=== PATIENT | female | born 1955 | race African-American/Black ===

== ENCOUNTER 2016-10-19 09:13 | Inpatient (IN) | payer MEDICARE, OTHER ==
[~2016-10-19] VITALS: Ht 165.1 cm; Wt 93.0 kg
[2016-10-19] VITALS (11 sets, daily range): BP systolic 109–168; BP diastolic 60–98
[~2016-10-19 09:13] MED LIST: ACET325T21 PO; ARIP30TA PO; BENZ2AMP4 PO; CALC-98 PO; CEPH-264 PO; CHLO25TA4 PO; CLON0.5T PO; CLOP75TA27 PO; DIVA500T2 PO; GABA400C PO; HYDR-971 PO; HYPR15DR9 EACHEYE; INSU100V13 SQ; INSU100V31 SUBCUT; IPRA3AMP23 INH; LORA0.5T96 PO; LOSA1TAB2 PO; MAGN400O4 PO; MAGN400T3 PO; METO25TA4 PO; MULT1CAP15 PO; NITR1PAT11; ONDA4TAB12 PO; PANT40TA3 PO; PHEN100C PO; WARF4TAB7 PO
[2016-10-19 10:13] LABS: BASO # 0.1 x10^3/uL (0.0-0.2); BASO % 1 % (0-3); EOS % 0 % (0-3); HEMATOCRIT 34.8 % (36.0-47.0); HEMOGLOBIN 11.5 g/dL (12.0-15.5); LYMPH # 2.3 x10^3/uL (1.0-4.8); LYMPH % 8 % (24-48); MEAN CORPUSCULAR HEMOGLOBIN 27 pg (25-35); MEAN CORPUSCULAR HGB CONC 33 g/dL (31-37); MEAN CORPUSCULAR VOLUME 83 fL (79-100); MONO % 14 % (0-9); NEUT % 78 % (31-73); PLATELET COUNT 234 x10^3/uL (140-400); RED CELL DISTRIBUTION WIDTH 16.3 % (11.5-14.5); WHITE BLOOD COUNT 29.8 x10^3/uL (4.0-11.0)
--- NOTE | 2016-10-19 10:19 | PHYS DOC ---
Past Medical History Past Medical History: CVA, Dementia, Depression, Diabetes-Type II, GERD, High Cholesterol, Hypertension, Schizophrenia, Other Additional Past Medical Histor: Osteoporosis/Dysphagia/Legal Blindness/Chron antiplatelet/Hemiplegia (L); Past Surgical History: Other Alcohol Use: None Drug Use: None Adult General Chief Complaint Chief Complaint: ALTERED MENTAL STATUS HPI HPI Patient is a 61 year old female who presents with altered mental status. Patient was brought to the emergency department for medical [place] [facility]. Patient was reported by staff to have decreased mental status. Patient at baseline has a GCS of 14 per the staff. Currently the patient is very lethargic and does not provide any history on my exam. The patient did wake up for nursing staff during triage and told them her name and birthdate but no other information. There is reported suspicion the patient may have urinary tract infection. The patient did have an elevated temperature at triage. Patient also found to have a blood sugar by staff at intermediate at 325. Patient was not given insulin today. Review of Systems Review of Systems Unable to obtain from patient due to obtunded state Current Medications Current Medications Current Medications Medications (Trade) Dose Ordered Sig/Gal Start Time Stop Time Status Last Admin Dose Admin Naloxone HCl (Narcan) 0.4 mg 1X ONCE 10/19/16 11:15 10/19/16 11:16 DC 10/19/16 11:20 0.4 MG Sodium Chloride (Iv Sodium Chloride 0.9% 1000ml Bag) 1,000 ml @ 622.5 mls/ hr Q1H37M 10/19/16 09:59 10/19/16 13:59 DC 10/19/16 11:35 622.5 MLS/HR Allergies Allergies Allergies Coded Allergies Type Severity Reaction Last Updated Verified No Known Drug Allergies 01/13/16 No Physical Exam Physical Exam Constitutional: Lethargic, responds to deep painful stimulus, febrile. [] HENT: Normocephalic, atraumatic, bilateral external ears normal, oropharynx dry , no oral exudates, nose normal. [] Eyes: Constricted pupils, normal conjunctiva, no discharge. [] Neck: Normal range of motion, no tenderness, supple, no stridor. [] Cardiovascular: Tachycardia, regular rhythm, no murmur [] Lungs & Thorax: Mildly restricted air movement bilaterally, no wheezes or rales [] Abdomen: Bowel sounds normal, soft, no tenderness, no masses, no pulsatile masses. [] Skin: Warm, dry, no erythema, no rash. [] Back: No tenderness, no CVA tenderness. [] Extremities: No tenderness, no cyanosis, no clubbing, ROM intact, trace pedal edema. [] Neurologic: Lethargic, localizes pain, does not follow commands. [] Current Patient Data Vital Signs Vital Signs Date Time Temp Pulse Resp B/P Pulse Ox O2 Delivery O2 Flow Rate FiO2 10/19/16 11:20 120 20 156/66 98 10/19/16 11:08 Nasal Cannula 2 10/19/16 09:28 100 100.0 Lab Values Laboratory Tests Test 10/19/16 09:32 10/19/16 10:00 10/19/16 10:10 10/19/16 10:15 Glucose (Fingerstick) 278mg/dL (70-99) H White Blood Count 29.8x10^3/uL (4.0-11.0) #H Red Blood Count 4.20x10^6/uL (3.50-5.40) Hemoglobin 11.5g/dL (12.0-15.5) L Hematocrit 34.8% (36.0-47.0) L Mean Corpuscular Volume 83fL (79-100) Mean Corpuscular Hemoglobin 27pg (25-35) Mean Corpuscular Hemoglobin Concent 33g/dL (31-37) Red Cell Distribution Width 16.3% (11.5-14.5) H Platelet Count 234x10^3/uL (140-400) Neutrophils (%) (Auto) 78% (31-73) H Lymphocytes (%) (Auto) 8% (24-48) L Monocytes (%) (Auto) 14% (0-9) H Eosinophils (%) (Auto) 0% (0-3) Basophils (%) (Auto) 1% (0-3) Neutrophils # (Auto) 23.2x10^3uL (1.8-7.7) H Lymphocytes # (Auto) 2.3x10^3/uL (1.0-4.8) Monocytes # (Auto) 4.1x10^3/uL (0.0-1.1) H Eosinophils # (Auto) 0.0x10^3/uL (0.0-0.7) Basophils # (Auto) 0.1x10^3/uL (0.0-0.2) Segmented Neutrophils % 56% (35-66) Band Neutrophils % 22% (0-9) H Lymphocytes % 11% (24-48) L Monocytes % 11% (0-10) H Platelet Estimate Adequate (ADEQUATE) Prothrombin Time 32.2SEC (11.7-14.0) H Prothrombin Time INR 3.4 (0.8-1.1) H PTT 64SEC (24-38) H Sodium Level 137mmol/L (136-145) Potassium Level 3.8mmol/L (3.5-5.1) Chloride Level 100mmol/L (98-107) Carbon Dioxide Level 27mmol/L (21-32) Anion Gap 10 (6-14) Blood Urea Nitrogen 34mg/dL (7-20) H Creatinine 2.4mg/dL (0.6-1.0) H Estimated GFR (Cockcroft-Gault) 25.0 BUN/Creatinine Ratio 14 (6-20) Glucose Level 319mg/dL (70-99) H Lactic Acid Level 1.7mmol/L (0.4-2.0) Calcium Level 9.2mg/dL (8.5-10.1) Total Bilirubin 0.5mg/dL (0.2-1.0) Aspartate Amino Transferase (AST) 11U/L (15-37) L Alanine Aminotransferase (ALT) 14U/L (14-59) Alkaline Phosphatase 77U/L (46-116) Creatine Kinase 66U/L (26-192) Creatine Kinase MB (Mass) 0.8ng/mL (0.0-3.6) Creatine Kinase MB Relative Index % (0-4) Total Protein 8.1g/dL (6.4-8.2) Albumin 2.5g/dL (3.4-5.0) L Albumin/Globulin Ratio 0.4 (1.0-1.7) L Lipase 49U/L (73-393) L Procalcitonin 4.30ng/mL (0.00-0.10) H Urine Collection Type U cath Urine Color [place] Urine Clarity Cloudy Urine pH 5.5 Urine Specific [place] >=1.030 Urine Protein Negativemg/dL (NEG-TRACE) Urine Glucose (UA) 500mg/dL (NEG) Urine Ketones (Stick) Tracemg/dL (NEG) Urine Blood Negative (NEG) Urine Nitrite Positive (NEG) Urine Bilirubin Small (NEG) Urine Urobilinogen Dipstick 1.0mg/dL (0.2 mg/dL) Urine Leukocyte Esterase Small (NEG) Urine RBC Occ/HPF (0-2) Urine WBC 5-10/HPF (0-4) Urine Squamous Epithelial Cells Mod/LPF Urine Bacteria 0/HPF (0-FEW) Urine Hyaline Casts Moderate/HPF Urine Mucus Mod/LPF Influenza Type A Antigen Negative (NEGATIVE) Influenza Type B Antigen Negative (NEGATIVE) Laboratory Tests 10/19/16 10:00 Laboratory Tests 10/19/16 10:00 EKG EKG Interpreted by me: Heart rate 126, sinus tachycardia, leftward axis, no acute ST /T-wave abnormalities present [] Radiology/Procedures Radiology/Procedures [place] [phone] IMAGING REPORT Signed PATIENT: ELIANA LIRA ACCOUNT: [id number] : 1955 LOCATION: ER AGE: 61 SEX: F EXAM STATUS: REG ER ORD. PHYSICIAN: IRIS MÉNDEZ MD REASON: fever, altered mental status PROCEDURE: PORTABLE CHEST 1V Exam: AP portable chest. History: Fever, altered mental status. Comparison: 01/14/2016. Findings: The heart and mediastinal structures are within normal limits for size. Lungs are without infiltrate. No pneumothorax or pleural effusion is appreciated. Aortic atherosclerosis is seen. There is elevation of the right hemidiaphragm. Impression: 1. No acute cardiopulmonary process. DICTATED and SIGNED BY: BERNICE ALDANA MD DATE: 10/19/16 1039 CC: IRIS MÉNDEZ MD; JENISE RAYMUNDO MD ~ [address] [id number] IMAGING REPORT Signed PATIENT: ELIANA LIRA ACCOUNT: [id number] : 1955 LOCATION: ER AGE: 61 SEX: F EXAM STATUS: REG ER ORD. PHYSICIAN: IRIS MÉNDEZ MD REASON: altered mental status PROCEDURE: HEAD WO CONTRAST EXAM: Head CT without contrast. HISTORY: Altered mental status. TECHNIQUE: Computed tomographic images of the head were obtained without contrast. COMPARISON: 01/14/2016. FINDINGS: There is no acute hemorrhage. There is encephalomalacia throughout the right cerebral hemisphere likely due to the sequela of chronic infarction. There is associated ex vacuo dilatation of the right lateral ventricle. There is also encephalomalacia within the left parietal and occipital lobes likely due to chronic infarction. There are scattered areas of hypodensity throughout the cerebral white matter likely due to chronic small vessel disease. There are suspected chronic lacunar infarcts within the left basal ganglia and bilateral thalami. There are foci of encephalomalacia within the cerebellar hemispheres likely due to chronic infarction. There is ossification along the falx and there are calcifications within the right cerebral parenchyma, stable in appearance. The orbits, paranasal sinuses and mastoid air cells are unremarkable. No calvarial lesion is seen. IMPRESSION: 1. Stable encephalomalacia within the right cerebral hemisphere likely due to chronic infarction. 2. Stable chronic infarcts within the left parietal and occipital lobes, cerebellar hemispheres, basal ganglia and thalami. 3. Scattered areas of hypodensity throughout the cerebral white matter, likely due to chronic small vessel disease. 4. Cerebral atrophy. 5. Note is made that MRI is more sensitive for acute infarction. PQRS Compliance Statement: One or more of the following individualized dose reduction techniques were utilized for this examination: 1. Automated exposure control 2. Adjustment of the mA and/or kV according to patient size 3. Use of iterative reconstruction technique DICTATED and SIGNED BY: SHARON ARGUELLES MD DATE: 10/19/16 1119 CC: IRIS MÉNDEZ MD; JENISE RAYMUNDO MD ~ [] Course & Med Decision Making Course & Med Decision Making Pertinent Labs and Imaging studies reviewed. (See chart for details) The patient was started on IV fluids while in the emergency department. The patient's found have signs of urinary tract infection. Patient has tachycardia and significant leukocytosis meeting criteria for sepsis. The patient was started on IV Rocephin for treatment. I spoke with Dr. Raymundo who accepted care patient in hospital for further treatment. Dragon Disclaimer Dragon Disclaimer This electronic medical record was generated, in whole or in part, using a voice recognition dictation system. Departure Departure Impression: Primary Impression: Sepsis Additional Impressions: Urinary tract infection Uncontrolled diabetes mellitus Severe protein-calorie malnutrition Disposition: ADMITTED INPATIENT Admitting Physician: Jenise Raymundo Condition: GUARDED Referrals: JENISE RAYMUNDO MD (PCP) Problem Qualifiers Primary Impression: Sepsis Sepsis type: sepsis due to unspecified organism Qualified Code: A41.9 - Sepsis, unspecified organism Additional Impressions: Urinary tract infection Urinary tract infection type: site unspecified Hematuria presence: without hematuria Qualified Code: N39.0 - Urinary tract infection, site not specified Uncontrolled diabetes mellitus Diabetes mellitus type: type 2 Diabetes mellitus complication status: with hyperglycemia 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
[2016-10-19] MEDS: IV NORMAL SALINE 1000ML BAG 1,000 ML IV SCH ×4 (10:20→13:13)
[2016-10-19 10:29] LABS: CALCIUM 9.2 mg/dL (8.5-10.1); CREATININE 2.4 mg/dL (0.6-1.0); POTASSIUM 3.8 mmol/L (3.5-5.1)
[2016-10-19 10:34] LABS: ALBUMIN 2.5 g/dL (3.4-5.0); ALBUMIN/GLOBULIN RATIO 0.4 (1.0-1.7); TOTAL BILIRUBIN 0.5 mg/dL (0.2-1.0); TOTAL PROTEIN 8.1 g/dL (6.4-8.2)
[2016-10-19 10:36] LABS: BILIRUBIN,URINE SMALL (NEG); GLUCOSE,URINE 500 mg/dL (NEG); NITRITE,URINE POSITIVE (NEG); PH,URINE 5.5
[2016-10-19 10:40] LABS: INR 3.4 (0.8-1.1); PROTHROMBIN TIME PATIENT 32.2 SEC (11.7-14.0)
--- NOTE | 2016-10-19 10:42 | RAD ---
Exam: AP portable chest. History: Fever, altered mental status. Comparison: 01/14/2016. Findings: The heart and mediastinal structures are within normal limits for size. Lungs are without infiltrate. No pneumothorax or pleural effusion is appreciated. Aortic atherosclerosis is seen. There is elevation of the right hemidiaphragm. Impression: 1. No acute cardiopulmonary process.
[2016-10-19 10:51] LABS: CKMB MASS 0.8 ng/mL (0.0-3.6); CREATINE KINASE 66 U/L (26-192)
[2016-10-19 10:53] LABS: OBC FLU VALID
[2016-10-19 10:54] LABS: PROTEIN,URINE NEGATIVE (NEG-TRACE); RBC,URINE OCC /HPF (0-2)
[2016-10-19 10:55] LABS: BACTERIA,URINE 0 /HPF (0-FEW); SQUAMOUS EPITHELIAL CELL,UR MOD /LPF
[2016-10-19] MEDS ORDERED: NALOXONE 0.4 MG/ML VIAL. ONE (11:04)
[2016-10-19 11:12] LABS: PROCALCITONIN 4.3 ng/mL (0.00-0.10)
--- NOTE | 2016-10-19 11:13 | EKG ---
[facility] [address] [place] [address] Test Date: 2016-10-19 Test Time: 09:34:30 Pat Name: ELIANA LIRA Department: Room: Gender: F Scale Expert: HSERRY : 1955 Requested By: IRIS MÉNDEZ Order Number: [id number] Reading MD: Vasyl Rios Measurements Intervals [place] Rate: 126 P: -84 MT: 98 QRS: -26 QRSD: 82 T: 62 QT: 350 QTc: 515 Interpretive Statements SINUS TACHYCARDIA NON-SPECIFIC ST/T CHANGES Electronically Signed On 10-25-2016 11:25:57 PARTS FINISHER by Vasyl Rios
[2016-10-19] MEDS ORDERED: NALOXONE 0.4 MG/ML VIAL. IV ONE (11:15)
--- NOTE | 2016-10-19 11:25 | RAD ---
EXAM: Head CT without contrast. HISTORY: Altered mental status. TECHNIQUE: Computed tomographic images of the head were obtained without contrast. COMPARISON: 01/14/2016. FINDINGS: There is no acute hemorrhage. There is encephalomalacia throughout the right cerebral hemisphere likely due to the sequela of chronic infarction. There is associated ex vacuo dilatation of the right lateral ventricle. There is also encephalomalacia within the left parietal and occipital lobes likely due to chronic infarction. There are scattered areas of hypodensity throughout the cerebral white matter likely due to chronic small vessel disease. There are suspected chronic lacunar infarcts within the left basal ganglia and bilateral thalami. There are foci of encephalomalacia within the cerebellar hemispheres likely due to chronic infarction. There is ossification along the falx and there are calcifications within the right cerebral parenchyma, stable in appearance. The orbits, paranasal sinuses and mastoid air cells are unremarkable. No calvarial lesion is seen. IMPRESSION: 1. Stable encephalomalacia within the right cerebral hemisphere likely due to chronic infarction. 2. Stable chronic infarcts within the left parietal and occipital lobes, cerebellar hemispheres, basal ganglia and thalami. 3. Scattered areas of hypodensity throughout the cerebral white matter, likely due to chronic small vessel disease. 4. Cerebral atrophy. 5. Note is made that MRI is more sensitive for acute infarction. PQRS Compliance Statement: One or more of the following individualized dose reduction techniques were utilized for this examination: 1. Automated exposure control 2. Adjustment of the mA and/or kV according to patient size 3. Use of iterative reconstruction technique
[2016-10-19] MEDS ORDERED: BUSP10TA PO (11:42)
[2016-10-19] MEDS ORDERED: WARF6TAB PO (11:43)
[2016-10-19] MEDS ORDERED: VALP250C PO (11:44)
[2016-10-19] MEDS ORDERED: LISI-338 PO (11:46)
[2016-10-19] MEDS ORDERED: GABA400C PO (11:51)
[2016-10-19] MEDS ORDERED: MIRT15TA PO (11:59)
[2016-10-19] MEDS ORDERED: OLAN5TAB3 PO (11:59)
[2016-10-19] MEDS ORDERED: SIMV10TA3 PO (11:59)
[2016-10-19] MEDS ORDERED: ACETAMINOPHEN 325 MG TABLET. PO PRN ×2 (12:00→17:15)
[2016-10-19] MEDS ORDERED: ONDANSETRON PF 4 MG/2 ML VIAL. IV PRN (12:00)
[2016-10-19] MEDS ORDERED: CEFTRIAXONE 1GM IVPB FOR OMNI 50 ML IV ONE (12:00)
--- NOTE | 2016-10-19 12:39 | ACF ---
Admission Forms Criteria SEPSIS and OTHER FEBRILE ILLNESS, W/O FOCAL INFECTION Clinical Indications for Admission to Inpatient Care ( Place 'X' for any and all applicable criteria): Admission is indicated for ANY ONE of the following (1)(2)(3)(4): [ ] I. Bacteremia [ ]II. Suspected or identified specific infection requiring hospitalization (eg, meningitis, endocarditis) [ ]III. Hemodynamic instability [X]IV. Altered mental status [ ]V. Failure or unavailability of outpatient antimicrobial treatment [ ]. Hypoxemia [ ]VII. Seizures [ ]VIII. High-risk febrile neutropenia [ ]IX. Need for parenteral antibiotic in patient who is likely to abuse vascular access device (eg, injection drug user) [A](7) [ ]X. Temperature greater than 104.9 degrees F (40.5 degrees C) (oral) [ ]XI. Inpatient admission required rather than observation care because of ANY ONE of the following: [ ]1) Specific infection identified that is too severe for outpatient treatment or observation care trial [ ]2) Metabolic disorder (eg, hypoglycemia, hyperglycemia, metabolic acidosis) that is severe or persistent [ ]3) Temperature greater than 103.1 degrees F (39.5 degrees C) ( oral) that is not responsive to observation care treatment [ ]4) IV fluid to replace significant ongoing (eg, for over 24 hours) losses (> 3 L/m2 per day) [ ]5) Supplemental oxygen or respiratory treatments for over 24 hours that is performable only in acute inpatient setting [ ]6) Parenteral nutrition regimen need that must be implemented on inpatient basis [ ]7) Strict or protective (eg, laminar flow) isolation [ ]8) Other condition, treatment or monitoring requiring inpatient admission Extended stay beyond goal length of stay may be needed for(1)(3) [ ]a) Sepsis or septic shock(22) [ ]b) Positive blood cultures [ ]c) Insufficient oral intake [ ]d) High-risk febrile neutropenia(29)(30) [ ]e) Continued fever and clinical instability [ ]f) Clinically active comorbid illness (e.g,heart failure, renal failure , diabetes) The original [employer] content created by [employer] has been revised. The portions of the content which have been revised are identified through the use of italic text or in bold, and [employer] has neither reviewed nor approved the modified material. All other unmodified content is copyright [facility]. Please see references footnoted in the original [facility] edition 2016 Admission Criteria Met?: Yes EFRAIN BEEBE Oct 19, 2016 12:39
[2016-10-19 14:13] LABS: PLT ESTIMATE ADEQUATE (ADEQUATE)
[2016-10-19] MEDS ORDERED: CHOL100013 PO (15:45)
[2016-10-19] MEDS ORDERED: POLY17PO5 PO (15:45)
[2016-10-19] MEDS ORDERED: SENN1TAB7 PO (15:45)
[2016-10-19] MEDS ORDERED: PHEN100C4 PO (15:45)
[2016-10-19] MEDS ORDERED: CHLO100T6 PO (15:45)
[2016-10-19] MEDS ORDERED: DIVA500T4 PO (15:45)
[2016-10-19] MEDS ORDERED: WARF1TAB7 PO (15:45)
[2016-10-19] MEDS ORDERED: ACET325T21 PO (15:45)
[2016-10-19] MEDS ORDERED: BENZ2TAB5 PO (15:45)
[2016-10-19] MEDS ORDERED: LORAZEPAM 0.5 MG TABLET. PO PRN (17:15)
[2016-10-19] MEDS ORDERED: HYDROCODONE/APAP 5/325MG TABLET. PO PRN (17:15)
[2016-10-19] MEDS: PIPERACILLIN/TAZOBACTAM 3.375 GM in IV NORMAL SALINE 50ML 50 ML IV SCH (17:56)
[2016-10-19] MEDS: INSULIN ASPART 300 UNITS/3 ML INSULN.PEN SQ SCH (17:59)
[2016-10-19] MEDS: PHENYTOIN SODIUM EXTENDED 100 MG CAPSULE PO SCH (21:00)
[2016-10-19] MEDS: VALPROIC ACID 250 MG CAPSULE. PO SCH (21:00)
[2016-10-19] MEDS: DIVALPROEX EXTENDED RELEASE 500 MG TAB.ER.24H. PO SCH (21:00)
[2016-10-19] MEDS: CLONAZEPAM 0.5 MG TABLET PO SCH (21:19)
[2016-10-19] MEDS: SIMVASTATIN 10 MG TABLET PO SCH (21:19)
[2016-10-19] MEDS: OLANZAPINE 2.5 MG TABLET PO SCH (21:19)
[2016-10-19] MEDS: POLYVINYL ALCOHOL 1.4% OPHTH SOLUTION 15ML BOTTLE. OU SCH (21:20)
[2016-10-19] MEDS: busPIRone 5 MG TABLET. PO SCH (21:20)
[2016-10-19] MEDS: GABAPENTIN 400 MG CAPSULE. PO SCH (21:20)
[2016-10-19] MEDS: CHLORPROMAZINE 25 MG PO SCH ×2 (21:20)
[2016-10-19] MEDS: MIRTAZAPINE 15 MG TABLET PO SCH (21:20)
[2016-10-19] MEDS: INSULIN DETEMIR 300 UNITS/3 ML INSULN.PEN. SQ SCH (21:21)
[2016-10-20] VITALS (24 sets, daily range): BP systolic 77–183; BP diastolic 45–91
[2016-10-20] MEDS: IV NORMAL SALINE 1000ML BAG 1,000 ML IV SCH ×2 (00:30→08:36)
[2016-10-20] MEDS: PIPERACILLIN/TAZOBACTAM 3.375 GM in IV NORMAL SALINE 50ML 50 ML IV SCH ×3 (05:29→22:04)
[2016-10-20 07:08] LABS: BASO # 0.1 x10^3/uL (0.0-0.2); BASO % 1 % (0-3); EOS % 0 % (0-3); HEMATOCRIT 35.1 % (36.0-47.0); LYMPH # 1.5 x10^3/uL (1.0-4.8); LYMPH % 6 % (24-48); MEAN CORPUSCULAR HEMOGLOBIN 27 pg (25-35); MEAN CORPUSCULAR HGB CONC 32 g/dL (31-37); MEAN CORPUSCULAR VOLUME 85 fL (79-100); MONO % 12 % (0-9); NEUT % 82 % (31-73); PLATELET COUNT 183 x10^3/uL (140-400); RED BLOOD COUNT 4.12 x10^6/uL (3.50-5.40); RED CELL DISTRIBUTION WIDTH 15.7 % (11.5-14.5); WHITE BLOOD COUNT 25.5 x10^3/uL (4.0-11.0)
[2016-10-20 07:16] LABS: ALBUMIN 2.1 g/dL (3.4-5.0); ALBUMIN/GLOBULIN RATIO 0.4 (1.0-1.7); ALK PHOS 85 U/L (46-116); ALT (SGPT) 13 U/L (14-59); ANION GAP 14 (6-14); AST (SGOT) 14 U/L (15-37); BLOOD UREA NITROGEN 19 mg/dL (7-20); BUN/CREATININE RATIO 21 (6-20); CALCIUM 8.6 mg/dL (8.5-10.1); CARBON DIOXIDE 23 mmol/L (21-32); CHLORIDE 106 mmol/L (98-107); CREATININE 0.9 mg/dL (0.6-1.0); GFR 77.5; GLUCOSE 304 mg/dL (70-99); POTASSIUM 3.8 mmol/L (3.5-5.1); SODIUM 143 mmol/L (136-145); TOTAL PROTEIN 7.4 g/dL (6.4-8.2)
[2016-10-20 07:27] LABS: PROTHROMBIN TIME PATIENT 29.3 SEC (11.7-14.0)
--- NOTE | 2016-10-20 07:33 | PDOC ---
Infectious Disease Note Vital Sign Vital Signs Vital Signs Date Time Temp Pulse Resp B/P Pulse Ox O2 Delivery O2 Flow Rate FiO2 10/20/16 06:00 125 20 136/74 96 Nasal Cannula 2.0 10/20/16 04:00 101.2 101.2 Labs Lab Laboratory Tests Test 10/19/16 09:32 10/19/16 10:00 10/19/16 10:10 10/19/16 10:15 Glucose (Fingerstick) 278mg/dL (70-99) White Blood Count 29.8x10^3/uL (4.0-11.0) Red Blood Count 4.20x10^6/uL (3.50-5.40) Hemoglobin 11.5g/dL (12.0-15.5) Hematocrit 34.8% (36.0-47.0) Mean Corpuscular Volume 83fL (79-100) Mean Corpuscular Hemoglobin 27pg (25-35) Mean Corpuscular Hemoglobin Concent 33g/dL (31-37) Red Cell Distribution Width 16.3% (11.5-14.5) Platelet Count 234x10^3/uL (140-400) Neutrophils (%) (Auto) 78% (31-73) Lymphocytes (%) (Auto) 8% (24-48) Monocytes (%) (Auto) 14% (0-9) Eosinophils (%) (Auto) 0% (0-3) Basophils (%) (Auto) 1% (0-3) Neutrophils # (Auto) 23.2x10^3uL (1.8-7.7) Lymphocytes # (Auto) 2.3x10^3/uL (1.0-4.8) Monocytes # (Auto) 4.1x10^3/uL (0.0-1.1) Eosinophils # (Auto) 0.0x10^3/uL (0.0-0.7) Basophils # (Auto) 0.1x10^3/uL (0.0-0.2) Segmented Neutrophils % 56% (35-66) Band Neutrophils % 22% (0-9) Lymphocytes % 11% (24-48) Monocytes % 11% (0-10) Platelet Estimate Adequate (ADEQUATE) Prothrombin Time 32.2SEC (11.7-14.0) Prothromb Time International Ratio 3.4 (0.8-1.1) Activated Partial Thromboplast Time 64SEC (24-38) Sodium Level 137mmol/L (136-145) Potassium Level 3.8mmol/L (3.5-5.1) Chloride Level 100mmol/L (98-107) Carbon Dioxide Level 27mmol/L (21-32) Anion Gap 10 (6-14) Blood Urea Nitrogen 34mg/dL (7-20) Creatinine 2.4mg/dL (0.6-1.0) Estimated GFR (Cockcroft-Gault) 25.0 BUN/Creatinine Ratio 14 (6-20) Glucose Level 319mg/dL (70-99) Lactic Acid Level 1.7mmol/L (0.4-2.0) Calcium Level 9.2mg/dL (8.5-10.1) Total Bilirubin 0.5mg/dL (0.2-1.0) Aspartate Amino Transf (AST/SGOT) 11U/L (15-37) Alanine Aminotransferase (ALT/SGPT) 14U/L (14-59) Alkaline Phosphatase 77U/L (46-116) Creatine Kinase 66U/L (26-192) Creatine Kinase MB (Mass) 0.8ng/mL (0.0-3.6) Creatine Kinase MB Relative Index % (0-4) Total Protein 8.1g/dL (6.4-8.2) Albumin 2.5g/dL (3.4-5.0) Albumin/Globulin Ratio 0.4 (1.0-1.7) Lipase 49U/L (73-393) Procalcitonin 4.30ng/mL (0.00-0.10) Urine Collection Type U cath Urine Color [place] Urine Clarity Cloudy Urine pH 5.5 Urine Specific [place] >=1.030 Urine Protein Negativemg/dL (NEG-TRACE) Urine Glucose (UA) 500mg/dL (NEG) Urine Ketones (Stick) Tracemg/dL (NEG) Urine Blood Negative (NEG) Urine Nitrite Positive (NEG) Urine Bilirubin Small (NEG) Urine Urobilinogen Dipstick 1.0mg/dL (0.2 mg/dL) Urine Leukocyte Esterase Small (NEG) Urine RBC Occ/HPF (0-2) Urine WBC 5-10/HPF (0-4) Urine Squamous Epithelial Cells Mod/LPF Urine Bacteria 0/HPF (0-FEW) Urine Hyaline Casts Moderate/HPF Urine Mucus Mod/LPF Influenza Type A Antigen Negative (NEGATIVE) Influenza Type B Antigen Negative (NEGATIVE) Test 10/19/16 12:30 10/19/16 13:00 10/19/16 16:30 10/19/16 17:48 Lactic Acid Level 2.9mmol/L (0.4-2.0) 2.8mmol/L (0.4-2.0) Nasal Screen MRSA (PCR) Positive (Negative) Glucose (Fingerstick) 261mg/dL (70-99) Test 10/19/16 21:08 10/19/16 21:20 10/20/16 06:45 Glucose (Fingerstick) 225mg/dL (70-99) Lactic Acid Level 2.0mmol/L (0.4-2.0) White Blood Count 25.5x10^3/uL (4.0-11.0) Red Blood Count 4.12x10^6/uL (3.50-5.40) Hemoglobin 11.0g/dL (12.0-15.5) Hematocrit 35.1% (36.0-47.0) Mean Corpuscular Volume 85fL (79-100) Mean Corpuscular Hemoglobin 27pg (25-35) Mean Corpuscular Hemoglobin Concent 32g/dL (31-37) Red Cell Distribution Width 15.7% (11.5-14.5) Platelet Count 183x10^3/uL (140-400) Neutrophils (%) (Auto) 82% (31-73) Lymphocytes (%) (Auto) 6% (24-48) Monocytes (%) (Auto) 12% (0-9) Eosinophils (%) (Auto) 0% (0-3) Basophils (%) (Auto) 1% (0-3) Neutrophils # (Auto) 20.9x10^3uL (1.8-7.7) Lymphocytes # (Auto) 1.5x10^3/uL (1.0-4.8) Monocytes # (Auto) 3.0x10^3/uL (0.0-1.1) Eosinophils # (Auto) 0.0x10^3/uL (0.0-0.7) Basophils # (Auto) 0.1x10^3/uL (0.0-0.2) Prothrombin Time 29.3SEC (11.7-14.0) Prothromb Time International Ratio 3.0 (0.8-1.1) Sodium Level 143mmol/L (136-145) Potassium Level 3.8mmol/L (3.5-5.1) Chloride Level 106mmol/L (98-107) Carbon Dioxide Level 23mmol/L (21-32) Anion Gap 14 (6-14) Blood Urea Nitrogen 19mg/dL (7-20) Creatinine 0.9mg/dL (0.6-1.0) Estimated GFR (Cockcroft-Gault) 77.5 BUN/Creatinine Ratio 21 (6-20) Glucose Level 304mg/dL (70-99) Calcium Level 8.6mg/dL (8.5-10.1) Total Bilirubin 1.0mg/dL (0.2-1.0) Aspartate Amino Transf (AST/SGOT) 14U/L (15-37) Alanine Aminotransferase (ALT/SGPT) 13U/L (14-59) Alkaline Phosphatase 85U/L (46-116) Total Protein 7.4g/dL (6.4-8.2) Albumin 2.1g/dL (3.4-5.0) Albumin/Globulin Ratio 0.4 (1.0-1.7) Phenytoin (Dilantin) Level 3.1mcg/mL (10.0-20.0) Phenytoin Last Dose Date 10/18/16 Phenytoin Last Dose Time 0800 Objective Assessment Fever Leukocytosis Lactic acidosis Encephalopathy CVA UTI Plan Plan of Care vanc and zosyn check cultures ? baseline mental status ? hospice RAGHU YOU MD Oct 20, 2016 07:33
[2016-10-20] MEDS ORDERED: VANCOMYCIN 2 GM in IV NORMAL SALINE 500ML BAG 500 ML IV ONE (08:00)
[2016-10-20] MEDS: PANTOPRAZOLE 40 MG TABLET. PO SCH (08:33)
[2016-10-20] MEDS: POLYVINYL ALCOHOL 1.4% OPHTH SOLUTION 15ML BOTTLE. OU SCH ×4 (08:33→20:01)
[2016-10-20] MEDS: PHENYTOIN SODIUM EXTENDED 100 MG CAPSULE PO SCH ×2 (08:34→20:11)
[2016-10-20] MEDS: DIVALPROEX EXTENDED RELEASE 500 MG TAB.ER.24H. PO SCH ×2 (08:34→20:10)
[2016-10-20] MEDS: LISINOPRIL 5 MG TABLET. PO SCH (08:35)
[2016-10-20] MEDS: busPIRone 5 MG TABLET. PO SCH ×3 (08:35→20:00)
[2016-10-20] MEDS: MULTIVITAMIN with MINERAL TABLET. PO SCH (08:35)
[2016-10-20] MEDS: BENZTROPINE MESYLATE 1 MG TABLET PO SCH (08:36)
[2016-10-20] MEDS: INSULIN ASPART 300 UNITS/3 ML INSULN.PEN SQ SCH ×3 (08:40→16:14)
[2016-10-20] MEDS ORDERED: PHENYTOIN SODIUM EXTENDED 100 MG CAPSULE PO ONE (09:00)
[2016-10-20] MEDS: INSULIN DETEMIR 300 UNITS/3 ML INSULN.PEN. SQ SCH ×2 (09:23→20:04)
[2016-10-20] MEDS: VANCOMYCIN PER PHARMACY MC PRN (09:39)
[2016-10-20] MEDS ORDERED: CEFTRIAXONE SODIUM 1 GM in IV NORMAL SALINE 50ML 50 ML IV SCH (12:00)
--- NOTE | 2016-10-20 12:16 | HP ---
ADMIT DATE: 10/19/2016 ADMITTING PHYSICIAN: Dr. Pablo Rojas. REASON FOR ADMISSION: Change in mental status. HISTORY OF PRESENT ILLNESS: This 61 years old female who is a resident of [facility] was noted to be much less responsive and lethargic. She also was noted to have fever in the Emergency Room. Because of the change in mental status, the patient was sent to the Emergency Room. In the Emergency Room, the patient was noted to have sepsis and UTI with elevated lactic acid levels and abnormal urine and very high WBC count, more than 25,000. Because of the change in mental status, sepsis, lethargy and urinary tract infection, the patient was admitted to Intensive Care Unit. SYSTEMS REVIEW: The patient is lethargic. She opens her eyes, but falls asleep very quickly. She says one or two words, unable to get full systems reviewed. Other systems reviewed and are negative. PAST MEDICAL HISTORY: The patient was last admitted here in June 2014. She has a history of right lower lobe pneumonia, acute hypoxic respiratory failure, hypertension, hyperlipidemia, cerebrovascular accident with seizure disorder, schizophrenia, diabetes mellitus type 2, dementia, gastroesophageal reflux disease, and blindness. PAST SURGICAL HISTORY: The patient had nontraumatic fracture, vitamin D deficiency, osteoporosis, tibiofibular fracture, diabetic neuropathy and she also has peripheral vascular disease. SOCIAL HISTORY: The patient is a resident of [facility]. No history of alcoholism, drug abuse or smoking. FAMILY HISTORY: Reviewed and noncontributory. OBJECTIVE: VITAL SIGNS: Pulse 120 per minute, temperature earlier was 101.4 degrees Fahrenheit, blood pressure 157/78 mmHg, respirations 18 per minute. GENERAL: The patient is very lethargic, barely opens her eyes and falls asleep. She says one or two words. SKIN: Warm and dry. Skin turgor decreased. EYES: The patient has legal blindness, unable to examine properly. THROAT: Mild congestion. Tongue and mucosa are dry. SKIN: Warm and dry. There is no cyanosis. NECK: JVP normal. No thyromegaly. Trachea midline. LUNGS: Decreased breath sounds at bases. CARDIOVASCULAR: S1 and S2 regular. ABDOMEN: Soft, obese, nontender, no guarding, no rigidity. Bowel sounds present. EXTREMITIES: No edema. CENTRAL NERVOUS SYSTEM: Unable to do full exam as patient is unable to cooperate. She is extremely lethargic and unable to follow any commands. LABORATORY FINDINGS: WBC count was 29.8 yesterday and 25.5 today, hemoglobin 11.5 yesterday and 11 today. Sodium 143, potassium 3.8, BUN 19, creatinine 0.9, glucose 261, 225, 304, 262. Sodium yesterday was 137, potassium was 3.8, BUN 34 and creatinine 2.4. Procalcitonin was 4.3. Lactic acid level went up to 2.9, today it is 2. Urinalysis is positive for nitrite, 5-10 wbc's, 0 bacteria. WBC count was 29.8 yesterday and 25.5 today. INR is 3. CT scan of head did not show any acute changes. Chest x-ray did not show any infiltrates. IMPRESSION: 1. Sepsis. 2. Acute metabolic encephalopathy. 3. Urinary tract infection. 4. Acute renal failure. 5. Seizure disorder with low Dilantin level of 3. 6. Diabetes mellitus type 2. 7. Dementia. 8. Paranoid schizophrenia. 9. Physical deconditioning. 10. Moderate malnutrition with albumin of 2.5. 11. Peripheral vascular disease. 12. Hyperlipidemia. 13. History of hypertension. 14. Gastroesophageal reflux disease. 15. Osteoporosis. 16. Vitamin D deficiency. 17. Legal blindness. PLAN: The patient has been admitted to ICU. The patient was given IV fluid bolus this morning because of the low blood pressure. We will continue IV fluids that have been increased. Monitor her for fluid overload. The patient has been given one dose of IV vancomycin. She has received Rocephin also. Obtain cultures. Consultation has been obtained with Dr. Amrik Steve. Monitor for seizure disorder, Dilantin level is low at 3, so I will give her extra dose of Dilantin. For details, please refer to the orders. PABLO ROJAS MD DR: JAME/david JOB#: [id number] / [id number]
[2016-10-20] MEDS ORDERED: IV NORMAL SALINE 1000ML BAG 1,000 ML IV ONE (15:30)
[2016-10-20] MEDS ORDERED: WARFARIN 3 MG TABLET. PO ONE (16:00)
[2016-10-20] MEDS ORDERED: WARFARIN 6 MG TABLET. PO SCH (16:00)
[2016-10-20] MEDS ORDERED: WARFARIN 1 MG TABLET. PO SCH (16:00)
[2016-10-20] MEDS: ACETAMINOPHEN 325 MG TABLET. PO PRN (17:21)
[2016-10-20] MEDS: MIRTAZAPINE 15 MG TABLET PO SCH (20:01)
[2016-10-20] MEDS: OLANZAPINE 2.5 MG TABLET PO SCH (20:01)
[2016-10-20] MEDS: CLONAZEPAM 0.5 MG TABLET PO SCH (20:01)
[2016-10-20] MEDS: GABAPENTIN 400 MG CAPSULE. PO SCH (20:01)
[2016-10-20] MEDS: SIMVASTATIN 10 MG TABLET PO SCH (20:01)
[2016-10-20] MEDS: CHLORPROMAZINE 25 MG PO SCH ×2 (20:01→20:14)
[2016-10-20] MEDS: VALPROIC ACID 250 MG CAPSULE. PO SCH (20:10)
[2016-10-20] MEDS: VANCOMYCIN 1.25 GM in IV NORMAL SALINE 250ML 250 ML IV SCH (21:00)
--- NOTE | 2016-10-20 22:03 | CONS ---
DATE OF CONSULTATION: 10/20/2016 REQUESTING PHYSICIAN: Dr. Raymundo. REASON FOR CONSULTATION: Sepsis. HISTORY OF PRESENT ILLNESS: This is a 61-year-old female who is a skilled nursing resident with history of CVA and dementia, apparently who we do not know what her baseline mental status and activity status is, was brought in because of the altered mental status. The patient just mumbles few words and other than that, no other communication is possible. The patient was found to have fever, leukocytosis, abnormal urinalysis, lactic acidosis. The patient was given fluids, started initially on Rocephin. I changed to Zosyn. The patient does not have any skin breakdown. The patient does not have any problem with the blood pressure. Lactic acid improved. The patient is still currently opens eyes and mumbles, could not known communication is possible. No nausea, vomiting, diarrhea noted. PAST MEDICAL HISTORY: Positive for CVA, dementia, diabetes, gastroesophageal reflux disease, hyperlipidemia, hypertension, schizophrenia. SOCIAL HISTORY: Unable to obtain, the patient is a skilled nursing resident. ALLERGIES: No known drug allergies. CURRENT MEDICATIONS: The patient is on Zosyn. REVIEW OF SYSTEMS: As per HPI, all other systems reviewed are negative through the nurses, but nothing much can be done through the patient. PHYSICAL EXAMINATION: GENERAL: The patient opens eyes and mumbles few words, not in any distress. VITAL SIGNS: Temperature 100.2 with T-max 101.2. Pulse 125, respirations 20, blood pressure 136/74. HEENT: NAD. NECK: Stiff, unclear whether related to her baseline status or new. No lymphadenopathy. LUNGS: Clear. HEART: S1, S2 regular. ABDOMEN: Benign. EXTREMITIES: No edema, cyanosis. SKIN: Unremarkable. NEUROLOGIC: The patient is unresponsive and mumbles few words here and there, that is not understandable. LABORATORY DATA: White count is 25,000, hemoglobin 11.0, platelets are 183,000. BUN 34 and 2.4, which has now improved to 19 and 0.9. The lactic acid was up to 2.9. Phenytoin level is 3.1. Urinalysis showed 5-10 wbc. MRSA screen positive. Influenza screen negative. IMAGING STUDIES: Chest x-ray is unremarkable for any acute process. CT of the head was unremarkable for any new changes. Does have encephalomalacia from chronic infarct. IMPRESSION: 1. Fever, leukocytosis and lactic acidosis, points towards sepsis. 2. Urinary tract infection with sepsis. 3. Encephalopathy, question how much is new, how much is old. 4. Multiple cerebrovascular accident in the past. 5. Dementia. 6. Acute renal failure, which has improved because of the dehydration. RECOMMENDATIONS: I would continue Zosyn as I had started, add vancomycin. Supportive care. More information from the skilled nursing or from Dr. Raymundo, depending upon that, that we may decide to do lumbar puncture or not. Thank you very much, Dr. Raymundo, for giving me the opportunity to participate in this patient's care. Overall, prognosis is poor. RAGHU YOU MD DR: BOB/nts JOB#: [id number] / [id number]
[2016-10-21] VITALS (16 sets, daily range): BP systolic 91–156; BP diastolic 48–84
[2016-10-21 06:13] LABS: INR 2.7 (0.8-1.1); PROTHROMBIN TIME PATIENT 27.4 SEC (11.7-14.0)
[2016-10-21] MEDS: PIPERACILLIN/TAZOBACTAM 3.375 GM in IV NORMAL SALINE 50ML 50 ML IV SCH ×3 (06:16→17:50)
[2016-10-21 06:18] LABS: ALBUMIN 1.7 g/dL (3.4-5.0); ALBUMIN/GLOBULIN RATIO 0.3 (1.0-1.7); CREATININE 1.8 mg/dL (0.6-1.0); GFR 34.8; MAGNESIUM 1.6 mg/dL (1.8-2.4); POTASSIUM 3.4 mmol/L (3.5-5.1); TOTAL BILIRUBIN 1.1 mg/dL (0.2-1.0)
[2016-10-21] MEDS: INSULIN ASPART 300 UNITS/3 ML INSULN.PEN SQ SCH ×3 (07:30→18:03)
[2016-10-21 07:47] LABS: BASO # 0.1 x10^3/uL (0.0-0.2); BASO % 0 % (0-3); EOS % 0 % (0-3); HEMATOCRIT 31.8 % (36.0-47.0); HEMOGLOBIN 9.9 g/dL (12.0-15.5); LYMPH # 1.5 x10^3/uL (1.0-4.8); LYMPH % 6 % (24-48); MEAN CORPUSCULAR HEMOGLOBIN 27 pg (25-35); MEAN CORPUSCULAR HGB CONC 31 g/dL (31-37); MEAN CORPUSCULAR VOLUME 87 fL (79-100); MONO % 15 % (0-9); NEUT % 78 % (31-73); PLATELET COUNT 204 x10^3/uL (140-400); RED BLOOD COUNT 3.66 x10^6/uL (3.50-5.40); RED CELL DISTRIBUTION WIDTH 16.1 % (11.5-14.5); WHITE BLOOD COUNT 24.9 x10^3/uL (4.0-11.0)
--- NOTE | 2016-10-21 08:09 | PDOC ---
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 SKIN: No rash IV: ok Labs Lab Laboratory Tests Test 10/20/16 08:31 10/20/16 12:32 10/20/16 16:11 10/20/16 20:03 Glucose (Fingerstick) 262mg/dL (70-99) 201mg/dL (70-99) 201mg/dL (70-99) 135mg/dL (70-99) Test 10/21/16 05:20 White Blood Count 24.9x10^3/uL (4.0-11.0) Red Blood Count 3.66x10^6/uL (3.50-5.40) Hemoglobin 9.9g/dL (12.0-15.5) Hematocrit 31.8% (36.0-47.0) Mean Corpuscular Volume 87fL (79-100) Mean Corpuscular Hemoglobin 27pg (25-35) Mean Corpuscular Hemoglobin Concent 31g/dL (31-37) Red Cell Distribution Width 16.1% (11.5-14.5) Platelet Count 204x10^3/uL (140-400) Neutrophils (%) (Auto) 78% (31-73) Lymphocytes (%) (Auto) 6% (24-48) Monocytes (%) (Auto) 15% (0-9) Eosinophils (%) (Auto) 0% (0-3) Basophils (%) (Auto) 0% (0-3) Neutrophils # (Auto) 19.5x10^3uL (1.8-7.7) Lymphocytes # (Auto) 1.5x10^3/uL (1.0-4.8) Monocytes # (Auto) 3.8x10^3/uL (0.0-1.1) Eosinophils # (Auto) 0.0x10^3/uL (0.0-0.7) Basophils # (Auto) 0.1x10^3/uL (0.0-0.2) Prothrombin Time 27.4SEC (11.7-14.0) Prothromb Time International Ratio 2.7 (0.8-1.1) Sodium Level 150mmol/L (136-145) Potassium Level 3.4mmol/L (3.5-5.1) Chloride Level 116mmol/L (98-107) Carbon Dioxide Level 26mmol/L (21-32) Anion Gap 8 (6-14) Blood Urea Nitrogen 17mg/dL (7-20) Creatinine 1.8mg/dL (0.6-1.0) Estimated GFR (Cockcroft-Gault) 34.8 BUN/Creatinine Ratio 9 (6-20) Glucose Level 121mg/dL (70-99) Calcium Level 8.0mg/dL (8.5-10.1) Magnesium Level 1.6mg/dL (1.8-2.4) Total Bilirubin 1.1mg/dL (0.2-1.0) Aspartate Amino Transf (AST/SGOT) 24U/L (15-37) Alanine Aminotransferase (ALT/SGPT) 13U/L (14-59) Alkaline Phosphatase 96U/L (46-116) Total Protein 7.0g/dL (6.4-8.2) Albumin 1.7g/dL (3.4-5.0) Albumin/Globulin Ratio 0.3 (1.0-1.7) Objective Assessment Fever Leukocytosis Lactic acidosis Encephalopathy CVA UTI Plan Plan of Care vanc and zosyn check cultures ? baseline mental status DNR RAGHU YOU MD Oct 21, 2016 08:09
[2016-10-21] MEDS: PHENYTOIN SODIUM EXTENDED 100 MG CAPSULE PO SCH ×2 (08:49→21:25)
[2016-10-21] MEDS: INSULIN DETEMIR 300 UNITS/3 ML INSULN.PEN. SQ SCH ×2 (08:49→21:33)
[2016-10-21] MEDS: LISINOPRIL 5 MG TABLET. PO SCH (08:50)
[2016-10-21] MEDS: MULTIVITAMIN with MINERAL TABLET. PO SCH (08:50)
[2016-10-21] MEDS: BENZTROPINE MESYLATE 1 MG TABLET PO SCH (08:50)
[2016-10-21] MEDS: PANTOPRAZOLE 40 MG TABLET. PO SCH (08:50)
[2016-10-21] MEDS: POLYVINYL ALCOHOL 1.4% OPHTH SOLUTION 15ML BOTTLE. OU SCH ×4 (08:50→21:28)
[2016-10-21] MEDS ORDERED: MAGNESIUM SULFATE 2GM 50 ML IV ONE (09:00)
[2016-10-21] MEDS: VANCOMYCIN 1.25 GM in IV NORMAL SALINE 250ML 250 ML IV SCH (09:11)
[2016-10-21] MEDS: VANCOMYCIN PER PHARMACY MC PRN (09:33)
[2016-10-21] MEDS: DIVALPROEX EXTENDED RELEASE 500 MG TAB.ER.24H. PO SCH (09:59)
[2016-10-21] MEDS: busPIRone 5 MG TABLET. PO SCH ×3 (10:00→21:25)
--- NOTE | 2016-10-21 10:19 | PDOC ---
IM PROGRESS NOTES- Subjective Subjective sleeping.Unable to do systems review. Objective Vitals Vital Signs Date Time Temp Pulse Resp B/P Pulse Ox O2 Delivery O2 Flow Rate FiO2 10/21/16 10:01 114 16 134/72 98 Nasal Cannula 2.0 10/21/16 07:00 99.6 99.6 Input & Output Intake and Output 10/21/16 07:00 Intake Total 6410 ml Output Total 2100 ml Balance 4310 ml Intake Oral 0 ml IV Total 2439 ml Other 3971 ml Output Urine Total 2100 ml Physical Exam Physical Exam GENERAL: The patient is sleeping SKIN: Warm and dry. Skin turgor decreased. EYES: The patient has legal blindness, unable to examine properly. THROAT: unable to check SKIN: Warm and dry. There is no cyanosis. NECK: JVP normal. No thyromegaly. Trachea midline. LUNGS: Decreased breath sounds at bases. CARDIOVASCULAR: S1 and S2 regular. ABDOMEN: Soft, obese, nontender, no guarding, no rigidity. Bowel sounds present. EXTREMITIES: + edema. CENTRAL NERVOUS SYSTEM: Unable to do full exam as patient is unable to cooperate. sleeping Labs Laboratory Tests Test 10/19/16 12:30 10/19/16 13:00 10/19/16 16:30 10/19/16 17:48 Lactic Acid Level 2.9mmol/L (0.4-2.0) 2.8mmol/L (0.4-2.0) Nasal Screen MRSA (PCR) Positive (Negative) Glucose (Fingerstick) 261mg/dL (70-99) Test 10/19/16 21:08 10/19/16 21:20 10/20/16 06:45 10/20/16 08:31 Glucose (Fingerstick) 225mg/dL (70-99) 262mg/dL (70-99) Lactic Acid Level 2.0mmol/L (0.4-2.0) White Blood Count 25.5x10^3/uL (4.0-11.0) Red Blood Count 4.12x10^6/uL (3.50-5.40) Hemoglobin 11.0g/dL (12.0-15.5) Hematocrit 35.1% (36.0-47.0) Mean Corpuscular Volume 85fL (79-100) Mean Corpuscular Hemoglobin 27pg (25-35) Mean Corpuscular Hemoglobin Concent 32g/dL (31-37) Red Cell Distribution Width 15.7% (11.5-14.5) Platelet Count 183x10^3/uL (140-400) Neutrophils (%) (Auto) 82% (31-73) Lymphocytes (%) (Auto) 6% (24-48) Monocytes (%) (Auto) 12% (0-9) Eosinophils (%) (Auto) 0% (0-3) Basophils (%) (Auto) 1% (0-3) Neutrophils # (Auto) 20.9x10^3uL (1.8-7.7) Lymphocytes # (Auto) 1.5x10^3/uL (1.0-4.8) Monocytes # (Auto) 3.0x10^3/uL (0.0-1.1) Eosinophils # (Auto) 0.0x10^3/uL (0.0-0.7) Basophils # (Auto) 0.1x10^3/uL (0.0-0.2) Prothrombin Time 29.3SEC (11.7-14.0) Prothromb Time International Ratio 3.0 (0.8-1.1) Sodium Level 143mmol/L (136-145) Potassium Level 3.8mmol/L (3.5-5.1) Chloride Level 106mmol/L (98-107) Carbon Dioxide Level 23mmol/L (21-32) Anion Gap 14 (6-14) Blood Urea Nitrogen 19mg/dL (7-20) Creatinine 0.9mg/dL (0.6-1.0) Estimated GFR (Cockcroft-Gault) 77.5 BUN/Creatinine Ratio 21 (6-20) Glucose Level 304mg/dL (70-99) Calcium Level 8.6mg/dL (8.5-10.1) Total Bilirubin 1.0mg/dL (0.2-1.0) Aspartate Amino Transf (AST/SGOT) 14U/L (15-37) Alanine Aminotransferase (ALT/SGPT) 13U/L (14-59) Alkaline Phosphatase 85U/L (46-116) Total Protein 7.4g/dL (6.4-8.2) Albumin 2.1g/dL (3.4-5.0) Albumin/Globulin Ratio 0.4 (1.0-1.7) Phenytoin (Dilantin) Level 3.1mcg/mL (10.0-20.0) Phenytoin Last Dose Date 10/18/16 Phenytoin Last Dose Time 0800 Test 10/20/16 12:32 10/20/16 16:11 10/20/16 20:03 10/21/16 05:20 Glucose (Fingerstick) 201mg/dL (70-99) 201mg/dL (70-99) 135mg/dL (70-99) White Blood Count 24.9x10^3/uL (4.0-11.0) Red Blood Count 3.66x10^6/uL (3.50-5.40) Hemoglobin 9.9g/dL (12.0-15.5) Hematocrit 31.8% (36.0-47.0) Mean Corpuscular Volume 87fL (79-100) Mean Corpuscular Hemoglobin 27pg (25-35) Mean Corpuscular Hemoglobin Concent 31g/dL (31-37) Red Cell Distribution Width 16.1% (11.5-14.5) Platelet Count 204x10^3/uL (140-400) Neutrophils (%) (Auto) 78% (31-73) Lymphocytes (%) (Auto) 6% (24-48) Monocytes (%) (Auto) 15% (0-9) Eosinophils (%) (Auto) 0% (0-3) Basophils (%) (Auto) 0% (0-3) Neutrophils # (Auto) 19.5x10^3uL (1.8-7.7) Lymphocytes # (Auto) 1.5x10^3/uL (1.0-4.8) Monocytes # (Auto) 3.8x10^3/uL (0.0-1.1) Eosinophils # (Auto) 0.0x10^3/uL (0.0-0.7) Basophils # (Auto) 0.1x10^3/uL (0.0-0.2) Prothrombin Time 27.4SEC (11.7-14.0) Prothromb Time International Ratio 2.7 (0.8-1.1) Sodium Level 150mmol/L (136-145) Potassium Level 3.4mmol/L (3.5-5.1) Chloride Level 116mmol/L (98-107) Carbon Dioxide Level 26mmol/L (21-32) Anion Gap 8 (6-14) Blood Urea Nitrogen 17mg/dL (7-20) Creatinine 1.8mg/dL (0.6-1.0) Estimated GFR (Cockcroft-Gault) 34.8 BUN/Creatinine Ratio 9 (6-20) Glucose Level 121mg/dL (70-99) Calcium Level 8.0mg/dL (8.5-10.1) Magnesium Level 1.6mg/dL (1.8-2.4) Total Bilirubin 1.1mg/dL (0.2-1.0) Aspartate Amino Transf (AST/SGOT) 24U/L (15-37) Alanine Aminotransferase (ALT/SGPT) 13U/L (14-59) Alkaline Phosphatase 96U/L (46-116) Total Protein 7.0g/dL (6.4-8.2) Albumin 1.7g/dL (3.4-5.0) Albumin/Globulin Ratio 0.3 (1.0-1.7) Test 10/21/16 08:48 Glucose (Fingerstick) 83mg/dL (70-99) Laboratory Tests Test 10/20/16 12:32 10/20/16 16:11 10/20/16 20:03 10/21/16 05:20 Glucose (Fingerstick) 201mg/dL (70-99) 201mg/dL (70-99) 135mg/dL (70-99) White Blood Count 24.9x10^3/uL (4.0-11.0) Red Blood Count 3.66x10^6/uL (3.50-5.40) Hemoglobin 9.9g/dL (12.0-15.5) Hematocrit 31.8% (36.0-47.0) Mean Corpuscular Volume 87fL (79-100) Mean Corpuscular Hemoglobin 27pg (25-35) Mean Corpuscular Hemoglobin Concent 31g/dL (31-37) Red Cell Distribution Width 16.1% (11.5-14.5) Platelet Count 204x10^3/uL (140-400) Neutrophils (%) (Auto) 78% (31-73) Lymphocytes (%) (Auto) 6% (24-48) Monocytes (%) (Auto) 15% (0-9) Eosinophils (%) (Auto) 0% (0-3) Basophils (%) (Auto) 0% (0-3) Neutrophils # (Auto) 19.5x10^3uL (1.8-7.7) Lymphocytes # (Auto) 1.5x10^3/uL (1.0-4.8) Monocytes # (Auto) 3.8x10^3/uL (0.0-1.1) Eosinophils # (Auto) 0.0x10^3/uL (0.0-0.7) Basophils # (Auto) 0.1x10^3/uL (0.0-0.2) Prothrombin Time 27.4SEC (11.7-14.0) Prothromb Time International Ratio 2.7 (0.8-1.1) Sodium Level 150mmol/L (136-145) Potassium Level 3.4mmol/L (3.5-5.1) Chloride Level 116mmol/L (98-107) Carbon Dioxide Level 26mmol/L (21-32) Anion Gap 8 (6-14) Blood Urea Nitrogen 17mg/dL (7-20) Creatinine 1.8mg/dL (0.6-1.0) Estimated GFR (Cockcroft-Gault) 34.8 BUN/Creatinine Ratio 9 (6-20) Glucose Level 121mg/dL (70-99) Calcium Level 8.0mg/dL (8.5-10.1) Magnesium Level 1.6mg/dL (1.8-2.4) Total Bilirubin 1.1mg/dL (0.2-1.0) Aspartate Amino Transf (AST/SGOT) 24U/L (15-37) Alanine Aminotransferase (ALT/SGPT) 13U/L (14-59) Alkaline Phosphatase 96U/L (46-116) Total Protein 7.0g/dL (6.4-8.2) Albumin 1.7g/dL (3.4-5.0) Albumin/Globulin Ratio 0.3 (1.0-1.7) Test 10/21/16 08:48 Glucose (Fingerstick) 83mg/dL (70-99) Meds Current Medications Ceftriaxone Sodium/Sodium Chloride (Rocephin/Iv Sodium Chloride 0.9% 50ml) 50 ml @ 100 mls/hr Q24H IV ; Start 10/20/16 at 12:00; Stop 10/20/16 at 12:00; Status DC Magnesium Sulfate/ Dextrose 50 ml @ 25 mls/hr 1X ONCE IV Last administered on 10/21/16 09:59; Start 10/21/16 at 09:00; Stop 10/21/16 at 10:59 Potassium Chloride/Dextrose/ Sod Cl (KCl 20 Meq In D5W-1/2 NS) 1,000 ml @ 100 mls/hr Q10H IV ; Start 10/21/16 at 10:15 Sodium Chloride 1,000 ml @ 1,000 mls/hr 1X ONCE IV Last administered on 16:13; Start 10/20/16 at 15:30; Stop 10/20/16 at 16:29; Status DC Vancomycin HCl 1 each 1X ONCE MC ; Start 10/22/16 at 08:30; Stop 10/22/16 at 08 :31 Vancomycin HCl/ Sodium Chloride (Iv Sodium Chloride 0.9% 250ml) 250 ml @ 167 mls/hr Q12H IV Last administered on 10/21/16 09:11; Start 10/20/16 at 21:00; Stop 10/21/16 at 12:00 Vancomycin HCl/ Sodium Chloride (Iv Sodium Chloride 0.9% 250ml) 250 ml @ 167 mls/hr Q24H IV ; Start 10/22/16 at 09:00 Warfarin Sodium (Coumadin) 1 mg DAILY16 PO ; Start 10/20/16 at 16:00; Stop 10/20 at 16:00; Status DC Warfarin Sodium 3 mg 3 mg 1X WARF ONCE PO Last administered on 10/20/16 16:12 ; Start 10/20/16 at 16:00; Stop 10/20/16 at 16:01; Status DC Warfarin Sodium 6 mg 6 mg 1X WARF ONCE PO ; Start 10/21/16 at 16:00; Stop 10/21 at 16:01 Warfarin Sodium 6 mg 6 mg DAILY16 PO ; Start 10/20/16 at 16:00; Stop 10/20/16 at 16:00; Status DC Assessment Assessment 1. Sepsis. 2. Acute metabolic encephalopathy. 3. Urinary tract infection. 4. Acute renal failure. 5. Seizure disorder with low Dilantin level of 3. 6. Diabetes mellitus type 2. 7. Dementia. 8. Paranoid schizophrenia. 9. Physical deconditioning. 10. Moderate malnutrition with albumin of 2.5. 11. Peripheral vascular disease. 12. Hyperlipidemia. 13. History of hypertension. 14. Gastroesophageal reflux disease. 15. Osteoporosis. 16. Vitamin D deficiency. 17. Legal blindness. PLAN: The patient has been admitted to ICU. The patient was given IV fluid bolus this morning because of the low blood pressure. We will continue IV fluids that have been increased. Monitor her for fluid overload. The patient has been given one dose of IV vancomycin. She has received Rocephin also. Obtain cultures. Consultation has been obtained with Dr. Amrik Steve. Monitor for seizure disorder, Dilantin level is low at 3, so I will give her extra dose of Dilantin. Hypotension,mental status,fever and tachycardia are improving.Decrease IV fluids and change. Hypokalemia- 3.4 replace. Hypernatremia-Change IV fluids to D51/2 NS with 20 meq KCL Hypomagnesemia- 1.6 replace. Plan Plan For more details regarding further plans, please refer to the orders. PABLO ROJAS MD Oct 21, 2016 10:19
[2016-10-21] MEDS: POTASSIUM CL 20MEQ D5-0.45NACL 1,000 ML IV SCH ×2 (10:36→20:15)
--- NOTE | 2016-10-21 13:30 | PDOC2 ---
PALLIATIVE CARE Palliative Care Note Palliative Care Consult requested by Dr. Raymundo and at the request of Emerald/KARON. Diagnosis: Sepsis; acute metabolic encephalopathy, UTI, Acute Renal Failure; seizure disorder; dementia, paranoid schizophrenia, deconditioning, PVD, GI reflux, osteoporosis; Vit D deficiency, legally blind; hyperlipidemia Patient awakens to verbal stimuli. Attempts to answer questions Emerald called. Message given to family to return call to arrange meeting with family. Code Status; DNR/DNI. Emerald returned call. Unable to have meeting today Plan; 1300 Monday. GERMAN DAVILA Oct 21, 2016 13:30
[2016-10-21] MEDS ORDERED: DIVALPROEX SPRINKLES 125 MG CAPSULE. PO SCH (14:30)
[2016-10-21] MEDS: DIVALPROEX SPRINKLES 125 MG CAPSULE. PO SCH ×3 (14:31→23:47)
[2016-10-21] MEDS ORDERED: WARFARIN 6 MG TABLET. PO ONE (16:00)
[2016-10-21] MEDS: ACETAMINOPHEN 325 MG TABLET. PO PRN (17:50)
[2016-10-21] MEDS: OLANZAPINE 2.5 MG TABLET PO SCH (21:00)
[2016-10-21] MEDS ORDERED: OLANZAPINE 5 MG TABLET. PO SCH (21:07)
[2016-10-21] MEDS: VALPROIC ACID 250 MG CAPSULE. PO SCH (21:24)
[2016-10-21] MEDS: CLONAZEPAM 0.5 MG TABLET PO SCH (21:25)
[2016-10-21] MEDS: SIMVASTATIN 10 MG TABLET PO SCH (21:25)
[2016-10-21] MEDS: GABAPENTIN 400 MG CAPSULE. PO SCH (21:25)
[2016-10-21] MEDS: MIRTAZAPINE 15 MG TABLET PO SCH (21:25)
[2016-10-21] MEDS: CHLORPROMAZINE 25 MG PO SCH ×2 (21:31)
[2016-10-21] MEDS: OLANZAPINE 5 MG TABLET. PO SCH (21:34)
[2016-10-22 03:00] VITALS: BP 88/48
[2016-10-22] MEDS: PIPERACILLIN/TAZOBACTAM 3.375 GM in IV NORMAL SALINE 50ML 50 ML IV SCH ×3 (05:58→22:00)
[2016-10-22] MEDS: POTASSIUM CL 20MEQ D5-0.45NACL 1,000 ML IV SCH (05:59)
[2016-10-22] MEDS: DIVALPROEX SPRINKLES 125 MG CAPSULE. PO SCH ×2 (06:04→12:00)
[2016-10-22 07:00] VITALS: BP 112/49
[2016-10-22] MEDS: INSULIN ASPART 300 UNITS/3 ML INSULN.PEN SQ SCH ×3 (07:30→16:34)
[2016-10-22] MEDS: busPIRone 5 MG TABLET. PO SCH ×3 (09:00→22:03)
[2016-10-22] MEDS: POLYVINYL ALCOHOL 1.4% OPHTH SOLUTION 15ML BOTTLE. OU SCH ×4 (09:00→22:00)
[2016-10-22] MEDS: MULTIVITAMIN with MINERAL TABLET. PO SCH (09:00)
[2016-10-22] MEDS ORDERED: VANCOMYCIN 1.25 GM in IV NORMAL SALINE 250ML 250 ML IV SCH (09:00)
[2016-10-22] MEDS: INSULIN DETEMIR 300 UNITS/3 ML INSULN.PEN. SQ SCH ×2 (09:00→21:00)
[2016-10-22] MEDS: PHENYTOIN SODIUM EXTENDED 100 MG CAPSULE PO SCH (09:00)
[2016-10-22] MEDS: BENZTROPINE MESYLATE 1 MG TABLET PO SCH (09:00)
[2016-10-22] MEDS: LISINOPRIL 5 MG TABLET. PO SCH (09:00)
[2016-10-22 09:11] LABS: INR 4.2 (0.8-1.1); PROTHROMBIN TIME PATIENT 38.6 SEC (11.7-14.0)
[2016-10-22 09:14] LABS: ALBUMIN 1.5 g/dL (3.4-5.0); ALBUMIN/GLOBULIN RATIO 0.3 (1.0-1.7); CALCIUM 8.2 mg/dL (8.5-10.1); CREATININE 2.4 mg/dL (0.6-1.0); MAGNESIUM 2.1 mg/dL (1.8-2.4); POTASSIUM 3.7 mmol/L (3.5-5.1); TOTAL BILIRUBIN 0.5 mg/dL (0.2-1.0); TOTAL PROTEIN 6.6 g/dL (6.4-8.2)
[2016-10-22] MEDS: VANCOMYCIN PER PHARMACY MC PRN (09:59)
[2016-10-22 11:00] VITALS: BP 127/74
--- NOTE | 2016-10-22 11:40 | PDOC ---
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 No follow commands SKIN: No rash IV: ok Labs Lab Laboratory Tests Test 10/21/16 12:15 10/21/16 17:05 10/21/16 21:06 10/22/16 08:43 Glucose (Fingerstick) 109mg/dL (70-99) 150mg/dL (70-99) 130mg/dL (70-99) Prothrombin Time 38.6SEC (11.7-14.0) Prothromb Time International Ratio 4.2 (0.8-1.1) Sodium Level 152mmol/L (136-145) Potassium Level 3.7mmol/L (3.5-5.1) Chloride Level 117mmol/L (98-107) Carbon Dioxide Level 24mmol/L (21-32) Anion Gap 11 (6-14) Blood Urea Nitrogen 20mg/dL (7-20) Creatinine 2.4mg/dL (0.6-1.0) Estimated GFR (Cockcroft-Gault) 25.0 BUN/Creatinine Ratio 8 (6-20) Glucose Level 153mg/dL (70-99) Calcium Level 8.2mg/dL (8.5-10.1) Magnesium Level 2.1mg/dL (1.8-2.4) Total Bilirubin 0.5mg/dL (0.2-1.0) Aspartate Amino Transf (AST/SGOT) 18U/L (15-37) Alanine Aminotransferase (ALT/SGPT) 18U/L (14-59) Alkaline Phosphatase 89U/L (46-116) Total Protein 6.6g/dL (6.4-8.2) Albumin 1.5g/dL (3.4-5.0) Albumin/Globulin Ratio 0.3 (1.0-1.7) Vancomycin Level Trough 25.2mcg/mL (10.0-20.0) Vancomycin Last Dose Date 10/21/16 Vancomycin Last Dose Time 0911 Micro BLOOD CULTURE Preliminary NO GROWTH AFTER 3 DAYS URINE CULTURE Final No growth Objective Assessment Sepsis with lactic acidosis. POA improved Fever Leukocytosis, slowly trending down [place] UTI. POA. UC neg Encephalopathy - awakens but mumble CVA MRSA positive Seizure disorder Diabetes Plan Plan of Care D/c vanc Vanc trough 25.2 Continue Zosyn at q 8 currently Monitor labs/cultures ? baseline mental status DNR Attending Co-Sign Attending Co-Sign The patient was seen and interviewed as well as examined at the bedside. The chart was reviewed. The case was discussed. Agree with the plan of care. TIMUR CASTRO APRN Oct 22, 2016 11:40 KATIE NIÑO MD Oct 22, 2016 14:49
--- NOTE | 2016-10-22 12:38 | PDOC ---
PROGRESS NOTES Subjective Subjective lethargic ,hard to arouse Objective Objective Vital Signs Date Time Temp Pulse Resp B/P Pulse Ox O2 Delivery O2 Flow Rate FiO2 10/22/16 11:00 97.5 104 20 127/74 97 Nasal Cannula 2.0 97.5 Intake and Output 10/22/16 07:00 Intake Total 1760 ml Output Total 1640 ml Balance 120 ml Intake Oral 360 ml IV Total 300 ml Other 1100 ml Output Urine Total 1640 ml Physical Exam Abdomen: Soft Heart: Regular rate, Normal S1, Normal S2 Extremities: Other (edema thighs) General: Other (lethargic) Lungs: Clear to auscultation Diagnosis Problem List Problems Medical Problems: (1) Sepsis Status: Acute (2) Severe protein-calorie malnutrition Status: Acute (3) Uncontrolled diabetes mellitus Status: Acute (4) Urinary tract infection Status: Acute Assessment Assessment Hypernatremia NA 151 and kidney failure cr 2.5 1. Sepsis acute with elevated wbc. 2. Acute metabolic encephalopathy. 3. Urinary tract infection. 4. Acute renal failure. 5. Seizure disorder with low Dilantin level of 3. 6. Diabetes mellitus type 2. 7. Dementia. 8. Paranoid schizophrenia. 9. Physical deconditioning. 10. Moderate malnutrition with albumin of 2.5. 11. Peripheral vascular disease. 12. Hyperlipidemia. 13. History of hypertension. 14. Gastroesophageal reflux disease. 15. Osteoporosis. 16. Vitamin D deficiency. 17. Legal blindness. PLAN: change iv fluids rto d5 / ns renal consult vanco+zosyn DNR poor prognosis. family meeting monday. The patient has been transferred out of ICU. Problems: Plan Plan of Care Problems Medical Problems: (1) Sepsis Status: Acute (2) Severe protein-calorie malnutrition Status: Acute (3) Uncontrolled diabetes mellitus Status: Acute (4) Urinary tract infection Status: Acute Comment Review of Relevant I have reviewed the following items latha (where applicable) has been applied. Labs Laboratory Tests Test 10/21/16 17:05 10/21/16 21:06 10/22/16 08:43 10/22/16 11:36 Glucose (Fingerstick) 150mg/dL (70-99) 130mg/dL (70-99) 135mg/dL (70-99) Prothrombin Time 38.6SEC (11.7-14.0) Prothromb Time International Ratio 4.2 (0.8-1.1) Sodium Level 152mmol/L (136-145) Potassium Level 3.7mmol/L (3.5-5.1) Chloride Level 117mmol/L (98-107) Carbon Dioxide Level 24mmol/L (21-32) Anion Gap 11 (6-14) Blood Urea Nitrogen 20mg/dL (7-20) Creatinine 2.4mg/dL (0.6-1.0) Estimated GFR (Cockcroft-Gault) 25.0 BUN/Creatinine Ratio 8 (6-20) Glucose Level 153mg/dL (70-99) Calcium Level 8.2mg/dL (8.5-10.1) Magnesium Level 2.1mg/dL (1.8-2.4) Total Bilirubin 0.5mg/dL (0.2-1.0) Aspartate Amino Transf (AST/SGOT) 18U/L (15-37) Alanine Aminotransferase (ALT/SGPT) 18U/L (14-59) Alkaline Phosphatase 89U/L (46-116) Total Protein 6.6g/dL (6.4-8.2) Albumin 1.5g/dL (3.4-5.0) Albumin/Globulin Ratio 0.3 (1.0-1.7) Vancomycin Level Trough 25.2mcg/mL (10.0-20.0) Vancomycin Last Dose Date 10/21/16 Vancomycin Last Dose Time 0911 Microbiology 10/19/16 Blood Culture - Preliminary, Resulted NO GROWTH AFTER 3 DAYS 10/19/16 Urine Culture - Final, Complete 10/19/16 Urine Culture Result 1 (ELIZABETH) - Final, Complete Medications Current Medications Divalproex Sodium (Depakote Sprinkles) 625 mg Q6HRS PO Last administered on 06:04; Start 10/21/16 at 14:30 Divalproex Sodium (Depakote Sprinkles) 1,500 mg [id number] PO ; Start 10/21/16 at 14:30; Status UNV Olanzapine (Zyprexa) 5 mg HS PO Last administered on 10/21/16t 21:34; Start at 21:30 Olanzapine (Zyprexa) 5 mg QHS PO ; Start 10/21/16 at 21:07; Stop 10/21/16 at 21: 31; Status DC Vancomycin HCl 1 each 1X ONCE MC ; Start 10/23/16 at 08:30; Stop 10/23/16 at 08 :31; Status Cancel Vancomycin HCl 1 each 1 each 1X ONCE MC Last administered on 10/22/16t 08:30; Start 10/22/16 at 08:30; Stop 10/22/16 at 08:31; Status DC Vancomycin HCl/ Sodium Chloride (Iv Sodium Chloride 0.9% 250ml) 250 ml @ 167 mls/hr Q24H IV ; Start 10/22/16 at 09:00; Stop 10/22/16 at 09:51; Status DC Warfarin Sodium (Coumadin - No Dose Today) 1 each 1X WARF ONCE MC ; Start 10/22 at 16:00; Stop 10/22/16 at 16:01 Warfarin Sodium (Coumadin) 6 mg 1X WARF ONCE PO Last administered on t 17:50; Start 10/21/16 at 16:00; Stop 10/21/16 at 16:01; Status DC Vitals/I & O Vital Sign - Last 24 Hours 10/21/16 10/21/16 10/21/16 10/21/16 13:01 14:34 17:32 19:00 Temp 100.8 100.8 99.5 100.8 100.8 99.5 Pulse 115 118 114 113 Resp 15 15 18 24 B/P 147/56 133/56 133/72 100/48 Pulse Ox 97 97 96 99 O2 Delivery Nasal Cannula Nasal Cannula Nasal Cannula O2 Flow Rate 2.0 2.0 2.0 10/21/16 10/21/16 10/21/16 10/21/16 20:22 21:00 21:24 22:26 Resp 18 18 Pulse Ox 99 99 O2 Delivery Nasal Cannula Nasal Cannula Nasal Cannula Nasal Cannula O2 Flow Rate 2.0 2.0 2.0 10/21/16 10/22/16 10/22/16 10/22/16 23:00 03:00 07:00 07:45 Temp 98.9 99.8 97.5 98.9 99.8 97.5 Pulse 99 105 100 Resp 24 18 B/P 99/57 88/48 112/49 Pulse Ox 97 97 96 O2 Delivery Room Air Room Air Nasal Cannula Nasal Cannula O2 Flow Rate 2.0 2.0 10/22/16 11:00 Temp 97.5 97.5 Pulse 104 Resp 20 B/P 127/74 Pulse Ox 97 O2 Delivery Nasal Cannula O2 Flow Rate 2.0 Intake and Output 10/21/16 10/21/16 10/22/16 15:00 23:00 07:00 Intake Total 300 ml 1460 ml Output Total 440 ml 950 ml 250 ml Balance -140 ml 510 ml -250 ml RADHA WHITAKER MD Oct 22, 2016 12:38
[2016-10-22] MEDS: PANTOPRAZOLE 40 MG TABLET. PO SCH (13:14)
[2016-10-22] MEDS: VALPROIC ACID IV SCH ×3 (13:38→23:41)
[2016-10-22] MEDS: NORMAL SALINE IV SCH ×3 (13:38→23:41)
[2016-10-22 13:40] LABS: BASO # 0.1 x10^3/uL (0.0-0.2); BASO % 1 % (0-3); EOS % 0 % (0-3); HEMATOCRIT 27.2 % (36.0-47.0); HEMOGLOBIN 8.6 g/dL (12.0-15.5); LYMPH # 2.3 x10^3/uL (1.0-4.8); LYMPH % 12 % (24-48); MEAN CORPUSCULAR HEMOGLOBIN 27 pg (25-35); MEAN CORPUSCULAR HGB CONC 31 g/dL (31-37); MEAN CORPUSCULAR VOLUME 86 fL (79-100); MONO % 11 % (0-9); NEUT % 77 % (31-73); PLATELET COUNT 199 x10^3/uL (140-400); RED BLOOD COUNT 3.16 x10^6/uL (3.50-5.40); RED CELL DISTRIBUTION WIDTH 16.5 % (11.5-14.5); WHITE BLOOD COUNT 19.6 x10^3/uL (4.0-11.0)
[2016-10-22] MEDS: IV DEXTROSE 5 %-0.2 % NACL 1,000 ML IV SCH (14:42)
[2016-10-22] MEDS: FOSPHENYTOIN 100 MG/2 ML VIAL IV SCH ×2 (14:44→21:57)
[2016-10-22 15:00] VITALS: BP 117/70
[2016-10-22 20:00] VITALS: BP 136/70
[2016-10-22] MEDS: SIMVASTATIN 10 MG TABLET PO SCH (21:00)
[2016-10-22] MEDS: CHLORPROMAZINE 25 MG PO SCH ×2 (21:00→22:02)
[2016-10-22] MEDS: GABAPENTIN 400 MG CAPSULE. PO SCH (22:02)
[2016-10-22] MEDS: MIRTAZAPINE 15 MG TABLET PO SCH (22:02)
[2016-10-22] MEDS: OLANZAPINE 5 MG TABLET. PO SCH (22:03)
[2016-10-22] MEDS: CLONAZEPAM 0.5 MG TABLET PO SCH (22:03)
[2016-10-22 23:20] VITALS: BP 125/83
[2016-10-23] MEDS: IV DEXTROSE 5 %-0.2 % NACL 1,000 ML IV SCH ×4 (02:59→22:05)
[2016-10-23 03:27] VITALS: BP 150/66
[2016-10-23 05:12] LABS: BASO % 0 % (0-3); EOS % 0 % (0-3); HEMATOCRIT 26.7 % (36.0-47.0); HEMOGLOBIN 8.8 g/dL (12.0-15.5); LYMPH % 12 % (24-48); MEAN CORPUSCULAR HEMOGLOBIN 27 pg (25-35); MEAN CORPUSCULAR HGB CONC 33 g/dL (31-37); MEAN CORPUSCULAR VOLUME 83 fL (79-100); MONO % 13 % (0-9); NEUT % 75 % (31-73); PLATELET COUNT 220 x10^3/uL (140-400); RED BLOOD COUNT 3.21 x10^6/uL (3.50-5.40); RED CELL DISTRIBUTION WIDTH 16.6 % (11.5-14.5)
[2016-10-23 05:32] LABS: CREATININE 2.3 mg/dL (0.6-1.0); GFR 26.3; POTASSIUM 3.8 mmol/L (3.5-5.1)
[2016-10-23 05:37] LABS: PROTHROMBIN TIME PATIENT 60.4 SEC (11.7-14.0)
[2016-10-23] MEDS: PIPERACILLIN/TAZOBACTAM 3.375 GM in IV NORMAL SALINE 50ML 50 ML IV SCH ×3 (05:39→22:04)
[2016-10-23 05:56] LABS: INR 7.6 (0.8-1.1)
[2016-10-23] MEDS ORDERED: PHYTONADIONE 10 MG/ML AMPUL. SQ ONE (06:30)
[2016-10-23] MEDS: VALPROIC ACID IV SCH ×3 (06:35→17:47)
[2016-10-23] MEDS: NORMAL SALINE IV SCH ×3 (06:35→17:47)
[2016-10-23] MEDS: FOSPHENYTOIN 100 MG/2 ML VIAL IV SCH ×3 (06:35→22:03)
[2016-10-23 07:00] VITALS: BP 144/64
[2016-10-23] MEDS: INSULIN ASPART 300 UNITS/3 ML INSULN.PEN SQ SCH ×3 (07:30→17:05)
[2016-10-23] MEDS: PANTOPRAZOLE 40 MG TABLET. PO SCH (07:30)
[2016-10-23] MEDS ORDERED: VANCOMYCIN RANDOM LEVEL. MC ONE (08:30)
[2016-10-23] MEDS: MULTIVITAMIN with MINERAL TABLET. PO SCH (08:36)
[2016-10-23] MEDS: LISINOPRIL 5 MG TABLET. PO SCH (08:36)
[2016-10-23] MEDS: INSULIN DETEMIR 300 UNITS/3 ML INSULN.PEN. SQ SCH ×2 (08:36→22:12)
[2016-10-23] MEDS: busPIRone 5 MG TABLET. PO SCH ×3 (08:36→20:44)
[2016-10-23] MEDS: BENZTROPINE MESYLATE 1 MG TABLET PO SCH (08:36)
[2016-10-23] MEDS: POLYVINYL ALCOHOL 1.4% OPHTH SOLUTION 15ML BOTTLE. OU SCH ×4 (08:56→22:03)
--- NOTE | 2016-10-23 10:47 | PDOC ---
Infectious Disease Note Subjective Subjective Mumbling No fever last 24 hours ROS ROS GEN: Denies fevers, chills, sweats HEENT: Denies blurred vision, sore throat CV: Denies chest pain RESP: Denies shortness of air, cough GI: Denies n/v/d NEURO: Denies confusion, dizziness MSK: Denies weakness, joint pain/swelling Vital Sign Vital Signs Vital Signs Date Time Temp Pulse Resp B/P Pulse Ox O2 Delivery O2 Flow Rate FiO2 10/23/16 07:40 Nasal Cannula 2.0 10/23/16 07:00 98.8 103 20 144/64 97 98.8 Physical Exam PHYSICAL EXAM GENERAL: Sleeping HENT: OC pink LUNGS: Clear HEART: S1S2, no gallop, no murmur ABD: Soft, NT, BS present, : [place] EXT: Generalized swelling 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 Follows few simple commands SKIN: No rash IV: ok Labs Lab Laboratory Tests Test 10/22/16 11:36 10/22/16 16:30 10/22/16 20:50 10/23/16 04:30 Glucose (Fingerstick) 135mg/dL (70-99) 126mg/dL (70-99) 130mg/dL (70-99) White Blood Count 17.0x10^3/uL (4.0-11.0) Red Blood Count 3.21x10^6/uL (3.50-5.40) Hemoglobin 8.8g/dL (12.0-15.5) Hematocrit 26.7% (36.0-47.0) Mean Corpuscular Volume 83fL (79-100) Mean Corpuscular Hemoglobin 27pg (25-35) Mean Corpuscular Hemoglobin Concent 33g/dL (31-37) Red Cell Distribution Width 16.6% (11.5-14.5) Platelet Count 220x10^3/uL (140-400) Neutrophils (%) (Auto) 75% (31-73) Lymphocytes (%) (Auto) 12% (24-48) Monocytes (%) (Auto) 13% (0-9) Eosinophils (%) (Auto) 0% (0-3) Basophils (%) (Auto) 0% (0-3) Neutrophils # (Auto) 12.7x10^3uL (1.8-7.7) Lymphocytes # (Auto) 2.0x10^3/uL (1.0-4.8) Monocytes # (Auto) 2.1x10^3/uL (0.0-1.1) Eosinophils # (Auto) 0.0x10^3/uL (0.0-0.7) Basophils # (Auto) 0.0x10^3/uL (0.0-0.2) Prothrombin Time 60.4SEC (11.7-14.0) Prothromb Time International Ratio 7.6 (0.8-1.1) Sodium Level 151mmol/L (136-145) Potassium Level 3.8mmol/L (3.5-5.1) Chloride Level 115mmol/L (98-107) Carbon Dioxide Level 23mmol/L (21-32) Anion Gap 13 (6-14) Blood Urea Nitrogen 21mg/dL (7-20) Creatinine 2.3mg/dL (0.6-1.0) Estimated GFR (Cockcroft-Gault) 26.3 Glucose Level 183mg/dL (70-99) Calcium Level 8.0mg/dL (8.5-10.1) Test 10/23/16 07:42 Glucose (Fingerstick) 164mg/dL (70-99) Micro BLOOD CULTURE Preliminary NO GROWTH AFTER 4 DAYS URINE CULTURE Final No growth Objective Assessment Sepsis with lactic acidosis. POA improved Fever. better Leukocytosis, slowly trending down [place] UTI. POA. UC neg Encephalopathy - arousable only CVA MRSA positive Seizure disorder Diabetes Plan Plan of Care Continue Zosyn at q 8 currently Monitor labs Await renal eval and palliative care meeting regarding goals of care ? baseline mental status DNR Attending Co-Sign Attending Co-Sign The patient was seen and interviewed as well as examined at the bedside. The chart was reviewed. The case was discussed. Agree with the plan of care. TIMUR CASTRO APRN Oct 23, 2016 10:47 KATIE NIÑO MD Oct 23, 2016 14:28
[2016-10-23 11:00] VITALS: BP 125/71
--- NOTE | 2016-10-23 11:36 | PDOC ---
PROGRESS NOTES Subjective Subjective Unable to see pt due to weather condition. Will eval in am. Reviewed echart. Agree with hypotonic IVF as ordered for now. Pall Care input pending Objective Objective Vital Signs Date Time Temp Pulse Resp B/P Pulse Ox O2 Delivery O2 Flow Rate FiO2 10/23/16 07:40 Nasal Cannula 2.0 10/23/16 07:00 98.8 103 20 144/64 97 98.8 Intake and Output 10/23/16 07:00 Intake Total 1300 ml Output Total 1275 ml Balance 25 ml Intake Oral 0 ml IV Total 1300 ml Output Urine Total 1275 ml Assessment Assessment Problems Medical Problems: (1) Sepsis Status: Acute (2) Severe protein-calorie malnutrition Status: Acute (3) Uncontrolled diabetes mellitus Status: Acute (4) Urinary tract infection Status: Acute Comment Review of Relevant I have reviewed the following items latha (where applicable) has been applied. Labs Laboratory Tests Test 10/21/16 12:15 10/21/16 17:05 10/21/16 21:06 10/22/16 07:45 Glucose (Fingerstick) 109mg/dL (70-99) 150mg/dL (70-99) 130mg/dL (70-99) 139mg/dL (70-99) Test 10/22/16 08:43 10/22/16 11:36 10/22/16 16:30 10/22/16 20:50 White Blood Count 19.6x10^3/uL (4.0-11.0) Red Blood Count 3.16x10^6/uL (3.50-5.40) Hemoglobin 8.6g/dL (12.0-15.5) Hematocrit 27.2% (36.0-47.0) Mean Corpuscular Volume 86fL (79-100) Mean Corpuscular Hemoglobin 27pg (25-35) Mean Corpuscular Hemoglobin Concent 31g/dL (31-37) Red Cell Distribution Width 16.5% (11.5-14.5) Platelet Count 199x10^3/uL (140-400) Neutrophils (%) (Auto) 77% (31-73) Lymphocytes (%) (Auto) 12% (24-48) Monocytes (%) (Auto) 11% (0-9) Eosinophils (%) (Auto) 0% (0-3) Basophils (%) (Auto) 1% (0-3) Neutrophils # (Auto) 15.1x10^3uL (1.8-7.7) Lymphocytes # (Auto) 2.3x10^3/uL (1.0-4.8) Monocytes # (Auto) 2.1x10^3/uL (0.0-1.1) Eosinophils # (Auto) 0.0x10^3/uL (0.0-0.7) Basophils # (Auto) 0.1x10^3/uL (0.0-0.2) Prothrombin Time 38.6SEC (11.7-14.0) Prothromb Time International Ratio 4.2 (0.8-1.1) Sodium Level 152mmol/L (136-145) Potassium Level 3.7mmol/L (3.5-5.1) Chloride Level 117mmol/L (98-107) Carbon Dioxide Level 24mmol/L (21-32) Anion Gap 11 (6-14) Blood Urea Nitrogen 20mg/dL (7-20) Creatinine 2.4mg/dL (0.6-1.0) Estimated GFR (Cockcroft-Gault) 25.0 BUN/Creatinine Ratio 8 (6-20) Glucose Level 153mg/dL (70-99) Calcium Level 8.2mg/dL (8.5-10.1) Magnesium Level 2.1mg/dL (1.8-2.4) Total Bilirubin 0.5mg/dL (0.2-1.0) Aspartate Amino Transf (AST/SGOT) 18U/L (15-37) Alanine Aminotransferase (ALT/SGPT) 18U/L (14-59) Alkaline Phosphatase 89U/L (46-116) Total Protein 6.6g/dL (6.4-8.2) Albumin 1.5g/dL (3.4-5.0) Albumin/Globulin Ratio 0.3 (1.0-1.7) Vancomycin Level Trough 25.2mcg/mL (10.0-20.0) Vancomycin Last Dose Date 10/21/16 Vancomycin Last Dose Time 0911 Glucose (Fingerstick) 135mg/dL (70-99) 126mg/dL (70-99) 130mg/dL (70-99) Test 10/23/16 04:30 10/23/16 07:42 White Blood Count 17.0x10^3/uL (4.0-11.0) Red Blood Count 3.21x10^6/uL (3.50-5.40) Hemoglobin 8.8g/dL (12.0-15.5) Hematocrit 26.7% (36.0-47.0) Mean Corpuscular Volume 83fL (79-100) Mean Corpuscular Hemoglobin 27pg (25-35) Mean Corpuscular Hemoglobin Concent 33g/dL (31-37) Red Cell Distribution Width 16.6% (11.5-14.5) Platelet Count 220x10^3/uL (140-400) Neutrophils (%) (Auto) 75% (31-73) Lymphocytes (%) (Auto) 12% (24-48) Monocytes (%) (Auto) 13% (0-9) Eosinophils (%) (Auto) 0% (0-3) Basophils (%) (Auto) 0% (0-3) Neutrophils # (Auto) 12.7x10^3uL (1.8-7.7) Lymphocytes # (Auto) 2.0x10^3/uL (1.0-4.8) Monocytes # (Auto) 2.1x10^3/uL (0.0-1.1) Eosinophils # (Auto) 0.0x10^3/uL (0.0-0.7) Basophils # (Auto) 0.0x10^3/uL (0.0-0.2) Prothrombin Time 60.4SEC (11.7-14.0) Prothromb Time International Ratio 7.6 (0.8-1.1) Sodium Level 151mmol/L (136-145) Potassium Level 3.8mmol/L (3.5-5.1) Chloride Level 115mmol/L (98-107) Carbon Dioxide Level 23mmol/L (21-32) Anion Gap 13 (6-14) Blood Urea Nitrogen 21mg/dL (7-20) Creatinine 2.3mg/dL (0.6-1.0) Estimated GFR (Cockcroft-Gault) 26.3 Glucose Level 183mg/dL (70-99) Calcium Level 8.0mg/dL (8.5-10.1) Glucose (Fingerstick) 164mg/dL (70-99) Laboratory Tests Test 10/22/16 11:36 10/22/16 16:30 10/22/16 20:50 10/23/16 04:30 Glucose (Fingerstick) 135mg/dL (70-99) 126mg/dL (70-99) 130mg/dL (70-99) White Blood Count 17.0x10^3/uL (4.0-11.0) Red Blood Count 3.21x10^6/uL (3.50-5.40) Hemoglobin 8.8g/dL (12.0-15.5) Hematocrit 26.7% (36.0-47.0) Mean Corpuscular Volume 83fL (79-100) Mean Corpuscular Hemoglobin 27pg (25-35) Mean Corpuscular Hemoglobin Concent 33g/dL (31-37) Red Cell Distribution Width 16.6% (11.5-14.5) Platelet Count 220x10^3/uL (140-400) Neutrophils (%) (Auto) 75% (31-73) Lymphocytes (%) (Auto) 12% (24-48) Monocytes (%) (Auto) 13% (0-9) Eosinophils (%) (Auto) 0% (0-3) Basophils (%) (Auto) 0% (0-3) Neutrophils # (Auto) 12.7x10^3uL (1.8-7.7) Lymphocytes # (Auto) 2.0x10^3/uL (1.0-4.8) Monocytes # (Auto) 2.1x10^3/uL (0.0-1.1) Eosinophils # (Auto) 0.0x10^3/uL (0.0-0.7) Basophils # (Auto) 0.0x10^3/uL (0.0-0.2) Prothrombin Time 60.4SEC (11.7-14.0) Prothromb Time International Ratio 7.6 (0.8-1.1) Sodium Level 151mmol/L (136-145) Potassium Level 3.8mmol/L (3.5-5.1) Chloride Level 115mmol/L (98-107) Carbon Dioxide Level 23mmol/L (21-32) Anion Gap 13 (6-14) Blood Urea Nitrogen 21mg/dL (7-20) Creatinine 2.3mg/dL (0.6-1.0) Estimated GFR (Cockcroft-Gault) 26.3 Glucose Level 183mg/dL (70-99) Calcium Level 8.0mg/dL (8.5-10.1) Test 10/23/16 07:42 Glucose (Fingerstick) 164mg/dL (70-99) Microbiology 10/19/16 Blood Culture - Preliminary, Resulted NO GROWTH AFTER 4 DAYS 10/19/16 Urine Culture - Final, Complete 10/19/16 Urine Culture Result 1 (ELIZABETH) - Final, Complete Medications Current Medications Sodium Chloride (Iv Sodium Chloride 0.9% 1000ml Bag) 1,000 ml @ 622.5 mls/ hr Q1H37M IV Last administered on 10/19/16 13:13; Start 10/19/16 at 09:59; Stop 10/19/16 at 13:59; Status DC Naloxone HCl (Narcan) 0.4 mg STK-MED ONCE .ROUTE ; Start 10/19/16 at 11:04; Stop 10/19/16 at 11:05; Status DC Naloxone HCl 0.4 mg 0.4 mg 1X ONCE IV Last administered on 10/19/16 11:20; Start 10/19/16 at 11:15; Stop 10/19/16 at 11:16; Status DC Ceftriaxone Sodium (Rocephin 1gm Ivpb For Omni) 50 ml @ 100 mls/hr 1X ONCE IV Last administered on 10/19/16 12:23; Start 10/19/16 at 12:00; Stop 10/19/16 at 12:29; Status DC Ondansetron HCl 4 mg 4 mg PRN Q8HRS PRN IV NAUSEA/VOMITING; Start 10/19/16 at 12:00; Stop 10/20/16 at 11:59; Status DC Sodium Chloride (Iv Sodium Chloride 0.9% 1000ml Bag) 1,000 ml @ 100 mls/hr Q10H IV Last administered on 10/20/16 08:36; Start 10/19/16 at 11:54; Stop 09/24 at 11:53; Status DC Acetaminophen 650 mg 650 mg PRN Q4HRS PRN PO FEVER Last administered on 21:19; Start 10/19/16 at 12:00; Stop 10/20/16 at 08:53; Status DC Ceftriaxone Sodium/Sodium Chloride (Rocephin/Iv Sodium Chloride 0.9% 50ml) 50 ml @ 100 mls/hr Q24H IV ; Start 10/20/16 at 12:00; Stop 10/20/16 at 12:00; Status DC Acetaminophen (Tylenol) 650 mg PRN Q6HRS PRN PO PAIN; Start 10/19/16 at 17:15; Status Cancel Buspirone HCl (Buspar) 10 mg TID PO Last administered on 10/22/16 22:03; Start 10/19/16 at 21:00 Chlorpromazine HCl (Thorazine) 25 mg HS PO Last administered on 10/21/16 21:31 ; Start 10/19/16 at 21:00 Clonazepam (Klonopin) 0.5 mg HS PO Last administered on 10/22/16 22:03; Start 10/19/16 at 21:00 Divalproex Sodium (Depakote Er) 1,500 mg DAILY PO Last administered on 09:59; Start 10/20/16 at 09:00; Stop 10/21/16 at 14:11; Status DC Divalproex Sodium (Depakote Er) 1,000 mg QHS PO ; Start 10/19/16 at 21:00; Stop 10/21/16 at 14:11; Status DC Gabapentin (Neurontin) 400 mg HS PO Last administered on 10/22/16 22:02; Start 10/19/16 at 21:00 Acetaminophen/ Hydrocodone Bitart (Lortab 5/325) 2 tab PRN Q4HRS PRN PO PAIN Last administered on 10/21/16 21:24; Start 10/19/16 at 17:15 Insulin Aspart (Novolog) 10 units TIDAC SQ Last administered on 10/21/16 18:03 ; Start 10/19/16 at 18:00 Lisinopril (Prinivil) 5 mg DAILY PO Last administered on 10/21/16 08:50; Start 10/20/16 at 09:00 Lorazepam (Ativan) 0.5 mg PRN Q8HRS PRN PO ANXIETY / AGITATION Last administered on 10/19/16 21:20; Start 10/19/16 at 17:15 Mirtazapine (Remeron) 15 mg QHS PO Last administered on 10/22/16 22:02; Start 10/19/16 at 21:00 Olanzapine (Zyprexa) 5 mg QHS PO Last administered on 10/20/16 20:01; Start at 21:00; Stop 10/21/16 at 21:07; Status DC Pantoprazole Sodium (Protonix) 40 mg DAILYAC PO Last administered on 10/21/16 08:50; Start 10/20/16 at 07:30 Phenytoin Sodium (Dilantin) 100 mg DAILY PO Last administered on 10/21/16 08: 49; Start 10/20/16 at 09:00; Stop 10/22/16 at 12:33; Status DC Phenytoin Sodium (Dilantin) 200 mg QHS PO Last administered on 10/21/16 21:25 ; Start 10/19/16 at 21:00; Stop 10/22/16 at 12:34; Status DC Simvastatin (Zocor) 10 mg QHS PO Last administered on 10/21/16 21:25; Start at 21:00 Valproic Acid (Depakene) 250 mg HS PO Last administered on 10/21/16 21:24; Start 10/19/16 at 21:00; Stop 10/22/16 at 12:41; Status DC Warfarin Sodium (Coumadin) 1 mg DAILY16 PO ; Start 10/20/16 at 16:00; Stop 10/20 at 16:00; Status DC Warfarin Sodium (Coumadin) 6 mg DAILY16 PO ; Start 10/20/16 at 16:00; Stop 10/20 at 16:00; Status DC Benztropine Mesylate (Cogentin) 2 mg DAILY PO Last administered on 10/21/16 08 :50; Start 10/20/16 at 09:00 Chlorpromazine HCl (Thorazine) 100 mg QHS PO Last administered on 10/22/16 22: 02; Start 10/19/16 at 21:00 Artificial Tears (Artificial Tears) 1 drop QID OU Last administered on 08:56; Start 10/19/16 at 21:00 Insulin Detemir (Levemir) 22 units BID SQ Last administered on 10/21/16 21:33 ; Start 10/19/16 at 21:00 Multivitamins/ Calcium 1 tab 1 tab DAILY PO Last administered on 10/21/16 08: 50; Start 10/20/16 at 09:00 Piperacillin Sod/ Tazobactam Sod/ Sodium Chloride (Zosyn/Iv Sodium Chloride 0.9 % 50ml) 50 ml @ 100 mls/hr Q8HRS IV Last administered on 10/23/16 05:39; Start 10/19/16 at 18:00 Warfarin Sodium (Coumadin Per Physician) 1 each PRN DAILY PRN MC SEE COMMENTS; Start 10/19/16 at 17:30; Stop 10/20/16 at 09:17; Status DC Vancomycin HCl 1 each 1 each PRN DAILY PRN MC SEE COMMENTS Last administered on 10/22/16 09:59; Start 10/20/16 at 07:45; Stop 10/22/16 at 11:37; Status DC Vancomycin HCl/ Sodium Chloride (Iv Sodium Chloride 0.9% 500ml Bag) 500 ml @ 250 mls/hr 1X ONCE IV Last administered on 10/20/16 09:22; Start 10/20/16 at 08:00; Stop 10/20/16 at 09:59; Status DC Acetaminophen (Tylenol) 650 mg PRN Q6HRS PRN PO MILD PAIN / TEMP Last administered on 10/21/16 17:50; Start 10/20/16 at 09:00 Phenytoin Sodium (Dilantin) 300 mg 1X ONCE PO ; Start 10/20/16 at 09:00; Stop 10/20/16 at 09:01; Status DC Warfarin Sodium 1 each 1 each PRN DAILY PRN MC SEE COMMENTS Last administered on 10/23/16 11:28; Start 10/20/16 at 09:15 Vancomycin HCl/ Sodium Chloride (Iv Sodium Chloride 0.9% 250ml) 250 ml @ 167 mls/hr Q12H IV Last administered on 10/21/16 09:11; Start 10/20/16 at 21:00; Stop 10/21/16 at 12:00; Status DC Vancomycin HCl 1 each 1X ONCE MC Last administered on 10/22/16 08:30; Start 10/22/16 at 08:30; Stop 10/22/16 at 08:31; Status DC Warfarin Sodium 3 mg 3 mg 1X WARF ONCE PO Last administered on 10/20/16 16:12 ; Start 10/20/16 at 16:00; Stop 10/20/16 at 16:01; Status DC Sodium Chloride 1,000 ml @ 1,000 mls/hr 1X ONCE IV Last administered on 16:13; Start 10/20/16 at 15:30; Stop 10/20/16 at 16:29; Status DC Magnesium Sulfate/ Dextrose 50 ml @ 25 mls/hr 1X ONCE IV Last administered on 10/21/16 09:59; Start 10/21/16 at 09:00; Stop 10/21/16 at 10:59; Status DC Vancomycin HCl/ Sodium Chloride (Iv Sodium Chloride 0.9% 250ml) 250 ml @ 167 mls/hr Q24H IV ; Start 10/22/16 at 09:00; Stop 10/22/16 at 09:51; Status DC Warfarin Sodium 6 mg 6 mg 1X WARF ONCE PO Last administered on 10/21/16 17:50 ; Start 10/21/16 at 16:00; Stop 10/21/16 at 16:01; Status DC Potassium Chloride/Dextrose/ Sod Cl (KCl 20 Meq In D5W-1/2 NS) 1,000 ml @ 100 mls/hr Q10H IV Last administered on 10/22/16 05:59; Start 10/21/16 at 10:15; Stop 10/22/16 at 12:40; Status DC Divalproex Sodium (Depakote Sprinkles) 1,500 mg [id number] PO ; Start 10/21/16 at 14:30; Status UNV Divalproex Sodium (Depakote Sprinkles) 625 mg Q6HRS PO Last administered on 06:04; Start 10/21/16 at 14:30; Stop 10/22/16 at 12:40; Status DC Olanzapine (Zyprexa) 5 mg QHS PO ; Start 10/21/16 at 21:07; Stop 10/21/16 at 21: 31; Status DC Olanzapine (Zyprexa) 5 mg HS PO Last administered on 10/22/16 22:03; Start at 21:30 Vancomycin HCl 1 each 1X ONCE MC ; Start 10/23/16 at 08:30; Stop 10/23/16 at 08 :31; Status Cancel Warfarin Sodium (Coumadin - No Dose Today) 1 each 1X WARF ONCE MC Last administered on 10/22/16 16:00; Start 10/22/16 at 16:00; Stop 10/22/16 at 16:01 ; Status DC Fosphenytoin Sodium 100 mg 100 mg Q8HRS IV Last administered on 10/23/16 06:35 ; Start 10/22/16 at 14:00 Valproic Acid 690 mg/Sodium Chloride 56.9 ml @ 56.9 mls/hr Q6HRS IV Last administered on 10/23/16 11:31; Start 10/22/16 at 13:00 Dextrose/Sodium Chloride (Iv D5% - 1/4 NS) 1,000 ml @ 125 mls/hr Q8H IV Last administered on 10/23/16 02:59; Start 10/22/16 at 13:00 Phytonadione (Vitamin K) 10 mg 1X ONCE SQ Last administered on 10/23/16 06:36 ; Start 10/23/16 at 06:30; Stop 10/23/16 at 06:31; Status DC Warfarin Sodium (Coumadin - No Dose Today) 1 each 1X WARF ONCE MC ; Start 10/23 at 16:00; Stop 10/23/16 at 16:01 Active Scripts Active Protonix (Pantoprazole Sodium) 40 Mg Tablet 40 Mg PO DAILYAC Reported Vitamin D (Cholecalciferol (Vitamin D3)) 1,000 Unit Capsule 1,000 Unit PO DAILY Acetaminophen 325 Mg Tablet 650 Mg PO PRN Q6HRS PRN Senna-Docusate Sodium Tablet (Sennosides/Docusate Sodium) 1 Each Tablet 1 Each PO BID Miralax (Polyethylene Glycol 3350) 17 Gm Powd.pack 1 Pkt PO DAILY Phenytoin Sodium Extended 100 Mg Capsule 100 Mg PO DAILY Depakote Er (Divalproex Sodium) 500 Mg Tab.er.24h 1,500 Mg PO DAILY Warfarin Sodium 1 Mg Tablet 1 Mg PO DAILY Chlorpromazine Hcl 100 Mg Tablet 100 Mg PO QHS Benztropine Mesylate 2 Mg Tablet 2 Mg PO DAILY Zyprexa (Olanzapine) 5 Mg Tablet 1 Tab PO QHS Simvastatin 10 Mg Tablet 10 Mg PO QHS Remeron (Mirtazapine) 15 Mg Tablet 15 Mg PO QHS Lisinopril 5 Mg Tablet 1 Tab PO DAILY Depakene (Valproic Acid) 250 Mg Capsule 250 Mg PO HS Coumadin (Warfarin Sodium) 6 Mg Tablet 6 Mg PO DAILY Buspirone Hcl 10 Mg Tablet 10 Mg PO TID Neurontin (Gabapentin) 400 Mg Capsule 1 Tab PO HS Multivitamins (Multivitamin) 1 Each Capsule 1 Tab PO DAILY Milk Of Magnesia (Magnesium Hydroxide) 400 Mg/5 Ml Oral.susp 30 Ml PO PRN DAILY PRN Dilantin (Phenytoin Sodium Extended) 100 Mg Capsule 200 Mg PO QHS Depakote (Divalproex Sodium) 500 Mg Tablet.dr 1,000 Mg PO HS Chlorpromazine Hcl 25 Mg Tablet 25 Mg PO HS Artificial Tears (Hypromellose) 15 Ml Drops 2 Drop EACHEYE QID Novolog (Insulin Aspart) 100 Unit/1 Ml Vial 10 Units SUBCUT TIDAC [place] 5-325 Tablet (Acetaminophen/Hydrocodone Bitart) 1 Each Tablet 2 Tab PO Q4H PRN Levemir (Insulin Detemir) 100 Unit/1 Ml Vial 22 Unit SQ BID Klonopin (Clonazepam) 0.5 Mg Tablet 0.5 Mg PO HS Duoneb 0.5 Mg-3 Mg/3 Ml Soln (Ipratropium/Albuterol Sulfate) 3 Ml Ampul.neb 3 Ml INH Q6H Ativan (Lorazepam) 0.5 Mg Tablet 1 Tab PO Q8H PRN Vitals/I & O Vital Sign - Last 24 Hours 10/22/16 10/22/16 10/22/16 10/22/16 15:00 20:00 20:05 23:20 Temp 97.9 98.8 99.0 97.9 98.8 99.0 Pulse 108 125 119 Resp 20 20 20 B/P 117/70 136/70 125/83 Pulse Ox 95 95 93 O2 Delivery Nasal Cannula Nasal Cannula Nasal Cannula Nasal Cannula O2 Flow Rate 2.0 2.0 2.0 2.0 10/23/16 10/23/16 10/23/16 03:27 07:00 07:40 Temp 99.7 98.8 99.7 98.8 Pulse 114 103 Resp 20 20 B/P 150/66 144/64 Pulse Ox 96 97 O2 Delivery Nasal Cannula Nasal Cannula Nasal Cannula O2 Flow Rate 2.0 2.0 2.0 Intake and Output 10/22/16 10/22/16 10/23/16 15:00 23:00 07:00 Intake Total 1250 ml 50 ml Output Total 225 ml 350 ml 700 ml Balance 1025 ml -300 ml -700 ml STEVE YOU MD Oct 23, 2016 11:36
--- NOTE | 2016-10-23 11:37 | PDOC ---
PROGRESS NOTES Subjective Subjective no complaints, Objective Objective Vital Signs Date Time Temp Pulse Resp B/P Pulse Ox O2 Delivery O2 Flow Rate FiO2 10/23/16 07:40 Nasal Cannula 2.0 10/23/16 07:00 98.8 103 20 144/64 97 98.8 Intake and Output 10/23/16 07:00 Intake Total 1300 ml Output Total 1275 ml Balance 25 ml Intake Oral 0 ml IV Total 1300 ml Output Urine Total 1275 ml Physical Exam Abdomen: Soft Heart: Regular rate, Normal S1, Normal S2 Extremities: Other (edema thighs) General: Other (lethargic) Lungs: Clear to auscultation Diagnosis Problem List Problems Medical Problems: (1) Sepsis Status: Acute (2) Severe protein-calorie malnutrition Status: Acute (3) Uncontrolled diabetes mellitus Status: Acute (4) Urinary tract infection Status: Acute Assessment Assessment Hypernatremia NA 151 and kidney failure cr 2.5 1. Sepsis acute with elevated wbc. 2. Acute metabolic encephalopathy. 3. Urinary tract infection. 4. Acute renal failure. 5. Seizure disorder with low Dilantin level of 3. 6. Diabetes mellitus type 2. 7. Dementia. 8. Paranoid schizophrenia. 9. Physical deconditioning. 10. Moderate malnutrition with albumin of 2.5. 11. Peripheral vascular disease. 12. Hyperlipidemia. 13. History of hypertension. 14. Gastroesophageal reflux disease. 15. Osteoporosis. 16. Vitamin D deficiency. 17. Legal blindness. PLAN: wbc down to 17 with iv antibiotics. Cr 2.3 slightly down with fluids change iv fluids rto d5 10/12 ns renal consult appreciated vanco+zosyn DNR poor prognosis. family meeting monday. The patient has been transferred out of ICU. Problems: Plan Plan of Care Problems Medical Problems: (1) Sepsis Status: Acute (2) Severe protein-calorie malnutrition Status: Acute (3) Uncontrolled diabetes mellitus Status: Acute (4) Urinary tract infection Status: Acute Comment Review of Relevant I have reviewed the following items latha (where applicable) has been applied. Labs Laboratory Tests Test 10/22/16 16:30 10/22/16 20:50 10/23/16 04:30 10/23/16 07:42 Glucose (Fingerstick) 126mg/dL (70-99) 130mg/dL (70-99) 164mg/dL (70-99) White Blood Count 17.0x10^3/uL (4.0-11.0) Red Blood Count 3.21x10^6/uL (3.50-5.40) Hemoglobin 8.8g/dL (12.0-15.5) Hematocrit 26.7% (36.0-47.0) Mean Corpuscular Volume 83fL (79-100) Mean Corpuscular Hemoglobin 27pg (25-35) Mean Corpuscular Hemoglobin Concent 33g/dL (31-37) Red Cell Distribution Width 16.6% (11.5-14.5) Platelet Count 220x10^3/uL (140-400) Neutrophils (%) (Auto) 75% (31-73) Lymphocytes (%) (Auto) 12% (24-48) Monocytes (%) (Auto) 13% (0-9) Eosinophils (%) (Auto) 0% (0-3) Basophils (%) (Auto) 0% (0-3) Neutrophils # (Auto) 12.7x10^3uL (1.8-7.7) Lymphocytes # (Auto) 2.0x10^3/uL (1.0-4.8) Monocytes # (Auto) 2.1x10^3/uL (0.0-1.1) Eosinophils # (Auto) 0.0x10^3/uL (0.0-0.7) Basophils # (Auto) 0.0x10^3/uL (0.0-0.2) Prothrombin Time 60.4SEC (11.7-14.0) Prothromb Time International Ratio 7.6 (0.8-1.1) Sodium Level 151mmol/L (136-145) Potassium Level 3.8mmol/L (3.5-5.1) Chloride Level 115mmol/L (98-107) Carbon Dioxide Level 23mmol/L (21-32) Anion Gap 13 (6-14) Blood Urea Nitrogen 21mg/dL (7-20) Creatinine 2.3mg/dL (0.6-1.0) Estimated GFR (Cockcroft-Gault) 26.3 Glucose Level 183mg/dL (70-99) Calcium Level 8.0mg/dL (8.5-10.1) Microbiology 10/19/16 Blood Culture - Preliminary, Resulted NO GROWTH AFTER 4 DAYS 10/19/16 Urine Culture - Final, Complete 10/19/16 Urine Culture Result 1 (ELIZABETH) - Final, Complete Medications Current Medications Dextrose/Sodium Chloride (Iv D5% - 10/12 NS) 1,000 ml @ 125 mls/hr Q8H IV Last administered on 10/23/16 02:59; Start 10/22/16 at 13:00 Fosphenytoin Sodium 100 mg 100 mg Q8HRS IV Last administered on 10/23/16 06:35 ; Start 10/22/16 at 14:00 Phytonadione (Vitamin K) 10 mg 1X ONCE SQ Last administered on 10/23/16 06:36 ; Start 10/23/16 at 06:30; Stop 10/23/16 at 06:31; Status DC Valproic Acid 690 mg/Sodium Chloride 56.9 ml @ 56.9 mls/hr Q6HRS IV Last administered on 10/23/16 11:31; Start 10/22/16 at 13:00 Vancomycin HCl 1 each 1X ONCE MC ; Start 10/23/16 at 08:30; Stop 10/23/16 at 08 :31; Status Cancel Warfarin Sodium (Coumadin - No Dose Today) 1 each 1X WARF ONCE MC Last administered on 10/22/16 16:00; Start 10/22/16 at 16:00; Stop 10/22/16 at 16:01 ; Status DC Warfarin Sodium (Coumadin - No Dose Today) 1 each 1X WARF ONCE MC ; Start 10/23 at 16:00; Stop 10/23/16 at 16:01 Vitals/I & O Vital Sign - Last 24 Hours 10/22/16 10/22/16 10/22/16 10/22/16 15:00 20:00 20:05 23:20 Temp 97.9 98.8 99.0 97.9 98.8 99.0 Pulse 108 125 119 Resp 20 20 20 B/P 117/70 136/70 125/83 Pulse Ox 95 95 93 O2 Delivery Nasal Cannula Nasal Cannula Nasal Cannula Nasal Cannula O2 Flow Rate 2.0 2.0 2.0 2.0 10/23/16 10/23/16 10/23/16 03:27 07:00 07:40 Temp 99.7 98.8 99.7 98.8 Pulse 114 103 Resp 20 20 B/P 150/66 144/64 Pulse Ox 96 97 O2 Delivery Nasal Cannula Nasal Cannula Nasal Cannula O2 Flow Rate 2.0 2.0 2.0 Intake and Output 10/22/16 10/22/16 10/23/16 15:00 23:00 07:00 Intake Total 1250 ml 50 ml Output Total 225 ml 350 ml 700 ml Balance 1025 ml -300 ml -700 ml RADHA WHITAKER MD Oct 23, 2016 11:37
[2016-10-23 15:00] VITALS: BP 138/69
[2016-10-23 19:00] VITALS: BP 152/77
[2016-10-23] MEDS: CLONAZEPAM 0.5 MG TABLET PO SCH (20:44)
[2016-10-23] MEDS: MIRTAZAPINE 15 MG TABLET PO SCH (20:45)
[2016-10-23] MEDS: CHLORPROMAZINE 25 MG PO SCH ×2 (20:45)
[2016-10-23] MEDS: GABAPENTIN 400 MG CAPSULE. PO SCH (20:45)
[2016-10-23] MEDS: OLANZAPINE 5 MG TABLET. PO SCH (20:46)
[2016-10-23] MEDS: SIMVASTATIN 10 MG TABLET PO SCH (20:46)
[2016-10-23 23:00] VITALS: BP 178/99
[2016-10-24] MEDS: ACETAMINOPHEN 650 MG SUPP.RECT. PR PRN (00:04)
[2016-10-24] MEDS: VALPROIC ACID IV SCH ×5 (00:05→23:03)
[2016-10-24] MEDS: NORMAL SALINE IV SCH ×5 (00:05→23:03)
[2016-10-24 03:00] VITALS: BP 159/75
[2016-10-24 05:23] LABS: INR 2.5 (0.8-1.1); PROTHROMBIN TIME PATIENT 25.2 SEC (11.7-14.0)
[2016-10-24] MEDS: IV DEXTROSE 5 %-0.2 % NACL 1,000 ML IV SCH (05:23)
[2016-10-24] MEDS: PIPERACILLIN/TAZOBACTAM 3.375 GM in IV NORMAL SALINE 50ML 50 ML IV SCH ×3 (05:23→21:35)
[2016-10-24] MEDS: FOSPHENYTOIN 100 MG/2 ML VIAL IV SCH ×3 (05:28→23:02)
[2016-10-24 07:22] VITALS: BP 187/82
[2016-10-24] MEDS: busPIRone 5 MG TABLET. PO SCH ×3 (08:20→21:33)
[2016-10-24] MEDS: PANTOPRAZOLE 40 MG TABLET. PO SCH (08:20)
[2016-10-24] MEDS: POLYVINYL ALCOHOL 1.4% OPHTH SOLUTION 15ML BOTTLE. OU SCH ×4 (08:20→21:35)
[2016-10-24] MEDS: BENZTROPINE MESYLATE 1 MG TABLET PO SCH (08:20)
[2016-10-24] MEDS: LISINOPRIL 5 MG TABLET. PO SCH (08:20)
[2016-10-24] MEDS: MULTIVITAMIN with MINERAL TABLET. PO SCH (08:20)
[2016-10-24] MEDS: INSULIN DETEMIR 300 UNITS/3 ML INSULN.PEN. SQ SCH ×2 (08:30→21:00)
[2016-10-24] MEDS: INSULIN ASPART 300 UNITS/3 ML INSULN.PEN SQ SCH ×3 (08:30→18:14)
--- NOTE | 2016-10-24 09:05 | PDOC ---
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 verbal responses not spoken clearly but understandable, pain in lower back Objective Objective alert, no distress Vitals Vital Signs Date Time Temp Pulse Resp B/P Pulse Ox O2 Delivery O2 Flow Rate FiO2 10/24/16 08:20 101 187/82 10/24/16 07:22 98.4 20 98 Room Air 98.4 10/23/16 19:59 2.0 Input & Output Intake and Output 10/24/16 07:00 Intake Total 1663.8 ml Output Total 2000 ml Balance -336.2 ml Intake Oral 0 ml IV Total 1663.8 ml Output Urine Total 2000 ml Physical Exam Physical Exam GENERAL: awake, oriented to name, no distress. HEAD: normocephalic LUNGS: Decreased breath sounds at bases. CARDIOVASCULAR: S1 and S2 regular. ABDOMEN: Soft, obese, nontender, firm with mild distention. Bowel sounds hypoactive EXTREMITIES: + edema. CENTRAL NERVOUS SYSTEM: awake, following simple commands, verbally interactive SKIN: Warm and dry. Skin turgor decreased. Labs Laboratory Tests Test 10/22/16 08:43 10/22/16 11:36 10/22/16 16:30 10/22/16 20:50 White Blood Count 19.6x10^3/uL (4.0-11.0) Red Blood Count 3.16x10^6/uL (3.50-5.40) Hemoglobin 8.6g/dL (12.0-15.5) Hematocrit 27.2% (36.0-47.0) Mean Corpuscular Volume 86fL (79-100) Mean Corpuscular Hemoglobin 27pg (25-35) Mean Corpuscular Hemoglobin Concent 31g/dL (31-37) Red Cell Distribution Width 16.5% (11.5-14.5) Platelet Count 199x10^3/uL (140-400) Neutrophils (%) (Auto) 77% (31-73) Lymphocytes (%) (Auto) 12% (24-48) Monocytes (%) (Auto) 11% (0-9) Eosinophils (%) (Auto) 0% (0-3) Basophils (%) (Auto) 1% (0-3) Neutrophils # (Auto) 15.1x10^3uL (1.8-7.7) Lymphocytes # (Auto) 2.3x10^3/uL (1.0-4.8) Monocytes # (Auto) 2.1x10^3/uL (0.0-1.1) Eosinophils # (Auto) 0.0x10^3/uL (0.0-0.7) Basophils # (Auto) 0.1x10^3/uL (0.0-0.2) Prothrombin Time 38.6SEC (11.7-14.0) Prothromb Time International Ratio 4.2 (0.8-1.1) Sodium Level 152mmol/L (136-145) Potassium Level 3.7mmol/L (3.5-5.1) Chloride Level 117mmol/L (98-107) Carbon Dioxide Level 24mmol/L (21-32) Anion Gap 11 (6-14) Blood Urea Nitrogen 20mg/dL (7-20) Creatinine 2.4mg/dL (0.6-1.0) Estimated GFR (Cockcroft-Gault) 25.0 BUN/Creatinine Ratio 8 (6-20) Glucose Level 153mg/dL (70-99) Calcium Level 8.2mg/dL (8.5-10.1) Magnesium Level 2.1mg/dL (1.8-2.4) Total Bilirubin 0.5mg/dL (0.2-1.0) Aspartate Amino Transf (AST/SGOT) 18U/L (15-37) Alanine Aminotransferase (ALT/SGPT) 18U/L (14-59) Alkaline Phosphatase 89U/L (46-116) Total Protein 6.6g/dL (6.4-8.2) Albumin 1.5g/dL (3.4-5.0) Albumin/Globulin Ratio 0.3 (1.0-1.7) Vancomycin Level Trough 25.2mcg/mL (10.0-20.0) Vancomycin Last Dose Date 10/21/16 Vancomycin Last Dose Time 0911 Glucose (Fingerstick) 135mg/dL (70-99) 126mg/dL (70-99) 130mg/dL (70-99) Test 10/23/16 04:30 10/23/16 07:42 10/23/16 11:32 10/23/16 16:46 White Blood Count 17.0x10^3/uL (4.0-11.0) Red Blood Count 3.21x10^6/uL (3.50-5.40) Hemoglobin 8.8g/dL (12.0-15.5) Hematocrit 26.7% (36.0-47.0) Mean Corpuscular Volume 83fL (79-100) Mean Corpuscular Hemoglobin 27pg (25-35) Mean Corpuscular Hemoglobin Concent 33g/dL (31-37) Red Cell Distribution Width 16.6% (11.5-14.5) Platelet Count 220x10^3/uL (140-400) Neutrophils (%) (Auto) 75% (31-73) Lymphocytes (%) (Auto) 12% (24-48) Monocytes (%) (Auto) 13% (0-9) Eosinophils (%) (Auto) 0% (0-3) Basophils (%) (Auto) 0% (0-3) Neutrophils # (Auto) 12.7x10^3uL (1.8-7.7) Lymphocytes # (Auto) 2.0x10^3/uL (1.0-4.8) Monocytes # (Auto) 2.1x10^3/uL (0.0-1.1) Eosinophils # (Auto) 0.0x10^3/uL (0.0-0.7) Basophils # (Auto) 0.0x10^3/uL (0.0-0.2) Prothrombin Time 60.4SEC (11.7-14.0) Prothromb Time International Ratio 7.6 (0.8-1.1) Sodium Level 151mmol/L (136-145) Potassium Level 3.8mmol/L (3.5-5.1) Chloride Level 115mmol/L (98-107) Carbon Dioxide Level 23mmol/L (21-32) Anion Gap 13 (6-14) Blood Urea Nitrogen 21mg/dL (7-20) Creatinine 2.3mg/dL (0.6-1.0) Estimated GFR (Cockcroft-Gault) 26.3 Glucose Level 183mg/dL (70-99) Calcium Level 8.0mg/dL (8.5-10.1) Glucose (Fingerstick) 164mg/dL (70-99) 233mg/dL (70-99) 228mg/dL (70-99) Test 10/23/16 21:08 10/24/16 04:40 10/24/16 07:24 Glucose (Fingerstick) 210mg/dL (70-99) 184mg/dL (70-99) Prothrombin Time 25.2SEC (11.7-14.0) Prothromb Time International Ratio 2.5 (0.8-1.1) Laboratory Tests Test 10/23/16 11:32 10/23/16 16:46 10/23/16 21:08 10/24/16 04:40 Glucose (Fingerstick) 233mg/dL (70-99) 228mg/dL (70-99) 210mg/dL (70-99) Prothrombin Time 25.2SEC (11.7-14.0) Prothromb Time International Ratio 2.5 (0.8-1.1) Test 10/24/16 07:24 Glucose (Fingerstick) 184mg/dL (70-99) Meds Current Medications Acetaminophen (Tylenol) 650 mg PRN Q6HRS PRN [place] MILD PAIN / TEMP Last administered on 10/24/16 00:04; Start 10/23/16 at 23:30 Warfarin Sodium (Coumadin - No Dose Today) 1 each 1X WARF ONCE MC Last administered on 10/23/16 16:00; Start 10/23/16 at 16:00; Stop 10/23/16 at 16:01 ; Status DC Assessment Assessment IMPRESSION: 1. Sepsis with lactic acidosis 2. Acute metabolic encephalopathy. ARF underlying dementia 3. Urinary tract infection. negative per culture 4. Acute renal failure. with baseline CKD 5. Seizure disorder with low Dilantin level of 3. 6. Diabetes mellitus type 2. 7. Dementia. 8. Paranoid schizophrenia. 9. Physical deconditioning. 10. Moderate malnutrition with albumin of 2.5. 11. Peripheral vascular disease. 12. Hyperlipidemia. 13. History of hypertension. 14. Gastroesophageal reflux disease. 15. Osteoporosis. 16. Vitamin D deficiency. 17. Legal blindness. 18. Hypernatremia NA 151 POA PLAN: sepsis with lactic acidosis ID consulted Zosyn IV Admit WBC 29.8 10/24 17.0 BC and urine CS negative Tm 10/23 100.6F ARF with CKD, hypernatremia Admit BUN 34 10/23 21 Cr 2.4 2.4 Na 137 151 K 3.8 3.8 IV D51/4NS 125cc/hr renal consulted lab 10/24 pending DM II FSBS Novolog 10u tid ac Levemir 22u bid BS 126-183 seizure disorder [id number] IV q8hr Depakote continue seizure precautions HTN continue NH meds anticoagulation Admit INR 3.0 10/24 1.6 pharmacy managing INR 10/23 7.6 abd mild distention no BM since prior to admit Dulcolax supp 10/24 severe with underlying chronic PCL malnutrition continue diet DVT/GI prophylaxis warfarin PPI For further plan of care, please refer to the orders. Admit to 10/24: PLAN: wbc down to 17 with iv antibiotics. Cr 2.3 slightly down with fluids change iv fluids rto d5 1/4 ns renal consult appreciated vanco+zosyn DNR poor prognosis. family meeting monday. The patient has been transferred out of ICU. Plan Plan For more details regarding further plans, please refer to the orders. PABLO ROJAS MD 10/24/16 0927: IM PROGRESS NOTES- Assessment Assessment creatinine is worse. Clinically retaining fluid. Change IV fluids to PPN. Hold Lasix for now. KUB,also order CXR. The patient was seen and examined by me. Chart reviewed and plan of care formulated. Discussed with, reviewed and agree with STEEL WELDER's notes, plan of care and orders with modifications as necessary. For more details regarding further plans, please refer to the orders. MILLIE HEAD APRN Oct 24, 2016 09:05 PABLO ROJAS MD Oct 24, 2016 09:27
--- NOTE | 2016-10-24 09:10 | PDOC ---
Infectious Disease Note Subjective Subjective Mumbling No fever last 24 hours KATY BURNS Unable to obtain Vital Sign Vital Signs Vital Signs Date Time Temp Pulse Resp B/P Pulse Ox O2 Delivery O2 Flow Rate FiO2 10/24/16 08:20 101 187/82 10/24/16 07:22 98.4 20 98 Room Air 98.4 10/23/16 19:59 2.0 Physical Exam PHYSICAL EXAM GENERAL: NAD, Alert. taking thickened liquids HEENT: PERRL NECK: Supple, no JVD, no LN LUNGS: Clear HEART: S1S2, no gallop, no murmur ABD: Soft, NT, no organomegaly, no rebound, obese EXT: Gen edema, no cyanosis [employer] AIDE: Alert, but not aware SKIN: No rash IV: ok Labs Lab Laboratory Tests Test 10/23/16 11:32 10/23/16 16:46 10/23/16 21:08 10/24/16 04:40 Glucose (Fingerstick) 233mg/dL (70-99) 228mg/dL (70-99) 210mg/dL (70-99) Prothrombin Time 25.2SEC (11.7-14.0) Prothromb Time International Ratio 2.5 (0.8-1.1) Test 10/24/16 07:24 Glucose (Fingerstick) 184mg/dL (70-99) Objective Assessment Sepsis with lactic acidosis. POA improved Fever. - up today Leukocytosis, slowly trending down [place] UTI. POA. UC neg Encephalopathy - arousable only CVA MRSA positive Seizure disorder Diabetes Plan Plan of Care Repeat CXR Dose Vanc times one Continue Zosyn at q 8 currently F/u labs Await renal eval and palliative care meeting regarding goals of care ? baseline mental status DNR KATIE NIÑO MD Oct 24, 2016 09:09
[2016-10-24] MEDS ORDERED: BISACODYL 10 MG SUPP.RECT PR ONE (09:15)
[2016-10-24] MEDS ORDERED: BISACODYL 10 MG SUPP.RECT PR PRN (09:15)
[2016-10-24] MEDS ORDERED: FUROSEMIDE 20 MG/2 ML VIAL IVP ONE ×2 (09:15→10:15)
[2016-10-24] MEDS ORDERED: MAGNESIUM HYDROXIDE 2,400 MG/30 ML ORAL.SUSP. PO PRN (09:15)
[2016-10-24 09:29] LABS: BASO # 0.1 x10^3/uL (0.0-0.2); BASO % 1 % (0-3); EOS % 0 % (0-3); HEMATOCRIT 26.6 % (36.0-47.0); HEMOGLOBIN 8.6 g/dL (12.0-15.5); LYMPH # 2.3 x10^3/uL (1.0-4.8); LYMPH % 16 % (24-48); MEAN CORPUSCULAR HEMOGLOBIN 27 pg (25-35); MEAN CORPUSCULAR HGB CONC 33 g/dL (31-37); MEAN CORPUSCULAR VOLUME 83 fL (79-100); MONO % 18 % (0-9); NEUT % 66 % (31-73); PLATELET COUNT 250 x10^3/uL (140-400); RED CELL DISTRIBUTION WIDTH 16.3 % (11.5-14.5); WHITE BLOOD COUNT 14.2 x10^3/uL (4.0-11.0)
[2016-10-24 09:32] LABS: CALCIUM 8.4 mg/dL (8.5-10.1); CREATININE 2.3 mg/dL (0.6-1.0); GFR 26.3; POTASSIUM 3.5 mmol/L (3.5-5.1)
[2016-10-24] MEDS ORDERED: VANCOMYCIN 1.25 GM in IV NORMAL SALINE 250ML 250 ML IV ONE (10:00)
--- NOTE | 2016-10-24 10:10 | RAD ---
Indication abdominal distention. Patient nonverbal. The abdominal gas pattern is within normal limits. Postoperative changes are noted associated with the left hip. Degenerative changes about the right hip are noted. There are linear lucencies, perhaps representing air in the pelvis. Clinical correlation advised. If additional imaging of the abdomen or pelvis is warranted CT examination could be performed.
[2016-10-24] MEDS: AA 3%/ELECTROLYTE-TPN SOLN/GLY 1,000 ML IV SCH (10:15)
[2016-10-24 10:58] VITALS: BP 198/90
--- NOTE | 2016-10-24 11:21 | RAD ---
Indication fever. Aspiration. A single view of the chest was obtained and is compared to a study 5 days earlier. There is now, in contrast to the previous exam, volume loss in the right lower lobe suggesting pleural fluid and atelectasis or pneumonia. (If pneumonia, aspiration pneumonia not excluded). Heart and pulmonary vessels are similar. Left lung is clear. There is no pneumothorax. IMPRESSION: New volume loss in the right lower lobe compatible with pleural fluid and atelectasis or pneumonia.
--- NOTE | 2016-10-24 12:48 | PDOC2 ---
CONSULT Date of Consult Date of Consult DATE: 10/24/16 TIME: 12:40 Reason for Consult Reason for Consult: KALPANA Referring Physician Referring Physician: Dr Raymundo/ Dr Haas Identification/Chief Complaint Chief Complaint AMS, fever Problems: Source Source: Chart review, Patient History of Present Illness Reason for Visit: as dictated Past Medical History Cardiovascular: HTN, Hyperlipidemia, Other CENTRAL NERVOUS SYSTEM: CVA, Seizure GI: Constipation, GERD, Other Psych: Anxiety, Other Musculoskeletal: Other Rheumatologic: Other Endocrine: Diabetes Past Surgical History Past Surgical History: Pacemaker Family History Family History: Other (-ve as best ascertainable) Social History Lives: Skilled Nursing Current Problem List Problem List Problems Medical Problems: (1) Sepsis Status: Acute (2) Severe protein-calorie malnutrition Status: Acute (3) Uncontrolled diabetes mellitus Status: Acute (4) Urinary tract infection Status: Acute Current Medications Current Medications Current Medications Sodium Chloride (Iv Sodium Chloride 0.9% 1000ml Bag) 1,000 ml @ 622.5 mls/ hr Q1H37M IV Last administered on 10/19/16 13:13; Start 10/19/16 at 09:59; Stop 10/19/16 at 13:59; Status DC Naloxone HCl (Narcan) 0.4 mg STK-MED ONCE .ROUTE ; Start 10/19/16 at 11:04; Stop 10/19/16 at 11:05; Status DC Naloxone HCl 0.4 mg 0.4 mg 1X ONCE IV Last administered on 10/19/16 11:20; Start 10/19/16 at 11:15; Stop 10/19/16 at 11:16; Status DC Ceftriaxone Sodium (Rocephin 1gm Ivpb For Omni) 50 ml @ 100 mls/hr 1X ONCE IV Last administered on 10/19/16 12:23; Start 10/19/16 at 12:00; Stop 10/19/16 at 12:29; Status DC Ondansetron HCl 4 mg 4 mg PRN Q8HRS PRN IV NAUSEA/VOMITING; Start 10/19/16 at 12:00; Stop 10/20/16 at 11:59; Status DC Sodium Chloride (Iv Sodium Chloride 0.9% 1000ml Bag) 1,000 ml @ 100 mls/hr Q10H IV Last administered on 10/20/16 08:36; Start 10/19/16 at 11:54; Stop 09/24 at 11:53; Status DC Acetaminophen 650 mg 650 mg PRN Q4HRS PRN PO FEVER Last administered on 21:19; Start 10/19/16 at 12:00; Stop 10/20/16 at 08:53; Status DC Ceftriaxone Sodium/Sodium Chloride (Rocephin/Iv Sodium Chloride 0.9% 50ml) 50 ml @ 100 mls/hr Q24H IV ; Start 10/20/16 at 12:00; Stop 10/20/16 at 12:00; Status DC Acetaminophen (Tylenol) 650 mg PRN Q6HRS PRN PO PAIN; Start 10/19/16 at 17:15; Status Cancel Buspirone HCl (Buspar) 10 mg TID PO Last administered on 10/24/16 08:20; Start 10/19/16 at 21:00 Chlorpromazine HCl (Thorazine) 25 mg HS PO Last administered on 10/21/16 21:31 ; Start 10/19/16 at 21:00 Clonazepam (Klonopin) 0.5 mg HS PO Last administered on 10/22/16 22:03; Start 10/19/16 at 21:00 Divalproex Sodium (Depakote Er) 1,500 mg DAILY PO Last administered on 09:59; Start 10/20/16 at 09:00; Stop 10/21/16 at 14:11; Status DC Divalproex Sodium (Depakote Er) 1,000 mg QHS PO ; Start 10/19/16 at 21:00; Stop 10/21/16 at 14:11; Status DC Gabapentin (Neurontin) 400 mg HS PO Last administered on 10/22/16 22:02; Start 10/19/16 at 21:00 Acetaminophen/ Hydrocodone Bitart (Lortab 5/325) 2 tab PRN Q4HRS PRN PO PAIN Last administered on 10/21/16 21:24; Start 10/19/16 at 17:15 Insulin Aspart (Novolog) 10 units TIDAC SQ Last administered on 10/24/16 12:23 ; Start 10/19/16 at 18:00 Lisinopril (Prinivil) 5 mg DAILY PO Last administered on 10/24/16 08:20; Start 10/20/16 at 09:00; Stop 10/24/16 at 09:41; Status DC Lorazepam (Ativan) 0.5 mg PRN Q8HRS PRN PO ANXIETY / AGITATION Last administered on 10/19/16 21:20; Start 10/19/16 at 17:15 Mirtazapine (Remeron) 15 mg QHS PO Last administered on 10/22/16 22:02; Start 10/19/16 at 21:00 Olanzapine (Zyprexa) 5 mg QHS PO Last administered on 10/20/16 20:01; Start at 21:00; Stop 10/21/16 at 21:07; Status DC Pantoprazole Sodium (Protonix) 40 mg DAILYAC PO Last administered on 10/24/16 08:20; Start 10/20/16 at 07:30 Phenytoin Sodium (Dilantin) 100 mg DAILY PO Last administered on 10/21/16 08: 49; Start 10/20/16 at 09:00; Stop 10/22/16 at 12:33; Status DC Phenytoin Sodium (Dilantin) 200 mg QHS PO Last administered on 10/21/16 21:25 ; Start 10/19/16 at 21:00; Stop 10/22/16 at 12:34; Status DC Simvastatin (Zocor) 10 mg QHS PO Last administered on 10/21/16 21:25; Start at 21:00 Valproic Acid (Depakene) 250 mg HS PO Last administered on 10/21/16 21:24; Start 10/19/16 at 21:00; Stop 10/22/16 at 12:41; Status DC Warfarin Sodium (Coumadin) 1 mg DAILY16 PO ; Start 10/20/16 at 16:00; Stop 10/20 at 16:00; Status DC Warfarin Sodium (Coumadin) 6 mg DAILY16 PO ; Start 10/20/16 at 16:00; Stop 10/20 at 16:00; Status DC Benztropine Mesylate (Cogentin) 2 mg DAILY PO Last administered on 10/24/16 08 :20; Start 10/20/16 at 09:00 Chlorpromazine HCl (Thorazine) 100 mg QHS PO Last administered on 10/22/16 22: 02; Start 10/19/16 at 21:00 Artificial Tears (Artificial Tears) 1 drop QID OU Last administered on 08:20; Start 10/19/16 at 21:00 Insulin Detemir (Levemir) 22 units BID SQ Last administered on 10/24/16 08:30 ; Start 10/19/16 at 21:00 Multivitamins/ Calcium 1 tab 1 tab DAILY PO Last administered on 10/24/16 08: 20; Start 10/20/16 at 09:00 Piperacillin Sod/ Tazobactam Sod/ Sodium Chloride (Zosyn/Iv Sodium Chloride 0.9 % 50ml) 50 ml @ 100 mls/hr Q8HRS IV Last administered on 10/24/16 05:23; Start 10/19/16 at 18:00 Warfarin Sodium (Coumadin Per Physician) 1 each PRN DAILY PRN MC SEE COMMENTS; Start 10/19/16 at 17:30; Stop 10/20/16 at 09:17; Status DC Vancomycin HCl 1 each 1 each PRN DAILY PRN MC SEE COMMENTS Last administered on 10/22/16 09:59; Start 10/20/16 at 07:45; Stop 10/22/16 at 11:37; Status DC Vancomycin HCl/ Sodium Chloride (Iv Sodium Chloride 0.9% 500ml Bag) 500 ml @ 250 mls/hr 1X ONCE IV Last administered on 10/20/16 09:22; Start 10/20/16 at 08:00; Stop 10/20/16 at 09:59; Status DC Acetaminophen (Tylenol) 650 mg PRN Q6HRS PRN PO MILD PAIN / TEMP Last administered on 10/21/16 17:50; Start 10/20/16 at 09:00 Phenytoin Sodium (Dilantin) 300 mg 1X ONCE PO ; Start 10/20/16 at 09:00; Stop 10/20/16 at 09:01; Status DC Warfarin Sodium 1 each 1 each PRN DAILY PRN MC SEE COMMENTS Last administered on 10/23/16 11:28; Start 10/20/16 at 09:15 Vancomycin HCl/ Sodium Chloride (Iv Sodium Chloride 0.9% 250ml) 250 ml @ 167 mls/hr Q12H IV Last administered on 10/21/16 09:11; Start 10/20/16 at 21:00; Stop 10/21/16 at 12:00; Status DC Vancomycin HCl 1 each 1X ONCE MC Last administered on 10/22/16 08:30; Start 10/22/16 at 08:30; Stop 10/22/16 at 08:31; Status DC Warfarin Sodium 3 mg 3 mg 1X WARF ONCE PO Last administered on 10/20/16 16:12 ; Start 10/20/16 at 16:00; Stop 10/20/16 at 16:01; Status DC Sodium Chloride 1,000 ml @ 1,000 mls/hr 1X ONCE IV Last administered on 16:13; Start 10/20/16 at 15:30; Stop 10/20/16 at 16:29; Status DC Magnesium Sulfate/ Dextrose 50 ml @ 25 mls/hr 1X ONCE IV Last administered on 10/21/16 09:59; Start 10/21/16 at 09:00; Stop 10/21/16 at 10:59; Status DC Vancomycin HCl/ Sodium Chloride (Iv Sodium Chloride 0.9% 250ml) 250 ml @ 167 mls/hr Q24H IV ; Start 10/22/16 at 09:00; Stop 10/22/16 at 09:51; Status DC Warfarin Sodium 6 mg 6 mg 1X WARF ONCE PO Last administered on 10/21/16 17:50 ; Start 10/21/16 at 16:00; Stop 10/21/16 at 16:01; Status DC Potassium Chloride/Dextrose/ Sod Cl (KCl 20 Meq In D5W-1/2 NS) 1,000 ml @ 100 mls/hr Q10H IV Last administered on 10/22/16 05:59; Start 10/21/16 at 10:15; Stop 10/22/16 at 12:40; Status DC Divalproex Sodium (Depakote Sprinkles) 1,500 mg [id number] PO ; Start 10/21/16 at 14:30; Status UNV Divalproex Sodium (Depakote Sprinkles) 625 mg Q6HRS PO Last administered on 06:04; Start 10/21/16 at 14:30; Stop 10/22/16 at 12:40; Status DC Olanzapine (Zyprexa) 5 mg QHS PO ; Start 10/21/16 at 21:07; Stop 10/21/16 at 21: 31; Status DC Olanzapine (Zyprexa) 5 mg HS PO Last administered on 10/22/16 22:03; Start at 21:30 Vancomycin HCl 1 each 1X ONCE MC ; Start 10/23/16 at 08:30; Stop 10/23/16 at 08 :31; Status Cancel Warfarin Sodium (Coumadin - No Dose Today) 1 each 1X WARF ONCE MC Last administered on 10/22/16 16:00; Start 10/22/16 at 16:00; Stop 10/22/16 at 16:01 ; Status DC Fosphenytoin Sodium 100 mg 100 mg Q8HRS IV Last administered on 10/24/16 05:28 ; Start 10/22/16 at 14:00 Valproic Acid 690 mg/Sodium Chloride 56.9 ml @ 56.9 mls/hr Q6HRS IV Last administered on 10/24/16 12:18; Start 10/22/16 at 13:00 Dextrose/Sodium Chloride (Iv D5% - 1/4 NS) 1,000 ml @ 125 mls/hr Q8H IV Last administered on 10/24/16 05:23; Start 10/22/16 at 13:00; Stop 10/24/16 at 09:12 ; Status DC Phytonadione (Vitamin K) 10 mg 1X ONCE SQ Last administered on 10/23/16 06:36 ; Start 10/23/16 at 06:30; Stop 10/23/16 at 06:31; Status DC Warfarin Sodium (Coumadin - No Dose Today) 1 each 1X WARF ONCE MC Last administered on 10/23/16 16:00; Start 10/23/16 at 16:00; Stop 10/23/16 at 16:01 ; Status DC Acetaminophen 650 mg 650 mg PRN Q6HRS PRN [place] MILD PAIN / TEMP Last administered on 10/24/16 00:04; Start 10/23/16 at 23:30 Vancomycin HCl 1.25 gm/Sodium Chloride 250 ml @ 166.667 mls/hr 1X ONCE IV Last administered on 10/24/16 10:15; Start 10/24/16 at 10:00; Stop 10/24/16 at 11:29; Status DC Amino Acids/ Glycerin/ Electrolytes (Procalamine) 1,000 ml @ 80 mls/hr [id number] IV Last administered on 10/24/16 10:15; Start 10/24/16 at 09:15 Furosemide (Lasix) 20 mg 1X ONCE IVP ; Start 10/24/16 at 09:15; Stop 10/24/16 at 09:16; Status Cancel Bisacodyl (Dulcolax Supp) 10 mg 1X ONCE WA Last administered on 10/24/16 10: 15; Start 10/24/16 at 09:15; Stop 10/24/16 at 09:19; Status DC Magnesium Hydroxide (Milk Of Magnesia) 2,400 mg PRN DAILY PRN PO CONSTIPATION; Start 10/24/16 at 09:15 Bisacodyl (Dulcolax Supp) 10 mg PRN DAILY PRN [place] CONSTIPATION; Start 10/24/16 at 09:15 Furosemide (Lasix) 20 mg 1X ONCE IVP Last administered on 10/24/16 10:15; Start 10/24/16 at 10:15; Stop 10/24/16 at 10:16; Status DC Active Scripts Active Protonix (Pantoprazole Sodium) 40 Mg Tablet 40 Mg PO DAILYAC Reported Vitamin D (Cholecalciferol (Vitamin D3)) 1,000 Unit Capsule 1,000 Unit PO DAILY Acetaminophen 325 Mg Tablet 650 Mg PO PRN Q6HRS PRN Senna-Docusate Sodium Tablet (Sennosides/Docusate Sodium) 1 Each Tablet 1 Each PO BID Miralax (Polyethylene Glycol 3350) 17 Gm Powd.pack 1 Pkt PO DAILY Phenytoin Sodium Extended 100 Mg Capsule 100 Mg PO DAILY Depakote Er (Divalproex Sodium) 500 Mg Tab.er.24h 1,500 Mg PO DAILY Warfarin Sodium 1 Mg Tablet 1 Mg PO DAILY Chlorpromazine Hcl 100 Mg Tablet 100 Mg PO QHS Benztropine Mesylate 2 Mg Tablet 2 Mg PO DAILY Zyprexa (Olanzapine) 5 Mg Tablet 1 Tab PO QHS Simvastatin 10 Mg Tablet 10 Mg PO QHS Remeron (Mirtazapine) 15 Mg Tablet 15 Mg PO QHS Lisinopril 5 Mg Tablet 1 Tab PO DAILY Depakene (Valproic Acid) 250 Mg Capsule 250 Mg PO HS Coumadin (Warfarin Sodium) 6 Mg Tablet 6 Mg PO DAILY Buspirone Hcl 10 Mg Tablet 10 Mg PO TID Neurontin (Gabapentin) 400 Mg Capsule 1 Tab PO HS Multivitamins (Multivitamin) 1 Each Capsule 1 Tab PO DAILY Milk Of Magnesia (Magnesium Hydroxide) 400 Mg/5 Ml Oral.susp 30 Ml PO PRN DAILY PRN Dilantin (Phenytoin Sodium Extended) 100 Mg Capsule 200 Mg PO QHS Depakote (Divalproex Sodium) 500 Mg Tablet.dr 1,000 Mg PO HS Chlorpromazine Hcl 25 Mg Tablet 25 Mg PO HS Artificial Tears (Hypromellose) 15 Ml Drops 2 Drop EACHEYE QID Novolog (Insulin Aspart) 100 Unit/1 Ml Vial 10 Units SUBCUT TIDAC [place] 5-325 Tablet (Acetaminophen/Hydrocodone Bitart) 1 Each Tablet 2 Tab PO Q4H PRN Levemir (Insulin Detemir) 100 Unit/1 Ml Vial 22 Unit SQ BID Klonopin (Clonazepam) 0.5 Mg Tablet 0.5 Mg PO HS Duoneb 0.5 Mg-3 Mg/3 Ml Soln (Ipratropium/Albuterol Sulfate) 3 Ml Ampul.neb 3 Ml INH Q6H Ativan (Lorazepam) 0.5 Mg Tablet 1 Tab PO Q8H PRN Allergies Allergies: Coded Allergies: I S O L A T I O N *CONTACT* (Verified Allergy, Unknown, 10/20/16) mrsa No Known Medication Allergies (Verified Allergy, Unknown, 10/20/16) ROS Review of System unable to obtain Physical Exam Physical Exam GEN: Awake, Oriented x 0, In no distress EYES: Vision Unchanged, Conjunctiva Normal EN: No EN Drainage, Mucous Membranes moist NECK: no JVD, no JVP, Supple, no Thyromegaly CVS: S1S2, no Murmur, No Gallop, No Rub,+ Edema RESP: no Rales, no Rhonchi,no Acc. Muscle Use GI: BS + ve, NO Bruit, Non Tender, Non Distended : no CVA tenderness, no Suprapubic Tenderness does not follow commands, Vital Signs Vital Signs Date Time Temp Pulse Resp B/P Pulse Ox O2 Delivery O2 Flow Rate FiO2 10/24/16 10:58 97.5 103 20 198/90 98 Nasal Cannula 2.0 97.5 Assessment & Plan KALPANA - ATN - suspect due to AIN asso with UTI. ? Hypotension OA/ sepsis may have contributed too. Current FLuid and E-lyte status does not necessitate emergent need for Dialysis. Poor candidate for [employer] if need arises ^Na - PPN for now Await Pall care mt outcome Labs Labs Laboratory Tests Test 10/22/16 16:30 10/22/16 20:50 10/23/16 04:30 10/23/16 07:42 Glucose (Fingerstick) 126mg/dL (70-99) 130mg/dL (70-99) 164mg/dL (70-99) White Blood Count 17.0x10^3/uL (4.0-11.0) Red Blood Count 3.21x10^6/uL (3.50-5.40) Hemoglobin 8.8g/dL (12.0-15.5) Hematocrit 26.7% (36.0-47.0) Mean Corpuscular Volume 83fL (79-100) Mean Corpuscular Hemoglobin 27pg (25-35) Mean Corpuscular Hemoglobin Concent 33g/dL (31-37) Red Cell Distribution Width 16.6% (11.5-14.5) Platelet Count 220x10^3/uL (140-400) Neutrophils (%) (Auto) 75% (31-73) Lymphocytes (%) (Auto) 12% (24-48) Monocytes (%) (Auto) 13% (0-9) Eosinophils (%) (Auto) 0% (0-3) Basophils (%) (Auto) 0% (0-3) Neutrophils # (Auto) 12.7x10^3uL (1.8-7.7) Lymphocytes # (Auto) 2.0x10^3/uL (1.0-4.8) Monocytes # (Auto) 2.1x10^3/uL (0.0-1.1) Eosinophils # (Auto) 0.0x10^3/uL (0.0-0.7) Basophils # (Auto) 0.0x10^3/uL (0.0-0.2) Prothrombin Time 60.4SEC (11.7-14.0) Prothromb Time International Ratio 7.6 (0.8-1.1) Sodium Level 151mmol/L (136-145) Potassium Level 3.8mmol/L (3.5-5.1) Chloride Level 115mmol/L (98-107) Carbon Dioxide Level 23mmol/L (21-32) Anion Gap 13 (6-14) Blood Urea Nitrogen 21mg/dL (7-20) Creatinine 2.3mg/dL (0.6-1.0) Estimated GFR (Cockcroft-Gault) 26.3 Glucose Level 183mg/dL (70-99) Calcium Level 8.0mg/dL (8.5-10.1) Test 10/23/16 11:32 10/23/16 16:46 10/23/16 21:08 10/24/16 04:40 Glucose (Fingerstick) 233mg/dL (70-99) 228mg/dL (70-99) 210mg/dL (70-99) White Blood Count 14.2x10^3/uL (4.0-11.0) Red Blood Count 3.20x10^6/uL (3.50-5.40) Hemoglobin 8.6g/dL (12.0-15.5) Hematocrit 26.6% (36.0-47.0) Mean Corpuscular Volume 83fL (79-100) Mean Corpuscular Hemoglobin 27pg (25-35) Mean Corpuscular Hemoglobin Concent 33g/dL (31-37) Red Cell Distribution Width 16.3% (11.5-14.5) Platelet Count 250x10^3/uL (140-400) Neutrophils (%) (Auto) 66% (31-73) Lymphocytes (%) (Auto) 16% (24-48) Monocytes (%) (Auto) 18% (0-9) Eosinophils (%) (Auto) 0% (0-3) Basophils (%) (Auto) 1% (0-3) Neutrophils # (Auto) 9.3x10^3uL (1.8-7.7) Lymphocytes # (Auto) 2.3x10^3/uL (1.0-4.8) Monocytes # (Auto) 2.5x10^3/uL (0.0-1.1) Eosinophils # (Auto) 0.0x10^3/uL (0.0-0.7) Basophils # (Auto) 0.1x10^3/uL (0.0-0.2) Prothrombin Time 25.2SEC (11.7-14.0) Prothromb Time International Ratio 2.5 (0.8-1.1) Sodium Level 148mmol/L (136-145) Potassium Level 3.5mmol/L (3.5-5.1) Chloride Level 113mmol/L (98-107) Carbon Dioxide Level 24mmol/L (21-32) Anion Gap 11 (6-14) Blood Urea Nitrogen 20mg/dL (7-20) Creatinine 2.3mg/dL (0.6-1.0) Estimated GFR (Cockcroft-Gault) 26.3 Glucose Level 240mg/dL (70-99) Calcium Level 8.4mg/dL (8.5-10.1) Test 10/24/16 07:24 10/24/16 11:26 Glucose (Fingerstick) 184mg/dL (70-99) 208mg/dL (70-99) Laboratory Tests Test 10/23/16 16:46 10/23/16 21:08 10/24/16 04:40 10/24/16 07:24 Glucose (Fingerstick) 228mg/dL (70-99) 210mg/dL (70-99) 184mg/dL (70-99) White Blood Count 14.2x10^3/uL (4.0-11.0) Red Blood Count 3.20x10^6/uL (3.50-5.40) Hemoglobin 8.6g/dL (12.0-15.5) Hematocrit 26.6% (36.0-47.0) Mean Corpuscular Volume 83fL (79-100) Mean Corpuscular Hemoglobin 27pg (25-35) Mean Corpuscular Hemoglobin Concent 33g/dL (31-37) Red Cell Distribution Width 16.3% (11.5-14.5) Platelet Count 250x10^3/uL (140-400) Neutrophils (%) (Auto) 66% (31-73) Lymphocytes (%) (Auto) 16% (24-48) Monocytes (%) (Auto) 18% (0-9) Eosinophils (%) (Auto) 0% (0-3) Basophils (%) (Auto) 1% (0-3) Neutrophils # (Auto) 9.3x10^3uL (1.8-7.7) Lymphocytes # (Auto) 2.3x10^3/uL (1.0-4.8) Monocytes # (Auto) 2.5x10^3/uL (0.0-1.1) Eosinophils # (Auto) 0.0x10^3/uL (0.0-0.7) Basophils # (Auto) 0.1x10^3/uL (0.0-0.2) Prothrombin Time 25.2SEC (11.7-14.0) Prothromb Time International Ratio 2.5 (0.8-1.1) Sodium Level 148mmol/L (136-145) Potassium Level 3.5mmol/L (3.5-5.1) Chloride Level 113mmol/L (98-107) Carbon Dioxide Level 24mmol/L (21-32) Anion Gap 11 (6-14) Blood Urea Nitrogen 20mg/dL (7-20) Creatinine 2.3mg/dL (0.6-1.0) Estimated GFR (Cockcroft-Gault) 26.3 Glucose Level 240mg/dL (70-99) Calcium Level 8.4mg/dL (8.5-10.1) Test 10/24/16 11:26 Glucose (Fingerstick) 208mg/dL (70-99) STEVE YOU MD Oct 24, 2016 12:48
--- NOTE | 2016-10-24 14:02 | PDOC2 ---
PALLIATIVE CARE Palliative Care Note Palliative Care Patient open acknowledges verbal stimuli. Does not verbalize. Met with daughter Emerald and her daughter Lois. Reviewed medical condition; UTI; Sepsis, DM; renal failure, deconditioning, Paranoid schizophrenia, GERD, Vit D deficiency, legally blind Patient is resident [facility] [place]. Usually more verbal per family. Discussed options for care; continue current aggressive care; comfort care vs limits on aggressive care Emerald requests no dialysis, no PEG tube feedings. Would like to speak with [facility] when patient returns to shelter. Patient taking thickened liquids. Code Status: DNR/DNI Outside the Hospital DNR/DNI form signed by Emerald. Plan: No dialysis; No PEG tube; DNR/DNI Family requests Hospice visit when discharged back to shelter. GERMAN DAVILA Oct 24, 2016 14:02
[2016-10-24 15:27] VITALS: BP 116/73
[2016-10-24 15:32] LABS: BILIRUBIN,URINE NEGATIVE (NEG); GLUCOSE,URINE NEGATIVE (NEG); NITRITE,URINE NEGATIVE (NEG); PH,URINE 5.5; PROTEIN,URINE NEGATIVE (NEG-TRACE); UROBILINOGEN,URINE 0.2 mg/dL (0.2 mg/dL)
[2016-10-24 15:48] LABS: BACTERIA,URINE 0 /HPF (0-FEW); SQUAMOUS EPITHELIAL CELL,UR FEW /LPF
--- NOTE | 2016-10-24 15:50 | RAD ---
Indication acute renal insufficiency. Grayscale imaging targeted to the kidneys was performed. No similar imaging is available. The right kidney measures 13.5 x 4.5 x 5.2 cm and appears unremarkable. No hydronephrosis or mass is seen. The left kidney measures 12.4 x 4.4 x 5.8 cm and appears unremarkable. No hydronephrosis or mass is seen. The patient has a Mclaughlin catheter. The urinary bladder, as a result, was collapsed and poorly evaluated with ultrasound. Incidental note was made during the examination of cholelithiasis. Multiple gallstones are identified. IMPRESSION: Normal morphologic appearance of the kidneys
[2016-10-24] MEDS ORDERED: WARFARIN 3 MG TABLET. PO ONE (16:00)
[2016-10-24 19:00] VITALS: BP 155/80
[2016-10-24] MEDS: CHLORPROMAZINE 25 MG PO SCH ×2 (21:00→21:33)
[2016-10-24] MEDS: GABAPENTIN 400 MG CAPSULE. PO SCH (21:33)
[2016-10-24] MEDS: ACETAMINOPHEN 325 MG TABLET. PO PRN (21:33)
[2016-10-24] MEDS: CLONAZEPAM 0.5 MG TABLET PO SCH (21:34)
[2016-10-24] MEDS: OLANZAPINE 5 MG TABLET. PO SCH (21:34)
[2016-10-24] MEDS: MIRTAZAPINE 15 MG TABLET PO SCH (21:34)
[2016-10-24] MEDS: SIMVASTATIN 10 MG TABLET PO SCH (21:34)
[2016-10-24 23:00] VITALS: BP 123/74
--- NOTE | 2016-10-25 00:28 | CONS ---
DATE OF CONSULTATION: PRIMARY PHYSICIAN: Dr. Jenise Raymundo. REASON FOR CONSULTATION: Acute renal failure. HISTORY OF PRESENT ILLNESS: The patient is a 61-year-old -[place] female who is a shelter resident of [facility]. She was noted to have altered mental status and was sent to the ER. In the ER, she was noted to be febrile and was noted to have a UTI. Urine cultures are negative so far. She was initially in the ICU, but has now moved to the floor. She is known to have underlying schizophrenia, CVA, seizure disorder and is minimally verbal at this time. No history is available from the patient. Most of it has been obtained from review of her charts. She was noted to have a normal creatinine at 0.9. She was noted to be marginally hypotensive and hyperglycemic. No reported seizures per se. Albumin is only ____. Sodium levels were elevated and now down to 148 after initiation of PPN. In this setting, we were asked to see her for further evaluation of her renal dysfunction. Urine output has been adequate at this time. She did receive one dose of Lasix due to edema today. Renal sonogram was ordered and is pending at this time. For rest of details, see electronic records. STEVE YOU MD DR: [email or web address]/david JOB#: [id number] / [id number]
[2016-10-25] MEDS: ACETAMINOPHEN 650 MG SUPP.RECT. PR PRN (01:13)
[2016-10-25 03:00] VITALS: BP 148/85
[2016-10-25] MEDS: AA 3%/ELECTROLYTE-TPN SOLN/GLY 1,000 ML IV SCH ×3 (03:52→23:15)
[2016-10-25] MEDS: NORMAL SALINE IV SCH ×4 (05:39→23:48)
[2016-10-25] MEDS: VALPROIC ACID IV SCH ×4 (05:39→23:48)
[2016-10-25] MEDS: FOSPHENYTOIN 100 MG/2 ML VIAL IV SCH ×3 (05:39→23:28)
[2016-10-25] MEDS: PIPERACILLIN/TAZOBACTAM 3.375 GM in IV NORMAL SALINE 50ML 50 ML IV SCH ×3 (07:04→23:03)
[2016-10-25 07:24] VITALS: BP 185/85
[2016-10-25] MEDS: ACETAMINOPHEN 325 MG TABLET. PO PRN (08:25)
[2016-10-25] MEDS: MULTIVITAMIN with MINERAL TABLET. PO SCH (08:25)
[2016-10-25] MEDS: busPIRone 5 MG TABLET. PO SCH ×3 (08:25→23:05)
[2016-10-25] MEDS: BENZTROPINE MESYLATE 1 MG TABLET PO SCH (08:25)
[2016-10-25] MEDS: PANTOPRAZOLE 40 MG TABLET. PO SCH (08:25)
[2016-10-25] MEDS: POLYVINYL ALCOHOL 1.4% OPHTH SOLUTION 15ML BOTTLE. OU SCH ×4 (08:30→23:48)
[2016-10-25] MEDS: INSULIN DETEMIR 300 UNITS/3 ML INSULN.PEN. SQ SCH ×2 (08:42→23:50)
--- NOTE | 2016-10-25 08:42 | PDOC ---
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 HEAD: normocephalic LUNGS: Decreased breath sounds at bases. CARDIOVASCULAR: S1 and S2 regular. ABDOMEN: Soft, obese, nontender, firm with + distention. Bowel sounds hypoactive EXTREMITIES: + edema. CENTRAL NERVOUS SYSTEM: sleepy SKIN: Warm and dry. Skin turgor decreased. Labs Laboratory Tests Test 10/23/16 11:32 10/23/16 16:46 10/23/16 21:08 10/24/16 04:40 Glucose (Fingerstick) 233mg/dL (70-99) 228mg/dL (70-99) 210mg/dL (70-99) White Blood Count 14.2x10^3/uL (4.0-11.0) Red Blood Count 3.20x10^6/uL (3.50-5.40) Hemoglobin 8.6g/dL (12.0-15.5) Hematocrit 26.6% (36.0-47.0) Mean Corpuscular Volume 83fL (79-100) Mean Corpuscular Hemoglobin 27pg (25-35) Mean Corpuscular Hemoglobin Concent 33g/dL (31-37) Red Cell Distribution Width 16.3% (11.5-14.5) Platelet Count 250x10^3/uL (140-400) Neutrophils (%) (Auto) 66% (31-73) Lymphocytes (%) (Auto) 16% (24-48) Monocytes (%) (Auto) 18% (0-9) Eosinophils (%) (Auto) 0% (0-3) Basophils (%) (Auto) 1% (0-3) Neutrophils # (Auto) 9.3x10^3uL (1.8-7.7) Lymphocytes # (Auto) 2.3x10^3/uL (1.0-4.8) Monocytes # (Auto) 2.5x10^3/uL (0.0-1.1) Eosinophils # (Auto) 0.0x10^3/uL (0.0-0.7) Basophils # (Auto) 0.1x10^3/uL (0.0-0.2) Prothrombin Time 25.2SEC (11.7-14.0) Prothromb Time International Ratio 2.5 (0.8-1.1) Sodium Level 148mmol/L (136-145) Potassium Level 3.5mmol/L (3.5-5.1) Chloride Level 113mmol/L (98-107) Carbon Dioxide Level 24mmol/L (21-32) Anion Gap 11 (6-14) Blood Urea Nitrogen 20mg/dL (7-20) Creatinine 2.3mg/dL (0.6-1.0) Estimated GFR (Cockcroft-Gault) 26.3 Glucose Level 240mg/dL (70-99) Calcium Level 8.4mg/dL (8.5-10.1) Creatine Kinase 66U/L (26-192) Test 10/24/16 07:24 10/24/16 11:26 10/24/16 14:55 10/24/16 16:42 Glucose (Fingerstick) 184mg/dL (70-99) 208mg/dL (70-99) 207mg/dL (70-99) Urine Collection Type Unknown Urine Color Yellow Urine Clarity Clear Urine pH 5.5 Urine Specific [place] 1.015 Urine Protein Negativemg/dL (NEG-TRACE) Urine Glucose (UA) Negativemg/dL (NEG) Urine Ketones (Stick) Negativemg/dL (NEG) Urine Blood Moderate (NEG) Urine Nitrite Negative (NEG) Urine Bilirubin Negative (NEG) Urine Urobilinogen Dipstick 0.2mg/dL (0.2 mg/dL) Urine Leukocyte Esterase Trace (NEG) Urine RBC 11-20/HPF (0-2) Urine WBC 1-4/HPF (0-4) Urine Squamous Epithelial Cells Few/LPF Urine Bacteria 0/HPF (0-FEW) Urine Mucus Mod/LPF Test 10/24/16 22:04 10/25/16 07:21 Glucose (Fingerstick) 146mg/dL (70-99) 133mg/dL (70-99) Laboratory Tests Test 10/24/16 11:26 10/24/16 14:55 10/24/16 16:42 10/24/16 22:04 Glucose (Fingerstick) 208mg/dL (70-99) 207mg/dL (70-99) 146mg/dL (70-99) Urine Collection Type Unknown Urine Color Yellow Urine Clarity Clear Urine pH 5.5 Urine Specific [place] 1.015 Urine Protein Negativemg/dL (NEG-TRACE) Urine Glucose (UA) Negativemg/dL (NEG) Urine Ketones (Stick) Negativemg/dL (NEG) Urine Blood Moderate (NEG) Urine Nitrite Negative (NEG) Urine Bilirubin Negative (NEG) Urine Urobilinogen Dipstick 0.2mg/dL (0.2 mg/dL) Urine Leukocyte Esterase Trace (NEG) Urine RBC 11-20/HPF (0-2) Urine WBC 1-4/HPF (0-4) Urine Squamous Epithelial Cells Few/LPF Urine Bacteria 0/HPF (0-FEW) Urine Mucus Mod/LPF Test 10/25/16 07:21 Glucose (Fingerstick) 133mg/dL (70-99) Meds Current Medications Amino Acids/ Glycerin/ Electrolytes (Procalamine) 1,000 ml @ 80 mls/hr [id number] IV Last administered on 10/25/16 03:52; Start 10/24/16 at 09:15 Bisacodyl (Dulcolax Supp) 10 mg 1X ONCE SC Last administered on 10/24/16 10: 15; Start 10/24/16 at 09:15; Stop 10/24/16 at 09:19; Status DC Bisacodyl (Dulcolax Supp) 10 mg PRN DAILY PRN SC CONSTIPATION; Start 10/24/16 at 09:15 Furosemide (Lasix) 20 mg 1X ONCE IVP ; Start 10/24/16 at 09:15; Stop 10/24/16 at 09:16; Status Cancel Furosemide (Lasix) 20 mg 1X ONCE IVP Last administered on 10/24/16 10:15; Start 10/24/16 at 10:15; Stop 10/24/16 at 10:16; Status DC Magnesium Hydroxide (Milk Of Magnesia) 2,400 mg PRN DAILY PRN PO CONSTIPATION; Start 10/24/16 at 09:15 Vancomycin HCl 1.25 gm/Sodium Chloride 250 ml @ 166.667 mls/hr 1X ONCE IV Last administered on 10/24/16t 10:15; Start 10/24/16 at 10:00; Stop 10/24/16 at 11:29; Status DC Warfarin Sodium (Coumadin) 3 mg 1X WARF ONCE PO Last administered on 18:06; Start 10/24/16 at 16:00; Stop 10/24/16 at 16:01; Status DC Assessment Assessment IMPRESSION: 1. Sepsis with lactic acidosis 2. Acute metabolic encephalopathy. ARF underlying dementia 3. Urinary tract infection. negative per culture 4. Acute renal failure KAL[place]NA ATN with CKD II 5. Seizure disorder with low Dilantin level of 3. 6. Diabetes mellitus type 2. 7. Dementia. 8. Paranoid schizophrenia. 9. Physical deconditioning. 10. Moderate malnutrition with albumin of 2.5. 11. Peripheral vascular disease. 12. Hyperlipidemia. 13. History of hypertension. 14. Gastroesophageal reflux disease. 15. Osteoporosis. 16. Vitamin D deficiency. 17. Legal blindness. 18. Hypernatremia NA 151 POA PLAN: sepsis with lactic acidosis ID consulted Zosyn IV Admit WBC 29.8 10/25 14.2 BC and urine CS negative Tm 100.2 previous 24 hour repeat UA neg nitrite, + blood, WBC 1-4 improved CXR RLL atelectasis vs [id number] nebulizer ARF KALPANA ATN with CKD, hypernatremia Admit BUN 34 10/24 20 Cr 2.4 2.3 Na 137 148 K 3.8 3.5 IV D51/4NS 125cc/hr-DC 10/24 renal consulted no Lasix 10/24 DM II FSBS Novolog 10u tid ac Levemir 22u bid BS 133-208 seizure disorder [id number] IV q8hr Depakote continue seizure precautions HTN continue NH meds anticoagulation Admit INR 3.0 10/24 2.5 pharmacy managing INR 10/23 7.6 abd mild distention no BM since prior to admit Dulcolax supp 10/24--small hard stool mod amount 10/25 Distention worse, abdomen firmer, BS hypoactive +GS per CXR-check amylase Repeat Dulcolax supp. and add miralax severe with underlying chronic PCL malnutrition continue diet PPN added 10/24 DVT/GI prophylaxis warfarin PPI Family meeting with palliative care: when transfer to [place] consult Hospice. For more details regarding further plans, please refer to the orders. Plan Plan For more details regarding further plans, please refer to the orders. PABLO ROJAS MD 10/25/16 0917: IM PROGRESS NOTES- Assessment Assessment The patient was seen and examined by me. Chart reviewed and plan of care formulated. Discussed with, reviewed and agree with PIT LABORER's notes, plan of care and orders with modifications as necessary. For more details regarding further plans, please refer to the orders. MILLIE HEAD APRN Oct 25, 2016 08:41 PABLO ROJAS MD Oct 25, 2016 09:17
[2016-10-25] MEDS: INSULIN ASPART 300 UNITS/3 ML INSULN.PEN SQ SCH ×3 (08:43→16:30)
[2016-10-25 08:46] LABS: BASO % 0 % (0-3); EOS % 0 % (0-3); HEMATOCRIT 28.2 % (36.0-47.0); LYMPH # 1.9 x10^3/uL (1.0-4.8); LYMPH % 13 % (24-48); MEAN CORPUSCULAR HEMOGLOBIN 27 pg (25-35); MEAN CORPUSCULAR HGB CONC 32 g/dL (31-37); MEAN CORPUSCULAR VOLUME 84 fL (79-100); MONO % 18 % (0-9); NEUT % 69 % (31-73); PLATELET COUNT 287 x10^3/uL (140-400); RED BLOOD COUNT 3.36 x10^6/uL (3.50-5.40); WHITE BLOOD COUNT 14.9 x10^3/uL (4.0-11.0)
[2016-10-25 08:53] LABS: CALCIUM 8.8 mg/dL (8.5-10.1); GFR 30.9; POTASSIUM 3.2 mmol/L (3.5-5.1)
[2016-10-25] MEDS ORDERED: BISACODYL 10 MG SUPP.RECT PR ONE (09:00)
[2016-10-25 09:06] LABS: INR 1.4 (0.8-1.1); PROTHROMBIN TIME PATIENT 16.4 SEC (11.7-14.0)
--- NOTE | 2016-10-25 09:43 | PDOC ---
Provider Note Provider Note DICTATED DANY BALDERRAMA MD Oct 25, 2016 09:43
[2016-10-25] MEDS ORDERED: MAGNESIUM SULFATE 2GM 50 ML IV PRN (10:00)
[2016-10-25] MEDS ORDERED: POTASSIUM CHLORIDE 20MEQ 50 ML IV PRN ×2 (10:00)
--- NOTE | 2016-10-25 10:00 | PDOC ---
SUBJECTIVE ROS F/up KALPANA min Verbal OBJECTIVE Vital Signs Vital Signs Date Time Temp Pulse Resp B/P Pulse Ox O2 Delivery O2 Flow Rate FiO2 10/25/16 07:45 Nasal Cannula 2.0 10/25/16 07:24 99.7 92 20 185/85 99 99.7 I & 0 Intake and Output 10/25/16 07:00 Intake Total 960 ml Output Total 2700 ml Balance -1740 ml Intake Oral 960 ml Output Urine Total 2700 ml PHYSICAL EXAM Physical Exam GEN: Asleep, Oriented x 0 when awake too, In no distress EYES: Vision Unchanged, Conjunctiva Normal EN: No EN Drainage, Mucous Membranes moist NECK: no JVD, no JVP, Supple, no Thyromegaly CVS: S1S2, no Murmur, No Gallop, No Rub,+ ankle Edema RESP: no Rales, no Rhonchi,no Acc. Muscle Use GI: BS + ve, NO Bruit, Non Tender, Non Distended : no CVA tenderness, no Suprapubic Tenderness DIAGNOSIS/ASSESSMENT Assessment & Plan KALPANA/ ? ATN - appeared to be pre-renal with Hyaline casts, now with min Blood and RBCs. Current fluid and E-lyte status does not necessitate emergent need for dialysis. NO HD per Pall care note/ family wishes ^Na - replete free water Low K - replace as ordered. HTN: Current BP meds as reviewed. See orders for changes. Per Pall Care note: Plan: No dialysis; No PEG tube; DNR/DNI Family requests [facility] visit when discharged back to [facility]. Problems: COMMENT/RELEVANT DATA Meds Current Medications Medications (Trade) Dose Ordered Sig/Gal Start Time Stop Time Status Last Admin Dose Admin Acetaminophen (Tylenol) 650 mg PRN Q6HRS PRN 10/20/16 09:00 10/25/16 08:25 650 MG Acetaminophen 650 mg 650 mg PRN Q6HRS PRN 10/23/16 23:30 10/25/16 01:13 650 MG Acetaminophen/ Hydrocodone Bitart (Lortab 5/325) 2 tab PRN Q4HRS PRN 10/19/16 17:15 10/21/16 21:24 2 TAB Amino Acids/ Glycerin/ Electrolytes (Procalamine) 1,000 ml @ 80 mls/hr [id number] 10/24/16 09:15 10/25/16 03:52 80 MLS/HR Artificial Tears (Artificial Tears) 1 drop QID 10/19/16 21:00 10/25/16 08:30 1 DROP Benztropine Mesylate (Cogentin) 2 mg DAILY 10/20/16 09:00 10/25/16 08:25 2 MG Bisacodyl (Dulcolax Supp) 10 mg 1X ONCE 10/25/16 09:00 10/25/16 09:01 DC Buspirone HCl (Buspar) 10 mg TID 10/19/16 21:00 10/25/16 08:25 10 MG Ceftriaxone Sodium/Sodium Chloride (Rocephin/Iv Sodium Chloride 0.9% 50ml) 50 ml @ 100 mls/hr Q24H 10/20/16 12:00 10/20/16 12:00 DC Ceftriaxone Sodium (Rocephin 1gm Ivpb For Omni) 50 ml @ 100 mls/hr 1X ONCE 10/19/16 12:00 10/19/16 12:29 DC 10/19/16 12:23 100 MLS/HR Chlorpromazine HCl (Thorazine) 100 mg QHS 10/19/16 21:00 10/24/16 21:33 100 MG Clonazepam (Klonopin) 0.5 mg HS 10/19/16 21:00 10/24/16 21:34 0.5 MG Dextrose/Sodium Chloride (Iv D5% - 1/4 NS) 1,000 ml @ 125 mls/hr Q8H 10/22/16 13:00 10/24/16 09:12 DC 10/24/16 05:23 125 MLS/HR Divalproex Sodium (Depakote Sprinkles) 625 mg Q6HRS 10/21/16 14:30 10/22/16 12:40 DC 10/22/16 06:04 625 MG Divalproex Sodium (Depakote Er) 1,000 mg QHS 10/19/16 21:00 10/21/16 14:11 DC Fosphenytoin Sodium 100 mg 100 mg Q8HRS 10/22/16 14:00 10/25/16 05:39 100 MG Furosemide (Lasix) 20 mg 1X ONCE 10/24/16 10:15 10/24/16 10:16 DC 10/24/16 10:15 20 MG Gabapentin (Neurontin) 400 mg HS 10/19/16 21:00 10/24/16 21:33 400 MG Insulin Aspart (Novolog) 10 units TIDAC 10/19/16 18:00 10/25/16 08:43 10 UNITS Insulin Detemir (Levemir) 22 units BID 10/19/16 21:00 10/25/16 08:42 22 UNITS Lisinopril (Prinivil) 5 mg DAILY 10/20/16 09:00 10/24/16 09:41 DC 10/24/16 08:20 5 MG Lorazepam (Ativan) 0.5 mg PRN Q8HRS PRN 10/19/16 17:15 10/19/16 21:20 0.5 MG Magnesium Hydroxide (Milk Of Magnesia) 2,400 mg PRN DAILY PRN 10/24/16 09:15 Magnesium Sulfate/ Dextrose 50 ml @ 25 mls/hr 1X ONCE 10/21/16 09:00 10/21/16 10:59 DC 10/21/16 09:59 25 MLS/HR Mirtazapine (Remeron) 15 mg QHS 10/19/16 21:00 10/24/16 21:34 15 MG Multivitamins/ Calcium 1 tab 1 tab DAILY 10/20/16 09:00 10/25/16 08:25 1 TAB Naloxone HCl (Narcan) 0.4 mg STK-MED ONCE 10/19/16 11:04 10/19/16 11:05 DC Naloxone HCl 0.4 mg 0.4 mg 1X ONCE 10/19/16 11:15 10/19/16 11:16 DC 10/19/16 11:20 0.4 MG Olanzapine (Zyprexa) 5 mg HS 10/21/16 21:30 10/24/16 21:34 5 MG Ondansetron HCl 4 mg 4 mg PRN Q8HRS PRN 10/19/16 12:00 10/20/16 11:59 DC Pantoprazole Sodium (Protonix) 40 mg DAILYAC 10/20/16 07:30 10/25/16 08:25 40 MG Phenytoin Sodium (Dilantin) 300 mg 1X ONCE 10/20/16 09:00 10/20/16 09:01 DC Phytonadione (Vitamin K) 10 mg 1X ONCE 10/23/16 06:30 10/23/16 06:31 DC 10/23/16 06:36 10 MG Piperacillin Sod/ Tazobactam Sod/ Sodium Chloride (Zosyn/Iv Sodium Chloride 0.9% 50ml) 50 ml @ 100 mls/hr Q8HRS 10/19/16 18:00 10/25/16 07:04 100 MLS/HR Polyethylene Glycol (miraLAX PACKET) 17 gm DAILY 10/25/16 09:00 Potassium Chloride/Dextrose/ Sod Cl (KCl 20 Meq In D5W-1/2 NS) 1,000 ml @ 100 mls/hr Q10H 10/21/16 10:15 10/22/16 12:40 DC 10/22/16 05:59 100 MLS/HR Simvastatin (Zocor) 10 mg QHS 10/19/16 21:00 10/24/16 21:34 10 MG Sodium Chloride 1,000 ml @ 1,000 mls/hr 1X ONCE 10/20/16 15:30 10/20/16 16:29 DC 10/20/16 16:13 1,000 MLS/HR Sodium Chloride (Iv Sodium Chloride 0.9% 1000ml Bag) 1,000 ml @ 622.5 mls/ hr Q1H37M 10/19/16 09:59 10/19/16 13:59 DC 10/19/16 13:13 622.5 MLS/HR Valproic Acid (Depakene) 250 mg HS 10/19/16 21:00 10/22/16 12:41 DC 10/21/16 21:24 250 MG Valproic Acid 690 mg/Sodium Chloride 56.9 ml @ 56.9 mls/hr Q6HRS 10/22/16 13:00 10/25/16 05:39 56.9 MLS/HR Vancomycin HCl 1.25 gm/Sodium Chloride 250 ml @ 166.667 mls/hr 1X ONCE 10/24/16 10:00 10/24/16 11:29 DC 10/24/16 10:15 166.667 MLS/HR Vancomycin HCl 1 each 1 each PRN DAILY PRN 10/20/16 07:45 10/22/16 11:37 DC 10/22/16 09:59 1 EACH Vancomycin HCl/ Sodium Chloride (Iv Sodium Chloride 0.9% 250ml) 250 ml @ 167 mls/hr Q24H 10/22/16 09:00 10/22/16 09:51 DC Vancomycin HCl/ Sodium Chloride (Iv Sodium Chloride 0.9% 500ml Bag) 500 ml @ 250 mls/hr 1X ONCE 10/20/16 08:00 10/20/16 09:59 DC 10/20/16 09:22 250 MLS/HR Warfarin Sodium (Coumadin - No Dose Today) 1 each 1X WARF ONCE 10/23/16 16:00 10/23/16 16:01 DC 10/23/16 16:00 1 EACH Warfarin Sodium (Coumadin Per Pharmacy) 1 each PRN DAILY PRN 10/20/16 09:15 10/24/16 12:57 1 EACH Warfarin Sodium (Coumadin Per Physician) 1 each PRN DAILY PRN 10/19/16 17:30 10/20/16 09:17 DC Warfarin Sodium (Coumadin) 3 mg 1X WARF ONCE 10/24/16 16:00 10/24/16 16:01 DC 10/24/16 18:06 3 MG Warfarin Sodium 3 mg 3 mg 1X WARF ONCE 10/20/16 16:00 10/20/16 16:01 DC 10/20/16 16:12 3 MG Warfarin Sodium 6 mg 6 mg 1X WARF ONCE 10/21/16 16:00 10/21/16 16:01 DC 10/21/16 17:50 6 MG Lab Laboratory Tests Test 10/24/16 11:26 10/24/16 14:55 10/24/16 16:42 10/24/16 22:04 Glucose (Fingerstick) 208mg/dL (70-99) 207mg/dL (70-99) 146mg/dL (70-99) Urine Collection Type Unknown Urine Color Yellow Urine Clarity Clear Urine pH 5.5 Urine Specific [place] 1.015 Urine Protein Negativemg/dL (NEG-TRACE) Urine Glucose (UA) Negativemg/dL (NEG) Urine Ketones (Stick) Negativemg/dL (NEG) Urine Blood Moderate (NEG) Urine Nitrite Negative (NEG) Urine Bilirubin Negative (NEG) Urine Urobilinogen Dipstick 0.2mg/dL (0.2 mg/dL) Urine Leukocyte Esterase Trace (NEG) Urine RBC 11-20/HPF (0-2) Urine WBC 1-4/HPF (0-4) Urine Squamous Epithelial Cells Few/LPF Urine Bacteria 0/HPF (0-FEW) Urine Mucus Mod/LPF Test 10/25/16 07:21 10/25/16 08:00 Glucose (Fingerstick) 133mg/dL (70-99) White Blood Count 14.9x10^3/uL (4.0-11.0) Red Blood Count 3.36x10^6/uL (3.50-5.40) Hemoglobin 9.0g/dL (12.0-15.5) Hematocrit 28.2% (36.0-47.0) Mean Corpuscular Volume 84fL (79-100) Mean Corpuscular Hemoglobin 27pg (25-35) Mean Corpuscular Hemoglobin Concent 32g/dL (31-37) Red Cell Distribution Width 16.0% (11.5-14.5) Platelet Count 287x10^3/uL (140-400) Neutrophils (%) (Auto) 69% (31-73) Lymphocytes (%) (Auto) 13% (24-48) Monocytes (%) (Auto) 18% (0-9) Eosinophils (%) (Auto) 0% (0-3) Basophils (%) (Auto) 0% (0-3) Neutrophils # (Auto) 10.3x10^3uL (1.8-7.7) Lymphocytes # (Auto) 1.9x10^3/uL (1.0-4.8) Monocytes # (Auto) 2.7x10^3/uL (0.0-1.1) Eosinophils # (Auto) 0.0x10^3/uL (0.0-0.7) Basophils # (Auto) 0.0x10^3/uL (0.0-0.2) Sodium Level 151mmol/L (136-145) Potassium Level 3.2mmol/L (3.5-5.1) Chloride Level 113mmol/L (98-107) Carbon Dioxide Level 28mmol/L (21-32) Anion Gap 10 (6-14) Blood Urea Nitrogen 20mg/dL (7-20) Creatinine 2.0mg/dL (0.6-1.0) Estimated GFR (Cockcroft-Gault) 30.9 Glucose Level 154mg/dL (70-99) Calcium Level 8.8mg/dL (8.5-10.1) Amylase Level 14U/L (25-115) Phenytoin (Dilantin) Level 4.4mcg/mL (10.0-20.0) Phenytoin Last Dose Date 10/24/16 Phenytoin Last Dose Time 0939 STEVE YOU MD Oct 25, 2016 10:00
--- NOTE | 2016-10-25 11:07 | RAD ---
Indication suspect effusion. Axial noncontrast images through the chest were obtained. No prior CT imaging of the chest is available. The study is limited secondary to patient motion. Imaging through the upper abdomen demonstrates a distended gallbladder. There is, additionally, gallbladder wall thickening. Cholecystitis is not excluded. Clinical correlation as to this possibility advised. If additional imaging evaluation of the gallbladder is warranted ultrasound could be performed. No additional finding in the upper abdomen is seen. There is moderately extensive coronary artery calcification. Significant hilar or mediastinal adenopathy is not seen. There is a small right pleural effusion. Some volume loss is seen in the right lower lobe which may were reflects passive atelectasis associated with the pleural fluid or pneumonia. There is some minimal volume loss at the left lung base likely reflecting atelectasis and there is a trace amount of left pleural fluid IMPRESSION: Distended gallbladder with associated gallbladder wall thickening. Cholecystitis not excluded. Clinical correlation as to this possibility advised. Small right pleural effusion and trace left. Volume loss at the right lung base may reflect atelectasis or pneumonia. Minimal volume loss at the left lung base likely atelectasis PQRS Compliance Statement: One or more of the following individualized dose reduction techniques were utilized for this examination: 1. Automated exposure control 2. Adjustment of the mA and/or kV according to patient size 3. Use of iterative reconstruction technique
[2016-10-25 11:16] VITALS: BP 139/67
--- NOTE | 2016-10-25 11:30 | PDOC ---
Infectious Disease Note Subjective Subjective Mumbling ROS ROS GEN: Denies fevers, chills, sweats HEENT: Denies blurred vision, sore throat CV: Denies chest pain RESP: Denies shortness of air, cough GI: Denies n/v/d NEURO: Denies confusion, dizziness MSK: Denies weakness, joint pain/swelling Vital Sign Vital Signs Vital Signs Date Time Temp Pulse Resp B/P Pulse Ox O2 Delivery O2 Flow Rate FiO2 10/25/16 11:16 98.1 87 17 139/67 100 Room Air 98.1 10/25/16 07:45 2.0 Physical Exam PHYSICAL EXAM GENERAL: NAD, Less responsive HEENT: PERRL NECK: Supple, no JVD, no LN LUNGS: Clear HEART: S1S2, no gallop, no murmur ABD: Soft, NT, no organomegaly, no rebound, obese EXT: Gen edema, no cyanosis LINE LEADER: Alert, but not aware SKIN: No rash IV: ok Labs Lab Laboratory Tests Test 10/24/16 14:55 10/24/16 16:42 10/24/16 22:04 10/25/16 07:21 Urine Collection Type Unknown Urine Color Yellow Urine Clarity Clear Urine pH 5.5 Urine Specific [place] 1.015 Urine Protein Negativemg/dL (NEG-TRACE) Urine Glucose (UA) Negativemg/dL (NEG) Urine Ketones (Stick) Negativemg/dL (NEG) Urine Blood Moderate (NEG) Urine Nitrite Negative (NEG) Urine Bilirubin Negative (NEG) Urine Urobilinogen Dipstick 0.2mg/dL (0.2 mg/dL) Urine Leukocyte Esterase Trace (NEG) Urine RBC 11-20/HPF (0-2) Urine WBC 1-4/HPF (0-4) Urine Squamous Epithelial Cells Few/LPF Urine Bacteria 0/HPF (0-FEW) Urine Mucus Mod/LPF Glucose (Fingerstick) 207mg/dL (70-99) 146mg/dL (70-99) 133mg/dL (70-99) Test 10/25/16 08:00 White Blood Count 14.9x10^3/uL (4.0-11.0) Red Blood Count 3.36x10^6/uL (3.50-5.40) Hemoglobin 9.0g/dL (12.0-15.5) Hematocrit 28.2% (36.0-47.0) Mean Corpuscular Volume 84fL (79-100) Mean Corpuscular Hemoglobin 27pg (25-35) Mean Corpuscular Hemoglobin Concent 32g/dL (31-37) Red Cell Distribution Width 16.0% (11.5-14.5) Platelet Count 287x10^3/uL (140-400) Neutrophils (%) (Auto) 69% (31-73) Lymphocytes (%) (Auto) 13% (24-48) Monocytes (%) (Auto) 18% (0-9) Eosinophils (%) (Auto) 0% (0-3) Basophils (%) (Auto) 0% (0-3) Neutrophils # (Auto) 10.3x10^3uL (1.8-7.7) Lymphocytes # (Auto) 1.9x10^3/uL (1.0-4.8) Monocytes # (Auto) 2.7x10^3/uL (0.0-1.1) Eosinophils # (Auto) 0.0x10^3/uL (0.0-0.7) Basophils # (Auto) 0.0x10^3/uL (0.0-0.2) Prothrombin Time 16.4SEC (11.7-14.0) Prothromb Time International Ratio 1.4 (0.8-1.1) Sodium Level 151mmol/L (136-145) Potassium Level 3.2mmol/L (3.5-5.1) Chloride Level 113mmol/L (98-107) Carbon Dioxide Level 28mmol/L (21-32) Anion Gap 10 (6-14) Blood Urea Nitrogen 20mg/dL (7-20) Creatinine 2.0mg/dL (0.6-1.0) Estimated GFR (Cockcroft-Gault) 30.9 Glucose Level 154mg/dL (70-99) Calcium Level 8.8mg/dL (8.5-10.1) Amylase Level 14U/L (25-115) Phenytoin (Dilantin) Level 4.4mcg/mL (10.0-20.0) Phenytoin Last Dose Date 10/24/16 Phenytoin Last Dose Time 0939 Objective Assessment Sepsis with lactic acidosis. POA improved Fever. - up today Leukocytosis, slowly trending down KALPANA UTI. POA. UC neg Encephalopathy - arousable only CVA MRSA positive Seizure disorder Diabetes Plan Plan of Care Continue Zosyn at q 8 currently Vanc times one F/u labs F/u CT palliative care meeting regarding goals of care ? hospice ? baseline mental status DNR KATIE NIÑO MD Oct 25, 2016 11:30
[2016-10-25] MEDS: POLYETHYLENE GLYCOL 3350 17 GM PACKET. PO SCH (12:26)
[2016-10-25 14:40] VITALS: BP 127/70
[2016-10-25] MEDS ORDERED: WARFARIN 3 MG TABLET. PO ONE (16:00)
[2016-10-25 19:00] VITALS: BP 148/76
[2016-10-25] MEDS: CHLORPROMAZINE 25 MG PO SCH ×2 (23:04)
[2016-10-25] MEDS: OLANZAPINE 5 MG TABLET. PO SCH (23:04)
[2016-10-25] MEDS: MIRTAZAPINE 15 MG TABLET PO SCH (23:04)
[2016-10-25] MEDS: GABAPENTIN 400 MG CAPSULE. PO SCH (23:05)
[2016-10-25] MEDS: CLONAZEPAM 0.5 MG TABLET PO SCH (23:05)
[2016-10-25] MEDS: SIMVASTATIN 10 MG TABLET PO SCH (23:05)
--- NOTE | 2016-10-26 01:34 | CONS ---
DATE OF CONSULTATION: ATTENDING PHYSICIAN: Dr. Jenise Raymundo REASON FOR CONSULTATION: Abnormal chest x-ray. HISTORY OF PRESENT ILLNESS: Ms. Dias is a 61-year-old -[place] female who has history of schizophrenia, history of seizure disorder, and history of CVA with encephalopathy. She was brought in from intermediate as she was noted to be less responsive than her baseline. She was noted to have symptoms suggestive of sepsis due to urinary tract infection. Lactic acid levels were high and her white cell count was 25,000. Infectious Disease has been following the patient and she has been on broad spectrum antibiotics. She still has fever of 100.2. Her urine culture so far has not shown any growth and blood cultures are negative as well. I have been asked to see her for abnormal chest x-ray. I have reviewed the patient's chest x-ray, there is moderate volume loss in the right lower lobe which is a new finding compared to her chest x-ray from 10/19/2016. I am unable to obtain much history from the patient. I have reviewed the patient's chart, labs, and physicians' notes. PAST MEDICAL HISTORY: Significant for history of schizophrenia, history of seizure disorder, history of CVA, history of encephalopathy, history of right lower lobe pneumonia, history of reflux and blindness. PAST SURGICAL HISTORY: History of tibia fibular fracture repair. SOCIAL HISTORY: Resident of [facility]. FAMILY HISTORY: Unable to obtain from the patient. REVIEW OF SYSTEMS: Unable to obtain from the patient. ALLERGIES: None. CURRENT MEDICATIONS: Reviewed as listed in the MRAD including antibiotic Zosyn. PHYSICAL EXAMINATION: GENERAL: She is in no obvious respiratory distress. VITAL SIGNS: T-max of 100.2, blood pressure 185/85, pulse ox 99% on 2 liters. HEENT: Sclerae nonicteric. NECK: Supple. LUNGS: Diminished breath sounds bilaterally. CARDIOVASCULAR: Regular rate. ABDOMEN: Obese. EXTREMITIES: With trace pitting edema. LABORATORY DATA: Reviewed. Sodium 151, potassium 3.2, BUN 20, and creatinine 2.0. Amylase 14. MRSA screen is positive. Influenza negative. White cell count 14.9. IMPRESSION: 1. Abnormal chest x-ray with moderate volume loss in the right lower lobe dated 10/24/2016, this is new compared to October 19 chest x-ray and I suspect that we may be dealing with combination of pleural effusion and atelectasis versus pneumonia. We will need a CT chest for further evaluation. 2. Recent sepsis due to suspected urinary tract infection. Cultures to date are negative so far. 3. Encephalopathy secondary to sepsis. 4. History of seizure disorder. 5. History of CVA. 6. History of schizophrenia. RECOMMENDATIONS: 1. Continue broad spectrum antibiotics per Infectious Disease. 2. Continue oxygen at 2 liters. 3. Follow for any new cultures. 4. Noncontrast CT chest to further evaluate abnormal chest x-ray. Discussed with RN. DANY BALDERRAMA MD DR: CHLOE/david JOB#: [id number] / [id number] RANDY
[2016-10-26 03:00] VITALS: BP_SYST 150; BP_SYST 158; BP_DIAS 68; BP_DIAS 70
[2016-10-26] MEDS: FOSPHENYTOIN 100 MG/2 ML VIAL IV SCH ×3 (05:33→22:42)
[2016-10-26] MEDS: NORMAL SALINE IV SCH ×4 (05:38→23:53)
[2016-10-26] MEDS: VALPROIC ACID IV SCH ×4 (05:38→23:53)
[2016-10-26] MEDS: PIPERACILLIN/TAZOBACTAM 3.375 GM in IV NORMAL SALINE 50ML 50 ML IV SCH ×3 (06:51→22:15)
[2016-10-26 06:57] LABS: BASO # 0.1 x10^3/uL (0.0-0.2); BASO % 1 % (0-3); EOS % 0 % (0-3); HEMATOCRIT 27.4 % (36.0-47.0); HEMOGLOBIN 8.9 g/dL (12.0-15.5); LYMPH # 2.4 x10^3/uL (1.0-4.8); LYMPH % 16 % (24-48); MEAN CORPUSCULAR HEMOGLOBIN 27 pg (25-35); MEAN CORPUSCULAR HGB CONC 32 g/dL (31-37); MEAN CORPUSCULAR VOLUME 83 fL (79-100); MONO % 16 % (0-9); NEUT % 68 % (31-73); PLATELET COUNT 346 x10^3/uL (140-400); RED CELL DISTRIBUTION WIDTH 16.1 % (11.5-14.5); WHITE BLOOD COUNT 14.4 x10^3/uL (4.0-11.0)
[2016-10-26 07:00] VITALS: BP 175/79
[2016-10-26 07:10] LABS: CALCIUM 8.9 mg/dL (8.5-10.1); CREATININE 1.8 mg/dL (0.6-1.0); GFR 34.8; POTASSIUM 3.5 mmol/L (3.5-5.1)
[2016-10-26 07:21] LABS: INR 1.3 (0.8-1.1); PROTHROMBIN TIME PATIENT 15.3 SEC (11.7-14.0)
[2016-10-26] MEDS: PANTOPRAZOLE 40 MG TABLET. PO SCH (07:30)
[2016-10-26] MEDS: INSULIN ASPART 300 UNITS/3 ML INSULN.PEN SQ SCH ×3 (07:30→17:39)
--- NOTE | 2016-10-26 07:39 | PDOC ---
LINDACadenMILLIE DE PAZ [employer] MACHINE [employer]ER 10/26/16 0738: IM PROGRESS NOTES- Subjective Subjective awake, minimal interactive, Objective Objective wwake no distress Vitals Vital Signs Date Time Temp Pulse Resp B/P Pulse Ox O2 Delivery O2 Flow Rate FiO2 10/26/16 03:00 95.7 88 20 158/70 99 Nasal Cannula 2.0 95.7 Input & Output Intake and Output 10/26/16 07:00 Intake Total 270 ml Output Total 1000 ml Balance -730 ml Intake Oral 270 ml Output Urine Total 1000 ml Physical Exam Physical Exam GENERAL: awake, minimally interactive, responds with eyes to name, no distress. HEAD: normocephalic LUNGS: Decreased breath sounds at bases. CARDIOVASCULAR: S1 and S2 regular. ABDOMEN: Soft, obese, nontender,BS increased slightly, less distention/firmness , EXTREMITIES: + edema. CENTRAL NERVOUS SYSTEM: awake, no change in baseline neurocognitive disorder SKIN: Warm and dry. Skin turgor decreased. Labs Laboratory Tests Test 10/24/16 11:26 10/24/16 14:55 10/24/16 16:42 10/24/16 22:04 Glucose (Fingerstick) 208mg/dL (70-99) 207mg/dL (70-99) 146mg/dL (70-99) Urine Collection Type Unknown Urine Color Yellow Urine Clarity Clear Urine pH 5.5 Urine Specific [place] 1.015 Urine Protein Negativemg/dL (NEG-TRACE) Urine Glucose (UA) Negativemg/dL (NEG) Urine Ketones (Stick) Negativemg/dL (NEG) Urine Blood Moderate (NEG) Urine Nitrite Negative (NEG) Urine Bilirubin Negative (NEG) Urine Urobilinogen Dipstick 0.2mg/dL (0.2 mg/dL) Urine Leukocyte Esterase Trace (NEG) Urine RBC 11-20/HPF (0-2) Urine WBC 1-4/HPF (0-4) Urine Squamous Epithelial Cells Few/LPF Urine Bacteria 0/HPF (0-FEW) Urine Mucus Mod/LPF Test 10/25/16 07:21 10/25/16 08:00 10/25/16 11:27 10/25/16 11:50 Glucose (Fingerstick) 133mg/dL (70-99) 106mg/dL (70-99) White Blood Count 14.9x10^3/uL (4.0-11.0) Red Blood Count 3.36x10^6/uL (3.50-5.40) Hemoglobin 9.0g/dL (12.0-15.5) Hematocrit 28.2% (36.0-47.0) Mean Corpuscular Volume 84fL (79-100) Mean Corpuscular Hemoglobin 27pg (25-35) Mean Corpuscular Hemoglobin Concent 32g/dL (31-37) Red Cell Distribution Width 16.0% (11.5-14.5) Platelet Count 287x10^3/uL (140-400) Neutrophils (%) (Auto) 69% (31-73) Lymphocytes (%) (Auto) 13% (24-48) Monocytes (%) (Auto) 18% (0-9) Eosinophils (%) (Auto) 0% (0-3) Basophils (%) (Auto) 0% (0-3) Neutrophils # (Auto) 10.3x10^3uL (1.8-7.7) Lymphocytes # (Auto) 1.9x10^3/uL (1.0-4.8) Monocytes # (Auto) 2.7x10^3/uL (0.0-1.1) Eosinophils # (Auto) 0.0x10^3/uL (0.0-0.7) Basophils # (Auto) 0.0x10^3/uL (0.0-0.2) Prothrombin Time 16.4SEC (11.7-14.0) Prothromb Time International Ratio 1.4 (0.8-1.1) Sodium Level 151mmol/L (136-145) Potassium Level 3.2mmol/L (3.5-5.1) 3.2mmol/L (3.5-5.1) Chloride Level 113mmol/L (98-107) Carbon Dioxide Level 28mmol/L (21-32) Anion Gap 10 (6-14) Blood Urea Nitrogen 20mg/dL (7-20) Creatinine 2.0mg/dL (0.6-1.0) Estimated GFR (Cockcroft-Gault) 30.9 Glucose Level 154mg/dL (70-99) Calcium Level 8.8mg/dL (8.5-10.1) Amylase Level 14U/L (25-115) Phenytoin (Dilantin) Level 4.4mcg/mL (10.0-20.0) Phenytoin Last Dose Date 10/24/16 Phenytoin Last Dose Time 09 Test 10/25/16 16:33 10/25/16 18:35 10/25/16 22:50 10/26/16 06:33 Glucose (Fingerstick) 103mg/dL (70-99) 116mg/dL (70-99) Potassium Level 3.4mmol/L (3.5-5.1) 3.5mmol/L (3.5-5.1) White Blood Count 14.4x10^3/uL (4.0-11.0) Red Blood Count 3.30x10^6/uL (3.50-5.40) Hemoglobin 8.9g/dL (12.0-15.5) Hematocrit 27.4% (36.0-47.0) Mean Corpuscular Volume 83fL (79-100) Mean Corpuscular Hemoglobin 27pg (25-35) Mean Corpuscular Hemoglobin Concent 32g/dL (31-37) Red Cell Distribution Width 16.1% (11.5-14.5) Platelet Count 346x10^3/uL (140-400) Neutrophils (%) (Auto) 68% (31-73) Lymphocytes (%) (Auto) 16% (24-48) Monocytes (%) (Auto) 16% (0-9) Eosinophils (%) (Auto) 0% (0-3) Basophils (%) (Auto) 1% (0-3) Neutrophils # (Auto) 9.7x10^3uL (1.8-7.7) Lymphocytes # (Auto) 2.4x10^3/uL (1.0-4.8) Monocytes # (Auto) 2.2x10^3/uL (0.0-1.1) Eosinophils # (Auto) 0.0x10^3/uL (0.0-0.7) Basophils # (Auto) 0.1x10^3/uL (0.0-0.2) Sodium Level 148mmol/L (136-145) Chloride Level 110mmol/L (98-107) Carbon Dioxide Level 28mmol/L (21-32) Anion Gap 10 (6-14) Blood Urea Nitrogen 26mg/dL (7-20) Creatinine 1.8mg/dL (0.6-1.0) Estimated GFR (Cockcroft-Gault) 34.8 Glucose Level 150mg/dL (70-99) Calcium Level 8.9mg/dL (8.5-10.1) Magnesium Level 1.9mg/dL (1.8-2.4) Laboratory Tests Test 10/25/16 08:00 10/25/16 11:27 10/25/16 11:50 10/25/16 16:33 White Blood Count 14.9x10^3/uL (4.0-11.0) Red Blood Count 3.36x10^6/uL (3.50-5.40) Hemoglobin 9.0g/dL (12.0-15.5) Hematocrit 28.2% (36.0-47.0) Mean Corpuscular Volume 84fL (79-100) Mean Corpuscular Hemoglobin 27pg (25-35) Mean Corpuscular Hemoglobin Concent 32g/dL (31-37) Red Cell Distribution Width 16.0% (11.5-14.5) Platelet Count 287x10^3/uL (140-400) Neutrophils (%) (Auto) 69% (31-73) Lymphocytes (%) (Auto) 13% (24-48) Monocytes (%) (Auto) 18% (0-9) Eosinophils (%) (Auto) 0% (0-3) Basophils (%) (Auto) 0% (0-3) Neutrophils # (Auto) 10.3x10^3uL (1.8-7.7) Lymphocytes # (Auto) 1.9x10^3/uL (1.0-4.8) Monocytes # (Auto) 2.7x10^3/uL (0.0-1.1) Eosinophils # (Auto) 0.0x10^3/uL (0.0-0.7) Basophils # (Auto) 0.0x10^3/uL (0.0-0.2) Prothrombin Time 16.4SEC (11.7-14.0) Prothromb Time International Ratio 1.4 (0.8-1.1) Sodium Level 151mmol/L (136-145) Potassium Level 3.2mmol/L (3.5-5.1) 3.2mmol/L (3.5-5.1) Chloride Level 113mmol/L (98-107) Carbon Dioxide Level 28mmol/L (21-32) Anion Gap 10 (6-14) Blood Urea Nitrogen 20mg/dL (7-20) Creatinine 2.0mg/dL (0.6-1.0) Estimated GFR (Cockcroft-Gault) 30.9 Glucose Level 154mg/dL (70-99) Calcium Level 8.8mg/dL (8.5-10.1) Amylase Level 14U/L (25-115) Phenytoin (Dilantin) Level 4.4mcg/mL (10.0-20.0) Phenytoin Last Dose Date 10/24/16 Phenytoin Last Dose Time 0939 Glucose (Fingerstick) 106mg/dL (70-99) 103mg/dL (70-99) Test 10/25/16 18:35 10/25/16 22:50 10/26/16 06:33 Potassium Level 3.4mmol/L (3.5-5.1) 3.5mmol/L (3.5-5.1) Glucose (Fingerstick) 116mg/dL (70-99) White Blood Count 14.4x10^3/uL (4.0-11.0) Red Blood Count 3.30x10^6/uL (3.50-5.40) Hemoglobin 8.9g/dL (12.0-15.5) Hematocrit 27.4% (36.0-47.0) Mean Corpuscular Volume 83fL (79-100) Mean Corpuscular Hemoglobin 27pg (25-35) Mean Corpuscular Hemoglobin Concent 32g/dL (31-37) Red Cell Distribution Width 16.1% (11.5-14.5) Platelet Count 346x10^3/uL (140-400) Neutrophils (%) (Auto) 68% (31-73) Lymphocytes (%) (Auto) 16% (24-48) Monocytes (%) (Auto) 16% (0-9) Eosinophils (%) (Auto) 0% (0-3) Basophils (%) (Auto) 1% (0-3) Neutrophils # (Auto) 9.7x10^3uL (1.8-7.7) Lymphocytes # (Auto) 2.4x10^3/uL (1.0-4.8) Monocytes # (Auto) 2.2x10^3/uL (0.0-1.1) Eosinophils # (Auto) 0.0x10^3/uL (0.0-0.7) Basophils # (Auto) 0.1x10^3/uL (0.0-0.2) Sodium Level 148mmol/L (136-145) Chloride Level 110mmol/L (98-107) Carbon Dioxide Level 28mmol/L (21-32) Anion Gap 10 (6-14) Blood Urea Nitrogen 26mg/dL (7-20) Creatinine 1.8mg/dL (0.6-1.0) Estimated GFR (Cockcroft-Gault) 34.8 Glucose Level 150mg/dL (70-99) Calcium Level 8.9mg/dL (8.5-10.1) Magnesium Level 1.9mg/dL (1.8-2.4) Meds Current Medications Bisacodyl (Dulcolax Supp) 10 mg 1X ONCE RI Last administered on 10/25/16 12: 27; Start 10/25/16 at 09:00; Stop 10/25/16 at 09:01; Status DC Magnesium Sulfate/ Dextrose 50 ml @ 25 mls/hr PRN DAILY PRN IV for Mag < 1.7 on am labs; Start 10/25/16 at 10:00 Polyethylene Glycol 17 gm 17 gm DAILY PO Last administered on 10/25/16 12:26; Start 10/25/16 at 09:00 Potassium Chloride 50 ml @ 50 mls/hr PRN Q6HRS PRN IV For K < 3.7; Start at 10:00 Potassium Chloride (KCl Premix 20meq) 50 ml @ 50 mls/hr PRN Q2HR PRN IV total of 40mEq for K < 3.5; Start 10/25/16 at 10:00 Warfarin Sodium (Coumadin) 3 mg 1X WARF ONCE PO Last administered on 17:30; Start 10/25/16 at 16:00; Stop 10/25/16 at 16:01; Status DC Assessment Assessment IMPRESSION: 1. Sepsis with lactic acidosis/UTI POA 2. Acute metabolic encephalopathy. ARF underlying dementia 3. Urinary tract infection POA 4. Acute renal failure KALPANA ATN with CKD II 5. Seizure disorder with low Dilantin level of 3. 6. Diabetes mellitus type 2. 7. Dementia. 8. Paranoid schizophrenia. 9. Physical deconditioning. 10. Moderate malnutrition with albumin of 2.5. 11. Peripheral vascular disease. 12. Hyperlipidemia. 13. History of hypertension. 14. Gastroesophageal reflux disease. 15. Osteoporosis. 16. Vitamin D deficiency. 17. Legal blindness. 18. Hypernatremia NA 151 POA PLAN: sepsis with lactic acidosis UTI POA ID consulted Zosyn IV Admit WBC 29.8 10/25 14.2 BC and urine CS negative Tm 100.2 previous 24 hour repeat UA neg nitrite, + blood, WBC 1-4 improved Abnormal CXR CXR RLL atelectasis vs [id number] nebulizer pulmonary consult CT chest w/o: Small right pleural effusion and trace left. Volume loss at the right lung base may reflect atelectasis or pneumonia. Minimal volume loss at the left lung base likely atelectasis ARF KALPANA ATN with CKD, hypernatremia Admit BUN 34 10/26 26 Cr 2.4 1.8 Na 137 148 K 3.8 3.5 IV D51/4NS 125cc/hr-DC 10/24 renal consulted no Lasix 10/24 hypokalemia- K ordered q6h, range 3.2-3.5. Per nephrology DM II FSBS Novolog 10u tid ac Levemir 22u bid BS 103-150 seizure disorder [id number] IV q8hr Depakote continue seizure precautions HTN continue NH meds anticoagulation Admit INR 3.0 10/26 1.4 pharmacy managing INR 10/23 7.6 abd mild distention no BM since prior to admit Dulcolax supp 10/24--small hard stool mod amount 10/25 Distention worse, abdomen firmer, BS hypoactive +GS per CXR-check amylase Repeat Dulcolax supp. and add miralax CT chest w/o contrast GB thickening with distention-will obtain GB US amylase 14 BM + 10/25 after Dulcolax severe with underlying chronic PCL malnutrition continue diet PPN added 10/24 DVT/GI prophylaxis warfarin PPI Family meeting with palliative care: when transfer to [place] consult [facility]. For more details regarding further plans, please refer to the orders. Plan Plan For more details regarding further plans, please refer to the orders. PABLO ROJAS MD 10/26/16 1012: IM PROGRESS NOTES- Assessment Assessment still non verbal,lethargic.Prognosis is poor. D/w daughter Emerald on phone-condition,Rx,options. Renal sono shows cholelithiasis.Has cholecystitis. Daughter agreeable with current plans and surgical consult. The patient was seen and examined by me. Chart reviewed and plan of care formulated. Discussed with, reviewed and agree with [facility]'s notes, plan of care and orders with modifications as necessary. For more details regarding further plans, please refer to the orders. she is ok with surgical consult for cholecystits. MILLIE HEAD APRN Oct 26, 2016 07:38 PABLO ROJAS MD Oct 26, 2016 10:12
[2016-10-26] MEDS: POLYVINYL ALCOHOL 1.4% OPHTH SOLUTION 15ML BOTTLE. OU SCH ×4 (08:15→22:14)
--- NOTE | 2016-10-26 08:27 | PDOC ---
Infectious Disease Note Subjective Subjective Awakens ROS ROS GEN: Denies fevers, chills, sweats HEENT: Denies blurred vision, sore throat CV: Denies chest pain RESP: Denies shortness of air, cough GI: Denies n/v/d NEURO: Denies confusion, dizziness MSK: Denies weakness, joint pain/swelling Vital Sign Vital Signs Vital Signs Date Time Temp Pulse Resp B/P Pulse Ox O2 Delivery O2 Flow Rate FiO2 10/26/16 03:00 95.7 88 20 158/70 99 Nasal Cannula 2.0 95.7 Physical Exam PHYSICAL EXAM GENERAL: NAD, Alert and appears comfortable HEENT: PERRL NECK: Supple, no JVD, no LN LUNGS: Clear HEART: S1S2, no gallop, no murmur ABD: Soft, NT, no organomegaly, no rebound, obese EXT: Gen edema -better, no cyanosis FOUR H AGENT: Alert, but not aware SKIN: No rash IV: ok Labs Lab Laboratory Tests Test 10/25/16 11:27 10/25/16 11:50 10/25/16 16:33 10/25/16 18:35 Glucose (Fingerstick) 106mg/dL (70-99) 103mg/dL (70-99) Potassium Level 3.2mmol/L (3.5-5.1) 3.4mmol/L (3.5-5.1) Test 10/25/16 22:50 10/26/16 06:33 10/26/16 07:59 Glucose (Fingerstick) 116mg/dL (70-99) 144mg/dL (70-99) White Blood Count 14.4x10^3/uL (4.0-11.0) Red Blood Count 3.30x10^6/uL (3.50-5.40) Hemoglobin 8.9g/dL (12.0-15.5) Hematocrit 27.4% (36.0-47.0) Mean Corpuscular Volume 83fL (79-100) Mean Corpuscular Hemoglobin 27pg (25-35) Mean Corpuscular Hemoglobin Concent 32g/dL (31-37) Red Cell Distribution Width 16.1% (11.5-14.5) Platelet Count 346x10^3/uL (140-400) Neutrophils (%) (Auto) 68% (31-73) Lymphocytes (%) (Auto) 16% (24-48) Monocytes (%) (Auto) 16% (0-9) Eosinophils (%) (Auto) 0% (0-3) Basophils (%) (Auto) 1% (0-3) Neutrophils # (Auto) 9.7x10^3uL (1.8-7.7) Lymphocytes # (Auto) 2.4x10^3/uL (1.0-4.8) Monocytes # (Auto) 2.2x10^3/uL (0.0-1.1) Eosinophils # (Auto) 0.0x10^3/uL (0.0-0.7) Basophils # (Auto) 0.1x10^3/uL (0.0-0.2) Prothrombin Time 15.3SEC (11.7-14.0) Prothromb Time International Ratio 1.3 (0.8-1.1) Sodium Level 148mmol/L (136-145) Potassium Level 3.5mmol/L (3.5-5.1) Chloride Level 110mmol/L (98-107) Carbon Dioxide Level 28mmol/L (21-32) Anion Gap 10 (6-14) Blood Urea Nitrogen 26mg/dL (7-20) Creatinine 1.8mg/dL (0.6-1.0) Estimated GFR (Cockcroft-Gault) 34.8 Glucose Level 150mg/dL (70-99) Calcium Level 8.9mg/dL (8.5-10.1) Magnesium Level 1.9mg/dL (1.8-2.4) Objective Assessment Sepsis with lactic acidosis. POA improved Fever. - up today Leukocytosis stable KALPANA - better UTI. POA. UC neg Encephalopathy - arousable only CVA MRSA positive Seizure disorder Diabetes Plan Plan of Care Continue Zosyn at q 8 currently Vanc times one F/u labs F/u U/S palliative care meeting regarding goals of care ? hospice at discharge ? baseline mental status DNR KATIE NIÑO MD Oct 26, 2016 08:27
[2016-10-26] MEDS: POLYETHYLENE GLYCOL 3350 17 GM PACKET. PO SCH (09:00)
[2016-10-26] MEDS: BENZTROPINE MESYLATE 1 MG TABLET PO SCH (09:00)
[2016-10-26] MEDS: MULTIVITAMIN with MINERAL TABLET. PO SCH (09:00)
[2016-10-26] MEDS: busPIRone 5 MG TABLET. PO SCH ×3 (09:00→23:12)
[2016-10-26] MEDS: INSULIN DETEMIR 300 UNITS/3 ML INSULN.PEN. SQ SCH ×2 (09:44→23:09)
--- NOTE | 2016-10-26 10:44 | PDOC ---
PULMONARY PROGRESS NOTES Subjective opens eyes Vitals Vital Signs Date Time Temp Pulse Resp B/P Pulse Ox O2 Delivery O2 Flow Rate FiO2 10/26/16 08:15 Nasal Cannula 2.0 10/26/16 07:00 99.0 92 20 175/79 99 99.0 General: No acute distress Lungs: Other (decrease bs ) Cardiovascular: S1, S2 Abdomen: Soft, Non-tender Extremities: No Edema Skin: Warm Labs Laboratory Tests Test 10/24/16 11:26 10/24/16 14:55 10/24/16 16:42 10/24/16 22:04 Glucose (Fingerstick) 208mg/dL (70-99) 207mg/dL (70-99) 146mg/dL (70-99) Urine Collection Type Unknown Urine Color Yellow Urine Clarity Clear Urine pH 5.5 Urine Specific [place] 1.015 Urine Protein Negativemg/dL (NEG-TRACE) Urine Glucose (UA) Negativemg/dL (NEG) Urine Ketones (Stick) Negativemg/dL (NEG) Urine Blood Moderate (NEG) Urine Nitrite Negative (NEG) Urine Bilirubin Negative (NEG) Urine Urobilinogen Dipstick 0.2mg/dL (0.2 mg/dL) Urine Leukocyte Esterase Trace (NEG) Urine RBC 11-20/HPF (0-2) Urine WBC 1-4/HPF (0-4) Urine Squamous Epithelial Cells Few/LPF Urine Bacteria 0/HPF (0-FEW) Urine Mucus Mod/LPF Test 10/25/16 07:21 10/25/16 08:00 10/25/16 11:27 10/25/16 11:50 Glucose (Fingerstick) 133mg/dL (70-99) 106mg/dL (70-99) White Blood Count 14.9x10^3/uL (4.0-11.0) Red Blood Count 3.36x10^6/uL (3.50-5.40) Hemoglobin 9.0g/dL (12.0-15.5) Hematocrit 28.2% (36.0-47.0) Mean Corpuscular Volume 84fL (79-100) Mean Corpuscular Hemoglobin 27pg (25-35) Mean Corpuscular Hemoglobin Concent 32g/dL (31-37) Red Cell Distribution Width 16.0% (11.5-14.5) Platelet Count 287x10^3/uL (140-400) Neutrophils (%) (Auto) 69% (31-73) Lymphocytes (%) (Auto) 13% (24-48) Monocytes (%) (Auto) 18% (0-9) Eosinophils (%) (Auto) 0% (0-3) Basophils (%) (Auto) 0% (0-3) Neutrophils # (Auto) 10.3x10^3uL (1.8-7.7) Lymphocytes # (Auto) 1.9x10^3/uL (1.0-4.8) Monocytes # (Auto) 2.7x10^3/uL (0.0-1.1) Eosinophils # (Auto) 0.0x10^3/uL (0.0-0.7) Basophils # (Auto) 0.0x10^3/uL (0.0-0.2) Prothrombin Time 16.4SEC (11.7-14.0) Prothromb Time International Ratio 1.4 (0.8-1.1) Sodium Level 151mmol/L (136-145) Potassium Level 3.2mmol/L (3.5-5.1) 3.2mmol/L (3.5-5.1) Chloride Level 113mmol/L (98-107) Carbon Dioxide Level 28mmol/L (21-32) Anion Gap 10 (6-14) Blood Urea Nitrogen 20mg/dL (7-20) Creatinine 2.0mg/dL (0.6-1.0) Estimated GFR (Cockcroft-Gault) 30.9 Glucose Level 154mg/dL (70-99) Calcium Level 8.8mg/dL (8.5-10.1) Amylase Level 14U/L (25-115) Phenytoin (Dilantin) Level 4.4mcg/mL (10.0-20.0) Phenytoin Last Dose Date 10/24/16 Phenytoin Last Dose Time 0939 Test 10/25/16 16:33 10/25/16 18:35 10/25/16 22:50 10/26/16 06:33 Glucose (Fingerstick) 103mg/dL (70-99) 116mg/dL (70-99) Potassium Level 3.4mmol/L (3.5-5.1) 3.5mmol/L (3.5-5.1) White Blood Count 14.4x10^3/uL (4.0-11.0) Red Blood Count 3.30x10^6/uL (3.50-5.40) Hemoglobin 8.9g/dL (12.0-15.5) Hematocrit 27.4% (36.0-47.0) Mean Corpuscular Volume 83fL (79-100) Mean Corpuscular Hemoglobin 27pg (25-35) Mean Corpuscular Hemoglobin Concent 32g/dL (31-37) Red Cell Distribution Width 16.1% (11.5-14.5) Platelet Count 346x10^3/uL (140-400) Neutrophils (%) (Auto) 68% (31-73) Lymphocytes (%) (Auto) 16% (24-48) Monocytes (%) (Auto) 16% (0-9) Eosinophils (%) (Auto) 0% (0-3) Basophils (%) (Auto) 1% (0-3) Neutrophils # (Auto) 9.7x10^3uL (1.8-7.7) Lymphocytes # (Auto) 2.4x10^3/uL (1.0-4.8) Monocytes # (Auto) 2.2x10^3/uL (0.0-1.1) Eosinophils # (Auto) 0.0x10^3/uL (0.0-0.7) Basophils # (Auto) 0.1x10^3/uL (0.0-0.2) Prothrombin Time 15.3SEC (11.7-14.0) Prothromb Time International Ratio 1.3 (0.8-1.1) Sodium Level 148mmol/L (136-145) Chloride Level 110mmol/L (98-107) Carbon Dioxide Level 28mmol/L (21-32) Anion Gap 10 (6-14) Blood Urea Nitrogen 26mg/dL (7-20) Creatinine 1.8mg/dL (0.6-1.0) Estimated GFR (Cockcroft-Gault) 34.8 Glucose Level 150mg/dL (70-99) Calcium Level 8.9mg/dL (8.5-10.1) Magnesium Level 1.9mg/dL (1.8-2.4) Test 10/26/16 07:59 Glucose (Fingerstick) 144mg/dL (70-99) Laboratory Tests Test 10/25/16 11:27 10/25/16 11:50 10/25/16 16:33 10/25/16 18:35 Glucose (Fingerstick) 106mg/dL (70-99) 103mg/dL (70-99) Potassium Level 3.2mmol/L (3.5-5.1) 3.4mmol/L (3.5-5.1) Test 10/25/16 22:50 10/26/16 06:33 10/26/16 07:59 Glucose (Fingerstick) 116mg/dL (70-99) 144mg/dL (70-99) White Blood Count 14.4x10^3/uL (4.0-11.0) Red Blood Count 3.30x10^6/uL (3.50-5.40) Hemoglobin 8.9g/dL (12.0-15.5) Hematocrit 27.4% (36.0-47.0) Mean Corpuscular Volume 83fL (79-100) Mean Corpuscular Hemoglobin 27pg (25-35) Mean Corpuscular Hemoglobin Concent 32g/dL (31-37) Red Cell Distribution Width 16.1% (11.5-14.5) Platelet Count 346x10^3/uL (140-400) Neutrophils (%) (Auto) 68% (31-73) Lymphocytes (%) (Auto) 16% (24-48) Monocytes (%) (Auto) 16% (0-9) Eosinophils (%) (Auto) 0% (0-3) Basophils (%) (Auto) 1% (0-3) Neutrophils # (Auto) 9.7x10^3uL (1.8-7.7) Lymphocytes # (Auto) 2.4x10^3/uL (1.0-4.8) Monocytes # (Auto) 2.2x10^3/uL (0.0-1.1) Eosinophils # (Auto) 0.0x10^3/uL (0.0-0.7) Basophils # (Auto) 0.1x10^3/uL (0.0-0.2) Prothrombin Time 15.3SEC (11.7-14.0) Prothromb Time International Ratio 1.3 (0.8-1.1) Sodium Level 148mmol/L (136-145) Potassium Level 3.5mmol/L (3.5-5.1) Chloride Level 110mmol/L (98-107) Carbon Dioxide Level 28mmol/L (21-32) Anion Gap 10 (6-14) Blood Urea Nitrogen 26mg/dL (7-20) Creatinine 1.8mg/dL (0.6-1.0) Estimated GFR (Cockcroft-Gault) 34.8 Glucose Level 150mg/dL (70-99) Calcium Level 8.9mg/dL (8.5-10.1) Magnesium Level 1.9mg/dL (1.8-2.4) Medications Active Scripts Medications Dose Route/Sig Days Date Category Vitamin D (Cholecalciferol (Vitamin D3)) 1,000 Unit Capsule 1,000 Unit PO DAILY 10/19/16 Reported Acetaminophen 325 Mg Tablet 650 Mg PO PRN Q6HRS PRN 10/19/16 Reported Senna-Docusate Sodium Tablet (Sennosides/Docusate Sodium) 1 Each Tablet 1 Each PO BID 10/19/16 Reported Miralax (Polyethylene Glycol 3350) 17 Gm Powd.pack 1 Pkt PO DAILY 10/19/16 Reported Phenytoin Sodium Extended 100 Mg Capsule 100 Mg PO DAILY 10/19/16 Reported Depakote Er (Divalproex Sodium) 500 Mg Tab.er.24h 1,500 Mg PO DAILY 10/19/16 Reported Warfarin Sodium 1 Mg Tablet 1 Mg PO DAILY 10/19/16 Reported Chlorpromazine Hcl 100 Mg Tablet 100 Mg PO QHS 10/19/16 Reported Benztropine Mesylate 2 Mg Tablet 2 Mg PO DAILY 10/19/16 Reported Zyprexa (Olanzapine) 5 Mg Tablet 1 Tab PO QHS 10/19/16 Reported Simvastatin 10 Mg Tablet 10 Mg PO QHS 10/19/16 Reported Remeron (Mirtazapine) 15 Mg Tablet 15 Mg PO QHS 10/19/16 Reported Lisinopril 5 Mg Tablet 1 Tab PO DAILY 10/19/16 Reported Depakene (Valproic Acid) 250 Mg Capsule 250 Mg PO HS 10/19/16 Reported Coumadin (Warfarin Sodium) 6 Mg Tablet 6 Mg PO DAILY 10/19/16 Reported Buspirone Hcl 10 Mg Tablet 10 Mg PO TID 10/19/16 Reported Protonix (Pantoprazole Sodium) 40 Mg Tablet 40 Mg PO DAILYAC 06/15/14 Rx Neurontin (Gabapentin) 400 Mg Capsule 1 Tab PO HS 11/21/13 Reported Multivitamins (Multivitamin) 1 Each Capsule 1 Tab PO DAILY 11/21/13 Reported Milk Of Magnesia (Magnesium Hydroxide) 400 Mg/5 Ml Oral.susp 30 Ml PO PRN DAILY PRN 11/21/13 Reported Dilantin (Phenytoin Sodium Extended) 100 Mg Capsule 200 Mg PO QHS 11/21/13 Reported Depakote (Divalproex Sodium) 500 Mg Tablet.dr 1,000 Mg PO HS 11/21/13 Reported Chlorpromazine Hcl 25 Mg Tablet 25 Mg PO HS 11/21/13 Reported Artificial Tears (Hypromellose) 15 Ml Drops 2 Drop EACHEYE QID 11/21/13 Reported Novolog (Insulin Aspart) 100 Unit/1 Ml Vial 10 Units SUBCUT TIDAC 11/21/13 Reported [place] 5-325 Tablet (Acetaminophen/Hydrocodone Bitart) 1 Each Tablet 2 Tab PO Q4H PRN 11/21/13 Reported Levemir (Insulin Detemir) 100 Unit/1 Ml Vial 22 Unit SQ BID 11/21/13 Reported Klonopin (Clonazepam) 0.5 Mg Tablet 0.5 Mg PO HS 11/21/13 Reported Duoneb 0.5 Mg-3 Mg/3 Ml Soln (Ipratropium/Albuterol Sulfate) 3 Ml Ampul.neb 3 Ml INH Q6H 11/21/13 Reported Ativan (Lorazepam) 0.5 Mg Tablet 1 Tab PO Q8H PRN 11/21/13 Reported Impression . 1. Abnormal chest x-ray with moderate volume loss in the right lower lobe dated 10/24/2016, this is new compared to October 19 chest x-ray . ct chest reviewed. combination of small pleural effusion and atelectasis 2. Recent sepsis due to suspected urinary tract infection. Cultures to date are negative so far. 3. Encephalopathy secondary to sepsis. 4. History of seizure disorder. 5. History of CVA. 6. History of schizophrenia. Plan . 1. Continue broad spectrum antibiotics per Infectious Disease. 2. Continue oxygen at 2 liters. 3. Follow for any new cultures. 4. No further intervention from pulmonary standpoint 5. Agree with palliative care consult with goals of care. will see DANY De La Torre MD Oct 26, 2016 10:43
[2016-10-26 10:56] VITALS: BP 158/86
[2016-10-26] MEDS: AA 3%/ELECTROLYTE-TPN SOLN/GLY 1,000 ML IV SCH (13:44)
--- NOTE | 2016-10-26 15:04 | PDOC2 ---
CONSULT Date of Consult Date of Consult DATE: 10/26/16 TIME: 15:02 Past Medical History Cardiovascular: HTN, Hyperlipidemia, Other CENTRAL NERVOUS SYSTEM: CVA, Seizure GI: Constipation, GERD, Other Psych: Anxiety, Other Musculoskeletal: Other Rheumatologic: Other Endocrine: Diabetes Past Surgical History Past Surgical History: Pacemaker Family History Family History: Other (-ve as best ascertainable) Social History Lives: Correction Current Problem List Problem List Problems Medical Problems: (1) Sepsis Status: Acute (2) Severe protein-calorie malnutrition Status: Acute (3) Uncontrolled diabetes mellitus Status: Acute (4) Urinary tract infection Status: Acute Current Medications Current Medications Current Medications Sodium Chloride (Iv Sodium Chloride 0.9% 1000ml Bag) 1,000 ml @ 622.5 mls/ hr Q1H37M IV Last administered on 10/19/16 13:13; Start 10/19/16 at 09:59; Stop 10/19/16 at 13:59; Status DC Naloxone HCl (Narcan) 0.4 mg STK-MED ONCE .ROUTE ; Start 10/19/16 at 11:04; Stop 10/19/16 at 11:05; Status DC Naloxone HCl 0.4 mg 0.4 mg 1X ONCE IV Last administered on 10/19/16 11:20; Start 10/19/16 at 11:15; Stop 10/19/16 at 11:16; Status DC Ceftriaxone Sodium (Rocephin 1gm Ivpb For Omni) 50 ml @ 100 mls/hr 1X ONCE IV Last administered on 10/19/16 12:23; Start 10/19/16 at 12:00; Stop 10/19/16 at 12:29; Status DC Ondansetron HCl 4 mg 4 mg PRN Q8HRS PRN IV NAUSEA/VOMITING; Start 10/19/16 at 12:00; Stop 10/20/16 at 11:59; Status DC Sodium Chloride (Iv Sodium Chloride 0.9% 1000ml Bag) 1,000 ml @ 100 mls/hr Q10H IV Last administered on 10/20/16 08:36; Start 10/19/16 at 11:54; Stop 09/24 at 11:53; Status DC Acetaminophen 650 mg 650 mg PRN Q4HRS PRN PO FEVER Last administered on 21:19; Start 10/19/16 at 12:00; Stop 10/20/16 at 08:53; Status DC Ceftriaxone Sodium/Sodium Chloride (Rocephin/Iv Sodium Chloride 0.9% 50ml) 50 ml @ 100 mls/hr Q24H IV ; Start 10/20/16 at 12:00; Stop 10/20/16 at 12:00; Status DC Acetaminophen (Tylenol) 650 mg PRN Q6HRS PRN PO PAIN; Start 10/19/16 at 17:15; Status Cancel Buspirone HCl (Buspar) 10 mg TID PO Last administered on 10/26/16 14:24; Start 10/19/16 at 21:00 Chlorpromazine HCl (Thorazine) 25 mg HS PO Last administered on 10/25/16 23:04 ; Start 10/19/16 at 21:00 Clonazepam (Klonopin) 0.5 mg HS PO Last administered on 10/25/16 23:05; Start 10/19/16 at 21:00 Divalproex Sodium (Depakote Er) 1,500 mg DAILY PO Last administered on 09:59; Start 10/20/16 at 09:00; Stop 10/21/16 at 14:11; Status DC Divalproex Sodium (Depakote Er) 1,000 mg QHS PO ; Start 10/19/16 at 21:00; Stop 10/21/16 at 14:11; Status DC Gabapentin (Neurontin) 400 mg HS PO Last administered on 10/25/16 23:05; Start 10/19/16 at 21:00 Acetaminophen/ Hydrocodone Bitart (Lortab 5/325) 2 tab PRN Q4HRS PRN PO PAIN Last administered on 10/21/16 21:24; Start 10/19/16 at 17:15 Insulin Aspart (Novolog) 10 units TIDAC SQ Last administered on 10/25/16 12:34 ; Start 10/19/16 at 18:00 Lisinopril (Prinivil) 5 mg DAILY PO Last administered on 10/24/16 08:20; Start 10/20/16 at 09:00; Stop 10/24/16 at 09:41; Status DC Lorazepam (Ativan) 0.5 mg PRN Q8HRS PRN PO ANXIETY / AGITATION Last administered on 10/19/16 21:20; Start 10/19/16 at 17:15 Mirtazapine (Remeron) 15 mg QHS PO Last administered on 10/25/16 23:04; Start 10/19/16 at 21:00 Olanzapine (Zyprexa) 5 mg QHS PO Last administered on 10/20/16 20:01; Start at 21:00; Stop 10/21/16 at 21:07; Status DC Pantoprazole Sodium (Protonix) 40 mg DAILYAC PO Last administered on 10/25/16 08:25; Start 10/20/16 at 07:30 Phenytoin Sodium (Dilantin) 100 mg DAILY PO Last administered on 10/21/16 08: 49; Start 10/20/16 at 09:00; Stop 10/22/16 at 12:33; Status DC Phenytoin Sodium (Dilantin) 200 mg QHS PO Last administered on 10/21/16 21:25 ; Start 10/19/16 at 21:00; Stop 10/22/16 at 12:34; Status DC Simvastatin (Zocor) 10 mg QHS PO Last administered on 10/25/16 23:05; Start at 21:00 Valproic Acid (Depakene) 250 mg HS PO Last administered on 10/21/16 21:24; Start 10/19/16 at 21:00; Stop 10/22/16 at 12:41; Status DC Warfarin Sodium (Coumadin) 1 mg DAILY16 PO ; Start 10/20/16 at 16:00; Stop 10/20 at 16:00; Status DC Warfarin Sodium (Coumadin) 6 mg DAILY16 PO ; Start 10/20/16 at 16:00; Stop 10/20 at 16:00; Status DC Benztropine Mesylate (Cogentin) 2 mg DAILY PO Last administered on 10/25/16 08 :25; Start 10/20/16 at 09:00 Chlorpromazine HCl (Thorazine) 100 mg QHS PO Last administered on 10/25/16 23: 04; Start 10/19/16 at 21:00 Artificial Tears (Artificial Tears) 1 drop QID OU Last administered on 13:45; Start 10/19/16 at 21:00 Insulin Detemir (Levemir) 22 units BID SQ Last administered on 10/26/16 09:44 ; Start 10/19/16 at 21:00 Multivitamins/ Calcium 1 tab 1 tab DAILY PO Last administered on 10/25/16 08: 25; Start 10/20/16 at 09:00 Piperacillin Sod/ Tazobactam Sod/ Sodium Chloride (Zosyn/Iv Sodium Chloride 0.9 % 50ml) 50 ml @ 100 mls/hr Q8HRS IV Last administered on 10/26/16 06:51; Start 10/19/16 at 18:00 Warfarin Sodium (Coumadin Per Physician) 1 each PRN DAILY PRN MC SEE COMMENTS; Start 10/19/16 at 17:30; Stop 10/20/16 at 09:17; Status DC Vancomycin HCl 1 each 1 each PRN DAILY PRN MC SEE COMMENTS Last administered on 10/22/16 09:59; Start 10/20/16 at 07:45; Stop 10/22/16 at 11:37; Status DC Vancomycin HCl/ Sodium Chloride (Iv Sodium Chloride 0.9% 500ml Bag) 500 ml @ 250 mls/hr 1X ONCE IV Last administered on 10/20/16 09:22; Start 10/20/16 at 08:00; Stop 10/20/16 at 09:59; Status DC Acetaminophen (Tylenol) 650 mg PRN Q6HRS PRN PO MILD PAIN / TEMP Last administered on 10/25/16 08:25; Start 10/20/16 at 09:00 Phenytoin Sodium (Dilantin) 300 mg 1X ONCE PO ; Start 10/20/16 at 09:00; Stop 10/20/16 at 09:01; Status DC Warfarin Sodium 1 each 1 each PRN DAILY PRN MC SEE COMMENTS Last administered on 10/25/16 16:06; Start 10/20/16 at 09:15; Stop 10/26/16 at 10:03; Status DC Vancomycin HCl/ Sodium Chloride (Iv Sodium Chloride 0.9% 250ml) 250 ml @ 167 mls/hr Q12H IV Last administered on 10/21/16 09:11; Start 10/20/16 at 21:00; Stop 10/21/16 at 12:00; Status DC Vancomycin HCl 1 each 1X ONCE MC Last administered on 10/22/16 08:30; Start 10/22/16 at 08:30; Stop 10/22/16 at 08:31; Status DC Warfarin Sodium 3 mg 3 mg 1X WARF ONCE PO Last administered on 10/20/16 16:12 ; Start 10/20/16 at 16:00; Stop 10/20/16 at 16:01; Status DC Sodium Chloride 1,000 ml @ 1,000 mls/hr 1X ONCE IV Last administered on 16:13; Start 10/20/16 at 15:30; Stop 10/20/16 at 16:29; Status DC Magnesium Sulfate/ Dextrose 50 ml @ 25 mls/hr 1X ONCE IV Last administered on 10/21/16 09:59; Start 10/21/16 at 09:00; Stop 10/21/16 at 10:59; Status DC Vancomycin HCl/ Sodium Chloride (Iv Sodium Chloride 0.9% 250ml) 250 ml @ 167 mls/hr Q24H IV ; Start 10/22/16 at 09:00; Stop 10/22/16 at 09:51; Status DC Warfarin Sodium 6 mg 6 mg 1X WARF ONCE PO Last administered on 10/21/16 17:50 ; Start 10/21/16 at 16:00; Stop 10/21/16 at 16:01; Status DC Potassium Chloride/Dextrose/ Sod Cl (KCl 20 Meq In D5W-1/2 NS) 1,000 ml @ 100 mls/hr Q10H IV Last administered on 10/22/16 05:59; Start 10/21/16 at 10:15; Stop 10/22/16 at 12:40; Status DC Divalproex Sodium (Depakote Sprinkles) 1,500 mg [id number] PO ; Start 10/21/16 at 14:30; Status UNV Divalproex Sodium (Depakote Sprinkles) 625 mg Q6HRS PO Last administered on 06:04; Start 10/21/16 at 14:30; Stop 10/22/16 at 12:40; Status DC Olanzapine (Zyprexa) 5 mg QHS PO ; Start 10/21/16 at 21:07; Stop 10/21/16 at 21: 31; Status DC Olanzapine (Zyprexa) 5 mg HS PO Last administered on 10/25/16 23:04; Start at 21:30 Vancomycin HCl 1 each 1X ONCE MC ; Start 10/23/16 at 08:30; Stop 10/23/16 at 08 :31; Status Cancel Warfarin Sodium (Coumadin - No Dose Today) 1 each 1X WARF ONCE MC Last administered on 10/22/16 16:00; Start 10/22/16 at 16:00; Stop 10/22/16 at 16:01 ; Status DC Fosphenytoin Sodium 100 mg 100 mg Q8HRS IV Last administered on 10/26/16 14:25 ; Start 10/22/16 at 14:00 Valproic Acid 690 mg/Sodium Chloride 56.9 ml @ 56.9 mls/hr Q6HRS IV Last administered on 10/26/16 13:45; Start 10/22/16 at 13:00 Dextrose/Sodium Chloride (Iv D5% - /4 NS) 1,000 ml @ 125 mls/hr Q8H IV Last administered on 10/24/16 05:23; Start 10/22/16 at 13:00; Stop 10/24/16 at 09:12 ; Status DC Phytonadione (Vitamin K) 10 mg 1X ONCE SQ Last administered on 10/23/16 06:36 ; Start 10/23/16 at 06:30; Stop 10/23/16 at 06:31; Status DC Warfarin Sodium (Coumadin - No Dose Today) 1 each 1X WARF ONCE MC Last administered on 10/23/16 16:00; Start 10/23/16 at 16:00; Stop 10/23/16 at 16:01 ; Status DC Acetaminophen 650 mg 650 mg PRN Q6HRS PRN MT MILD PAIN / TEMP Last administered on 10/25/16 01:13; Start 10/23/16 at 23:30 Vancomycin HCl 1.25 gm/Sodium Chloride 250 ml @ 166.667 mls/hr 1X ONCE IV Last administered on 10/24/16 10:15; Start 10/24/16 at 10:00; Stop 10/24/16 at 11:29; Status DC Amino Acids/ Glycerin/ Electrolytes (Procalamine) 1,000 ml @ 80 mls/hr [id number] IV Last administered on 10/26/16 13:44; Start 10/24/16 at 09:15 Furosemide (Lasix) 20 mg 1X ONCE IVP ; Start 10/24/16 at 09:15; Stop 10/24/16 at 09:16; Status Cancel Bisacodyl (Dulcolax Supp) 10 mg 1X ONCE MT Last administered on 10/24/16 10: 15; Start 10/24/16 at 09:15; Stop 10/24/16 at 09:19; Status DC Magnesium Hydroxide (Milk Of Magnesia) 2,400 mg PRN DAILY PRN PO CONSTIPATION; Start 10/24/16 at 09:15 Bisacodyl (Dulcolax Supp) 10 mg PRN DAILY PRN MT CONSTIPATION; Start 10/24/16 at 09:15 Furosemide (Lasix) 20 mg 1X ONCE IVP Last administered on 10/24/16 10:15; Start 10/24/16 at 10:15; Stop 10/24/16 at 10:16; Status DC Warfarin Sodium (Coumadin) 3 mg 1X WARF ONCE PO Last administered on 18:06; Start 10/24/16 at 16:00; Stop 10/24/16 at 16:01; Status DC Bisacodyl (Dulcolax Supp) 10 mg 1X ONCE MT Last administered on 10/25/16 12: 27; Start 10/25/16 at 09:00; Stop 10/25/16 at 09:01; Status DC Polyethylene Glycol 17 gm 17 gm DAILY PO Last administered on 10/25/16 12:26; Start 10/25/16 at 09:00 Magnesium Sulfate/ Dextrose 50 ml @ 25 mls/hr PRN DAILY PRN IV for Mag < 1.7 on am labs; Start 10/25/16 at 10:00 Potassium Chloride 50 ml @ 50 mls/hr PRN Q6HRS PRN IV For K < 3.7; Start at 10:00 Potassium Chloride (KCl Premix 20meq) 50 ml @ 50 mls/hr PRN Q2HR PRN IV total of 40mEq for K < 3.5; Start 10/25/16 at 10:00 Warfarin Sodium (Coumadin) 3 mg 1X WARF ONCE PO Last administered on 1/17/ 17at 17:30; Start 10/25/16 at 16:00; Stop 10/25/16 at 16:01; Status DC Active Scripts Active Protonix (Pantoprazole Sodium) 40 Mg Tablet 40 Mg PO DAILYAC Reported Vitamin D (Cholecalciferol (Vitamin D3)) 1,000 Unit Capsule 1,000 Unit PO DAILY Acetaminophen 325 Mg Tablet 650 Mg PO PRN Q6HRS PRN Senna-Docusate Sodium Tablet (Sennosides/Docusate Sodium) 1 Each Tablet 1 Each PO BID Miralax (Polyethylene Glycol 3350) 17 Gm Powd.pack 1 Pkt PO DAILY Phenytoin Sodium Extended 100 Mg Capsule 100 Mg PO DAILY Depakote Er (Divalproex Sodium) 500 Mg Tab.er.24h 1,500 Mg PO DAILY Warfarin Sodium 1 Mg Tablet 1 Mg PO DAILY Chlorpromazine Hcl 100 Mg Tablet 100 Mg PO QHS Benztropine Mesylate 2 Mg Tablet 2 Mg PO DAILY Zyprexa (Olanzapine) 5 Mg Tablet 1 Tab PO QHS Simvastatin 10 Mg Tablet 10 Mg PO QHS Remeron (Mirtazapine) 15 Mg Tablet 15 Mg PO QHS Lisinopril 5 Mg Tablet 1 Tab PO DAILY Depakene (Valproic Acid) 250 Mg Capsule 250 Mg PO HS Coumadin (Warfarin Sodium) 6 Mg Tablet 6 Mg PO DAILY Buspirone Hcl 10 Mg Tablet 10 Mg PO TID Neurontin (Gabapentin) 400 Mg Capsule 1 Tab PO HS Multivitamins (Multivitamin) 1 Each Capsule 1 Tab PO DAILY Milk Of Magnesia (Magnesium Hydroxide) 400 Mg/5 Ml Oral.susp 30 Ml PO PRN DAILY PRN Dilantin (Phenytoin Sodium Extended) 100 Mg Capsule 200 Mg PO QHS Depakote (Divalproex Sodium) 500 Mg Tablet.dr 1,000 Mg PO HS Chlorpromazine Hcl 25 Mg Tablet 25 Mg PO HS Artificial Tears (Hypromellose) 15 Ml Drops 2 Drop EACHEYE QID Novolog (Insulin Aspart) 100 Unit/1 Ml Vial 10 Units SUBCUT TIDAC [place]rrigon 5-325 Tablet (Acetaminophen/Hydrocodone Bitart) 1 Each Tablet 2 Tab PO Q4H PRN Levemir (Insulin Detemir) 100 Unit/1 Ml Vial 22 Unit SQ BID Klonopin (Clonazepam) 0.5 Mg Tablet 0.5 Mg PO HS Duoneb 0.5 Mg-3 Mg/3 Ml Soln (Ipratropium/Albuterol Sulfate) 3 Ml Ampul.neb 3 Ml INH Q6H Ativan (Lorazepam) 0.5 Mg Tablet 1 Tab PO Q8H PRN Allergies Allergies: Coded Allergies: I S O L A T I O N *CONTACT* (Verified Allergy, Unknown, 10/20/16) mrsa No Known Medication Allergies (Verified Allergy, Unknown, 10/20/16) Vitals VITALS Vital Signs Date Time Temp Pulse Resp B/P Pulse Ox O2 Delivery O2 Flow Rate FiO2 10/26/16 10:56 99.0 90 20 158/86 99 Nasal Cannula 2.0 99.0 Labs Labs Laboratory Tests Test 10/24/16 16:42 10/24/16 22:04 10/25/16 07:21 10/25/16 08:00 Glucose (Fingerstick) 207mg/dL (70-99) 146mg/dL (70-99) 133mg/dL (70-99) White Blood Count 14.9x10^3/uL (4.0-11.0) Red Blood Count 3.36x10^6/uL (3.50-5.40) Hemoglobin 9.0g/dL (12.0-15.5) Hematocrit 28.2% (36.0-47.0) Mean Corpuscular Volume 84fL (79-100) Mean Corpuscular Hemoglobin 27pg (25-35) Mean Corpuscular Hemoglobin Concent 32g/dL (31-37) Red Cell Distribution Width 16.0% (11.5-14.5) Platelet Count 287x10^3/uL (140-400) Neutrophils (%) (Auto) 69% (31-73) Lymphocytes (%) (Auto) 13% (24-48) Monocytes (%) (Auto) 18% (0-9) Eosinophils (%) (Auto) 0% (0-3) Basophils (%) (Auto) 0% (0-3) Neutrophils # (Auto) 10.3x10^3uL (1.8-7.7) Lymphocytes # (Auto) 1.9x10^3/uL (1.0-4.8) Monocytes # (Auto) 2.7x10^3/uL (0.0-1.1) Eosinophils # (Auto) 0.0x10^3/uL (0.0-0.7) Basophils # (Auto) 0.0x10^3/uL (0.0-0.2) Prothrombin Time 16.4SEC (11.7-14.0) Prothromb Time International Ratio 1.4 (0.8-1.1) Sodium Level 151mmol/L (136-145) Potassium Level 3.2mmol/L (3.5-5.1) Chloride Level 113mmol/L (98-107) Carbon Dioxide Level 28mmol/L (21-32) Anion Gap 10 (6-14) Blood Urea Nitrogen 20mg/dL (7-20) Creatinine 2.0mg/dL (0.6-1.0) Estimated GFR (Cockcroft-Gault) 30.9 Glucose Level 154mg/dL (70-99) Calcium Level 8.8mg/dL (8.5-10.1) Amylase Level 14U/L (25-115) Phenytoin (Dilantin) Level 4.4mcg/mL (10.0-20.0) Phenytoin Last Dose Date 10/24/16 Phenytoin Last Dose Time 0939 Test 10/25/16 11:27 10/25/16 11:50 10/25/16 16:33 10/25/16 18:35 Glucose (Fingerstick) 106mg/dL (70-99) 103mg/dL (70-99) Potassium Level 3.2mmol/L (3.5-5.1) 3.4mmol/L (3.5-5.1) Test 10/25/16 22:50 10/26/16 06:33 10/26/16 07:59 10/26/16 11:24 Glucose (Fingerstick) 116mg/dL (70-99) 144mg/dL (70-99) 176mg/dL (70-99) White Blood Count 14.4x10^3/uL (4.0-11.0) Red Blood Count 3.30x10^6/uL (3.50-5.40) Hemoglobin 8.9g/dL (12.0-15.5) Hematocrit 27.4% (36.0-47.0) Mean Corpuscular Volume 83fL (79-100) Mean Corpuscular Hemoglobin 27pg (25-35) Mean Corpuscular Hemoglobin Concent 32g/dL (31-37) Red Cell Distribution Width 16.1% (11.5-14.5) Platelet Count 346x10^3/uL (140-400) Neutrophils (%) (Auto) 68% (31-73) Lymphocytes (%) (Auto) 16% (24-48) Monocytes (%) (Auto) 16% (0-9) Eosinophils (%) (Auto) 0% (0-3) Basophils (%) (Auto) 1% (0-3) Neutrophils # (Auto) 9.7x10^3uL (1.8-7.7) Lymphocytes # (Auto) 2.4x10^3/uL (1.0-4.8) Monocytes # (Auto) 2.2x10^3/uL (0.0-1.1) Eosinophils # (Auto) 0.0x10^3/uL (0.0-0.7) Basophils # (Auto) 0.1x10^3/uL (0.0-0.2) Prothrombin Time 15.3SEC (11.7-14.0) Prothromb Time International Ratio 1.3 (0.8-1.1) Sodium Level 148mmol/L (136-145) Potassium Level 3.5mmol/L (3.5-5.1) Chloride Level 110mmol/L (98-107) Carbon Dioxide Level 28mmol/L (21-32) Anion Gap 10 (6-14) Blood Urea Nitrogen 26mg/dL (7-20) Creatinine 1.8mg/dL (0.6-1.0) Estimated GFR (Cockcroft-Gault) 34.8 Glucose Level 150mg/dL (70-99) Calcium Level 8.9mg/dL (8.5-10.1) Magnesium Level 1.9mg/dL (1.8-2.4) Test 10/26/16 11:45 Potassium Level 3.6mmol/L (3.5-5.1) Laboratory Tests Test 10/25/16 16:33 10/25/16 18:35 10/25/16 22:50 10/26/16 06:33 Glucose (Fingerstick) 103mg/dL (70-99) 116mg/dL (70-99) Potassium Level 3.4mmol/L (3.5-5.1) 3.5mmol/L (3.5-5.1) White Blood Count 14.4x10^3/uL (4.0-11.0) Red Blood Count 3.30x10^6/uL (3.50-5.40) Hemoglobin 8.9g/dL (12.0-15.5) Hematocrit 27.4% (36.0-47.0) Mean Corpuscular Volume 83fL (79-100) Mean Corpuscular Hemoglobin 27pg (25-35) Mean Corpuscular Hemoglobin Concent 32g/dL (31-37) Red Cell Distribution Width 16.1% (11.5-14.5) Platelet Count 346x10^3/uL (140-400) Neutrophils (%) (Auto) 68% (31-73) Lymphocytes (%) (Auto) 16% (24-48) Monocytes (%) (Auto) 16% (0-9) Eosinophils (%) (Auto) 0% (0-3) Basophils (%) (Auto) 1% (0-3) Neutrophils # (Auto) 9.7x10^3uL (1.8-7.7) Lymphocytes # (Auto) 2.4x10^3/uL (1.0-4.8) Monocytes # (Auto) 2.2x10^3/uL (0.0-1.1) Eosinophils # (Auto) 0.0x10^3/uL (0.0-0.7) Basophils # (Auto) 0.1x10^3/uL (0.0-0.2) Prothrombin Time 15.3SEC (11.7-14.0) Prothromb Time International Ratio 1.3 (0.8-1.1) Sodium Level 148mmol/L (136-145) Chloride Level 110mmol/L (98-107) Carbon Dioxide Level 28mmol/L (21-32) Anion Gap 10 (6-14) Blood Urea Nitrogen 26mg/dL (7-20) Creatinine 1.8mg/dL (0.6-1.0) Estimated GFR (Cockcroft-Gault) 34.8 Glucose Level 150mg/dL (70-99) Calcium Level 8.9mg/dL (8.5-10.1) Magnesium Level 1.9mg/dL (1.8-2.4) Test 10/26/16 07:59 10/26/16 11:24 10/26/16 11:45 Glucose (Fingerstick) 144mg/dL (70-99) 176mg/dL (70-99) Potassium Level 3.6mmol/L (3.5-5.1) Assessment/Plan Assessment/Plan FND Wk # [id number] Would not recommend surgical intervention given Ms Dias's comorbidities. If concern over the GB as source of septic episode is entertained a PIPIDA scan may help assess that possibility and if positive consider IR help with placement of a cholecystostomy tube. Will follow with you. Thanks for consult. JS MONTAGUE MD Oct 26, 2016 15:04
[2016-10-26 15:11] VITALS: BP 201/87
[2016-10-26 19:00] VITALS: BP 162/87
[2016-10-26] MEDS: CLONAZEPAM 0.5 MG TABLET PO SCH (22:15)
[2016-10-26] MEDS: OLANZAPINE 5 MG TABLET. PO SCH (22:15)
[2016-10-26] MEDS: MIRTAZAPINE 15 MG TABLET PO SCH (22:16)
[2016-10-26] MEDS: GABAPENTIN 400 MG CAPSULE. PO SCH (22:16)
[2016-10-26] MEDS: SIMVASTATIN 10 MG TABLET PO SCH (22:16)
[2016-10-26] MEDS: CHLORPROMAZINE 25 MG PO SCH ×2 (22:16→22:17)
[2016-10-26 22:59] VITALS: BP 174/76
[2016-10-27] MEDS: AA 3%/ELECTROLYTE-TPN SOLN/GLY 1,000 ML IV SCH ×2 (02:11→12:47)
[2016-10-27 03:19] VITALS: BP 147/71
[2016-10-27] MEDS: PIPERACILLIN/TAZOBACTAM 3.375 GM in IV NORMAL SALINE 50ML 50 ML IV SCH ×3 (05:30→21:04)
[2016-10-27] MEDS: VALPROIC ACID IV SCH ×3 (06:20→17:37)
[2016-10-27] MEDS: FOSPHENYTOIN 100 MG/2 ML VIAL IV SCH ×3 (06:20→22:38)
[2016-10-27] MEDS: NORMAL SALINE IV SCH ×3 (06:20→17:37)
[2016-10-27 06:42] LABS: BASO # 0.1 x10^3/uL (0.0-0.2); BASO % 1 % (0-3); EOS % 0 % (0-3); HEMATOCRIT 26.5 % (36.0-47.0); HEMOGLOBIN 8.6 g/dL (12.0-15.5); LYMPH % 14 % (24-48); MEAN CORPUSCULAR HEMOGLOBIN 27 pg (25-35); MEAN CORPUSCULAR HGB CONC 33 g/dL (31-37); MEAN CORPUSCULAR VOLUME 83 fL (79-100); MONO % 16 % (0-9); NEUT % 69 % (31-73); PLATELET COUNT 382 x10^3/uL (140-400); RED BLOOD COUNT 3.18 x10^6/uL (3.50-5.40); RED CELL DISTRIBUTION WIDTH 15.8 % (11.5-14.5); WHITE BLOOD COUNT 13.6 x10^3/uL (4.0-11.0)
[2016-10-27 07:00] VITALS: BP 181/78
[2016-10-27 07:00] LABS: CALCIUM 8.6 mg/dL (8.5-10.1); CREATININE 1.7 mg/dL (0.6-1.0); GFR 37.2; POTASSIUM 3.5 mmol/L (3.5-5.1)
[2016-10-27 07:04] LABS: INR 1.2 (0.8-1.1); PROTHROMBIN TIME PATIENT 14.8 SEC (11.7-14.0)
--- NOTE | 2016-10-27 07:40 | PDOC ---
ADILENEMILLIE COLLEGE DIRECTOR 10/27/16 0740: IM PROGRESS NOTES- Subjective Subjective awake, minimal interactive, nods no to pain Objective Objective responds to name with gaze, not following commands regarding mobility Vitals Vital Signs Date Time Temp Pulse Resp B/P Pulse Ox O2 Delivery O2 Flow Rate FiO2 10/27/16 03:19 97.9 84 18 147/71 Nasal Cannula 2.0 97.9 10/26/16 22:59 99 Input & Output Intake and Output 10/27/16 07:00 Intake Total 1275 ml Output Total 3150 ml Balance -1875 ml Intake Oral 60 ml IV Total 1215 ml Output Urine Total 3150 ml Physical Exam Physical Exam GENERAL: awake, minimally interactive, responds with eyes to name, no distress. HEAD: normocephalic LUNGS: Decreased breath sounds at bases. CARDIOVASCULAR: S1 and S2 regular. ABDOMEN: Soft, obese, nontender,BS increased slightly, less distention/firmness , EXTREMITIES: + edema. CENTRAL NERVOUS SYSTEM: awake, no change in baseline neurocognitive disorder SKIN: Warm and dry. Skin turgor decreased. Labs Laboratory Tests Test 10/25/16 08:00 10/25/16 11:27 10/25/16 11:50 10/25/16 16:33 White Blood Count 14.9x10^3/uL (4.0-11.0) Red Blood Count 3.36x10^6/uL (3.50-5.40) Hemoglobin 9.0g/dL (12.0-15.5) Hematocrit 28.2% (36.0-47.0) Mean Corpuscular Volume 84fL (79-100) Mean Corpuscular Hemoglobin 27pg (25-35) Mean Corpuscular Hemoglobin Concent 32g/dL (31-37) Red Cell Distribution Width 16.0% (11.5-14.5) Platelet Count 287x10^3/uL (140-400) Neutrophils (%) (Auto) 69% (31-73) Lymphocytes (%) (Auto) 13% (24-48) Monocytes (%) (Auto) 18% (0-9) Eosinophils (%) (Auto) 0% (0-3) Basophils (%) (Auto) 0% (0-3) Neutrophils # (Auto) 10.3x10^3uL (1.8-7.7) Lymphocytes # (Auto) 1.9x10^3/uL (1.0-4.8) Monocytes # (Auto) 2.7x10^3/uL (0.0-1.1) Eosinophils # (Auto) 0.0x10^3/uL (0.0-0.7) Basophils # (Auto) 0.0x10^3/uL (0.0-0.2) Prothrombin Time 16.4SEC (11.7-14.0) Prothromb Time International Ratio 1.4 (0.8-1.1) Sodium Level 151mmol/L (136-145) Potassium Level 3.2mmol/L (3.5-5.1) 3.2mmol/L (3.5-5.1) Chloride Level 113mmol/L (98-107) Carbon Dioxide Level 28mmol/L (21-32) Anion Gap 10 (6-14) Blood Urea Nitrogen 20mg/dL (7-20) Creatinine 2.0mg/dL (0.6-1.0) Estimated GFR (Cockcroft-Gault) 30.9 Glucose Level 154mg/dL (70-99) Calcium Level 8.8mg/dL (8.5-10.1) Amylase Level 14U/L (25-115) Phenytoin (Dilantin) Level 4.4mcg/mL (10.0-20.0) Phenytoin Last Dose Date 10/24/16 Phenytoin Last Dose Time 0939 Glucose (Fingerstick) 106mg/dL (70-99) 103mg/dL (70-99) Test 10/25/16 18:35 10/25/16 22:50 10/26/16 06:33 10/26/16 07:59 Potassium Level 3.4mmol/L (3.5-5.1) 3.5mmol/L (3.5-5.1) Glucose (Fingerstick) 116mg/dL (70-99) 144mg/dL (70-99) White Blood Count 14.4x10^3/uL (4.0-11.0) Red Blood Count 3.30x10^6/uL (3.50-5.40) Hemoglobin 8.9g/dL (12.0-15.5) Hematocrit 27.4% (36.0-47.0) Mean Corpuscular Volume 83fL (79-100) Mean Corpuscular Hemoglobin 27pg (25-35) Mean Corpuscular Hemoglobin Concent 32g/dL (31-37) Red Cell Distribution Width 16.1% (11.5-14.5) Platelet Count 346x10^3/uL (140-400) Neutrophils (%) (Auto) 68% (31-73) Lymphocytes (%) (Auto) 16% (24-48) Monocytes (%) (Auto) 16% (0-9) Eosinophils (%) (Auto) 0% (0-3) Basophils (%) (Auto) 1% (0-3) Neutrophils # (Auto) 9.7x10^3uL (1.8-7.7) Lymphocytes # (Auto) 2.4x10^3/uL (1.0-4.8) Monocytes # (Auto) 2.2x10^3/uL (0.0-1.1) Eosinophils # (Auto) 0.0x10^3/uL (0.0-0.7) Basophils # (Auto) 0.1x10^3/uL (0.0-0.2) Prothrombin Time 15.3SEC (11.7-14.0) Prothromb Time International Ratio 1.3 (0.8-1.1) Sodium Level 148mmol/L (136-145) Chloride Level 110mmol/L (98-107) Carbon Dioxide Level 28mmol/L (21-32) Anion Gap 10 (6-14) Blood Urea Nitrogen 26mg/dL (7-20) Creatinine 1.8mg/dL (0.6-1.0) Estimated GFR (Cockcroft-Gault) 34.8 Glucose Level 150mg/dL (70-99) Calcium Level 8.9mg/dL (8.5-10.1) Magnesium Level 1.9mg/dL (1.8-2.4) Test 10/26/16 11:24 10/26/16 11:45 10/26/16 16:52 10/26/16 18:00 Glucose (Fingerstick) 176mg/dL (70-99) 191mg/dL (70-99) Potassium Level 3.6mmol/L (3.5-5.1) 3.7mmol/L (3.5-5.1) Test 10/26/16 21:17 10/27/16 06:05 10/27/16 07:09 Glucose (Fingerstick) 111mg/dL (70-99) 143mg/dL (70-99) White Blood Count 13.6x10^3/uL (4.0-11.0) Red Blood Count 3.18x10^6/uL (3.50-5.40) Hemoglobin 8.6g/dL (12.0-15.5) Hematocrit 26.5% (36.0-47.0) Mean Corpuscular Volume 83fL (79-100) Mean Corpuscular Hemoglobin 27pg (25-35) Mean Corpuscular Hemoglobin Concent 33g/dL (31-37) Red Cell Distribution Width 15.8% (11.5-14.5) Platelet Count 382x10^3/uL (140-400) Neutrophils (%) (Auto) 69% (31-73) Lymphocytes (%) (Auto) 14% (24-48) Monocytes (%) (Auto) 16% (0-9) Eosinophils (%) (Auto) 0% (0-3) Basophils (%) (Auto) 1% (0-3) Neutrophils # (Auto) 9.4x10^3uL (1.8-7.7) Lymphocytes # (Auto) 2.0x10^3/uL (1.0-4.8) Monocytes # (Auto) 2.2x10^3/uL (0.0-1.1) Eosinophils # (Auto) 0.0x10^3/uL (0.0-0.7) Basophils # (Auto) 0.1x10^3/uL (0.0-0.2) Prothrombin Time 14.8SEC (11.7-14.0) Prothromb Time International Ratio 1.2 (0.8-1.1) Sodium Level 145mmol/L (136-145) Potassium Level 3.5mmol/L (3.5-5.1) Chloride Level 107mmol/L (98-107) Carbon Dioxide Level 29mmol/L (21-32) Anion Gap 9 (6-14) Blood Urea Nitrogen 27mg/dL (7-20) Creatinine 1.7mg/dL (0.6-1.0) Estimated GFR (Cockcroft-Gault) 37.2 Glucose Level 151mg/dL (70-99) Calcium Level 8.6mg/dL (8.5-10.1) Magnesium Level 1.8mg/dL (1.8-2.4) Laboratory Tests Test 10/26/16 07:59 10/26/16 11:24 10/26/16 11:45 10/26/16 16:52 Glucose (Fingerstick) 144mg/dL (70-99) 176mg/dL (70-99) 191mg/dL (70-99) Potassium Level 3.6mmol/L (3.5-5.1) Test 10/26/16 18:00 10/26/16 21:17 10/27/16 06:05 10/27/16 07:09 Potassium Level 3.7mmol/L (3.5-5.1) 3.5mmol/L (3.5-5.1) Glucose (Fingerstick) 111mg/dL (70-99) 143mg/dL (70-99) White Blood Count 13.6x10^3/uL (4.0-11.0) Red Blood Count 3.18x10^6/uL (3.50-5.40) Hemoglobin 8.6g/dL (12.0-15.5) Hematocrit 26.5% (36.0-47.0) Mean Corpuscular Volume 83fL (79-100) Mean Corpuscular Hemoglobin 27pg (25-35) Mean Corpuscular Hemoglobin Concent 33g/dL (31-37) Red Cell Distribution Width 15.8% (11.5-14.5) Platelet Count 382x10^3/uL (140-400) Neutrophils (%) (Auto) 69% (31-73) Lymphocytes (%) (Auto) 14% (24-48) Monocytes (%) (Auto) 16% (0-9) Eosinophils (%) (Auto) 0% (0-3) Basophils (%) (Auto) 1% (0-3) Neutrophils # (Auto) 9.4x10^3uL (1.8-7.7) Lymphocytes # (Auto) 2.0x10^3/uL (1.0-4.8) Monocytes # (Auto) 2.2x10^3/uL (0.0-1.1) Eosinophils # (Auto) 0.0x10^3/uL (0.0-0.7) Basophils # (Auto) 0.1x10^3/uL (0.0-0.2) Prothrombin Time 14.8SEC (11.7-14.0) Prothromb Time International Ratio 1.2 (0.8-1.1) Sodium Level 145mmol/L (136-145) Chloride Level 107mmol/L (98-107) Carbon Dioxide Level 29mmol/L (21-32) Anion Gap 9 (6-14) Blood Urea Nitrogen 27mg/dL (7-20) Creatinine 1.7mg/dL (0.6-1.0) Estimated GFR (Cockcroft-Gault) 37.2 Glucose Level 151mg/dL (70-99) Calcium Level 8.6mg/dL (8.5-10.1) Magnesium Level 1.8mg/dL (1.8-2.4) Assessment Assessment Assessment IMPRESSION: 1. Sepsis with lactic acidosis/UTI-cholecystitis POA 2. Acute metabolic encephalopathy. ARF underlying dementia 3. Urinary tract infection POA 4. Acute renal failure KALPANA ATN with CKD II 5. Seizure disorder with low Dilantin level of 3. 6. Diabetes mellitus type 2. 7. Dementia. 8. Paranoid schizophrenia. 9. Physical deconditioning. 10. Moderate malnutrition with albumin of 2.5. 11. Peripheral vascular disease. 12. Hyperlipidemia. 13. History of hypertension. 14. Gastroesophageal reflux disease. 15. Osteoporosis. 16. Vitamin D deficiency. 17. Legal blindness. 18. Hypernatremia NA 151 POA PLAN: sepsis with lactic acidosis UTI/choleycystitis POA ID consulted Zosyn IV Admit WBC 29.8 10/27 13.6 BC and urine CS negative Tm 100.2 previous 24 hour repeat UA neg nitrite, + blood, WBC 1-4 improved Urine cult 10/24 negative Surgical consult-no surgical intervention at this time, consider PIPIDA and IR for cholecystostomy tube placement Abnormal CXR CXR RLL atelectasis vs ldzefnacbl-[id number] nebulizer pulmonary consult CT chest w/o: Small right pleural effusion and trace left. Volume loss at the right lung base may reflect atelectasis or pneumonia. Minimal volume loss at the left lung base likely atelectasis 10/26-pulmonary signed off ARF KALPANA ATN with CKD, hypernatremia Admit BUN 34 10/27 27 Cr 2.4 1.7 Na 137 145 K 3.8 3.5 IV D51/4NS 125cc/hr-DC 10/24 renal consulted no Lasix 10/24 hypokalemia- K ordered q6h, range 3.2-3.5. Per nephrology DM II FSBS Novolog 10u tid ac Levemir 22u bid BS [id number] seizure disorder [id number] IV q8hr Depakote continue seizure precautions HTN continue NH meds anticoagulation Admit INR 3.0 10/26 1.4 pharmacy managing INR 10/23 7.6 abd mild distention/cholecystitis POA no BM since prior to admit Dulcolax supp 10/24--small hard stool mod amount 10/25 Distention worse, abdomen firmer, BS hypoactive +GS per CXR-check amylase Repeat Dulcolax supp. and add miralax CT chest w/o contrast GB thickening with distention-will obtain GB US amylase 14 BM + 10/25 after Dulcolax cholecystitis-surgical evaluated 10/26-no surgery severe with underlying chronic PCL malnutrition continue diet PPN added 10/24 anticoagulation pharmacy managing INR 1.2 DVT/GI prophylaxis warfarin PPI Family meeting with palliative care: when transfer to [place] consult [facility]. Prognosis poor Discharge orders initiated, med reconciliation printed, not completed. For more details regarding further plans, please refer to the orders. Plan Plan For more details regarding further plans, please refer to the orders. PABLO ROJAS MD 10/27/16 1108: IM PROGRESS NOTES- Assessment Assessment Malignant hypertension - staff not sure if patient is swallowing meds properly. Monitor. D/w - order PIPIDA scan. May need cholecystostomy tube /select consult. Prognosis is poor. still very sleepy. D/c seroquel,Remeron,Simvastatin. The patient was seen and examined by me. Chart reviewed and plan of care formulated. Discussed with, reviewed and agree with CRANE CHASER's notes, plan of care and orders with modifications as necessary. For more details regarding further plans, please refer to the orders. MILLIE HEAD APRN Oct 27, 2016 07:40 PABLO ROJAS MD Oct 27, 2016 11:08
--- NOTE | 2016-10-27 07:42 | DISCH ---
DISCHARGE FINAL DIAGNOSIS Problems Medical Problems: (1) Sepsis Status: Acute (2) Severe protein-calorie malnutrition Status: Acute (3) Uncontrolled diabetes mellitus Status: Acute (4) Urinary tract infection Status: Acute CONDITION ON DISCHARGE: Stable POST DISCHARGE ORDERS ACTIVITY ORDERS: Resume previous activity WEIGHT BEARING STATUS: Non weight bearing DIET AFTER DISCHARGE: Cardiac (pureed, honey thick liquids ) CHECKS AFTER DISCHARGE CHECKS AFTER DISCHARGE: Check blood sugar, ac/hs (TID before meals and at bedtime ) COMMENTS: VS per routine FOLLOW-UP PHYSICIAN FOLLOW-UP: Admit to facility MD TREATMENT/EQUIPMENT ORDERS RESPIRATORY EQUIPMENT NEEDED: Oxygen (2L NC), Nebulizer (QID ) MILLIE HEAD APRN Oct 27, 2016 07:42
[2016-10-27] MEDS: PANTOPRAZOLE 40 MG TABLET. PO SCH (08:47)
[2016-10-27] MEDS: POLYVINYL ALCOHOL 1.4% OPHTH SOLUTION 15ML BOTTLE. OU SCH ×4 (08:47→21:03)
[2016-10-27] MEDS: MULTIVITAMIN with MINERAL TABLET. PO SCH (08:47)
[2016-10-27] MEDS: BENZTROPINE MESYLATE 1 MG TABLET PO SCH (08:47)
[2016-10-27] MEDS: busPIRone 5 MG TABLET. PO SCH ×3 (08:47→21:03)
[2016-10-27] MEDS: INSULIN ASPART 300 UNITS/3 ML INSULN.PEN SQ SCH ×3 (08:55→16:30)
[2016-10-27] MEDS: INSULIN DETEMIR 300 UNITS/3 ML INSULN.PEN. SQ SCH ×2 (08:55→21:12)
[2016-10-27] MEDS: POLYETHYLENE GLYCOL 3350 17 GM PACKET. PO SCH (09:18)
--- NOTE | 2016-10-27 09:40 | PDOC ---
SUBJECTIVE ROS KALPANA appears the same overall OBJECTIVE Vital Signs Vital Signs Date Time Temp Pulse Resp B/P Pulse Ox O2 Delivery O2 Flow Rate FiO2 10/27/16 07:00 98.1 90 20 181/78 98 Nasal Cannula 2.0 98.1 I & 0 Intake and Output 10/27/16 07:00 Intake Total 1395 ml Output Total 3150 ml Balance -1755 ml Intake Oral 180 ml IV Total 1215 ml Output Urine Total 3150 ml PHYSICAL EXAM Physical Exam GEN: Awake but non-verbal, Oriented x 0 when awake too, In no distress EYES: sclera, Conjunctiva Normal EN: No EN Drainage, Mucous Membranes moist; tongue protruding NECK: no JVD, no JVP, Supple, no Thyromegaly CVS: S1S2, no Murmur, No Gallop, No Rub,+ ankle Edema RESP: no Rales, no Rhonchi,no Acc. Muscle Use GI: BS + ve, NO Bruit, Non Tender, Non Distended : no CVA tenderness, no Suprapubic Tenderness DIAGNOSIS/ASSESSMENT Assessment & Plan KALPANA - VMN - improved with Volume CKD III - not sure if the Creat of 0.9 was accurate; suspect baseline closer to 1.5ish ^Na - replete free water with PPN as oingoing Lowish K (? Renal losses asso with Pip/Tazo) - replace as ordered per sliding scale HTN: Trend and lability noted. Not clear as to etio x for ? Pt Pocketing food/ Meds. ? Fevers playing a role too. NO PEG. Current BP meds as reviewed. Consider switch to Catapress patch for more uniformity Per Pall Care note: Plan: No dialysis; No PEG tube; DNR/DNI Family requests [facility] visit when discharged back to halfway. COMMENT/RELEVANT DATA Meds Current Medications Medications (Trade) Dose Ordered Sig/Gal Start Time Stop Time Status Last Admin Dose Admin Acetaminophen (Tylenol) 650 mg PRN Q6HRS PRN 10/20/16 09:00 10/25/16 08:25 650 MG Acetaminophen 650 mg 650 mg PRN Q6HRS PRN 10/23/16 23:30 10/25/16 01:13 650 MG Acetaminophen/ Hydrocodone Bitart (Lortab 5/325) 2 tab PRN Q4HRS PRN 1/11/17 17:15 10/21/16 21:24 2 TAB Amino Acids/ Glycerin/ Electrolytes (Procalamine) 1,000 ml @ 80 mls/hr [id number] 10/24/16 09:15 10/27/16 02:11 80 MLS/HR Artificial Tears (Artificial Tears) 1 drop QID 10/19/16 21:00 10/27/16 08:47 1 DROP Benztropine Mesylate (Cogentin) 2 mg DAILY 10/20/16 09:00 10/27/16 08:47 2 MG Bisacodyl (Dulcolax Supp) 10 mg 1X ONCE 10/25/16 09:00 10/25/16 09:01 DC 10/25/16 12:27 10 MG Buspirone HCl (Buspar) 10 mg TID 10/19/16 21:00 10/27/16 08:47 10 MG Ceftriaxone Sodium/Sodium Chloride (Rocephin/Iv Sodium Chloride 0.9% 50ml) 50 ml @ 100 mls/hr Q24H 10/20/16 12:00 10/20/16 12:00 DC Ceftriaxone Sodium (Rocephin 1gm Ivpb For Omni) 50 ml @ 100 mls/hr 1X ONCE 10/19/16 12:00 10/19/16 12:29 DC 10/19/16 12:23 100 MLS/HR Chlorpromazine HCl (Thorazine) 100 mg QHS 10/19/16 21:00 10/26/16 22:17 100 MG Clonazepam (Klonopin) 0.5 mg HS 10/19/16 21:00 10/26/16 22:15 0.5 MG Dextrose/Sodium Chloride (Iv D5% - 1/4 NS) 1,000 ml @ 125 mls/hr Q8H 10/22/16 13:00 10/24/16 09:12 DC 10/24/16 05:23 125 MLS/HR Divalproex Sodium (Depakote Sprinkles) 625 mg Q6HRS 10/21/16 14:30 10/22/16 12:40 DC 10/22/16 06:04 625 MG Divalproex Sodium (Depakote Er) 1,000 mg QHS 10/19/16 21:00 10/21/16 14:11 DC Fosphenytoin Sodium 100 mg 100 mg Q8HRS 10/22/16 14:00 10/27/16 06:20 100 MG Furosemide (Lasix) 20 mg 1X ONCE 10/24/16 10:15 10/24/16 10:16 DC 10/24/16 10:15 20 MG Gabapentin (Neurontin) 400 mg HS 10/19/16 21:00 10/26/16 22:16 400 MG Insulin Aspart (Novolog) 10 units TIDAC 10/19/16 18:00 10/27/16 08:55 10 UNITS Insulin Detemir (Levemir) 22 units BID 10/19/16 21:00 10/27/16 08:55 22 UNITS Lisinopril (Prinivil) 5 mg DAILY 10/20/16 09:00 10/24/16 09:41 DC 10/24/16 08:20 5 MG Lorazepam (Ativan) 0.5 mg PRN Q8HRS PRN 10/19/16 17:15 10/19/16 21:20 0.5 MG Magnesium Hydroxide (Milk Of Magnesia) 2,400 mg PRN DAILY PRN 10/24/16 09:15 Magnesium Sulfate/ Dextrose 50 ml @ 25 mls/hr PRN DAILY PRN 10/25/16 10:00 Mirtazapine (Remeron) 15 mg QHS 10/19/16 21:00 10/26/16 22:16 15 MG Multivitamins/ Calcium 1 tab 1 tab DAILY 10/20/16 09:00 10/27/16 08:47 1 TAB Naloxone HCl (Narcan) 0.4 mg STK-MED ONCE 10/19/16 11:04 10/19/16 11:05 DC Naloxone HCl 0.4 mg 0.4 mg 1X ONCE 10/19/16 11:15 10/19/16 11:16 DC 10/19/16 11:20 0.4 MG Olanzapine (Zyprexa) 5 mg HS 10/21/16 21:30 10/26/16 22:15 5 MG Ondansetron HCl 4 mg 4 mg PRN Q8HRS PRN 10/19/16 12:00 10/20/16 11:59 DC Pantoprazole Sodium (Protonix) 40 mg DAILYAC 10/20/16 07:30 10/27/16 08:47 40 MG Phenytoin Sodium (Dilantin) 300 mg 1X ONCE 10/20/16 09:00 10/20/16 09:01 DC Phytonadione (Vitamin K) 10 mg 1X ONCE 10/23/16 06:30 10/23/16 06:31 DC 10/23/16 06:36 10 MG Piperacillin Sod/ Tazobactam Sod/ Sodium Chloride (Zosyn/Iv Sodium Chloride 0.9% 50ml) 50 ml @ 100 mls/hr Q8HRS 10/19/16 18:00 10/27/16 05:30 100 MLS/HR Polyethylene Glycol 17 gm 17 gm DAILY 10/25/16 09:00 10/27/16 09:18 17 GM Potassium Chloride/Dextrose/ Sod Cl (KCl 20 Meq In D5W-1/2 NS) 1,000 ml @ 100 mls/hr Q10H 10/21/16 10:15 10/22/16 12:40 DC 10/22/16 05:59 100 MLS/HR Potassium Chloride (KCl Premix 20meq) 50 ml @ 50 mls/hr PRN Q2HR PRN 10/25/16 10:00 Simvastatin (Zocor) 10 mg QHS 10/19/16 21:00 10/26/16 22:16 10 MG Sodium Chloride 1,000 ml @ 1,000 mls/hr 1X ONCE 10/20/16 15:30 10/20/16 16:29 DC 10/20/16 16:13 1,000 MLS/HR Sodium Chloride (Iv Sodium Chloride 0.9% 1000ml Bag) 1,000 ml @ 622.5 mls/ hr Q1H37M 10/19/16 09:59 10/19/16 13:59 DC 10/19/16 13:13 622.5 MLS/HR Valproic Acid (Depakene) 250 mg HS 10/19/16 21:00 10/22/16 12:41 DC 10/21/16 21:24 250 MG Valproic Acid 690 mg/Sodium Chloride 56.9 ml @ 56.9 mls/hr Q6HRS 10/22/16 13:00 10/27/16 06:20 56.9 MLS/HR Vancomycin HCl 1.25 gm/Sodium Chloride 250 ml @ 166.667 mls/hr 1X ONCE 1/16/17 10:00 10/24/16 11:29 DC 10/24/16 10:15 166.667 MLS/HR Vancomycin HCl 1 each 1 each PRN DAILY PRN 10/20/16 07:45 10/22/16 11:37 DC 10/22/16 09:59 1 EACH Vancomycin HCl/ Sodium Chloride (Iv Sodium Chloride 0.9% 250ml) 250 ml @ 167 mls/hr Q24H 10/22/16 09:00 10/22/16 09:51 DC Vancomycin HCl/ Sodium Chloride (Iv Sodium Chloride 0.9% 500ml Bag) 500 ml @ 250 mls/hr 1X ONCE 10/20/16 08:00 10/20/16 09:59 DC 10/20/16 09:22 250 MLS/HR Warfarin Sodium (Coumadin - No Dose Today) 1 each 1X WARF ONCE 10/23/16 16:00 10/23/16 16:01 DC 10/23/16 16:00 1 EACH Warfarin Sodium (Coumadin Per Pharmacy) 1 each PRN DAILY PRN 10/20/16 09:15 10/26/16 10:03 DC 10/25/16 16:06 1 EACH Warfarin Sodium (Coumadin Per Physician) 1 each PRN DAILY PRN 10/19/16 17:30 10/20/16 09:17 DC Warfarin Sodium (Coumadin) 3 mg 1X WARF ONCE 10/25/16 16:00 10/25/16 16:01 DC 10/25/16 17:30 3 MG Warfarin Sodium 3 mg 3 mg 1X WARF ONCE 10/20/16 16:00 10/20/16 16:01 DC 10/20/16 16:12 3 MG Warfarin Sodium 6 mg 6 mg 1X WARF ONCE 10/21/16 16:00 10/21/16 16:01 DC 10/21/16 17:50 6 MG Lab Laboratory Tests Test 10/26/16 11:24 10/26/16 11:45 10/26/16 16:52 10/26/16 18:00 Glucose (Fingerstick) 176mg/dL (70-99) 191mg/dL (70-99) Potassium Level 3.6mmol/L (3.5-5.1) 3.7mmol/L (3.5-5.1) Test 10/26/16 21:17 10/27/16 06:05 10/27/16 07:09 Glucose (Fingerstick) 111mg/dL (70-99) 143mg/dL (70-99) White Blood Count 13.6x10^3/uL (4.0-11.0) Red Blood Count 3.18x10^6/uL (3.50-5.40) Hemoglobin 8.6g/dL (12.0-15.5) Hematocrit 26.5% (36.0-47.0) Mean Corpuscular Volume 83fL (79-100) Mean Corpuscular Hemoglobin 27pg (25-35) Mean Corpuscular Hemoglobin Concent 33g/dL (31-37) Red Cell Distribution Width 15.8% (11.5-14.5) Platelet Count 382x10^3/uL (140-400) Neutrophils (%) (Auto) 69% (31-73) Lymphocytes (%) (Auto) 14% (24-48) Monocytes (%) (Auto) 16% (0-9) Eosinophils (%) (Auto) 0% (0-3) Basophils (%) (Auto) 1% (0-3) Neutrophils # (Auto) 9.4x10^3uL (1.8-7.7) Lymphocytes # (Auto) 2.0x10^3/uL (1.0-4.8) Monocytes # (Auto) 2.2x10^3/uL (0.0-1.1) Eosinophils # (Auto) 0.0x10^3/uL (0.0-0.7) Basophils # (Auto) 0.1x10^3/uL (0.0-0.2) Prothrombin Time 14.8SEC (11.7-14.0) Prothromb Time International Ratio 1.2 (0.8-1.1) Sodium Level 145mmol/L (136-145) Potassium Level 3.5mmol/L (3.5-5.1) Chloride Level 107mmol/L (98-107) Carbon Dioxide Level 29mmol/L (21-32) Anion Gap 9 (6-14) Blood Urea Nitrogen 27mg/dL (7-20) Creatinine 1.7mg/dL (0.6-1.0) Estimated GFR (Cockcroft-Gault) 37.2 Glucose Level 151mg/dL (70-99) Calcium Level 8.6mg/dL (8.5-10.1) Magnesium Level 1.8mg/dL (1.8-2.4) STEVE YOU MD Oct 27, 2016 09:40
--- NOTE | 2016-10-27 10:11 | PDOC ---
Infectious Disease Note Subjective Subjective Awakens ROS ROS GEN: Denies fevers, chills, sweats HEENT: Denies blurred vision, sore throat CV: Denies chest pain RESP: Denies shortness of air, cough GI: Denies n/v/d NEURO: Denies confusion, dizziness MSK: Denies weakness, joint pain/swelling Vital Sign Vital Signs Vital Signs Date Time Temp Pulse Resp B/P Pulse Ox O2 Delivery O2 Flow Rate FiO2 10/27/16 07:00 98.1 90 20 181/78 98 Nasal Cannula 2.0 98.1 Physical Exam PHYSICAL EXAM GENERAL: NAD, Alert HEENT: PERRL, OC/OP NECK: Supple, no JVD, no LN LUNGS: Clear HEART: S1S2, no gallop, no murmur ABD: Soft, NT, no organomegaly, no rebound EXT: No edema, no cyanosis ANIMAL SCIENTIST: Alert, oriented x 3, no focal neurologic deficit SKIN: No rash IV: ok Labs Lab Laboratory Tests Test 10/26/16 11:24 10/26/16 11:45 10/26/16 16:52 10/26/16 18:00 Glucose (Fingerstick) 176mg/dL (70-99) 191mg/dL (70-99) Potassium Level 3.6mmol/L (3.5-5.1) 3.7mmol/L (3.5-5.1) Test 10/26/16 21:17 10/27/16 06:05 10/27/16 07:09 Glucose (Fingerstick) 111mg/dL (70-99) 143mg/dL (70-99) White Blood Count 13.6x10^3/uL (4.0-11.0) Red Blood Count 3.18x10^6/uL (3.50-5.40) Hemoglobin 8.6g/dL (12.0-15.5) Hematocrit 26.5% (36.0-47.0) Mean Corpuscular Volume 83fL (79-100) Mean Corpuscular Hemoglobin 27pg (25-35) Mean Corpuscular Hemoglobin Concent 33g/dL (31-37) Red Cell Distribution Width 15.8% (11.5-14.5) Platelet Count 382x10^3/uL (140-400) Neutrophils (%) (Auto) 69% (31-73) Lymphocytes (%) (Auto) 14% (24-48) Monocytes (%) (Auto) 16% (0-9) Eosinophils (%) (Auto) 0% (0-3) Basophils (%) (Auto) 1% (0-3) Neutrophils # (Auto) 9.4x10^3uL (1.8-7.7) Lymphocytes # (Auto) 2.0x10^3/uL (1.0-4.8) Monocytes # (Auto) 2.2x10^3/uL (0.0-1.1) Eosinophils # (Auto) 0.0x10^3/uL (0.0-0.7) Basophils # (Auto) 0.1x10^3/uL (0.0-0.2) Prothrombin Time 14.8SEC (11.7-14.0) Prothromb Time International Ratio 1.2 (0.8-1.1) Sodium Level 145mmol/L (136-145) Potassium Level 3.5mmol/L (3.5-5.1) Chloride Level 107mmol/L (98-107) Carbon Dioxide Level 29mmol/L (21-32) Anion Gap 9 (6-14) Blood Urea Nitrogen 27mg/dL (7-20) Creatinine 1.7mg/dL (0.6-1.0) Estimated GFR (Cockcroft-Gault) 37.2 Glucose Level 151mg/dL (70-99) Calcium Level 8.6mg/dL (8.5-10.1) Magnesium Level 1.8mg/dL (1.8-2.4) Objective Assessment Sepsis with lactic acidosis. POA improved Fever. - better ? cholecystitis - Reviewed Dr. Gilliland's note Leukocytosis better [place] - better UTI. POA. UC neg Encephalopathy - arousable only CVA MRSA positive Seizure disorder Diabetes Plan Plan of Care Continue Zosyn at q 8 currently Vanc times one 10/24 F/u labs F/u PIPIDA - may need Chloecystectomy tube palliative care meeting regarding goals of care ? hospice at discharge ? baseline mental status DNR D/w KATIE Donis MD Oct 27, 2016 10:11
[2016-10-27 10:52] VITALS: BP 179/83
--- NOTE | 2016-10-27 12:47 | CONS ---
DATE OF CONSULTATION: 10/26/2016 HISTORY OF PRESENT ILLNESS: The patient is a 61-year-old lady, who was admitted to [facility] a week ago with change in mental status. Diagnosis of urinary tract infection with sepsis and lactic acidemia was made. She was treated with fluids and IV antibiotics. Because of some increase in her renal function numbers, an ultrasound was done to evaluate her kidneys. Incidental finding showed cholelithiasis that was on the 16th. A CT scan of the chest done yesterday again showed some changes in the upper abdomen of a distended gallbladder with some moderately thickened parham. We were asked to see her today after discovery of the gallbladder stones and findings. Bulk of the historical data is retrieved from the patient's chart and her sister at the bedside because of the patient's baseline mental status. PAST MEDICAL HISTORY: Includes previous hypoxic respiratory failure, hypertension, hyperlipidemia, CVA with a seizure disorder, schizophrenia, diabetes, reflux, visual impairment. PAST SURGICAL HISTORY: No documented surgical procedures. ALLERGIES: No known drug allergies. ROUTINE MEDICATIONS: Listed on reconciliation sheet. REVIEW OF SYSTEMS: Unobtainable. OBJECTIVE: GENERAL: Reveals an elderly female, whose eyes are open. HEENT: Normocephalic. NECK: Supple. LUNGS: Clear to auscultation. HEART: Regular rate and rhythm. ABDOMEN: Obese and soft. It is difficult to elicit any pain to palpation. PELVIC AND RECTAL: Deferred. EXTREMITIES: Showed no gross skeletal abnormalities. NEUROLOGIC: The patient does not follow commands. LABORATORY DATA: Multiple lab studies have been done since admission and the reader is referred to the details in the chart. Radiographic studies are as noted above. IMPRESSION AND PLAN: Substance with mental status changes in this lady with multiple comorbid conditions. Discovery of cholelithiasis with possible cholecystitis in the last few days. Unsure as to whether the gallbladder is a source of the patient's presenting sepsis picture. Given her comorbid status, I would not recommendation surgical intervention. If the gallbladder was felt to be an issue with her current status, a PIPIDA scan could help discern presence or absence of acute cholecystitis. If documented cholecystitis, the patient would be a candidate for CT-guided placement of a cholecystostomy tube. I discussed the latter with the patient's sister, who is at the bedside during the exam. Thank you for asking us to see this nice lady and participate in her care. Would now recommend acute surgical intervention given her overall comorbid states. If acute cholecystitis is documented, we would recommend percutaneous drainage in lieu of surgical intervention. JS MONTAGUE MD DR: QUE/david JOB#: [id number] / [id number]
--- NOTE | 2016-10-27 13:43 | PDOC ---
SURGICAL PROGRESS NOTE Subjective on PPN, holding tonight and plans for PIPIDA in AM Vital Signs Vital Signs Date Time Temp Pulse Resp B/P Pulse Ox O2 Delivery O2 Flow Rate FiO2 10/27/16 10:52 98.6 87 20 179/83 99 Nasal Cannula 2.0 98.6 I&O Intake and Output 10/27/16 07:00 Intake Total 1395 ml Output Total 3150 ml Balance -1755 ml Intake Oral 180 ml IV Total 1215 ml Output Urine Total 3150 ml General: Cooperative, No acute distress Abdomen: Soft, No tenderness Labs Laboratory Tests Test 10/25/16 16:33 10/25/16 18:35 10/25/16 22:50 10/26/16 06:33 Glucose (Fingerstick) 103mg/dL (70-99) 116mg/dL (70-99) Potassium Level 3.4mmol/L (3.5-5.1) 3.5mmol/L (3.5-5.1) White Blood Count 14.4x10^3/uL (4.0-11.0) Red Blood Count 3.30x10^6/uL (3.50-5.40) Hemoglobin 8.9g/dL (12.0-15.5) Hematocrit 27.4% (36.0-47.0) Mean Corpuscular Volume 83fL (79-100) Mean Corpuscular Hemoglobin 27pg (25-35) Mean Corpuscular Hemoglobin Concent 32g/dL (31-37) Red Cell Distribution Width 16.1% (11.5-14.5) Platelet Count 346x10^3/uL (140-400) Neutrophils (%) (Auto) 68% (31-73) Lymphocytes (%) (Auto) 16% (24-48) Monocytes (%) (Auto) 16% (0-9) Eosinophils (%) (Auto) 0% (0-3) Basophils (%) (Auto) 1% (0-3) Neutrophils # (Auto) 9.7x10^3uL (1.8-7.7) Lymphocytes # (Auto) 2.4x10^3/uL (1.0-4.8) Monocytes # (Auto) 2.2x10^3/uL (0.0-1.1) Eosinophils # (Auto) 0.0x10^3/uL (0.0-0.7) Basophils # (Auto) 0.1x10^3/uL (0.0-0.2) Prothrombin Time 15.3SEC (11.7-14.0) Prothromb Time International Ratio 1.3 (0.8-1.1) Sodium Level 148mmol/L (136-145) Chloride Level 110mmol/L (98-107) Carbon Dioxide Level 28mmol/L (21-32) Anion Gap 10 (6-14) Blood Urea Nitrogen 26mg/dL (7-20) Creatinine 1.8mg/dL (0.6-1.0) Estimated GFR (Cockcroft-Gault) 34.8 Glucose Level 150mg/dL (70-99) Calcium Level 8.9mg/dL (8.5-10.1) Magnesium Level 1.9mg/dL (1.8-2.4) Test 10/26/16 07:59 10/26/16 11:24 10/26/16 11:45 10/26/16 16:52 Glucose (Fingerstick) 144mg/dL (70-99) 176mg/dL (70-99) 191mg/dL (70-99) Potassium Level 3.6mmol/L (3.5-5.1) Test 10/26/16 18:00 10/26/16 21:17 10/27/16 06:05 10/27/16 07:09 Potassium Level 3.7mmol/L (3.5-5.1) 3.5mmol/L (3.5-5.1) Glucose (Fingerstick) 111mg/dL (70-99) 143mg/dL (70-99) White Blood Count 13.6x10^3/uL (4.0-11.0) Red Blood Count 3.18x10^6/uL (3.50-5.40) Hemoglobin 8.6g/dL (12.0-15.5) Hematocrit 26.5% (36.0-47.0) Mean Corpuscular Volume 83fL (79-100) Mean Corpuscular Hemoglobin 27pg (25-35) Mean Corpuscular Hemoglobin Concent 33g/dL (31-37) Red Cell Distribution Width 15.8% (11.5-14.5) Platelet Count 382x10^3/uL (140-400) Neutrophils (%) (Auto) 69% (31-73) Lymphocytes (%) (Auto) 14% (24-48) Monocytes (%) (Auto) 16% (0-9) Eosinophils (%) (Auto) 0% (0-3) Basophils (%) (Auto) 1% (0-3) Neutrophils # (Auto) 9.4x10^3uL (1.8-7.7) Lymphocytes # (Auto) 2.0x10^3/uL (1.0-4.8) Monocytes # (Auto) 2.2x10^3/uL (0.0-1.1) Eosinophils # (Auto) 0.0x10^3/uL (0.0-0.7) Basophils # (Auto) 0.1x10^3/uL (0.0-0.2) Prothrombin Time 14.8SEC (11.7-14.0) Prothromb Time International Ratio 1.2 (0.8-1.1) Sodium Level 145mmol/L (136-145) Chloride Level 107mmol/L (98-107) Carbon Dioxide Level 29mmol/L (21-32) Anion Gap 9 (6-14) Blood Urea Nitrogen 27mg/dL (7-20) Creatinine 1.7mg/dL (0.6-1.0) Estimated GFR (Cockcroft-Gault) 37.2 Glucose Level 151mg/dL (70-99) Calcium Level 8.6mg/dL (8.5-10.1) Magnesium Level 1.8mg/dL (1.8-2.4) Test 10/27/16 11:20 10/27/16 12:10 Glucose (Fingerstick) 160mg/dL (70-99) Potassium Level 3.5mmol/L (3.5-5.1) Laboratory Tests Test 10/26/16 16:52 10/26/16 18:00 10/26/16 21:17 10/27/16 06:05 Glucose (Fingerstick) 191mg/dL (70-99) 111mg/dL (70-99) Potassium Level 3.7mmol/L (3.5-5.1) 3.5mmol/L (3.5-5.1) White Blood Count 13.6x10^3/uL (4.0-11.0) Red Blood Count 3.18x10^6/uL (3.50-5.40) Hemoglobin 8.6g/dL (12.0-15.5) Hematocrit 26.5% (36.0-47.0) Mean Corpuscular Volume 83fL (79-100) Mean Corpuscular Hemoglobin 27pg (25-35) Mean Corpuscular Hemoglobin Concent 33g/dL (31-37) Red Cell Distribution Width 15.8% (11.5-14.5) Platelet Count 382x10^3/uL (140-400) Neutrophils (%) (Auto) 69% (31-73) Lymphocytes (%) (Auto) 14% (24-48) Monocytes (%) (Auto) 16% (0-9) Eosinophils (%) (Auto) 0% (0-3) Basophils (%) (Auto) 1% (0-3) Neutrophils # (Auto) 9.4x10^3uL (1.8-7.7) Lymphocytes # (Auto) 2.0x10^3/uL (1.0-4.8) Monocytes # (Auto) 2.2x10^3/uL (0.0-1.1) Eosinophils # (Auto) 0.0x10^3/uL (0.0-0.7) Basophils # (Auto) 0.1x10^3/uL (0.0-0.2) Prothrombin Time 14.8SEC (11.7-14.0) Prothromb Time International Ratio 1.2 (0.8-1.1) Sodium Level 145mmol/L (136-145) Chloride Level 107mmol/L (98-107) Carbon Dioxide Level 29mmol/L (21-32) Anion Gap 9 (6-14) Blood Urea Nitrogen 27mg/dL (7-20) Creatinine 1.7mg/dL (0.6-1.0) Estimated GFR (Cockcroft-Gault) 37.2 Glucose Level 151mg/dL (70-99) Calcium Level 8.6mg/dL (8.5-10.1) Magnesium Level 1.8mg/dL (1.8-2.4) Test 1/19/17 07:09 10/27/16 11:20 10/27/16 12:10 Glucose (Fingerstick) 143mg/dL (70-99) 160mg/dL (70-99) Potassium Level 3.5mmol/L (3.5-5.1) Problem List Problems Medical Problems: (1) Sepsis Status: Acute (2) Severe protein-calorie malnutrition Status: Acute (3) Uncontrolled diabetes mellitus Status: Acute (4) Urinary tract infection Status: Acute Assessment/Plan WBC 13, yesterday 14.6 afebrile continue abx await hida scan Problems: SHAKILA MARSHALL APRN Oct 27, 2016 13:42
[2016-10-27 15:01] VITALS: BP 177/80
[2016-10-27 19:00] VITALS: BP 174/79
[2016-10-27] MEDS: CHLORPROMAZINE 25 MG PO SCH ×2 (21:02→21:03)
[2016-10-27] MEDS: CLONAZEPAM 0.5 MG TABLET PO SCH (21:03)
[2016-10-27 23:23] VITALS: BP 139/78
[2016-10-28] VITALS (7 sets, daily range): BP systolic 114–176; BP diastolic 71–89
[2016-10-28] MEDS: NORMAL SALINE IV SCH ×4 (00:33→21:05)
[2016-10-28] MEDS: VALPROIC ACID IV SCH ×4 (00:33→21:05)
[2016-10-28] MEDS: AA 3%/ELECTROLYTE-TPN SOLN/GLY 1,000 ML IV SCH ×2 (00:45→13:15)
[2016-10-28 04:05] LABS: BASO # 0.1 x10^3/uL (0.0-0.2); BASO % 1 % (0-3); EOS % 0 % (0-3); HEMATOCRIT 25.8 % (36.0-47.0); HEMOGLOBIN 8.6 g/dL (12.0-15.5); LYMPH # 2.6 x10^3/uL (1.0-4.8); LYMPH % 17 % (24-48); MEAN CORPUSCULAR HEMOGLOBIN 27 pg (25-35); MEAN CORPUSCULAR HGB CONC 33 g/dL (31-37); MEAN CORPUSCULAR VOLUME 82 fL (79-100); MONO % 12 % (0-9); NEUT % 71 % (31-73); PLATELET COUNT 420 x10^3/uL (140-400); RED BLOOD COUNT 3.15 x10^6/uL (3.50-5.40); WHITE BLOOD COUNT 15.4 x10^3/uL (4.0-11.0)
[2016-10-28 04:12] LABS: INR 1.3 (0.8-1.1); PROTHROMBIN TIME PATIENT 15.2 SEC (11.7-14.0)
[2016-10-28] MEDS: PIPERACILLIN/TAZOBACTAM 3.375 GM in IV NORMAL SALINE 50ML 50 ML IV SCH ×5 (05:25→18:22)
[2016-10-28] MEDS: FOSPHENYTOIN 100 MG/2 ML VIAL IV SCH ×3 (06:20→21:06)
[2016-10-28] MEDS: INSULIN ASPART 300 UNITS/3 ML INSULN.PEN SQ SCH ×3 (07:30→16:30)
--- NOTE | 2016-10-28 08:21 | PDOC ---
NELLYBALDEVMILLIE BRAINER 10/28/16 0821: IM PROGRESS NOTES- Subjective Subjective awake, minimal interactive, nods no to pain Objective Objective responds to name with gaze, not following commands regarding mobility Vitals Vital Signs Date Time Temp Pulse Resp B/P Pulse Ox O2 Delivery O2 Flow Rate FiO2 10/28/16 02:12 97.7 85 20 160/77 99 Nasal Cannula 2.0 97.7 Input & Output Intake and Output 10/28/16 07:00 Intake Total 960 ml Output Total 3050 ml Balance -2090 ml Other 960 ml Output Urine Total 3050 ml Physical Exam Physical Exam GENERAL: awake, minimally interactive, responds with eyes to name, no distress. HEAD: normocephalic LUNGS: Decreased breath sounds at bases. CARDIOVASCULAR: S1 and S2 regular. ABDOMEN: Soft, obese, nontender,BS increased slightly, less distention/firmness , EXTREMITIES: + edema. CENTRAL NERVOUS SYSTEM: awake, no change in baseline neurocognitive disorder SKIN: Warm and dry. Skin turgor decreased. Labs Laboratory Tests Test 10/26/16 11:24 10/26/16 11:45 10/26/16 16:52 10/26/16 18:00 Glucose (Fingerstick) 176mg/dL (70-99) 191mg/dL (70-99) Potassium Level 3.6mmol/L (3.5-5.1) 3.7mmol/L (3.5-5.1) Test 10/26/16 21:17 10/27/16 06:05 10/27/16 07:09 10/27/16 11:20 Glucose (Fingerstick) 111mg/dL (70-99) 143mg/dL (70-99) 160mg/dL (70-99) White Blood Count 13.6x10^3/uL (4.0-11.0) Red Blood Count 3.18x10^6/uL (3.50-5.40) Hemoglobin 8.6g/dL (12.0-15.5) Hematocrit 26.5% (36.0-47.0) Mean Corpuscular Volume 83fL (79-100) Mean Corpuscular Hemoglobin 27pg (25-35) Mean Corpuscular Hemoglobin Concent 33g/dL (31-37) Red Cell Distribution Width 15.8% (11.5-14.5) Platelet Count 382x10^3/uL (140-400) Neutrophils (%) (Auto) 69% (31-73) Lymphocytes (%) (Auto) 14% (24-48) Monocytes (%) (Auto) 16% (0-9) Eosinophils (%) (Auto) 0% (0-3) Basophils (%) (Auto) 1% (0-3) Neutrophils # (Auto) 9.4x10^3uL (1.8-7.7) Lymphocytes # (Auto) 2.0x10^3/uL (1.0-4.8) Monocytes # (Auto) 2.2x10^3/uL (0.0-1.1) Eosinophils # (Auto) 0.0x10^3/uL (0.0-0.7) Basophils # (Auto) 0.1x10^3/uL (0.0-0.2) Prothrombin Time 14.8SEC (11.7-14.0) Prothromb Time International Ratio 1.2 (0.8-1.1) Sodium Level 145mmol/L (136-145) Potassium Level 3.5mmol/L (3.5-5.1) Chloride Level 107mmol/L (98-107) Carbon Dioxide Level 29mmol/L (21-32) Anion Gap 9 (6-14) Blood Urea Nitrogen 27mg/dL (7-20) Creatinine 1.7mg/dL (0.6-1.0) Estimated GFR (Cockcroft-Gault) 37.2 Glucose Level 151mg/dL (70-99) Calcium Level 8.6mg/dL (8.5-10.1) Magnesium Level 1.8mg/dL (1.8-2.4) Test 10/27/16 12:10 10/27/16 16:50 10/27/16 17:55 10/27/16 20:51 Potassium Level 3.5mmol/L (3.5-5.1) 3.5mmol/L (3.5-5.1) Glucose (Fingerstick) 89mg/dL (70-99) 92mg/dL (70-99) Test 10/28/16 03:55 White Blood Count 15.4x10^3/uL (4.0-11.0) Red Blood Count 3.15x10^6/uL (3.50-5.40) Hemoglobin 8.6g/dL (12.0-15.5) Hematocrit 25.8% (36.0-47.0) Mean Corpuscular Volume 82fL (79-100) Mean Corpuscular Hemoglobin 27pg (25-35) Mean Corpuscular Hemoglobin Concent 33g/dL (31-37) Red Cell Distribution Width 16.0% (11.5-14.5) Platelet Count 420x10^3/uL (140-400) Neutrophils (%) (Auto) 71% (31-73) Lymphocytes (%) (Auto) 17% (24-48) Monocytes (%) (Auto) 12% (0-9) Eosinophils (%) (Auto) 0% (0-3) Basophils (%) (Auto) 1% (0-3) Neutrophils # (Auto) 11.0x10^3uL (1.8-7.7) Lymphocytes # (Auto) 2.6x10^3/uL (1.0-4.8) Monocytes # (Auto) 1.8x10^3/uL (0.0-1.1) Eosinophils # (Auto) 0.0x10^3/uL (0.0-0.7) Basophils # (Auto) 0.1x10^3/uL (0.0-0.2) Prothrombin Time 15.2SEC (11.7-14.0) Prothromb Time International Ratio 1.3 (0.8-1.1) Phenytoin (Dilantin) Level 5.2mcg/mL (10.0-20.0) Phenytoin Last Dose Date [id number] Phenytoin Last Dose Time 2100 Laboratory Tests Test 10/27/16 11:20 10/27/16 12:10 10/27/16 16:50 10/27/16 17:55 Glucose (Fingerstick) 160mg/dL (70-99) 89mg/dL (70-99) Potassium Level 3.5mmol/L (3.5-5.1) 3.5mmol/L (3.5-5.1) Test 10/27/16 20:51 10/28/16 03:55 Glucose (Fingerstick) 92mg/dL (70-99) White Blood Count 15.4x10^3/uL (4.0-11.0) Red Blood Count 3.15x10^6/uL (3.50-5.40) Hemoglobin 8.6g/dL (12.0-15.5) Hematocrit 25.8% (36.0-47.0) Mean Corpuscular Volume 82fL (79-100) Mean Corpuscular Hemoglobin 27pg (25-35) Mean Corpuscular Hemoglobin Concent 33g/dL (31-37) Red Cell Distribution Width 16.0% (11.5-14.5) Platelet Count 420x10^3/uL (140-400) Neutrophils (%) (Auto) 71% (31-73) Lymphocytes (%) (Auto) 17% (24-48) Monocytes (%) (Auto) 12% (0-9) Eosinophils (%) (Auto) 0% (0-3) Basophils (%) (Auto) 1% (0-3) Neutrophils # (Auto) 11.0x10^3uL (1.8-7.7) Lymphocytes # (Auto) 2.6x10^3/uL (1.0-4.8) Monocytes # (Auto) 1.8x10^3/uL (0.0-1.1) Eosinophils # (Auto) 0.0x10^3/uL (0.0-0.7) Basophils # (Auto) 0.1x10^3/uL (0.0-0.2) Prothrombin Time 15.2SEC (11.7-14.0) Prothromb Time International Ratio 1.3 (0.8-1.1) Phenytoin (Dilantin) Level 5.2mcg/mL (10.0-20.0) Phenytoin Last Dose Date [id number] Phenytoin Last Dose Time 2100 Meds Current Medications Piperacillin Sod/ Tazobactam Sod/ Sodium Chloride (Zosyn/Iv Sodium Chloride 0.9 % 50ml) 50 ml @ 100 mls/hr Q6HRS IV Last administered on 10/28/16t 05:25; Start 10/27/16 at 14:00 Assessment Assessment 1. Sepsis with lactic acidosis/UTI-cholecystitis POA 2. Acute metabolic encephalopathy ARF/sepsis underlying dementia/hypernatremia 3. Urinary tract infection POA 4. Acute renal failure KALPANA VMN with CKD III 5. Seizure disorder with low Dilantin level of 3. 6. Diabetes mellitus type 2. 7. Dementia. 8. Paranoid schizophrenia. 9. severe weakness and debility with limited mobility 10. severe with underlying Moderate malnutrition. 11. Peripheral vascular disease. 12. Hyperlipidemia. 13. Malignant hypertension not POA 14. Gastroesophageal reflux disease. 15. Osteoporosis. 16. Vitamin D deficiency. 17. Legal blindness. 18. Hypernatremia NA 151 POA PLAN: sepsis with lactic acidosis UTI/choleycystitis POA ID consulted Zosyn IV Admit WBC 29.8 10/27 13.6 BC and urine CS negative Tm 100.2 previous 24 hour repeat UA neg nitrite, + blood, WBC 1-4 improved Urine cult 10/24 negative Surgical consult-no surgical intervention at this time, consider PIPIDA and IR for cholecystostomy tube placement PIPIDA pending, NPO, PPN off Abnormal CXR CXR RLL atelectasis vs [id number] nebulizer pulmonary consult CT chest w/o: Small right pleural effusion and trace left. Volume loss at the right lung base may reflect atelectasis or pneumonia. Minimal volume loss at the left lung base likely atelectasis 10/26-pulmonary signed off ARF KALPANA VMN CKDIII, hypernatremia Admit BUN 34 10/27 27 Cr 2.4 1.7 Na 137 145 K 3.8 3.5 IV D51/4NS 125cc/hr-DC 10/24 renal consulted no Lasix 10/24 hypokalemia- K ordered q6h, range 3.2-3.5. Per nephrology DM II FSBS Novolog 10u tid ac Levemir 22u bid BS 89-160 Levemir held 10/27 pm due to NPO seizure disorder [id number] IV q8hr Depakote continue seizure precautions malignant HTN continue NH meds anticoagulation Admit INR 3.0 10/28 1.3 pharmacy managing INR 10/23 7.6 abd mild distention/cholecystitis POA no BM since prior to admit Dulcolax supp 10/24--small hard stool mod amount 10/25 Distention worse, abdomen firmer, BS hypoactive +GS per CXR-check amylase Repeat Dulcolax supp. and add miralax CT chest w/o contrast GB thickening with distention-will obtain GB US amylase 14 BM + 10/25 after Dulcolax cholecystitis-surgical evaluated 10/26-no surgery PIPIDA pending, may need cholecystostomy tube severe with underlying chronic PCL malnutrition continue diet PPN added 10/24 DVT/GI prophylaxis warfarin PPI Family meeting with palliative care: when transfer to [place] consult Hospice. Prognosis poor [facility] Screen Lab pending 10/28 For more details regarding further plans, please refer to the orders. Plan Plan For more details regarding further plans, please refer to the orders. PABLO ROJAS MD 10/28/16 1115: IM PROGRESS NOTES- Assessment Assessment Extreme lethargy,not responsive - patient had Morphine with her procedure. May need Narcan if she gets worse. Respirations,hemodynamically stable. The patient was seen and examined by me. Chart reviewed and plan of care formulated. Discussed with, reviewed and agree with BARK SCALER's notes, plan of care and orders with modifications as necessary. For more details regarding further plans, please refer to the orders. MILLIE HEAD APRN Oct 28, 2016 08:21 PABLO ROJAS MD Oct 28, 2016 11:15
[2016-10-28] MEDS ORDERED: MORPHINE SULFATE 4 MG/ML DISP.SYRIN. ONE (08:25)
[2016-10-28] MEDS ORDERED: MORPHINE SULFATE 2 MG/ML DISP.SYRIN. IV ONE (08:30)
[2016-10-28] MEDS: INSULIN DETEMIR 300 UNITS/3 ML INSULN.PEN. SQ SCH ×2 (09:00→21:13)
--- NOTE | 2016-10-28 09:17 | PDOC ---
Infectious Disease Note Subjective Subjective Awakens ROS ROS Unobtainable Vital Sign Vital Signs Vital Signs Date Time Temp Pulse Resp B/P Pulse Ox O2 Delivery O2 Flow Rate FiO2 10/28/16 08:30 20 Room Air 10/28/16 02:12 97.7 85 160/77 99 2.0 97.7 Physical Exam PHYSICAL EXAM GENERAL: NAD, Alert - non verbal HEENT: PERRL, OC/OP NECK: Supple, no JVD, no LN LUNGS: Clear HEART: S1S2, no gallop, no murmur ABD: Soft, NT, no organomegaly, no rebound EXT: No edema, no cyanosis DIRECTOR RADIO NEWS: Alert, SKIN: No rash IV: ok Labs Lab Laboratory Tests Test 10/27/16 11:20 10/27/16 12:10 10/27/16 16:50 10/27/16 17:55 Glucose (Fingerstick) 160mg/dL (70-99) 89mg/dL (70-99) Potassium Level 3.5mmol/L (3.5-5.1) 3.5mmol/L (3.5-5.1) Test 10/27/16 20:51 10/28/16 03:55 Glucose (Fingerstick) 92mg/dL (70-99) White Blood Count 15.4x10^3/uL (4.0-11.0) Red Blood Count 3.15x10^6/uL (3.50-5.40) Hemoglobin 8.6g/dL (12.0-15.5) Hematocrit 25.8% (36.0-47.0) Mean Corpuscular Volume 82fL (79-100) Mean Corpuscular Hemoglobin 27pg (25-35) Mean Corpuscular Hemoglobin Concent 33g/dL (31-37) Red Cell Distribution Width 16.0% (11.5-14.5) Platelet Count 420x10^3/uL (140-400) Neutrophils (%) (Auto) 71% (31-73) Lymphocytes (%) (Auto) 17% (24-48) Monocytes (%) (Auto) 12% (0-9) Eosinophils (%) (Auto) 0% (0-3) Basophils (%) (Auto) 1% (0-3) Neutrophils # (Auto) 11.0x10^3uL (1.8-7.7) Lymphocytes # (Auto) 2.6x10^3/uL (1.0-4.8) Monocytes # (Auto) 1.8x10^3/uL (0.0-1.1) Eosinophils # (Auto) 0.0x10^3/uL (0.0-0.7) Basophils # (Auto) 0.1x10^3/uL (0.0-0.2) Prothrombin Time 15.2SEC (11.7-14.0) Prothromb Time International Ratio 1.3 (0.8-1.1) Phenytoin (Dilantin) Level 5.2mcg/mL (10.0-20.0) Phenytoin Last Dose Date [id number] Phenytoin Last Dose Time 2100 Objective Assessment Sepsis with lactic acidosis. POA improved Fever. - better ? cholecystitis - Reviewed Dr. Gilliland's note Leukocytosis mild increase ? reactive. AF KALPANA - better UTI. POA. UC neg Encephalopathy - arousable only CVA MRSA positive Seizure disorder Diabetes Plan Plan of Care Continue Zosyn at q 8 currently Vanc times one 10/24 F/u labs F/u PIPIDA - may need Chloecystectomy tube palliative care meeting regarding goals of care ? hospice at discharge DNR KATIE NIÑO MD Oct 28, 2016 09:17
[2016-10-28] MEDS: BENZTROPINE MESYLATE 1 MG TABLET PO SCH (09:26)
[2016-10-28] MEDS: MULTIVITAMIN with MINERAL TABLET. PO SCH (09:26)
[2016-10-28] MEDS: PANTOPRAZOLE 40 MG TABLET. PO SCH (09:26)
[2016-10-28] MEDS: POLYVINYL ALCOHOL 1.4% OPHTH SOLUTION 15ML BOTTLE. OU SCH ×4 (09:26→21:05)
[2016-10-28] MEDS: busPIRone 5 MG TABLET. PO SCH ×3 (09:26→21:00)
[2016-10-28] MEDS: POLYETHYLENE GLYCOL 3350 17 GM PACKET. PO SCH (09:28)
--- NOTE | 2016-10-28 10:47 | PDOC ---
SUBJECTIVE ROS CKD III vs [facility] OBJECTIVE Vital Signs Vital Signs Date Time Temp Pulse Resp B/P Pulse Ox O2 Delivery O2 Flow Rate FiO2 10/28/16 09:30 98.4 94 14 138/88 100 Room Air 98.4 10/28/16 02:12 2.0 I & 0 Intake and Output 10/28/16 07:00 Intake Total 960 ml Output Total 3050 ml Balance -2090 ml Other 960 ml Output Urine Total 3050 ml PHYSICAL EXAM Physical Exam GEN: Awake but non-verbal, Oriented x 0 when awake too, In no distress EYES: sclera, Conjunctiva Normal EN: No EN Drainage, Mucous Membranes moist; tongue protruding NECK: no JVD, no JVP, Supple, no Thyromegaly CVS: S1S2, no Murmur, No Gallop, No Rub,+ ankle Edema RESP: no Rales, no Rhonchi,no Acc. Muscle Use GI: BS + ve, NO Bruit, Non Tender, Non Distended : no CVA tenderness, no Suprapubic Tenderness DIAGNOSIS/ASSESSMENT Assessment & Plan KAL[place]NA - VMN - improved with Volume CKD III - not sure if the Creat of 0.9 was accurate; suspect baseline closer to 1.5ish ^Na - replete free water with PPN as ongoing - no Na level today Lowish K (? Renal losses asso with Pip/Tazo) - replace as ordered per sliding scale HTN: Trend and lability noted. Better now Per Pall Care note:No dialysis; No PEG tube; DNR/DNI Family requests [facility] visit when discharged back to [facility]. COMMENT/RELEVANT DATA Meds Current Medications Medications (Trade) Dose Ordered Sig/Gal Start Time Stop Time Status Last Admin Dose Admin Acetaminophen (Tylenol) 650 mg PRN Q6HRS PRN 10/20/16 09:00 10/25/16 08:25 650 MG Acetaminophen 650 mg 650 mg PRN Q6HRS PRN 10/23/16 23:30 10/25/16 01:13 650 MG Acetaminophen/ Hydrocodone Bitart (Lortab 5/325) 2 tab PRN Q4HRS PRN 10/19/16 17:15 10/21/16 21:24 2 TAB Amino Acids/ Glycerin/ Electrolytes (Procalamine) 1,000 ml @ 80 mls/hr [id number] 10/24/16 09:15 10/27/16 12:47 80 MLS/HR Artificial Tears (Artificial Tears) 1 drop QID 10/19/16 21:00 10/28/16 09:26 1 DROP Benztropine Mesylate (Cogentin) 2 mg DAILY 10/20/16 09:00 10/28/16 09:26 2 MG Bisacodyl (Dulcolax Supp) 10 mg 1X ONCE 10/25/16 09:00 10/25/16 09:01 DC 10/25/16 12:27 10 MG Buspirone HCl (Buspar) 10 mg TID 10/19/16 21:00 10/28/16 09:26 10 MG Ceftriaxone Sodium/Sodium Chloride (Rocephin/Iv Sodium Chloride 0.9% 50ml) 50 ml @ 100 mls/hr Q24H 10/20/16 12:00 10/20/16 12:00 DC Ceftriaxone Sodium (Rocephin 1gm Ivpb For Omni) 50 ml @ 100 mls/hr 1X ONCE 10/19/16 12:00 10/19/16 12:29 DC 10/19/16 12:23 100 MLS/HR Chlorpromazine HCl (Thorazine) 100 mg QHS 10/19/16 21:00 10/27/16 21:03 100 MG Clonazepam (Klonopin) 0.5 mg HS 10/19/16 21:00 10/27/16 21:03 0.5 MG Dextrose/Sodium Chloride (Iv D5% - 1/4 NS) 1,000 ml @ 125 mls/hr Q8H 10/22/16 13:00 10/24/16 09:12 DC 10/24/16 05:23 125 MLS/HR Divalproex Sodium (Depakote Sprinkles) 625 mg Q6HRS 10/21/16 14:30 10/22/16 12:40 DC 10/22/16 06:04 625 MG Divalproex Sodium (Depakote Er) 1,000 mg QHS 10/19/16 21:00 10/21/16 14:11 DC Fosphenytoin Sodium 100 mg 100 mg Q8HRS 10/22/16 14:00 10/28/16 06:20 100 MG Furosemide (Lasix) 20 mg 1X ONCE 10/24/16 10:15 10/24/16 10:16 DC 10/24/16 10:15 20 MG Gabapentin (Neurontin) 400 mg HS 10/19/16 21:00 10/27/16 11:06 DC 10/26/16 22:16 400 MG Insulin Aspart (Novolog) 10 units TIDAC 10/19/16 18:00 10/27/16 12:51 10 UNITS Insulin Detemir (Levemir) 22 units BID 10/19/16 21:00 10/27/16 08:55 22 UNITS Lisinopril (Prinivil) 5 mg DAILY 10/20/16 09:00 10/24/16 09:41 DC 10/24/16 08:20 5 MG Lorazepam (Ativan) 0.5 mg PRN Q8HRS PRN 10/19/16 17:15 10/19/16 21:20 0.5 MG Magnesium Hydroxide (Milk Of Magnesia) 2,400 mg PRN DAILY PRN 10/24/16 09:15 Magnesium Sulfate/ Dextrose 50 ml @ 25 mls/hr PRN DAILY PRN 10/25/16 10:00 Mirtazapine (Remeron) 15 mg QHS 10/19/16 21:00 10/27/16 11:06 DC 10/26/16 22:16 15 MG Morphine Sulfate 4 mg STK-MED ONCE 10/28/16 08:25 10/28/16 08:26 DC Multivitamins/ Calcium (Thera M Plus) 1 tab DAILY 10/20/16 09:00 10/28/16 09:26 1 TAB Naloxone HCl (Narcan) 0.4 mg STK-MED ONCE 10/19/16 11:04 10/19/16 11:05 DC Naloxone HCl 0.4 mg 0.4 mg 1X ONCE 10/19/16 11:15 10/19/16 11:16 DC 10/19/16 11:20 0.4 MG Olanzapine (Zyprexa) 5 mg HS 10/21/16 21:30 10/27/16 11:06 DC 10/26/16 22:15 5 MG Ondansetron HCl 4 mg 4 mg PRN Q8HRS PRN 10/19/16 12:00 10/20/16 11:59 DC Pantoprazole Sodium (Protonix) 40 mg DAILYAC 10/20/16 07:30 10/28/16 09:26 40 MG Phenytoin Sodium (Dilantin) 300 mg 1X ONCE 10/20/16 09:00 10/20/16 09:01 DC Phytonadione (Vitamin K) 10 mg 1X ONCE 10/23/16 06:30 10/23/16 06:31 DC 10/23/16 06:36 10 MG Piperacillin Sod/ Tazobactam Sod/ Sodium Chloride (Zosyn/Iv Sodium Chloride 0.9% 50ml) 50 ml @ 100 mls/hr Q6HRS 10/27/16 14:00 10/28/16 05:25 100 MLS/HR Polyethylene Glycol 17 gm 17 gm DAILY 10/25/16 09:00 10/28/16 09:28 17 GM Potassium Chloride/Dextrose/ Sod Cl (KCl 20 Meq In D5W-1/2 NS) 1,000 ml @ 100 mls/hr Q10H 10/21/16 10:15 10/22/16 12:40 DC 10/22/16 05:59 100 MLS/HR Potassium Chloride (KCl Premix 20meq) 50 ml @ 50 mls/hr PRN Q2HR PRN 10/25/16 10:00 Simvastatin (Zocor) 10 mg QHS 10/19/16 21:00 10/27/16 11:06 DC 10/26/16 22:16 10 MG Sodium Chloride 1,000 ml @ 1,000 mls/hr 1X ONCE 10/20/16 15:30 10/20/16 16:29 DC 10/20/16 16:13 1,000 MLS/HR Sodium Chloride (Iv Sodium Chloride 0.9% 1000ml Bag) 1,000 ml @ 622.5 mls/ hr Q1H37M 10/19/16 09:59 10/19/16 13:59 DC 10/19/16 13:13 622.5 MLS/HR Valproic Acid (Depakene) 250 mg HS 10/19/16 21:00 10/22/16 12:41 DC 10/21/16 21:24 250 MG Valproic Acid 690 mg/Sodium Chloride 56.9 ml @ 56.9 mls/hr Q6HRS 10/22/16 13:00 10/28/16 06:21 56.9 MLS/HR Vancomycin HCl 1.25 gm/Sodium Chloride 250 ml @ 166.667 mls/hr 1X ONCE 10/24/16 10:00 10/24/16 11:29 DC 10/24/16 10:15 166.667 MLS/HR Vancomycin HCl 1 each 1 each 1X ONCE 10/22/16 08:30 10/22/16 08:31 DC 10/22/16 08:30 1 EACH Vancomycin HCl/ Sodium Chloride (Iv Sodium Chloride 0.9% 250ml) 250 ml @ 167 mls/hr Q24H 10/22/16 09:00 10/22/16 09:51 DC Vancomycin HCl/ Sodium Chloride (Iv Sodium Chloride 0.9% 500ml Bag) 500 ml @ 250 mls/hr 1X ONCE 10/20/16 08:00 10/20/16 09:59 DC 10/20/16 09:22 250 MLS/HR Warfarin Sodium (Coumadin - No Dose Today) 1 each 1X WARF ONCE 10/23/16 16:00 10/23/16 16:01 DC 10/23/16 16:00 1 EACH Warfarin Sodium (Coumadin Per Pharmacy) 1 each PRN DAILY PRN 10/20/16 09:15 10/26/16 10:03 DC 10/25/16 16:06 1 EACH Warfarin Sodium (Coumadin) 3 mg 1X WARF ONCE 10/24/16 16:00 10/24/16 16:01 DC 10/24/16 18:06 3 MG Warfarin Sodium 1 each 1 each PRN DAILY PRN 10/19/16 17:30 10/20/16 09:17 DC Warfarin Sodium 3 mg 3 mg 1X WARF ONCE 10/25/16 16:00 10/25/16 16:01 DC 10/25/16 17:30 3 MG Warfarin Sodium 6 mg 6 mg 1X WARF ONCE 10/21/16 16:00 10/21/16 16:01 DC 10/21/16 17:50 6 MG Lab Laboratory Tests Test 10/27/16 11:20 10/27/16 12:10 10/27/16 16:50 10/27/16 17:55 Glucose (Fingerstick) 160mg/dL (70-99) 89mg/dL (70-99) Potassium Level 3.5mmol/L (3.5-5.1) 3.5mmol/L (3.5-5.1) Test 10/27/16 20:51 10/28/16 03:55 10/28/16 09:19 Glucose (Fingerstick) 92mg/dL (70-99) 142mg/dL (70-99) White Blood Count 15.4x10^3/uL (4.0-11.0) Red Blood Count 3.15x10^6/uL (3.50-5.40) Hemoglobin 8.6g/dL (12.0-15.5) Hematocrit 25.8% (36.0-47.0) Mean Corpuscular Volume 82fL (79-100) Mean Corpuscular Hemoglobin 27pg (25-35) Mean Corpuscular Hemoglobin Concent 33g/dL (31-37) Red Cell Distribution Width 16.0% (11.5-14.5) Platelet Count 420x10^3/uL (140-400) Neutrophils (%) (Auto) 71% (31-73) Lymphocytes (%) (Auto) 17% (24-48) Monocytes (%) (Auto) 12% (0-9) Eosinophils (%) (Auto) 0% (0-3) Basophils (%) (Auto) 1% (0-3) Neutrophils # (Auto) 11.0x10^3uL (1.8-7.7) Lymphocytes # (Auto) 2.6x10^3/uL (1.0-4.8) Monocytes # (Auto) 1.8x10^3/uL (0.0-1.1) Eosinophils # (Auto) 0.0x10^3/uL (0.0-0.7) Basophils # (Auto) 0.1x10^3/uL (0.0-0.2) Prothrombin Time 15.2SEC (11.7-14.0) Prothromb Time International Ratio 1.3 (0.8-1.1) Magnesium Level 1.9mg/dL (1.8-2.4) Phenytoin (Dilantin) Level 5.2mcg/mL (10.0-20.0) Phenytoin Last Dose Date [id number] Phenytoin Last Dose Time 2099 STEVE YOU MD Oct 28, 2016 10:47
--- NOTE | 2016-10-28 13:15 | RAD ---
Hepatobiliary scan History: Sepsis. Malnutrition. Possible acute cholecystitis. Comparison: No previous hepatobiliary scan available. Chest CT dated October 25, 2016 which demonstrated wall thickening of the gallbladder. Technique: After IV infusion of 5.5 mCi of technetium 99m Choletec, anterior planar images of the upper abdomen were performed in sequential fashion using 5 minute per frame images up to 60 minutes. The gallbladder was not visualized after 60 minutes. Therefore, 2 mg of IV morphine was given and anterior planar imaging of the upper abdomen was performed for another 30 minutes using 5 minute per frame images. Findings: Nonvisualization of the gallbladder is seen up to 85 minutes. Finally, at 90 minutes, there is partial visualization of the gallbladder which is much smaller than the distention of the gallbladder seen on a chest CT. Therefore, the findings are consistent with chronic cholecystitis. Duodenal gastric reflux is noted as well. IMPRESSION: Significant delay in partial visualization of the gallbladder consistent with chronic cholecystitis by nuclear medicine criteria. However, the gallbladder is abnormal on the chest CT with distention of the gallbladder and gallbladder wall thickening. Therefore, based on this finding, an element of acute cholecystitis may be present given history of sepsis. Duodenal gastric reflux is seen.
--- NOTE | 2016-10-28 14:29 | PDOC ---
PULMONARY PROGRESS NOTES Subjective no change Vitals Vital Signs Date Time Temp Pulse Resp B/P Pulse Ox O2 Delivery O2 Flow Rate FiO2 10/28/16 10:48 98.6 91 16 146/77 100 Room Air 98.6 10/28/16 02:12 2.0 General: No acute distress Lungs: Other (decrease bs ) Cardiovascular: S1, S2 Abdomen: Soft, Non-tender Extremities: No Edema Skin: Warm Labs Laboratory Tests Test 10/26/16 16:52 10/26/16 18:00 10/26/16 21:17 10/27/16 06:05 Glucose (Fingerstick) 191mg/dL (70-99) 111mg/dL (70-99) Potassium Level 3.7mmol/L (3.5-5.1) 3.5mmol/L (3.5-5.1) White Blood Count 13.6x10^3/uL (4.0-11.0) Red Blood Count 3.18x10^6/uL (3.50-5.40) Hemoglobin 8.6g/dL (12.0-15.5) Hematocrit 26.5% (36.0-47.0) Mean Corpuscular Volume 83fL (79-100) Mean Corpuscular Hemoglobin 27pg (25-35) Mean Corpuscular Hemoglobin Concent 33g/dL (31-37) Red Cell Distribution Width 15.8% (11.5-14.5) Platelet Count 382x10^3/uL (140-400) Neutrophils (%) (Auto) 69% (31-73) Lymphocytes (%) (Auto) 14% (24-48) Monocytes (%) (Auto) 16% (0-9) Eosinophils (%) (Auto) 0% (0-3) Basophils (%) (Auto) 1% (0-3) Neutrophils # (Auto) 9.4x10^3uL (1.8-7.7) Lymphocytes # (Auto) 2.0x10^3/uL (1.0-4.8) Monocytes # (Auto) 2.2x10^3/uL (0.0-1.1) Eosinophils # (Auto) 0.0x10^3/uL (0.0-0.7) Basophils # (Auto) 0.1x10^3/uL (0.0-0.2) Prothrombin Time 14.8SEC (11.7-14.0) Prothromb Time International Ratio 1.2 (0.8-1.1) Sodium Level 145mmol/L (136-145) Chloride Level 107mmol/L (98-107) Carbon Dioxide Level 29mmol/L (21-32) Anion Gap 9 (6-14) Blood Urea Nitrogen 27mg/dL (7-20) Creatinine 1.7mg/dL (0.6-1.0) Estimated GFR (Cockcroft-Gault) 37.2 Glucose Level 151mg/dL (70-99) Calcium Level 8.6mg/dL (8.5-10.1) Magnesium Level 1.8mg/dL (1.8-2.4) Test 10/27/16 07:09 10/27/16 11:20 10/27/16 12:10 10/27/16 16:50 Glucose (Fingerstick) 143mg/dL (70-99) 160mg/dL (70-99) 89mg/dL (70-99) Potassium Level 3.5mmol/L (3.5-5.1) Test 10/27/16 17:55 10/27/16 20:51 10/28/16 03:55 10/28/16 09:19 Potassium Level 3.5mmol/L (3.5-5.1) Glucose (Fingerstick) 92mg/dL (70-99) 142mg/dL (70-99) White Blood Count 15.4x10^3/uL (4.0-11.0) Red Blood Count 3.15x10^6/uL (3.50-5.40) Hemoglobin 8.6g/dL (12.0-15.5) Hematocrit 25.8% (36.0-47.0) Mean Corpuscular Volume 82fL (79-100) Mean Corpuscular Hemoglobin 27pg (25-35) Mean Corpuscular Hemoglobin Concent 33g/dL (31-37) Red Cell Distribution Width 16.0% (11.5-14.5) Platelet Count 420x10^3/uL (140-400) Neutrophils (%) (Auto) 71% (31-73) Lymphocytes (%) (Auto) 17% (24-48) Monocytes (%) (Auto) 12% (0-9) Eosinophils (%) (Auto) 0% (0-3) Basophils (%) (Auto) 1% (0-3) Neutrophils # (Auto) 11.0x10^3uL (1.8-7.7) Lymphocytes # (Auto) 2.6x10^3/uL (1.0-4.8) Monocytes # (Auto) 1.8x10^3/uL (0.0-1.1) Eosinophils # (Auto) 0.0x10^3/uL (0.0-0.7) Basophils # (Auto) 0.1x10^3/uL (0.0-0.2) Prothrombin Time 15.2SEC (11.7-14.0) Prothromb Time International Ratio 1.3 (0.8-1.1) Magnesium Level 1.9mg/dL (1.8-2.4) Phenytoin (Dilantin) Level 5.2mcg/mL (10.0-20.0) Phenytoin Last Dose Date [id number] Phenytoin Last Dose Time 2100 Test 10/28/16 11:44 Glucose (Fingerstick) 140mg/dL (70-99) Laboratory Tests Test 10/27/16 16:50 10/27/16 17:55 10/27/16 20:51 10/28/16 03:55 Glucose (Fingerstick) 89mg/dL (70-99) 92mg/dL (70-99) Potassium Level 3.5mmol/L (3.5-5.1) White Blood Count 15.4x10^3/uL (4.0-11.0) Red Blood Count 3.15x10^6/uL (3.50-5.40) Hemoglobin 8.6g/dL (12.0-15.5) Hematocrit 25.8% (36.0-47.0) Mean Corpuscular Volume 82fL (79-100) Mean Corpuscular Hemoglobin 27pg (25-35) Mean Corpuscular Hemoglobin Concent 33g/dL (31-37) Red Cell Distribution Width 16.0% (11.5-14.5) Platelet Count 420x10^3/uL (140-400) Neutrophils (%) (Auto) 71% (31-73) Lymphocytes (%) (Auto) 17% (24-48) Monocytes (%) (Auto) 12% (0-9) Eosinophils (%) (Auto) 0% (0-3) Basophils (%) (Auto) 1% (0-3) Neutrophils # (Auto) 11.0x10^3uL (1.8-7.7) Lymphocytes # (Auto) 2.6x10^3/uL (1.0-4.8) Monocytes # (Auto) 1.8x10^3/uL (0.0-1.1) Eosinophils # (Auto) 0.0x10^3/uL (0.0-0.7) Basophils # (Auto) 0.1x10^3/uL (0.0-0.2) Prothrombin Time 15.2SEC (11.7-14.0) Prothromb Time International Ratio 1.3 (0.8-1.1) Magnesium Level 1.9mg/dL (1.8-2.4) Phenytoin (Dilantin) Level 5.2mcg/mL (10.0-20.0) Phenytoin Last Dose Date [id number] Phenytoin Last Dose Time 2100 Test 10/28/16 09:19 10/28/16 11:44 Glucose (Fingerstick) 142mg/dL (70-99) 140mg/dL (70-99) Medications Active Scripts Medications Dose Route/Sig Days Date Category Vitamin D (Cholecalciferol (Vitamin D3)) 1,000 Unit Capsule 1,000 Unit PO DAILY 10/19/16 Reported Acetaminophen 325 Mg Tablet 650 Mg PO PRN Q6HRS PRN 10/19/16 Reported Senna-Docusate Sodium Tablet (Sennosides/Docusate Sodium) 1 Each Tablet 1 Each PO BID 10/19/16 Reported Miralax (Polyethylene Glycol 3350) 17 Gm Powd.pack 1 Pkt PO DAILY 10/19/16 Reported Phenytoin Sodium Extended 100 Mg Capsule 100 Mg PO DAILY 10/19/16 Reported Depakote Er (Divalproex Sodium) 500 Mg Tab.er.24h 1,500 Mg PO DAILY 10/19/16 Reported Warfarin Sodium 1 Mg Tablet 1 Mg PO DAILY 10/19/16 Reported Chlorpromazine Hcl 100 Mg Tablet 100 Mg PO QHS 10/19/16 Reported Benztropine Mesylate 2 Mg Tablet 2 Mg PO DAILY 10/19/16 Reported Zyprexa (Olanzapine) 5 Mg Tablet 1 Tab PO QHS 10/19/16 Reported Simvastatin 10 Mg Tablet 10 Mg PO QHS 10/19/16 Reported Remeron (Mirtazapine) 15 Mg Tablet 15 Mg PO QHS 10/19/16 Reported Lisinopril 5 Mg Tablet 1 Tab PO DAILY 10/19/16 Reported Depakene (Valproic Acid) 250 Mg Capsule 250 Mg PO HS 10/19/16 Reported Coumadin (Warfarin Sodium) 6 Mg Tablet 6 Mg PO DAILY 10/19/16 Reported Buspirone Hcl 10 Mg Tablet 10 Mg PO TID 10/19/16 Reported Protonix (Pantoprazole Sodium) 40 Mg Tablet 40 Mg PO DAILYAC 06/15/14 Rx Neurontin (Gabapentin) 400 Mg Capsule 1 Tab PO HS 11/21/13 Reported Multivitamins (Multivitamin) 1 Each Capsule 1 Tab PO DAILY 11/21/13 Reported Milk Of Magnesia (Magnesium Hydroxide) 400 Mg/5 Ml Oral.susp 30 Ml PO PRN DAILY PRN 11/21/13 Reported Dilantin (Phenytoin Sodium Extended) 100 Mg Capsule 200 Mg PO QHS 11/21/13 Reported Depakote (Divalproex Sodium) 500 Mg Tablet.dr 1,000 Mg PO HS 11/21/13 Reported Chlorpromazine Hcl 25 Mg Tablet 25 Mg PO HS 11/21/13 Reported Artificial Tears (Hypromellose) 15 Ml Drops 2 Drop EACHEYE QID 11/21/13 Reported Novolog (Insulin Aspart) 100 Unit/1 Ml Vial 10 Units SUBCUT TIDAC 11/21/13 Reported [place] 5-325 Tablet (Acetaminophen/Hydrocodone Bitart) 1 Each Tablet 2 Tab PO Q4H PRN 11/21/13 Reported Levemir (Insulin Detemir) 100 Unit/1 Ml Vial 22 Unit SQ BID 11/21/13 Reported Klonopin (Clonazepam) 0.5 Mg Tablet 0.5 Mg PO HS 11/21/13 Reported Duoneb 0.5 Mg-3 Mg/3 Ml Soln (Ipratropium/Albuterol Sulfate) 3 Ml Ampul.neb 3 Ml INH Q6H 11/21/13 Reported Ativan (Lorazepam) 0.5 Mg Tablet 1 Tab PO Q8H PRN 11/21/13 Reported Impression . 1. Abnormal chest x-ray with moderate volume loss in the right lower lobe dated 10/24/2016, this is new compared to October 19 chest x-ray . ct chest reviewed. combination of small pleural effusion and atelectasis 2. Recent sepsis due to suspected urinary tract infection. Cultures to date are negative so far. 3. Encephalopathy secondary to sepsis. 4. History of seizure disorder. 5. History of CVA. 6. History of schizophrenia. 7. cholecystitis Plan . 1. Continue broad spectrum antibiotics per Infectious Disease. 2. Continue oxygen at 2 liters. 3. Follow for any new cultures. 4. No further intervention from pulmonary standpoint 5. Agree with palliative care consult with goals of care. will see DANY De La Torre MD Oct 28, 2016 14:29
--- NOTE | 2016-10-28 15:55 | PDOC ---
SURGICAL PROGRESS NOTE Subjective seen earlier today minimally responsive Vital Signs Vital Signs Date Time Temp Pulse Resp B/P Pulse Ox O2 Delivery O2 Flow Rate FiO2 10/28/16 15:00 99.3 86 16 139/89 99 Nasal Cannula 2.0 99.3 I&O Intake and Output 10/28/16 07:00 Intake Total 960 ml Output Total 3050 ml Balance -2090 ml Other 960 ml Output Urine Total 3050 ml PATIENT HAS A GARCIA: Yes Abdomen: Soft, Other (obese) Labs Laboratory Tests Test 10/26/16 16:52 10/26/16 18:00 10/26/16 21:17 10/27/16 06:05 Glucose (Fingerstick) 191mg/dL (70-99) 111mg/dL (70-99) Potassium Level 3.7mmol/L (3.5-5.1) 3.5mmol/L (3.5-5.1) White Blood Count 13.6x10^3/uL (4.0-11.0) Red Blood Count 3.18x10^6/uL (3.50-5.40) Hemoglobin 8.6g/dL (12.0-15.5) Hematocrit 26.5% (36.0-47.0) Mean Corpuscular Volume 83fL (79-100) Mean Corpuscular Hemoglobin 27pg (25-35) Mean Corpuscular Hemoglobin Concent 33g/dL (31-37) Red Cell Distribution Width 15.8% (11.5-14.5) Platelet Count 382x10^3/uL (140-400) Neutrophils (%) (Auto) 69% (31-73) Lymphocytes (%) (Auto) 14% (24-48) Monocytes (%) (Auto) 16% (0-9) Eosinophils (%) (Auto) 0% (0-3) Basophils (%) (Auto) 1% (0-3) Neutrophils # (Auto) 9.4x10^3uL (1.8-7.7) Lymphocytes # (Auto) 2.0x10^3/uL (1.0-4.8) Monocytes # (Auto) 2.2x10^3/uL (0.0-1.1) Eosinophils # (Auto) 0.0x10^3/uL (0.0-0.7) Basophils # (Auto) 0.1x10^3/uL (0.0-0.2) Prothrombin Time 14.8SEC (11.7-14.0) Prothromb Time International Ratio 1.2 (0.8-1.1) Sodium Level 145mmol/L (136-145) Chloride Level 107mmol/L (98-107) Carbon Dioxide Level 29mmol/L (21-32) Anion Gap 9 (6-14) Blood Urea Nitrogen 27mg/dL (7-20) Creatinine 1.7mg/dL (0.6-1.0) Estimated GFR (Cockcroft-Gault) 37.2 Glucose Level 151mg/dL (70-99) Calcium Level 8.6mg/dL (8.5-10.1) Magnesium Level 1.8mg/dL (1.8-2.4) Test 10/27/16 07:09 10/27/16 11:20 10/27/16 12:10 10/27/16 16:50 Glucose (Fingerstick) 143mg/dL (70-99) 160mg/dL (70-99) 89mg/dL (70-99) Potassium Level 3.5mmol/L (3.5-5.1) Test 10/27/16 17:55 10/27/16 20:51 10/28/16 03:55 10/28/16 09:19 Potassium Level 3.5mmol/L (3.5-5.1) Glucose (Fingerstick) 92mg/dL (70-99) 142mg/dL (70-99) White Blood Count 15.4x10^3/uL (4.0-11.0) Red Blood Count 3.15x10^6/uL (3.50-5.40) Hemoglobin 8.6g/dL (12.0-15.5) Hematocrit 25.8% (36.0-47.0) Mean Corpuscular Volume 82fL (79-100) Mean Corpuscular Hemoglobin 27pg (25-35) Mean Corpuscular Hemoglobin Concent 33g/dL (31-37) Red Cell Distribution Width 16.0% (11.5-14.5) Platelet Count 420x10^3/uL (140-400) Neutrophils (%) (Auto) 71% (31-73) Lymphocytes (%) (Auto) 17% (24-48) Monocytes (%) (Auto) 12% (0-9) Eosinophils (%) (Auto) 0% (0-3) Basophils (%) (Auto) 1% (0-3) Neutrophils # (Auto) 11.0x10^3uL (1.8-7.7) Lymphocytes # (Auto) 2.6x10^3/uL (1.0-4.8) Monocytes # (Auto) 1.8x10^3/uL (0.0-1.1) Eosinophils # (Auto) 0.0x10^3/uL (0.0-0.7) Basophils # (Auto) 0.1x10^3/uL (0.0-0.2) Prothrombin Time 15.2SEC (11.7-14.0) Prothromb Time International Ratio 1.3 (0.8-1.1) Magnesium Level 1.9mg/dL (1.8-2.4) Phenytoin (Dilantin) Level 5.2mcg/mL (10.0-20.0) Phenytoin Last Dose Date [id number] Phenytoin Last Dose Time 2100 Test 10/28/16 11:44 Glucose (Fingerstick) 140mg/dL (70-99) Laboratory Tests Test 10/27/16 16:50 10/27/16 17:55 10/27/16 20:51 10/28/16 03:55 Glucose (Fingerstick) 89mg/dL (70-99) 92mg/dL (70-99) Potassium Level 3.5mmol/L (3.5-5.1) White Blood Count 15.4x10^3/uL (4.0-11.0) Red Blood Count 3.15x10^6/uL (3.50-5.40) Hemoglobin 8.6g/dL (12.0-15.5) Hematocrit 25.8% (36.0-47.0) Mean Corpuscular Volume 82fL (79-100) Mean Corpuscular Hemoglobin 27pg (25-35) Mean Corpuscular Hemoglobin Concent 33g/dL (31-37) Red Cell Distribution Width 16.0% (11.5-14.5) Platelet Count 420x10^3/uL (140-400) Neutrophils (%) (Auto) 71% (31-73) Lymphocytes (%) (Auto) 17% (24-48) Monocytes (%) (Auto) 12% (0-9) Eosinophils (%) (Auto) 0% (0-3) Basophils (%) (Auto) 1% (0-3) Neutrophils # (Auto) 11.0x10^3uL (1.8-7.7) Lymphocytes # (Auto) 2.6x10^3/uL (1.0-4.8) Monocytes # (Auto) 1.8x10^3/uL (0.0-1.1) Eosinophils # (Auto) 0.0x10^3/uL (0.0-0.7) Basophils # (Auto) 0.1x10^3/uL (0.0-0.2) Prothrombin Time 15.2SEC (11.7-14.0) Prothromb Time International Ratio 1.3 (0.8-1.1) Magnesium Level 1.9mg/dL (1.8-2.4) Phenytoin (Dilantin) Level 5.2mcg/mL (10.0-20.0) Phenytoin Last Dose Date [id number] Phenytoin Last Dose Time 2100 Test 10/28/16 09:19 10/28/16 11:44 Glucose (Fingerstick) 142mg/dL (70-99) 140mg/dL (70-99) I have reviewed the following PIPIDA scan results PND Problem List Problems Medical Problems: (1) Sepsis Status: Acute (2) Severe protein-calorie malnutrition Status: Acute (3) Uncontrolled diabetes mellitus Status: Acute (4) Urinary tract infection Status: Acute Assessment/Plan possible GB source of sepsis await PIPIDA results if positive will ask IR for cholecystostomy tube Dr Long available over the weekend if needed Problems: JS MONTAGUE MD Oct 28, 2016 15:55
[2016-10-28] MEDS ORDERED: LIDOCAINE 1% / SOD BICARB 8.4% 20 ML VIAL. IJ ONE ×2 (16:42→17:45)
--- NOTE | 2016-10-28 18:08 | RAD ---
Procedure: Ultrasound-guided cholecystostomy tube placement Clinical Indication: 61-year-old with acute cholecystitis Sedation: Conscious sedation was administered for 18 minutes. The patient was monitored by a qualified independent observer throughout the time of sedation. Please refer to the medical record for exact doses of medications utilized to achieve moderate sedation. Antibiotics: None Sterility: The procedure was performed in its entirety using appropriate elements of sterile technique. Consent: The procedure was explained in its entirety to the patient or the patients designated professional healthcare representative by a member of the treatment team, including a discussion of the risks, benefits and commonly accepted alternatives to the procedure, as well as the expected consequences of no therapy whatsoever. Discussion of the risks included, but was not limited to, those that are most frequent and those that are rare but possibly severe or life-threatening, as well as the possibility of unforeseen complications. Technique and Findings: Following informed consent, the patient was prepped and draped in usual sterile fashion. Ultrasound interrogation of the right upper quadrant revealed a markedly distended gallbladder with innumerable shadowing stones and significant wall thickening. 1% lidocaine was used to achieve local anesthesia over the right upper quadrant. Under ultrasound guidance, a 21-gauge micropuncture needle was used to gain access the gallbladder in a transhepatic fashion. The needle was then exchanged over a wire for serial dilators followed by a 12 Wolof pigtail drainage catheter. 20 cc of christian pus was aspirated and sent for microbiologic analysis. The catheter was sutured to skin and placed to bag drainage. Complications: No immediate Impression: 1. Ultrasound-guided cholecystostomy tube placement as described.
--- NOTE | 2016-10-28 18:08 | PDOC ---
BRIEF OPERATIVE NOTE Pre-Op Diagnosis Acute cholecystitis Post-Op Diagnosis same Procedure Performed US Cholecystostomy tube Surgeon Julius Anesthesia Type: Conscious Sedation Specimens Obtained 20cc christian pus Findings 12F drain Complications No immediate KIANA ROBLEDO MD Oct 28, 2016 18:08
--- NOTE | 2016-10-28 18:08 | PDOC ---
MODERATE SEDATION ASSESSMENT RISKS/ALTERNATIVES Risks/Alternatives Risks and alternatives of this type of sedation and procedure discussed with: RISK/ALTERNATIVES: Patient H & P ON CHART H & P H & P on chart and reviewed for co-morbid conditions and appropriate labs. H&P ON CHART: Yes STATUS PREG STATUS ASSESSED: Yes MEDS/ALLERGIES REVIEWED Meds/Allergies Reviewed Medications and Allergies including time and route of recently administered narcotics and sedatives. MEDS/ALLERGIES REVIEWED: Yes ASA RATING ASA RATING: III AIRWAY ASSESSMENT Airway Assessment Airway patency, oral function limitations, presence of caps, crowns, dentures, partials, and ability to extend neck assessed. AIRWAY ASSESSMENT: Yes MALLAMPATI SCORE MALLAMPATI SCORE: III PRE-SEDATION ASSESSMENT PRE-SEDATION ASSESSMENT: Yes KIANA ROBLEDO MD Oct 28, 2016 18:08
[2016-10-28] MEDS: hydrALAZINE 20 MG/ML VIAL. IVP PRN (18:20)
[2016-10-28] MEDS: CHLORPROMAZINE 25 MG PO SCH ×2 (21:00)
[2016-10-28] MEDS: CLONAZEPAM 0.5 MG TABLET PO SCH (21:00)
[2016-10-29] MEDS: PIPERACILLIN/TAZOBACTAM 3.375 GM in IV NORMAL SALINE 50ML 50 ML IV SCH ×4 (00:38→18:00)
[2016-10-29] MEDS: AA 3%/ELECTROLYTE-TPN SOLN/GLY 1,000 ML IV SCH ×2 (00:40→14:15)
[2016-10-29] MEDS: VALPROIC ACID IV SCH ×4 (01:30→17:56)
[2016-10-29] MEDS: NORMAL SALINE IV SCH ×4 (01:30→17:56)
[2016-10-29 03:35] VITALS: BP 166/83
[2016-10-29] MEDS: FOSPHENYTOIN 100 MG/2 ML VIAL IV SCH ×3 (05:49→22:50)
[2016-10-29 07:25] VITALS: BP 156/83
[2016-10-29] MEDS: INSULIN ASPART 300 UNITS/3 ML INSULN.PEN SQ SCH (07:30)
[2016-10-29] MEDS: PANTOPRAZOLE 40 MG TABLET. PO SCH (07:30)
[2016-10-29] MEDS: BENZTROPINE MESYLATE 1 MG TABLET PO SCH (09:00)
[2016-10-29] MEDS: POLYVINYL ALCOHOL 1.4% OPHTH SOLUTION 15ML BOTTLE. OU SCH ×4 (09:00→21:09)
[2016-10-29] MEDS: INSULIN DETEMIR 300 UNITS/3 ML INSULN.PEN. SQ SCH ×2 (09:00→21:19)
[2016-10-29] MEDS: busPIRone 5 MG TABLET. PO SCH ×3 (09:00→21:00)
[2016-10-29] MEDS: MULTIVITAMIN with MINERAL TABLET. PO SCH (09:00)
[2016-10-29] MEDS: POLYETHYLENE GLYCOL 3350 17 GM PACKET. PO SCH (09:00)
[2016-10-29 09:03] LABS: BASO # 0.1 x10^3/uL (0.0-0.2); BASO % 1 % (0-3); EOS % 0 % (0-3); LYMPH # 2.2 x10^3/uL (1.0-4.8); LYMPH % 14 % (24-48); MEAN CORPUSCULAR HEMOGLOBIN 27 pg (25-35); MEAN CORPUSCULAR HGB CONC 32 g/dL (31-37); MEAN CORPUSCULAR VOLUME 84 fL (79-100); MONO % 10 % (0-9); NEUT % 76 % (31-73); PLATELET COUNT 500 x10^3/uL (140-400); RED BLOOD COUNT 3.34 x10^6/uL (3.50-5.40); RED CELL DISTRIBUTION WIDTH 16.1 % (11.5-14.5)
[2016-10-29] MEDS ORDERED: ACETAMINOPHEN 650 MG SUPP.RECT. PR PRN (09:45)
[2016-10-29] MEDS ORDERED: BISACODYL 10 MG SUPP.RECT PR PRN (09:45)
[2016-10-29] MEDS ORDERED: LORAZEPAM 2 MG/ML VIAL IV PRN (09:45)
[2016-10-29 09:52] LABS: INR 1.3 (0.8-1.1); PROTHROMBIN TIME PATIENT 15.3 SEC (11.7-14.0)
[2016-10-29] MEDS ORDERED: FAMOTIDINE 20 MG/2 ML VIAL IVP SCH (10:00)
--- NOTE | 2016-10-29 10:02 | PDOC ---
SHAKILA MARSHALL COLORER MACHINE 10/29/16 1002: SURGICAL PROGRESS NOTE Subjective non verbal Vital Signs Vital Signs Date Time Temp Pulse Resp B/P Pulse Ox O2 Delivery O2 Flow Rate FiO2 10/29/16 07:25 98.4 86 20 156/83 100 Nasal Cannula 2.0 98.4 I&O Intake and Output 10/29/16 07:00 Intake Total 122 ml Output Total 2300 ml Balance -2178 ml Intake Oral 122 ml Output Urine Total 2000 ml Drainage Total 300 ml General: No acute distress Abdomen: Soft, Other ( c tube in place) Labs Laboratory Tests Test 10/27/16 11:20 10/27/16 12:10 10/27/16 16:50 10/27/16 17:55 Glucose (Fingerstick) 160mg/dL (70-99) 89mg/dL (70-99) Potassium Level 3.5mmol/L (3.5-5.1) 3.5mmol/L (3.5-5.1) Test 10/27/16 20:51 10/28/16 03:55 10/28/16 09:19 10/28/16 11:44 Glucose (Fingerstick) 92mg/dL (70-99) 142mg/dL (70-99) 140mg/dL (70-99) White Blood Count 15.4x10^3/uL (4.0-11.0) Red Blood Count 3.15x10^6/uL (3.50-5.40) Hemoglobin 8.6g/dL (12.0-15.5) Hematocrit 25.8% (36.0-47.0) Mean Corpuscular Volume 82fL (79-100) Mean Corpuscular Hemoglobin 27pg (25-35) Mean Corpuscular Hemoglobin Concent 33g/dL (31-37) Red Cell Distribution Width 16.0% (11.5-14.5) Platelet Count 420x10^3/uL (140-400) Neutrophils (%) (Auto) 71% (31-73) Lymphocytes (%) (Auto) 17% (24-48) Monocytes (%) (Auto) 12% (0-9) Eosinophils (%) (Auto) 0% (0-3) Basophils (%) (Auto) 1% (0-3) Neutrophils # (Auto) 11.0x10^3uL (1.8-7.7) Lymphocytes # (Auto) 2.6x10^3/uL (1.0-4.8) Monocytes # (Auto) 1.8x10^3/uL (0.0-1.1) Eosinophils # (Auto) 0.0x10^3/uL (0.0-0.7) Basophils # (Auto) 0.1x10^3/uL (0.0-0.2) Prothrombin Time 15.2SEC (11.7-14.0) Prothromb Time International Ratio 1.3 (0.8-1.1) Magnesium Level 1.9mg/dL (1.8-2.4) Phenytoin (Dilantin) Level 5.2mcg/mL (10.0-20.0) Phenytoin Last Dose Date [id number] Phenytoin Last Dose Time 2100 Test 10/28/16 16:08 10/28/16 20:46 10/29/16 07:32 10/29/16 08:00 Glucose (Fingerstick) 116mg/dL (70-99) 113mg/dL (70-99) 100mg/dL (70-99) White Blood Count 16.0x10^3/uL (4.0-11.0) Red Blood Count 3.34x10^6/uL (3.50-5.40) Hemoglobin 9.0g/dL (12.0-15.5) Hematocrit 28.0% (36.0-47.0) Mean Corpuscular Volume 84fL (79-100) Mean Corpuscular Hemoglobin 27pg (25-35) Mean Corpuscular Hemoglobin Concent 32g/dL (31-37) Red Cell Distribution Width 16.1% (11.5-14.5) Platelet Count 500x10^3/uL (140-400) Neutrophils (%) (Auto) 76% (31-73) Lymphocytes (%) (Auto) 14% (24-48) Monocytes (%) (Auto) 10% (0-9) Eosinophils (%) (Auto) 0% (0-3) Basophils (%) (Auto) 1% (0-3) Neutrophils # (Auto) 12.1x10^3uL (1.8-7.7) Lymphocytes # (Auto) 2.2x10^3/uL (1.0-4.8) Monocytes # (Auto) 1.6x10^3/uL (0.0-1.1) Eosinophils # (Auto) 0.0x10^3/uL (0.0-0.7) Basophils # (Auto) 0.1x10^3/uL (0.0-0.2) Magnesium Level 1.9mg/dL (1.8-2.4) Laboratory Tests Test 10/28/16 11:44 10/28/16 16:08 10/28/16 20:46 10/29/16 07:32 Glucose (Fingerstick) 140mg/dL (70-99) 116mg/dL (70-99) 113mg/dL (70-99) 100mg/dL (70-99) Test 10/29/16 08:00 White Blood Count 16.0x10^3/uL (4.0-11.0) Red Blood Count 3.34x10^6/uL (3.50-5.40) Hemoglobin 9.0g/dL (12.0-15.5) Hematocrit 28.0% (36.0-47.0) Mean Corpuscular Volume 84fL (79-100) Mean Corpuscular Hemoglobin 27pg (25-35) Mean Corpuscular Hemoglobin Concent 32g/dL (31-37) Red Cell Distribution Width 16.1% (11.5-14.5) Platelet Count 500x10^3/uL (140-400) Neutrophils (%) (Auto) 76% (31-73) Lymphocytes (%) (Auto) 14% (24-48) Monocytes (%) (Auto) 10% (0-9) Eosinophils (%) (Auto) 0% (0-3) Basophils (%) (Auto) 1% (0-3) Neutrophils # (Auto) 12.1x10^3uL (1.8-7.7) Lymphocytes # (Auto) 2.2x10^3/uL (1.0-4.8) Monocytes # (Auto) 1.6x10^3/uL (0.0-1.1) Eosinophils # (Auto) 0.0x10^3/uL (0.0-0.7) Basophils # (Auto) 0.1x10^3/uL (0.0-0.2) Magnesium Level 1.9mg/dL (1.8-2.4) Problem List Problems Medical Problems: (1) Sepsis Status: Acute (2) Severe protein-calorie malnutrition Status: Acute (3) Uncontrolled diabetes mellitus Status: Acute (4) Urinary tract infection Status: Acute Assessment/Plan cholecystitis C tube in place, keep in for 6 weeks Problems: SUE PEARSON MD 10/30/16 1242: SURGICAL PROGRESS NOTE Assessment/Plan Agree with above Problems: SHAKILA MARSHALL APRN Oct 29, 2016 10:02 SUE PEARSON MD Oct 30, 2016 12:42
--- NOTE | 2016-10-29 10:06 | PDOC ---
MILLIE HEAD TOLL SERVICE OBSERVER 10/29/16 1006: IM PROGRESS NOTES- Subjective Subjective awake, no interaction Objective Objective no response to verbal Vitals Vital Signs Date Time Temp Pulse Resp B/P Pulse Ox O2 Delivery O2 Flow Rate FiO2 10/29/16 07:25 98.4 86 20 156/83 100 Nasal Cannula 2.0 98.4 Input & Output Intake and Output 10/29/16 07:00 Intake Total 122 ml Output Total 2300 ml Balance -2178 ml Intake Oral 122 ml Output Urine Total 2000 ml Drainage Total 300 ml Physical Exam Physical Exam GENERAL: awake, eyes open, alert HEAD: normocephalic LUNGS: Decreased breath sounds at bases. CARDIOVASCULAR: S1 and S2 regular. ABDOMEN: Soft, obese, nontender,BS increased slightly, cholecystostomy tube serous bloody EXTREMITIES: + edema. CENTRAL NERVOUS SYSTEM: awake, no response to verbal, not tracking SKIN: Warm and dry. Skin turgor decreased. Labs Laboratory Tests Test 10/27/16 11:20 10/27/16 12:10 10/27/16 16:50 10/27/16 17:55 Glucose (Fingerstick) 160mg/dL (70-99) 89mg/dL (70-99) Potassium Level 3.5mmol/L (3.5-5.1) 3.5mmol/L (3.5-5.1) Test 10/27/16 20:51 10/28/16 03:55 10/28/16 09:19 10/28/16 11:44 Glucose (Fingerstick) 92mg/dL (70-99) 142mg/dL (70-99) 140mg/dL (70-99) White Blood Count 15.4x10^3/uL (4.0-11.0) Red Blood Count 3.15x10^6/uL (3.50-5.40) Hemoglobin 8.6g/dL (12.0-15.5) Hematocrit 25.8% (36.0-47.0) Mean Corpuscular Volume 82fL (79-100) Mean Corpuscular Hemoglobin 27pg (25-35) Mean Corpuscular Hemoglobin Concent 33g/dL (31-37) Red Cell Distribution Width 16.0% (11.5-14.5) Platelet Count 420x10^3/uL (140-400) Neutrophils (%) (Auto) 71% (31-73) Lymphocytes (%) (Auto) 17% (24-48) Monocytes (%) (Auto) 12% (0-9) Eosinophils (%) (Auto) 0% (0-3) Basophils (%) (Auto) 1% (0-3) Neutrophils # (Auto) 11.0x10^3uL (1.8-7.7) Lymphocytes # (Auto) 2.6x10^3/uL (1.0-4.8) Monocytes # (Auto) 1.8x10^3/uL (0.0-1.1) Eosinophils # (Auto) 0.0x10^3/uL (0.0-0.7) Basophils # (Auto) 0.1x10^3/uL (0.0-0.2) Prothrombin Time 15.2SEC (11.7-14.0) Prothromb Time International Ratio 1.3 (0.8-1.1) Magnesium Level 1.9mg/dL (1.8-2.4) Phenytoin (Dilantin) Level 5.2mcg/mL (10.0-20.0) Phenytoin Last Dose Date [id number] Phenytoin Last Dose Time 2100 Test 10/28/16 16:08 10/28/16 20:46 10/29/16 07:32 10/29/16 08:00 Glucose (Fingerstick) 116mg/dL (70-99) 113mg/dL (70-99) 100mg/dL (70-99) White Blood Count 16.0x10^3/uL (4.0-11.0) Red Blood Count 3.34x10^6/uL (3.50-5.40) Hemoglobin 9.0g/dL (12.0-15.5) Hematocrit 28.0% (36.0-47.0) Mean Corpuscular Volume 84fL (79-100) Mean Corpuscular Hemoglobin 27pg (25-35) Mean Corpuscular Hemoglobin Concent 32g/dL (31-37) Red Cell Distribution Width 16.1% (11.5-14.5) Platelet Count 500x10^3/uL (140-400) Neutrophils (%) (Auto) 76% (31-73) Lymphocytes (%) (Auto) 14% (24-48) Monocytes (%) (Auto) 10% (0-9) Eosinophils (%) (Auto) 0% (0-3) Basophils (%) (Auto) 1% (0-3) Neutrophils # (Auto) 12.1x10^3uL (1.8-7.7) Lymphocytes # (Auto) 2.2x10^3/uL (1.0-4.8) Monocytes # (Auto) 1.6x10^3/uL (0.0-1.1) Eosinophils # (Auto) 0.0x10^3/uL (0.0-0.7) Basophils # (Auto) 0.1x10^3/uL (0.0-0.2) Magnesium Level 1.9mg/dL (1.8-2.4) Laboratory Tests Test 10/28/16 11:44 10/28/16 16:08 10/28/16 20:46 10/29/16 07:32 Glucose (Fingerstick) 140mg/dL (70-99) 116mg/dL (70-99) 113mg/dL (70-99) 100mg/dL (70-99) Test 10/29/16 08:00 White Blood Count 16.0x10^3/uL (4.0-11.0) Red Blood Count 3.34x10^6/uL (3.50-5.40) Hemoglobin 9.0g/dL (12.0-15.5) Hematocrit 28.0% (36.0-47.0) Mean Corpuscular Volume 84fL (79-100) Mean Corpuscular Hemoglobin 27pg (25-35) Mean Corpuscular Hemoglobin Concent 32g/dL (31-37) Red Cell Distribution Width 16.1% (11.5-14.5) Platelet Count 500x10^3/uL (140-400) Neutrophils (%) (Auto) 76% (31-73) Lymphocytes (%) (Auto) 14% (24-48) Monocytes (%) (Auto) 10% (0-9) Eosinophils (%) (Auto) 0% (0-3) Basophils (%) (Auto) 1% (0-3) Neutrophils # (Auto) 12.1x10^3uL (1.8-7.7) Lymphocytes # (Auto) 2.2x10^3/uL (1.0-4.8) Monocytes # (Auto) 1.6x10^3/uL (0.0-1.1) Eosinophils # (Auto) 0.0x10^3/uL (0.0-0.7) Basophils # (Auto) 0.1x10^3/uL (0.0-0.2) Magnesium Level 1.9mg/dL (1.8-2.4) Meds Current Medications Acetaminophen (Tylenol) 650 mg PRN Q6HRS PRN PA MILD PAIN / TEMP; Start at 09:45; Status UNV Famotidine (Pepcid) 20 mg BID IVP ; Start 10/29/16 at 21:00; Status UNV Hydralazine HCl (Apresoline) 10 mg PRN Q4HRS PRN IVP FOR SBP > 160 Last administered on 10/28/16 18:20; Start 10/28/16 at 18:15 Insulin Detemir (Levemir) 10 units QHS SQ ; Start 10/29/16 at 21:00; Status UNV Lidocaine/Sodium Bicarbonate (Buffered Lidocaine 1%) 4 ml 1X ONCE IJ Last administered on 10/28/16 17:30; Start 10/28/16 at 17:45; Stop 10/28/16 at 17:46 ; Status DC Lidocaine/Sodium Bicarbonate (Buffered Lidocaine 1%) 20 ml STK-MED ONCE IJ ; Start 10/28/16 at 16:42; Stop 10/28/16 at 16:43; Status DC Lorazepam (Ativan) 0.5 mg PRN Q6HRS PRN IV ANXIETY / AGITATION; Start 10/29/16 at 09:45; Status UNV Assessment Assessment 1. Sepsis with lactic acidosis/UTI-cholecystitis POA 2. Acute metabolic encephalopathy ARF/sepsis underlying dementia/hypernatremia 3. Urinary tract infection POA 4. Acute renal failure KALPANA VMN with CKD III 5. Seizure disorder with low Dilantin level of 3. 6. Diabetes mellitus type 2. 7. Dementia. 8. Paranoid schizophrenia. 9. severe weakness and debility with limited mobility 10. severe with underlying Moderate malnutrition. 11. Peripheral vascular disease. 12. Hyperlipidemia. 13. Malignant hypertension not POA 14. Gastroesophageal reflux disease. 15. Osteoporosis. 16. Vitamin D deficiency. 17. Legal blindness. 18. Hypernatremia NA 151 POA PLAN: sepsis with lactic acidosis UTI/choleycystitis POA ID consulted Zosyn IV Admit WBC 29.8 10/29 16.0 BC and urine CS negative Tm 100.2 previous 24 hour repeat UA neg nitrite, + blood, WBC 1-4 improved Urine cult 10/24 negative Surgical consult-no surgical intervention at this time, consider PIPIDA and IR for cholecystostomy tube placement PIPIDA abnormal, scan reviewed cholecystostomy tube placed 10/28 with 20cc christian pus Abnormal CXR CXR RLL atelectasis vs [id number] nebulizer pulmonary consult CT chest w/o: Small right pleural effusion and trace left. Volume loss at the right lung base may reflect atelectasis or pneumonia. Minimal volume loss at the left lung base likely atelectasis 10/26-pulmonary signed off ARF KALPANA VMN CKDIII, hypernatremia Admit BUN 34 10/27 27 Cr 2.4 1.7 Na 137 145 K 3.8 3.5 IV D51/4NS 125cc/hr-DC 10/24 renal consulted no Lasix 10/24 hypokalemia- K ordered q6h, range 3.2-3.5. Per nephrology DM II FSBS Admit Novolog 10u tid ac-stopped 10/29 not eating Admit Levemir 22u bid - reduced to 10u BID 10/29 hold BS less than or equal to 100 BS 100-140 Levemir held 10/27 pm due to NPO seizure disorder Cerebyx IV Depakote IV Dilantin IV seizure precautions malignant HTN continue NH meds not taking oral consistently Lisinopril 5mg po NH-Begin Vasotec 1.25mg IV q 6hr hold SBP <120 hydralazine prn anticoagulation Admit INR 3.0 10/28 1.3 pharmacy managing INR 10/23 7.6 abd mild distention/cholecystitis POA no BM since prior to admit Dulcolax supp 10/24--small hard stool mod amount 10/25 Distention worse, abdomen firmer, BS hypoactive +GS per CXR-check amylase Repeat Dulcolax supp. and add miralax CT chest w/o contrast GB thickening with distention-will obtain GB US amylase 14 BM + 10/25 after Dulcolax cholecystitis-surgical evaluated 10/26-no surgery PIPIDA abnormal, placed cholecystostomy tube 10/28 severe with underlying chronic PCL malnutrition continue diet PPN added 10/24-restarted 10/28 poor po intake, not swallowing tongue ? swollen ?begin TPN -minimal oral intake since admit. DVT/GI prophylaxis warfarin PPI Reviewed medications-stopped all oral meds except psych meds Current MS affected by sepsis and psych history-has not been taking psych meds Cogentin, BuSpar, Thorazine, and Klonopin Changed Protonix to Pepcid IV Started Vasotec IV for BP Begin Dulcolax supp 10mg daily Tylenol changed to rectal Prognosis poor For more details regarding further plans, please refer to the orders. Plan Plan For more details regarding further plans, please refer to the orders. PABLO ROJAS MD 10/29/16 1022: IM PROGRESS NOTES- Assessment Assessment still very lethargic.No oral intake/meds. Cholecystostomy done yesterday. Start TPN and stop PPN. Prognosis is poor. The patient was seen and examined by me. Chart reviewed and plan of care formulated. Discussed with, reviewed and agree with GLUE SPECIALTY SUPERVISOR's notes, plan of care and orders with modifications as necessary. For more details regarding further plans, please refer to the orders. MILLIE HEAD APRN Oct 29, 2016 10:06 PABLO ROJAS MD Oct 29, 2016 10:22
[2016-10-29] MEDS ORDERED: TPN PER PHARMACY MC PRN (10:30)
[2016-10-29 10:43] VITALS: BP 161/85
[2016-10-29] MEDS: ENALAPRILAT 1.25 MG/ML VIAL. IV SCH ×2 (11:50→18:04)
[2016-10-29 13:34] LABS: CALCIUM 8.5 mg/dL (8.5-10.1); CREATININE 1.5 mg/dL (0.6-1.0); POTASSIUM 3.5 mmol/L (3.5-5.1)
[2016-10-29 13:41] LABS: ALBUMIN 1.6 g/dL (3.4-5.0); ALBUMIN/GLOBULIN RATIO 0.3 (1.0-1.7); PHOSPHORUS 3.8 mg/dL (2.6-4.7); TOTAL BILIRUBIN 0.3 mg/dL (0.2-1.0); TOTAL PROTEIN 7.4 g/dL (6.4-8.2)
--- NOTE | 2016-10-29 14:22 | PDOC ---
Infectious Disease Note Subjective Subjective s/p cholecystostomy tube placement Unresponsive to verbal stimuli No fever TPN ROS ROS Unobtainable Vital Sign Vital Signs Vital Signs Date Time Temp Pulse Resp B/P Pulse Ox O2 Delivery O2 Flow Rate FiO2 10/29/16 11:50 86 161/85 10/29/16 10:43 98.7 16 98 Nasal Cannula 2.0 98.7 Physical Exam PHYSICAL EXAM GENERAL: Eyes opens, NAD LUNGS: Clear HEART: S1S2 ABD: Obese, BS present, soft, No grimace or guarding to palpation. RUQ tube in place. EXT: Generalized edema. No cyanosis. ELECTRO MECHANICAL DESIGNER: Unresponsive SKIN: No rash IV: ok Labs Lab Laboratory Tests Test 10/28/16 16:08 10/28/16 20:46 10/29/16 07:32 10/29/16 08:00 Glucose (Fingerstick) 116mg/dL (70-99) 113mg/dL (70-99) 100mg/dL (70-99) White Blood Count 16.0x10^3/uL (4.0-11.0) Red Blood Count 3.34x10^6/uL (3.50-5.40) Hemoglobin 9.0g/dL (12.0-15.5) Hematocrit 28.0% (36.0-47.0) Mean Corpuscular Volume 84fL (79-100) Mean Corpuscular Hemoglobin 27pg (25-35) Mean Corpuscular Hemoglobin Concent 32g/dL (31-37) Red Cell Distribution Width 16.1% (11.5-14.5) Platelet Count 500x10^3/uL (140-400) Neutrophils (%) (Auto) 76% (31-73) Lymphocytes (%) (Auto) 14% (24-48) Monocytes (%) (Auto) 10% (0-9) Eosinophils (%) (Auto) 0% (0-3) Basophils (%) (Auto) 1% (0-3) Neutrophils # (Auto) 12.1x10^3uL (1.8-7.7) Lymphocytes # (Auto) 2.2x10^3/uL (1.0-4.8) Monocytes # (Auto) 1.6x10^3/uL (0.0-1.1) Eosinophils # (Auto) 0.0x10^3/uL (0.0-0.7) Basophils # (Auto) 0.1x10^3/uL (0.0-0.2) Prothrombin Time 15.3SEC (11.7-14.0) Prothromb Time International Ratio 1.3 (0.8-1.1) Magnesium Level 1.9mg/dL (1.8-2.4) Test 10/29/16 11:38 10/29/16 13:10 Glucose (Fingerstick) 126mg/dL (70-99) Sodium Level 146mmol/L (136-145) Potassium Level 3.5mmol/L (3.5-5.1) Chloride Level 107mmol/L (98-107) Carbon Dioxide Level 31mmol/L (21-32) Anion Gap 8 (6-14) Blood Urea Nitrogen 28mg/dL (7-20) Creatinine 1.5mg/dL (0.6-1.0) Estimated GFR (Cockcroft-Gault) 43.0 BUN/Creatinine Ratio 19 (6-20) Glucose Level 128mg/dL (70-99) Calcium Level 8.5mg/dL (8.5-10.1) Phosphorus Level 3.8mg/dL (2.6-4.7) Total Bilirubin 0.3mg/dL (0.2-1.0) Aspartate Amino Transf (AST/SGOT) 16U/L (15-37) Alanine Aminotransferase (ALT/SGPT) 11U/L (14-59) Alkaline Phosphatase 93U/L (46-116) Total Protein 7.4g/dL (6.4-8.2) Albumin 1.6g/dL (3.4-5.0) Albumin/Globulin Ratio 0.3 (1.0-1.7) Micro Gallbladder GRAM STAIN Final WBCS MANY GRAM NEGATIVE RODS MOD Objective Assessment Sepsis with lactic acidosis. POA improved Fever. - better ? cholecystitis. s/p cholecystostomy tube placement, 10/28. GNR Leukocytosis mild increase ? reactive. KALPANA - better UTI. POA. UC neg Encephalopathy CVA MRSA positive Seizure disorder Diabetes Plan Plan of Care Continue Zosyn F/u labs Await GNR ID DNR Patient seen and examined. Chart reviewed. Case discussed with TECHNICAL SOLUTIONS DIRECTOR. Agree with above plan. TIMUR CASTRO APRN Oct 29, 2016 14:22 AMANDO MINA MD Oct 29, 2016 23:03
[2016-10-29 15:12] VITALS: BP 147/78
[2016-10-29 19:55] VITALS: BP 143/84
[2016-10-29] MEDS: CHLORPROMAZINE 25 MG PO SCH ×2 (21:00)
[2016-10-29] MEDS: CLONAZEPAM 0.5 MG TABLET PO SCH (21:00)
[2016-10-29 22:29] VITALS: BP 151/87
--- NOTE | 2016-10-29 23:12 | PDOC ---
Provider Note Provider Note RENAL F/U : KYLEE S : Doing fair No new c/o O : VSS Afebrile. Awake. Not fully alert. Neck : Supple Lungs : Non labored. Slightly decreased bases. CVS : RRR Abd : Soft. Benign in appearance Ext : No edema/ trace. Neuro : No major focal issues Labs, meds, I/Os reviewed. A/P ARF/ATN HTN with CKD CKD III DEHYDRATION. Doing better. Labs I/Os Supportive care. Renal status better/stable. ROBERTO CARLOS PICHARDO MD Oct 29, 2016 23:11
[2016-10-30] MEDS: ENALAPRILAT 1.25 MG/ML VIAL. IV SCH ×4 (00:40→18:26)
[2016-10-30] MEDS: NORMAL SALINE IV SCH ×4 (00:41→20:46)
[2016-10-30] MEDS: VALPROIC ACID IV SCH ×4 (00:41→20:46)
[2016-10-30] MEDS: PIPERACILLIN/TAZOBACTAM 3.375 GM in IV NORMAL SALINE 50ML 50 ML IV SCH ×5 (02:00→23:57)
[2016-10-30 02:51] VITALS: BP 142/84
[2016-10-30] MEDS: FOSPHENYTOIN 100 MG/2 ML VIAL IV SCH ×3 (05:44→22:42)
[2016-10-30 08:00] VITALS: BP 141/74
[2016-10-30] MEDS: BENZTROPINE MESYLATE 1 MG TABLET PO SCH (09:00)
[2016-10-30] MEDS: busPIRone 5 MG TABLET. PO SCH ×3 (09:00→20:47)
[2016-10-30] MEDS: AA 3%/ELECTROLYTE-TPN SOLN/GLY 1,000 ML IV SCH ×2 (09:32→15:15)
[2016-10-30] MEDS: POLYVINYL ALCOHOL 1.4% OPHTH SOLUTION 15ML BOTTLE. OU SCH ×4 (09:33→20:46)
[2016-10-30] MEDS: FAMOTIDINE 20 MG/2 ML VIAL IVP SCH (09:33)
[2016-10-30 09:53] LABS: BASO # 0.1 x10^3/uL (0.0-0.2); BASO % 1 % (0-3); EOS % 0 % (0-3); HEMATOCRIT 27.5 % (36.0-47.0); HEMOGLOBIN 9.1 g/dL (12.0-15.5); LYMPH # 2.5 x10^3/uL (1.0-4.8); LYMPH % 15 % (24-48); MEAN CORPUSCULAR HEMOGLOBIN 27 pg (25-35); MEAN CORPUSCULAR HGB CONC 33 g/dL (31-37); MEAN CORPUSCULAR VOLUME 83 fL (79-100); MONO % 10 % (0-9); NEUT % 74 % (31-73); PLATELET COUNT 534 x10^3/uL (140-400); RED BLOOD COUNT 3.33 x10^6/uL (3.50-5.40); RED CELL DISTRIBUTION WIDTH 16.2 % (11.5-14.5); WHITE BLOOD COUNT 16.3 x10^3/uL (4.0-11.0)
[2016-10-30 10:26] LABS: ALBUMIN 1.6 g/dL (3.4-5.0); ALBUMIN/GLOBULIN RATIO 0.3 (1.0-1.7); CALCIUM 8.6 mg/dL (8.5-10.1); CREATININE 1.3 mg/dL (0.6-1.0); GFR 50.7; POTASSIUM 3.1 mmol/L (3.5-5.1); TOTAL BILIRUBIN 0.3 mg/dL (0.2-1.0); TOTAL PROTEIN 6.9 g/dL (6.4-8.2)
[2016-10-30 11:15] VITALS: BP 148/83
--- NOTE | 2016-10-30 12:18 | PDOC ---
IM PROGRESS NOTES- Subjective Subjective Opens eyes,no other response. Objective Objective no response to verbal Vitals Vital Signs Date Time Temp Pulse Resp B/P Pulse Ox O2 Delivery O2 Flow Rate FiO2 10/30/16 08:00 98.5 78 20 141/74 100 Nasal Cannula 2.0 98.5 Input & Output Intake and Output 10/30/16 07:00 Intake Total 320.7 ml Output Total 1695 ml Balance -1374.3 ml Intake Oral 0 ml IV Total 320.7 ml Output Urine Total 1500 ml Drainage Total 195 ml # Bowel Movements 2 Physical Exam Physical Exam GENERAL:lethargic,opens eyes,not following commands. HEAD: normocephalic LUNGS: Decreased breath sounds at bases. CARDIOVASCULAR: S1 and S2 regular. ABDOMEN: Soft, obese, nontender,BS increased slightly, cholecystostomy tube serous bloody EXTREMITIES: + edema. CENTRAL NERVOUS SYSTEM: awake, no response to verbal, not tracking SKIN: Warm and dry. 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 Labs Laboratory Tests Test 10/28/16 16:08 10/28/16 20:46 10/29/16 07:32 10/29/16 08:00 Glucose (Fingerstick) 116mg/dL (70-99) 113mg/dL (70-99) 100mg/dL (70-99) White Blood Count 16.0x10^3/uL (4.0-11.0) Red Blood Count 3.34x10^6/uL (3.50-5.40) Hemoglobin 9.0g/dL (12.0-15.5) Hematocrit 28.0% (36.0-47.0) Mean Corpuscular Volume 84fL (79-100) Mean Corpuscular Hemoglobin 27pg (25-35) Mean Corpuscular Hemoglobin Concent 32g/dL (31-37) Red Cell Distribution Width 16.1% (11.5-14.5) Platelet Count 500x10^3/uL (140-400) Neutrophils (%) (Auto) 76% (31-73) Lymphocytes (%) (Auto) 14% (24-48) Monocytes (%) (Auto) 10% (0-9) Eosinophils (%) (Auto) 0% (0-3) Basophils (%) (Auto) 1% (0-3) Neutrophils # (Auto) 12.1x10^3uL (1.8-7.7) Lymphocytes # (Auto) 2.2x10^3/uL (1.0-4.8) Monocytes # (Auto) 1.6x10^3/uL (0.0-1.1) Eosinophils # (Auto) 0.0x10^3/uL (0.0-0.7) Basophils # (Auto) 0.1x10^3/uL (0.0-0.2) Prothrombin Time 15.3SEC (11.7-14.0) Prothromb Time International Ratio 1.3 (0.8-1.1) Magnesium Level 1.9mg/dL (1.8-2.4) Test 10/29/16 11:38 10/29/16 13:10 10/29/16 20:39 10/30/16 07:38 Glucose (Fingerstick) 126mg/dL (70-99) 127mg/dL (70-99) 108mg/dL (70-99) Sodium Level 146mmol/L (136-145) Potassium Level 3.5mmol/L (3.5-5.1) Chloride Level 107mmol/L (98-107) Carbon Dioxide Level 31mmol/L (21-32) Anion Gap 8 (6-14) Blood Urea Nitrogen 28mg/dL (7-20) Creatinine 1.5mg/dL (0.6-1.0) Estimated GFR (Cockcroft-Gault) 43.0 BUN/Creatinine Ratio 19 (6-20) Glucose Level 128mg/dL (70-99) Calcium Level 8.5mg/dL (8.5-10.1) Phosphorus Level 3.8mg/dL (2.6-4.7) Total Bilirubin 0.3mg/dL (0.2-1.0) Aspartate Amino Transf (AST/SGOT) 16U/L (15-37) Alanine Aminotransferase (ALT/SGPT) 11U/L (14-59) Alkaline Phosphatase 93U/L (46-116) Total Protein 7.4g/dL (6.4-8.2) Albumin 1.6g/dL (3.4-5.0) Albumin/Globulin Ratio 0.3 (1.0-1.7) Test 10/30/16 09:00 1/22/17 09:25 10/30/16 11:34 Magnesium Level 2.0mg/dL (1.8-2.4) Triglycerides Level 254mg/dL (0-150) White Blood Count 16.3x10^3/uL (4.0-11.0) Red Blood Count 3.33x10^6/uL (3.50-5.40) Hemoglobin 9.1g/dL (12.0-15.5) Hematocrit 27.5% (36.0-47.0) Mean Corpuscular Volume 83fL (79-100) Mean Corpuscular Hemoglobin 27pg (25-35) Mean Corpuscular Hemoglobin Concent 33g/dL (31-37) Red Cell Distribution Width 16.2% (11.5-14.5) Platelet Count 534x10^3/uL (140-400) Neutrophils (%) (Auto) 74% (31-73) Lymphocytes (%) (Auto) 15% (24-48) Monocytes (%) (Auto) 10% (0-9) Eosinophils (%) (Auto) 0% (0-3) Basophils (%) (Auto) 1% (0-3) Neutrophils # (Auto) 12.0x10^3uL (1.8-7.7) Lymphocytes # (Auto) 2.5x10^3/uL (1.0-4.8) Monocytes # (Auto) 1.7x10^3/uL (0.0-1.1) Eosinophils # (Auto) 0.0x10^3/uL (0.0-0.7) Basophils # (Auto) 0.1x10^3/uL (0.0-0.2) Sodium Level 149mmol/L (136-145) Potassium Level 3.1mmol/L (3.5-5.1) Chloride Level 109mmol/L (98-107) Carbon Dioxide Level 31mmol/L (21-32) Anion Gap 9 (6-14) Blood Urea Nitrogen 26mg/dL (7-20) Creatinine 1.3mg/dL (0.6-1.0) Estimated GFR (Cockcroft-Gault) 50.7 BUN/Creatinine Ratio 20 (6-20) Glucose Level 111mg/dL (70-99) Calcium Level 8.6mg/dL (8.5-10.1) Total Bilirubin 0.3mg/dL (0.2-1.0) Aspartate Amino Transf (AST/SGOT) 15U/L (15-37) Alanine Aminotransferase (ALT/SGPT) 8U/L (14-59) Alkaline Phosphatase 78U/L (46-116) Total Protein 6.9g/dL (6.4-8.2) Albumin 1.6g/dL (3.4-5.0) Albumin/Globulin Ratio 0.3 (1.0-1.7) Glucose (Fingerstick) 130mg/dL (70-99) Laboratory Tests Test 10/29/16 13:10 10/29/16 20:39 10/30/16 07:38 10/30/16 09:00 Sodium Level 146mmol/L (136-145) Potassium Level 3.5mmol/L (3.5-5.1) Chloride Level 107mmol/L (98-107) Carbon Dioxide Level 31mmol/L (21-32) Anion Gap 8 (6-14) Blood Urea Nitrogen 28mg/dL (7-20) Creatinine 1.5mg/dL (0.6-1.0) Estimated GFR (Cockcroft-Gault) 43.0 BUN/Creatinine Ratio 19 (6-20) Glucose Level 128mg/dL (70-99) Calcium Level 8.5mg/dL (8.5-10.1) Phosphorus Level 3.8mg/dL (2.6-4.7) Total Bilirubin 0.3mg/dL (0.2-1.0) Aspartate Amino Transf (AST/SGOT) 16U/L (15-37) Alanine Aminotransferase (ALT/SGPT) 11U/L (14-59) Alkaline Phosphatase 93U/L (46-116) Total Protein 7.4g/dL (6.4-8.2) Albumin 1.6g/dL (3.4-5.0) Albumin/Globulin Ratio 0.3 (1.0-1.7) Glucose (Fingerstick) 127mg/dL (70-99) 108mg/dL (70-99) Magnesium Level 2.0mg/dL (1.8-2.4) Triglycerides Level 254mg/dL (0-150) Test 10/30/16 09:25 10/30/16 11:34 White Blood Count 16.3x10^3/uL (4.0-11.0) Red Blood Count 3.33x10^6/uL (3.50-5.40) Hemoglobin 9.1g/dL (12.0-15.5) Hematocrit 27.5% (36.0-47.0) Mean Corpuscular Volume 83fL (79-100) Mean Corpuscular Hemoglobin 27pg (25-35) Mean Corpuscular Hemoglobin Concent 33g/dL (31-37) Red Cell Distribution Width 16.2% (11.5-14.5) Platelet Count 534x10^3/uL (140-400) Neutrophils (%) (Auto) 74% (31-73) Lymphocytes (%) (Auto) 15% (24-48) Monocytes (%) (Auto) 10% (0-9) Eosinophils (%) (Auto) 0% (0-3) Basophils (%) (Auto) 1% (0-3) Neutrophils # (Auto) 12.0x10^3uL (1.8-7.7) Lymphocytes # (Auto) 2.5x10^3/uL (1.0-4.8) Monocytes # (Auto) 1.7x10^3/uL (0.0-1.1) Eosinophils # (Auto) 0.0x10^3/uL (0.0-0.7) Basophils # (Auto) 0.1x10^3/uL (0.0-0.2) Sodium Level 149mmol/L (136-145) Potassium Level 3.1mmol/L (3.5-5.1) Chloride Level 109mmol/L (98-107) Carbon Dioxide Level 31mmol/L (21-32) Anion Gap 9 (6-14) Blood Urea Nitrogen 26mg/dL (7-20) Creatinine 1.3mg/dL (0.6-1.0) Estimated GFR (Cockcroft-Gault) 50.7 BUN/Creatinine Ratio 20 (6-20) Glucose Level 111mg/dL (70-99) Calcium Level 8.6mg/dL (8.5-10.1) Total Bilirubin 0.3mg/dL (0.2-1.0) Aspartate Amino Transf (AST/SGOT) 15U/L (15-37) Alanine Aminotransferase (ALT/SGPT) 8U/L (14-59) Alkaline Phosphatase 78U/L (46-116) Total Protein 6.9g/dL (6.4-8.2) Albumin 1.6g/dL (3.4-5.0) Albumin/Globulin Ratio 0.3 (1.0-1.7) Glucose (Fingerstick) 130mg/dL (70-99) Meds Current Medications Famotidine (Pepcid) 20 mg DAILY IVP Last administered on 10/30/16 09:33; Start 10/30/16 at 09:00 Info 1 each 1 each PRN DAILY PRN MC SEE COMMENTS; Start 10/30/16 at 09:00 Insulin Detemir (Levemir) 10 units QHS SQ Last administered on 10/29/16 21:19 ; Start 10/29/16 at 21:00 Potassium Chloride (KCl Premix 10meq) 100 ml @ 100 mls/hr Q1H IV ; Start at 11:00; Stop 10/30/16 at 12:59 Assessment Assessment still very lethargic.No oral intake/ started taking meds. s/p Cholecystostomy. Start TPN and stop PPN. Awaiting PICC line placement. D/c Chlorpromazine and Clonazepam due to lethargy. Prognosis is poor. For more details regarding further plans, please refer to the orders. Plan Plan For more details regarding further plans, please refer to the orders. PABLO ROJAS MD Oct 30, 2016 12:18
[2016-10-30] MEDS ORDERED: D5W IV ONE (12:30)
[2016-10-30] MEDS ORDERED: POTASSIUM CL IV ONE (12:30)
[2016-10-30] MEDS: POTASSIUM CHLORIDE 10MEQ 100 ML IV SCH ×3 (13:08→15:28)
[2016-10-30 15:00] VITALS: BP 150/72
--- NOTE | 2016-10-30 17:04 | PDOC ---
Provider Note Provider Note Provider Note RENAL F/U : KYLEE S : Doing fair No new c/o O : VSS Afebrile. Awake. Not fully alert. Neck : Supple Lungs : Non labored. Slightly decreased bases. CVS : RRR Abd : Soft. Benign in appearance Ext : No edema/ trace. Neuro : No major focal issues Labs, meds, I/Os reviewed. A/P ARF/ATN HTN with CKD CKD III DEHYDRATION. Doing better. Labs I/Os Supportive care. Renal status better/stable. ROBERTO CARLOS PICHARDO MD Oct 30, 2016 17:04
[2016-10-30 19:00] VITALS: BP 167/85
[2016-10-30] MEDS: INSULIN DETEMIR 300 UNITS/3 ML INSULN.PEN. SQ SCH (21:01)
[2016-10-30 23:00] VITALS: BP 165/93
[2016-10-31] MEDS: ENALAPRILAT 1.25 MG/ML VIAL. IV SCH ×4 (00:51→19:51)
[2016-10-31] MEDS: NORMAL SALINE IV SCH ×4 (01:00→18:00)
[2016-10-31] MEDS: VALPROIC ACID IV SCH ×4 (01:00→18:00)
[2016-10-31 03:00] VITALS: BP 148/76
[2016-10-31] MEDS: PIPERACILLIN/TAZOBACTAM 3.375 GM in IV NORMAL SALINE 50ML 50 ML IV SCH ×3 (05:19→19:36)
[2016-10-31] MEDS: FOSPHENYTOIN 100 MG/2 ML VIAL IV SCH ×3 (06:13→22:06)
[2016-10-31 07:35] VITALS: BP 152/82
--- NOTE | 2016-10-31 09:02 | PDOC ---
MILLIE HEAD UROLOGY PHYSICIAN 10/31/16 0902: IM PROGRESS NOTES- Subjective Subjective Opens eyes, more alert Objective Objective no response to verbal Vitals Vital Signs Date Time Temp Pulse Resp B/P Pulse Ox O2 Delivery O2 Flow Rate FiO2 10/31/16 07:40 Nasal Cannula 2.0 10/31/16 07:35 98.2 74 17 152/82 100 98.2 Input & Output Intake and Output 10/31/16 07:00 Intake Total 173.8 ml Output Total 1635 ml Balance -1461.2 ml Intake Oral 0 ml IV Total 163.8 ml Other 10 ml Output Urine Total 1525 ml Drainage Total 110 ml Physical Exam Physical Exam GENERAL:lethargic,opens eyes,not following commands. HEAD: normocephalic LUNGS: Decreased breath sounds at bases. CARDIOVASCULAR: S1 and S2 regular. ABDOMEN: Soft, obese, nontender,BS increased slightly, cholecystostomy tube serous bloody EXTREMITIES: + edema. CENTRAL NERVOUS SYSTEM: awake, no response to verbal, not tracking SKIN: Warm and dry. 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 Labs Laboratory Tests Test 10/29/16 11:38 10/29/16 13:10 10/29/16 16:44 10/29/16 20:39 Glucose (Fingerstick) 126mg/dL (70-99) 119mg/dL (70-99) 127mg/dL (70-99) Sodium Level 146mmol/L (136-145) Potassium Level 3.5mmol/L (3.5-5.1) Chloride Level 107mmol/L (98-107) Carbon Dioxide Level 31mmol/L (21-32) Anion Gap 8 (6-14) Blood Urea Nitrogen 28mg/dL (7-20) Creatinine 1.5mg/dL (0.6-1.0) Estimated GFR (Cockcroft-Gault) 43.0 BUN/Creatinine Ratio 19 (6-20) Glucose Level 128mg/dL (70-99) Calcium Level 8.5mg/dL (8.5-10.1) Phosphorus Level 3.8mg/dL (2.6-4.7) Total Bilirubin 0.3mg/dL (0.2-1.0) Aspartate Amino Transf (AST/SGOT) 16U/L (15-37) Alanine Aminotransferase (ALT/SGPT) 11U/L (14-59) Alkaline Phosphatase 93U/L (46-116) Total Protein 7.4g/dL (6.4-8.2) Albumin 1.6g/dL (3.4-5.0) Albumin/Globulin Ratio 0.3 (1.0-1.7) Test 10/30/16 07:38 10/30/16 09:00 10/30/16 09:25 10/30/16 11:34 Glucose (Fingerstick) 108mg/dL (70-99) 130mg/dL (70-99) Magnesium Level 2.0mg/dL (1.8-2.4) Triglycerides Level 254mg/dL (0-150) White Blood Count 16.3x10^3/uL (4.0-11.0) Red Blood Count 3.33x10^6/uL (3.50-5.40) Hemoglobin 9.1g/dL (12.0-15.5) Hematocrit 27.5% (36.0-47.0) Mean Corpuscular Volume 83fL (79-100) Mean Corpuscular Hemoglobin 27pg (25-35) Mean Corpuscular Hemoglobin Concent 33g/dL (31-37) Red Cell Distribution Width 16.2% (11.5-14.5) Platelet Count 534x10^3/uL (140-400) Neutrophils (%) (Auto) 74% (31-73) Lymphocytes (%) (Auto) 15% (24-48) Monocytes (%) (Auto) 10% (0-9) Eosinophils (%) (Auto) 0% (0-3) Basophils (%) (Auto) 1% (0-3) Neutrophils # (Auto) 12.0x10^3uL (1.8-7.7) Lymphocytes # (Auto) 2.5x10^3/uL (1.0-4.8) Monocytes # (Auto) 1.7x10^3/uL (0.0-1.1) Eosinophils # (Auto) 0.0x10^3/uL (0.0-0.7) Basophils # (Auto) 0.1x10^3/uL (0.0-0.2) Sodium Level 149mmol/L (136-145) Potassium Level 3.1mmol/L (3.5-5.1) Chloride Level 109mmol/L (98-107) Carbon Dioxide Level 31mmol/L (21-32) Anion Gap 9 (6-14) Blood Urea Nitrogen 26mg/dL (7-20) Creatinine 1.3mg/dL (0.6-1.0) Estimated GFR (Cockcroft-Gault) 50.7 BUN/Creatinine Ratio 20 (6-20) Glucose Level 111mg/dL (70-99) Calcium Level 8.6mg/dL (8.5-10.1) Total Bilirubin 0.3mg/dL (0.2-1.0) Aspartate Amino Transf (AST/SGOT) 15U/L (15-37) Alanine Aminotransferase (ALT/SGPT) 8U/L (14-59) Alkaline Phosphatase 78U/L (46-116) Total Protein 6.9g/dL (6.4-8.2) Albumin 1.6g/dL (3.4-5.0) Albumin/Globulin Ratio 0.3 (1.0-1.7) Test 10/30/16 16:33 10/30/16 20:48 10/30/16 21:07 Glucose (Fingerstick) 176mg/dL (70-99) 151mg/dL (70-99) 151mg/dL (70-99) Laboratory Tests Test 10/30/16 09:00 10/30/16 09:25 10/30/16 11:34 10/30/16 16:33 Magnesium Level 2.0mg/dL (1.8-2.4) Triglycerides Level 254mg/dL (0-150) White Blood Count 16.3x10^3/uL (4.0-11.0) Red Blood Count 3.33x10^6/uL (3.50-5.40) Hemoglobin 9.1g/dL (12.0-15.5) Hematocrit 27.5% (36.0-47.0) Mean Corpuscular Volume 83fL (79-100) Mean Corpuscular Hemoglobin 27pg (25-35) Mean Corpuscular Hemoglobin Concent 33g/dL (31-37) Red Cell Distribution Width 16.2% (11.5-14.5) Platelet Count 534x10^3/uL (140-400) Neutrophils (%) (Auto) 74% (31-73) Lymphocytes (%) (Auto) 15% (24-48) Monocytes (%) (Auto) 10% (0-9) Eosinophils (%) (Auto) 0% (0-3) Basophils (%) (Auto) 1% (0-3) Neutrophils # (Auto) 12.0x10^3uL (1.8-7.7) Lymphocytes # (Auto) 2.5x10^3/uL (1.0-4.8) Monocytes # (Auto) 1.7x10^3/uL (0.0-1.1) Eosinophils # (Auto) 0.0x10^3/uL (0.0-0.7) Basophils # (Auto) 0.1x10^3/uL (0.0-0.2) Sodium Level 149mmol/L (136-145) Potassium Level 3.1mmol/L (3.5-5.1) Chloride Level 109mmol/L (98-107) Carbon Dioxide Level 31mmol/L (21-32) Anion Gap 9 (6-14) Blood Urea Nitrogen 26mg/dL (7-20) Creatinine 1.3mg/dL (0.6-1.0) Estimated GFR (Cockcroft-Gault) 50.7 BUN/Creatinine Ratio 20 (6-20) Glucose Level 111mg/dL (70-99) Calcium Level 8.6mg/dL (8.5-10.1) Total Bilirubin 0.3mg/dL (0.2-1.0) Aspartate Amino Transf (AST/SGOT) 15U/L (15-37) Alanine Aminotransferase (ALT/SGPT) 8U/L (14-59) Alkaline Phosphatase 78U/L (46-116) Total Protein 6.9g/dL (6.4-8.2) Albumin 1.6g/dL (3.4-5.0) Albumin/Globulin Ratio 0.3 (1.0-1.7) Glucose (Fingerstick) 130mg/dL (70-99) 176mg/dL (70-99) Test 10/30/16 20:48 10/30/16 21:07 Glucose (Fingerstick) 151mg/dL (70-99) 151mg/dL (70-99) Meds Current Medications Famotidine (Pepcid) 20 mg DAILY IVP Last administered on 10/30/16 09:33; Start 10/30/16 at 09:00 Info 1 each 1 each PRN DAILY PRN MC SEE COMMENTS; Start 10/30/16 at 09:00 Potassium Chloride/Dextrose (KCl 20 Meq In D5W) 500 ml @ 150 mls/hr 1X ONCE IV Last administered on 10/30/16 13:08; Start 10/30/16 at 12:30; Stop at 15:49; Status DC Potassium Chloride 100 ml @ 100 mls/hr Q1H IV Last administered on 10/30/16 15:28; Start 10/30/16 at 11:00; Stop 10/30/16 at 12:59; Status DC Assessment Assessment Assessment 1. Sepsis with lactic acidosis/UTI-cholecystitis POA 2. Acute metabolic encephalopathy ARF/sepsis underlying dementia/hypernatremia 3. Urinary tract infection POA 4. Acute renal failure KALPANA VMN with CKD III 5. Seizure disorder with low Dilantin level of 3. 6. Diabetes mellitus type 2. 7. Dementia. 8. Paranoid schizophrenia. 9. severe weakness and debility with limited mobility 10. severe with underlying Moderate malnutrition. 11. Peripheral vascular disease. 12. Hyperlipidemia. 13. Malignant hypertension not POA 14. Gastroesophageal reflux disease. 15. Osteoporosis. 16. Vitamin D deficiency. 17. Legal blindness. 18. Hypernatremia NA 151 POA PLAN: sepsis with lactic acidosis UTI/choleycystitis POA ID consulted Zosyn IV Admit WBC 29.8 10/30 16.3 BC and urine CS negative Tm 100.2 previous 24 hour repeat UA neg nitrite, + blood, WBC 1-4 improved Urine cult 10/24 negative Surgical consult-no surgical intervention at this time, consider PIPIDA and IR for cholecystostomy tube placement PIPIDA abnormal, scan reviewed cholecystostomy tube placed 10/28 with 20cc christian pus +grm neg rods ID pending Abnormal CXR CXR RLL atelectasis vs [id number] nebulizer pulmonary consult CT chest w/o: Small right pleural effusion and trace left. Volume loss at the right lung base may reflect atelectasis or pneumonia. Minimal volume loss at the left lung base likely atelectasis 10/26-pulmonary signed off ARF KALPANA VMN CKDIII, hypernatremia Admit BUN 34 10/29 26 Cr 2.4 1.3 Na 137 149 K 3.8 3.1 IV D51/4NS 125cc/hr-DC 10/24 renal consulted no Lasix 10/24 hypokalemia- K ordered q6h, range 3.2-3.5. Per nephrology DM II FSBS Admit Novolog 10u tid ac-stopped 10/29 not eating Admit Levemir 22u bid - reduced to 10u BID 10/29 hold BS less than or equal to 100 BS 111-176 Levemir held 10/27 pm due to NPO seizure disorder Cerebyx IV Depakote IV Dilantin IV seizure precautions malignant HTN continue NH meds not taking oral consistently Lisinopril 5mg po NH-Begin Vasotec 1.25mg IV q 6hr hold SBP <120 hydralazine prn anticoagulation Admit INR 3.0 10/29 1.3 pharmacy managing INR 10/23 7.6 abd mild distention/cholecystitis POA no BM since prior to admit Dulcolax supp 10/24--small hard stool mod amount 10/25 Distention worse, abdomen firmer, BS hypoactive +GS per CXR-check amylase Repeat Dulcolax supp. and add miralax CT chest w/o contrast GB thickening with distention-will obtain GB US amylase 14 BM + 10/25 after Dulcolax cholecystitis-surgical evaluated 10/26-no surgery PIPIDA abnormal, placed cholecystostomy tube 10/28 severe with underlying chronic PCL malnutrition continue diet PPN added 10/24-restarted 10/28 poor po intake, not swallowing Initiate TPN when PICC placed and stop PPN -minimal oral intake since admit. DVT/GI prophylaxis warfarin PPI Prognosis poor Lab Pending 10/31 For more details regarding further plans, please refer to the orders. still very lethargic.No oral intake/ started taking meds. s/p Cholecystostomy. Start TPN and stop PPN. Awaiting PICC line placement. D/c Chlorpromazine and Clonazepam due to lethargy. Prognosis is poor. For more details regarding further plans, please refer to the orders. Plan Plan For more details regarding further plans, please refer to the orders. PABLO ROJAS MD 10/31/16 1025: IM PROGRESS NOTES- Assessment Assessment Non verbal.Not taking meds.Unable to do systems review. The patient was seen and examined by me. Chart reviewed and plan of care formulated. Discussed with, reviewed and agree with FACIALIST's notes, plan of care and orders with modifications as necessary. For more details regarding further plans, please refer to the orders. MILLIE HEAD APRN Oct 31, 2016 09:02 PABLO ROJAS MD Oct 31, 2016 10:25
[2016-10-31] MEDS: BENZTROPINE MESYLATE 1 MG TABLET PO SCH (09:50)
[2016-10-31] MEDS: busPIRone 5 MG TABLET. PO SCH ×3 (09:50→22:06)
[2016-10-31] MEDS: POLYVINYL ALCOHOL 1.4% OPHTH SOLUTION 15ML BOTTLE. OU SCH ×4 (10:00→22:05)
[2016-10-31] MEDS: FAMOTIDINE 20 MG/2 ML VIAL IVP SCH (10:00)
[2016-10-31 10:02] LABS: INR 1.2 (0.8-1.1); PROTHROMBIN TIME PATIENT 14.9 SEC (11.7-14.0)
[2016-10-31 10:07] LABS: ALBUMIN/GLOBULIN RATIO 0.3 (1.0-1.7); CALCIUM 9.3 mg/dL (8.5-10.1); CREATININE 1.3 mg/dL (0.6-1.0); GFR 50.7; POTASSIUM 3.6 mmol/L (3.5-5.1); TOTAL BILIRUBIN 0.4 mg/dL (0.2-1.0); TOTAL PROTEIN 8.8 g/dL (6.4-8.2)
--- NOTE | 2016-10-31 10:07 | PDOC ---
Infectious Disease Note Subjective Subjective s/p cholecystostomy tube placement Unresponsive to verbal stimuli No fever TPN ROS ROS Unobtainable Vital Sign Vital Signs Vital Signs Date Time Temp Pulse Resp B/P Pulse Ox O2 Delivery O2 Flow Rate FiO2 10/31/16 07:40 Nasal Cannula 2.0 10/31/16 07:35 98.2 74 17 152/82 100 98.2 Physical Exam PHYSICAL EXAM GENERAL: Eyes opens, NAD LUNGS: Clear HEART: S1S2 ABD: Obese, BS present, soft, No grimace or guarding to palpation. RUQ tube in place. EXT: Generalized edema. No cyanosis. 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 POA improved Fever. - better ? cholecystitis - S/p Cholecystostomy tube 10/28. GNR and ? enterococcus Leukocytosis mild increase ? reactive. AF KALPANA - better UTI. POA. UC neg Encephalopathy - arousable only CVA MRSA positive Seizure disorder Diabetes Plan Plan of Care Continue Zosyn F/u labs Await GNR ID d/w micro should be available later today DNR KATIE NIÑO MD Oct 31, 2016 10:07
[2016-10-31 10:41] VITALS: BP 162/75
[2016-10-31] MEDS: POTASSIUM CHLORIDE 10MEQ 100 ML IV SCH ×2 (10:56→13:53)
[2016-10-31] MEDS: hydrALAZINE 20 MG/ML VIAL. IVP PRN (10:57)
[2016-10-31 11:03] LABS: BASO # 0.1 x10^3/uL (0.0-0.2); BASO % 1 % (0-3); EOS % 0 % (0-3); HEMATOCRIT 31.4 % (36.0-47.0); HEMOGLOBIN 10.2 g/dL (12.0-15.5); LYMPH # 1.9 x10^3/uL (1.0-4.8); LYMPH % 12 % (24-48); MEAN CORPUSCULAR HEMOGLOBIN 27 pg (25-35); MEAN CORPUSCULAR HGB CONC 33 g/dL (31-37); MEAN CORPUSCULAR VOLUME 84 fL (79-100); MONO % 11 % (0-9); NEUT % 76 % (31-73); PLATELET COUNT 458 x10^3/uL (140-400); RED BLOOD COUNT 3.76 x10^6/uL (3.50-5.40); RED CELL DISTRIBUTION WIDTH 16.1 % (11.5-14.5); WHITE BLOOD COUNT 15.7 x10^3/uL (4.0-11.0)
--- NOTE | 2016-10-31 11:23 | PDOC ---
Renal-Progress Notes Subjective Notes Notes NONE History of Present Illness Hx of present illness STABLE Vitals Vitals Vital Signs Date Time Temp Pulse Resp B/P Pulse Ox O2 Delivery O2 Flow Rate FiO2 10/31/16 10:57 79 162/75 10/31/16 10:41 98.1 17 99 Nasal Cannula 2.0 98.1 Weight Weight [ ] I.O. Intake and Output Intake and Output 10/31/16 07:00 Intake Total 173.8 ml Output Total 1635 ml Balance -1461.2 ml Intake Oral 0 ml IV Total 163.8 ml Other 10 ml Output Urine Total 1525 ml Drainage Total 110 ml Labs Labs Laboratory Tests Test 10/30/16 11:34 10/30/16 16:33 10/30/16 20:48 10/30/16 21:07 Glucose (Fingerstick) 130mg/dL (70-99) 176mg/dL (70-99) 151mg/dL (70-99) 151mg/dL (70-99) Test 10/31/16 09:35 10/31/16 10:55 Prothrombin Time 14.9SEC (11.7-14.0) Prothromb Time International Ratio 1.2 (0.8-1.1) Sodium Level 143mmol/L (136-145) Potassium Level 3.6mmol/L (3.5-5.1) Chloride Level 102mmol/L (98-107) Carbon Dioxide Level 32mmol/L (21-32) Anion Gap 9 (6-14) Blood Urea Nitrogen 22mg/dL (7-20) Creatinine 1.3mg/dL (0.6-1.0) Estimated GFR (Cockcroft-Gault) 50.7 BUN/Creatinine Ratio 17 (6-20) Glucose Level 149mg/dL (70-99) Calcium Level 9.3mg/dL (8.5-10.1) Magnesium Level 1.8mg/dL (1.8-2.4) Total Bilirubin 0.4mg/dL (0.2-1.0) Aspartate Amino Transf (AST/SGOT) 15U/L (15-37) Alanine Aminotransferase (ALT/SGPT) 9U/L (14-59) Alkaline Phosphatase 88U/L (46-116) Total Protein 8.8g/dL (6.4-8.2) Albumin 2.0g/dL (3.4-5.0) Albumin/Globulin Ratio 0.3 (1.0-1.7) White Blood Count 15.7x10^3/uL (4.0-11.0) Red Blood Count 3.76x10^6/uL (3.50-5.40) Hemoglobin 10.2g/dL (12.0-15.5) Hematocrit 31.4% (36.0-47.0) Mean Corpuscular Volume 84fL (79-100) Mean Corpuscular Hemoglobin 27pg (25-35) Mean Corpuscular Hemoglobin Concent 33g/dL (31-37) Red Cell Distribution Width 16.1% (11.5-14.5) Platelet Count 458x10^3/uL (140-400) Neutrophils (%) (Auto) 76% (31-73) Lymphocytes (%) (Auto) 12% (24-48) Monocytes (%) (Auto) 11% (0-9) Eosinophils (%) (Auto) 0% (0-3) Basophils (%) (Auto) 1% (0-3) Neutrophils # (Auto) 11.9x10^3uL (1.8-7.7) Lymphocytes # (Auto) 1.9x10^3/uL (1.0-4.8) Monocytes # (Auto) 1.7x10^3/uL (0.0-1.1) Eosinophils # (Auto) 0.0x10^3/uL (0.0-0.7) Basophils # (Auto) 0.1x10^3/uL (0.0-0.2) Micro Micro Microbiology 10/19/16 Blood Culture - Final, Complete NO GROWTH AFTER 5 DAYS 10/24/16 Urine Culture - Final, Complete 10/24/16 Urine Culture Result 1 (ELIZABETH) - Final, Complete 10/28/16 Anaerobic/Aerobic Culture, Resulted Pending 10/28/16 Anaerobic Culture Result 1 (ELIZABETH), Resulted Pending 10/28/16 Aerobic Culture - Final, Resulted 10/28/16 Aerobic Culture Result 1 (ELIZABETH) - Final, Resulted 10/28/16 Antimicrobic Susceptibility - Final, Resulted Review of Systems Constitutional: yes: alert, oriented, weakness Ears/Nose/Throat: Yes: no symptom reported Eyes: Yes: no symptom reported Pulmonary: Yes no symptom reported Cardiovascular: Yes no symptom reported Gastrointestional: Yes: no symptom reported Physical Exam General Appearance: no apparent distress Skin: warm Respiratory: decreased breath sounds Heart: S1S2, RRR Abdomen: soft, bowel sounds present Extremities: pulses present Musculoskeletal: Other Assessment Assessment IMP [place]-IMPROVING DEHYDRATION HYPOKALEMIA HYPERNATREMIA MET ENCEPHALOPATHY URINARY TRACT INFECTION PLAN ANTIBIOTICS IVF'S/PPN MICHAEL BURRIS MD Oct 31, 2016 11:23
--- NOTE | 2016-10-31 11:25 | PDOC ---
SHAKILA MARSHALL ETHYLBENZENE CONVERTER HELPER 10/31/16 1125: SURGICAL PROGRESS NOTE Subjective nonverbal Vital Signs Vital Signs Date Time Temp Pulse Resp B/P Pulse Ox O2 Delivery O2 Flow Rate FiO2 10/31/16 10:57 79 162/75 10/31/16 10:41 98.1 17 99 Nasal Cannula 2.0 98.1 I&O Intake and Output 10/31/16 07:00 Intake Total 173.8 ml Output Total 1635 ml Balance -1461.2 ml Intake Oral 0 ml IV Total 163.8 ml Other 10 ml Output Urine Total 1525 ml Drainage Total 110 ml General: No acute distress Abdomen: Soft, Other (c tube in place) Labs Laboratory Tests Test 10/29/16 11:38 10/29/16 13:10 10/29/16 16:44 10/29/16 20:39 Glucose (Fingerstick) 126mg/dL (70-99) 119mg/dL (70-99) 127mg/dL (70-99) Sodium Level 146mmol/L (136-145) Potassium Level 3.5mmol/L (3.5-5.1) Chloride Level 107mmol/L (98-107) Carbon Dioxide Level 31mmol/L (21-32) Anion Gap 8 (6-14) Blood Urea Nitrogen 28mg/dL (7-20) Creatinine 1.5mg/dL (0.6-1.0) Estimated GFR (Cockcroft-Gault) 43.0 BUN/Creatinine Ratio 19 (6-20) Glucose Level 128mg/dL (70-99) Calcium Level 8.5mg/dL (8.5-10.1) Phosphorus Level 3.8mg/dL (2.6-4.7) Total Bilirubin 0.3mg/dL (0.2-1.0) Aspartate Amino Transf (AST/SGOT) 16U/L (15-37) Alanine Aminotransferase (ALT/SGPT) 11U/L (14-59) Alkaline Phosphatase 93U/L (46-116) Total Protein 7.4g/dL (6.4-8.2) Albumin 1.6g/dL (3.4-5.0) Albumin/Globulin Ratio 0.3 (1.0-1.7) Test 10/30/16 07:38 10/30/16 09:00 10/30/16 09:25 1/22/17 11:34 Glucose (Fingerstick) 108mg/dL (70-99) 130mg/dL (70-99) Magnesium Level 2.0mg/dL (1.8-2.4) Triglycerides Level 254mg/dL (0-150) White Blood Count 16.3x10^3/uL (4.0-11.0) Red Blood Count 3.33x10^6/uL (3.50-5.40) Hemoglobin 9.1g/dL (12.0-15.5) Hematocrit 27.5% (36.0-47.0) Mean Corpuscular Volume 83fL (79-100) Mean Corpuscular Hemoglobin 27pg (25-35) Mean Corpuscular Hemoglobin Concent 33g/dL (31-37) Red Cell Distribution Width 16.2% (11.5-14.5) Platelet Count 534x10^3/uL (140-400) Neutrophils (%) (Auto) 74% (31-73) Lymphocytes (%) (Auto) 15% (24-48) Monocytes (%) (Auto) 10% (0-9) Eosinophils (%) (Auto) 0% (0-3) Basophils (%) (Auto) 1% (0-3) Neutrophils # (Auto) 12.0x10^3uL (1.8-7.7) Lymphocytes # (Auto) 2.5x10^3/uL (1.0-4.8) Monocytes # (Auto) 1.7x10^3/uL (0.0-1.1) Eosinophils # (Auto) 0.0x10^3/uL (0.0-0.7) Basophils # (Auto) 0.1x10^3/uL (0.0-0.2) Sodium Level 149mmol/L (136-145) Potassium Level 3.1mmol/L (3.5-5.1) Chloride Level 109mmol/L (98-107) Carbon Dioxide Level 31mmol/L (21-32) Anion Gap 9 (6-14) Blood Urea Nitrogen 26mg/dL (7-20) Creatinine 1.3mg/dL (0.6-1.0) Estimated GFR (Cockcroft-Gault) 50.7 BUN/Creatinine Ratio 20 (6-20) Glucose Level 111mg/dL (70-99) Calcium Level 8.6mg/dL (8.5-10.1) Total Bilirubin 0.3mg/dL (0.2-1.0) Aspartate Amino Transf (AST/SGOT) 15U/L (15-37) Alanine Aminotransferase (ALT/SGPT) 8U/L (14-59) Alkaline Phosphatase 78U/L (46-116) Total Protein 6.9g/dL (6.4-8.2) Albumin 1.6g/dL (3.4-5.0) Albumin/Globulin Ratio 0.3 (1.0-1.7) Test 10/30/16 16:33 10/30/16 20:48 10/30/16 21:07 10/31/16 09:35 Glucose (Fingerstick) 176mg/dL (70-99) 151mg/dL (70-99) 151mg/dL (70-99) Prothrombin Time 14.9SEC (11.7-14.0) Prothromb Time International Ratio 1.2 (0.8-1.1) Sodium Level 143mmol/L (136-145) Potassium Level 3.6mmol/L (3.5-5.1) Chloride Level 102mmol/L (98-107) Carbon Dioxide Level 32mmol/L (21-32) Anion Gap 9 (6-14) Blood Urea Nitrogen 22mg/dL (7-20) Creatinine 1.3mg/dL (0.6-1.0) Estimated GFR (Cockcroft-Gault) 50.7 BUN/Creatinine Ratio 17 (6-20) Glucose Level 149mg/dL (70-99) Calcium Level 9.3mg/dL (8.5-10.1) Magnesium Level 1.8mg/dL (1.8-2.4) Total Bilirubin 0.4mg/dL (0.2-1.0) Aspartate Amino Transf (AST/SGOT) 15U/L (15-37) Alanine Aminotransferase (ALT/SGPT) 9U/L (14-59) Alkaline Phosphatase 88U/L (46-116) Total Protein 8.8g/dL (6.4-8.2) Albumin 2.0g/dL (3.4-5.0) Albumin/Globulin Ratio 0.3 (1.0-1.7) Test 10/31/16 10:55 White Blood Count 15.7x10^3/uL (4.0-11.0) Red Blood Count 3.76x10^6/uL (3.50-5.40) Hemoglobin 10.2g/dL (12.0-15.5) Hematocrit 31.4% (36.0-47.0) Mean Corpuscular Volume 84fL (79-100) Mean Corpuscular Hemoglobin 27pg (25-35) Mean Corpuscular Hemoglobin Concent 33g/dL (31-37) Red Cell Distribution Width 16.1% (11.5-14.5) Platelet Count 458x10^3/uL (140-400) Neutrophils (%) (Auto) 76% (31-73) Lymphocytes (%) (Auto) 12% (24-48) Monocytes (%) (Auto) 11% (0-9) Eosinophils (%) (Auto) 0% (0-3) Basophils (%) (Auto) 1% (0-3) Neutrophils # (Auto) 11.9x10^3uL (1.8-7.7) Lymphocytes # (Auto) 1.9x10^3/uL (1.0-4.8) Monocytes # (Auto) 1.7x10^3/uL (0.0-1.1) Eosinophils # (Auto) 0.0x10^3/uL (0.0-0.7) Basophils # (Auto) 0.1x10^3/uL (0.0-0.2) Laboratory Tests Test 10/30/16 11:34 10/30/16 16:33 10/30/16 20:48 10/30/16 21:07 Glucose (Fingerstick) 130mg/dL (70-99) 176mg/dL (70-99) 151mg/dL (70-99) 151mg/dL (70-99) Test 10/31/16 09:35 10/31/16 10:55 Prothrombin Time 14.9SEC (11.7-14.0) Prothromb Time International Ratio 1.2 (0.8-1.1) Sodium Level 143mmol/L (136-145) Potassium Level 3.6mmol/L (3.5-5.1) Chloride Level 102mmol/L (98-107) Carbon Dioxide Level 32mmol/L (21-32) Anion Gap 9 (6-14) Blood Urea Nitrogen 22mg/dL (7-20) Creatinine 1.3mg/dL (0.6-1.0) Estimated GFR (Cockcroft-Gault) 50.7 BUN/Creatinine Ratio 17 (6-20) Glucose Level 149mg/dL (70-99) Calcium Level 9.3mg/dL (8.5-10.1) Magnesium Level 1.8mg/dL (1.8-2.4) Total Bilirubin 0.4mg/dL (0.2-1.0) Aspartate Amino Transf (AST/SGOT) 15U/L (15-37) Alanine Aminotransferase (ALT/SGPT) 9U/L (14-59) Alkaline Phosphatase 88U/L (46-116) Total Protein 8.8g/dL (6.4-8.2) Albumin 2.0g/dL (3.4-5.0) Albumin/Globulin Ratio 0.3 (1.0-1.7) White Blood Count 15.7x10^3/uL (4.0-11.0) Red Blood Count 3.76x10^6/uL (3.50-5.40) Hemoglobin 10.2g/dL (12.0-15.5) Hematocrit 31.4% (36.0-47.0) Mean Corpuscular Volume 84fL (79-100) Mean Corpuscular Hemoglobin 27pg (25-35) Mean Corpuscular Hemoglobin Concent 33g/dL (31-37) Red Cell Distribution Width 16.1% (11.5-14.5) Platelet Count 458x10^3/uL (140-400) Neutrophils (%) (Auto) 76% (31-73) Lymphocytes (%) (Auto) 12% (24-48) Monocytes (%) (Auto) 11% (0-9) Eosinophils (%) (Auto) 0% (0-3) Basophils (%) (Auto) 1% (0-3) Neutrophils # (Auto) 11.9x10^3uL (1.8-7.7) Lymphocytes # (Auto) 1.9x10^3/uL (1.0-4.8) Monocytes # (Auto) 1.7x10^3/uL (0.0-1.1) Eosinophils # (Auto) 0.0x10^3/uL (0.0-0.7) Basophils # (Auto) 0.1x10^3/uL (0.0-0.2) Problem List Problems Medical Problems: (1) Sepsis Status: Acute (2) Severe protein-calorie malnutrition Status: Acute (3) Uncontrolled diabetes mellitus Status: Acute (4) Urinary tract infection Status: Acute Assessment/Plan c tube for 6 weeks no surgical plans available as needed Problems: JS MONTAGUE MD 10/31/16 1527: SURGICAL PROGRESS NOTE Assessment/Plan pt seen agree with above Problems: SHAKILA MARSHALL APRN Oct 31, 2016 11:25 JS MONTAGUE MD Oct 31, 2016 15:27
--- NOTE | 2016-10-31 13:18 | RAD ---
Portable chest, 10/31/2016: History: Check PICC placement Comparison is made to a study from 10/24/2016. A left PICC has been inserted extending to the level of the atriocaval junction. The heart is within normal limits in size. There is calcific plaquing of the aorta. There is an unchanged right basilar opacity obscuring the hemidiaphragm. There is blunting of the right lateral costophrenic angle. No left lung infiltrate is seen. IMPRESSION: 1. A left PICC has been inserted extending to the level of the atriocaval junction. 2. Unchanged moderate right basilar opacity compatible with pleural fluid and underlying atelectasis/infiltrate.
[2016-10-31] MEDS: AA 3%/ELECTROLYTE-TPN SOLN/GLY 1,000 ML IV SCH ×2 (13:56→21:46)
[2016-10-31] MEDS: TPN PER PHARMACY MC PRN (13:59)
[2016-10-31 15:17] VITALS: BP 158/80
[2016-10-31 19:00] VITALS: BP 168/76
[2016-10-31] MEDS ORDERED: AMINO ACIDS IV SCH ×10 (22:00)
[2016-10-31] MEDS ORDERED: TOTAL PARENTERAL NUTRITION IV SCH ×10 (22:00)
[2016-10-31] MEDS ORDERED: DEXTROSE 70% IV SCH ×10 (22:00)
[2016-10-31] MEDS ORDERED: [UNRECOGNIZED DRUG - OTHER] IV SCH ×10 (22:00)
[2016-10-31] MEDS: INSULIN DETEMIR 300 UNITS/3 ML INSULN.PEN. SQ SCH (22:08)
[2016-10-31 23:00] VITALS: BP 164/75
[2016-11-01] VITALS (7 sets, daily range): BP systolic 134–191; BP diastolic 60–83
[2016-11-01] MEDS: PIPERACILLIN/TAZOBACTAM 3.375 GM in IV NORMAL SALINE 50ML 50 ML IV SCH ×4 (01:01→18:01)
[2016-11-01] MEDS: ENALAPRILAT 1.25 MG/ML VIAL. IV SCH ×4 (01:02→18:03)
[2016-11-01] MEDS: NORMAL SALINE IV SCH ×5 (01:09→22:52)
[2016-11-01] MEDS: VALPROIC ACID IV SCH ×5 (01:09→22:52)
[2016-11-01] MEDS: FOSPHENYTOIN 100 MG/2 ML VIAL IV SCH ×3 (05:37→20:59)
[2016-11-01 07:19] LABS: BASO # 0.1 x10^3/uL (0.0-0.2); BASO % 1 % (0-3); EOS % 0 % (0-3); HEMOGLOBIN 8.5 g/dL (12.0-15.5); LYMPH # 1.5 x10^3/uL (1.0-4.8); LYMPH % 11 % (24-48); MEAN CORPUSCULAR HEMOGLOBIN 28 pg (25-35); MEAN CORPUSCULAR HGB CONC 33 g/dL (31-37); MEAN CORPUSCULAR VOLUME 84 fL (79-100); MONO % 12 % (0-9); NEUT % 76 % (31-73); PLATELET COUNT 400 x10^3/uL (140-400); RED CELL DISTRIBUTION WIDTH 16.5 % (11.5-14.5); WHITE BLOOD COUNT 13.7 x10^3/uL (4.0-11.0)
--- NOTE | 2016-11-01 07:58 | PDOC ---
MILLIE HEAD INFORMATION STRATEGIST 11/01/16 0758: IM PROGRESS NOTES- Subjective Subjective awake, attempt to smile and talk, RH urologist md weak Staff reports small oral intake yesterday Objective Objective more alert Vitals Vital Signs Date Time Temp Pulse Resp B/P Pulse Ox O2 Delivery O2 Flow Rate FiO2 11/01/16 07:19 97.9 79 17 164/73 99 Room Air 97.9 10/31/16 20:25 2.0 Input & Output Intake and Output 11/01/16 07:00 Intake Total 1142.9 ml Output Total 1600 ml Balance -457.1 ml Intake Oral 340 ml IV Total 802.9 ml Output Urine Total 1600 ml Physical Exam Physical Exam GENERAL: awake ,opens eyes, following command to urologist md with RH, attempt to smile , attempt to speak . HEAD: normocephalic LUNGS: Decreased breath sounds at bases. CARDIOVASCULAR: S1 and S2 regular. ABDOMEN: Soft, obese, nontender,BS increased slightly, cholecystostomy tube serous bloody EXTREMITIES: + edema. CENTRAL NERVOUS SYSTEM: awake, + response to verbal, + tracking SKIN: Warm and dry. Skin turgor decreased ORTHOPEDIC BRACE MAKER: alert, responding. No acute focal neurological change Labs Laboratory Tests Test 10/30/16 09:00 10/30/16 09:25 10/30/16 11:34 10/30/16 16:33 Magnesium Level 2.0mg/dL (1.8-2.4) Triglycerides Level 254mg/dL (0-150) White Blood Count 16.3x10^3/uL (4.0-11.0) Red Blood Count 3.33x10^6/uL (3.50-5.40) Hemoglobin 9.1g/dL (12.0-15.5) Hematocrit 27.5% (36.0-47.0) Mean Corpuscular Volume 83fL (79-100) Mean Corpuscular Hemoglobin 27pg (25-35) Mean Corpuscular Hemoglobin Concent 33g/dL (31-37) Red Cell Distribution Width 16.2% (11.5-14.5) Platelet Count 534x10^3/uL (140-400) Neutrophils (%) (Auto) 74% (31-73) Lymphocytes (%) (Auto) 15% (24-48) Monocytes (%) (Auto) 10% (0-9) Eosinophils (%) (Auto) 0% (0-3) Basophils (%) (Auto) 1% (0-3) Neutrophils # (Auto) 12.0x10^3uL (1.8-7.7) Lymphocytes # (Auto) 2.5x10^3/uL (1.0-4.8) Monocytes # (Auto) 1.7x10^3/uL (0.0-1.1) Eosinophils # (Auto) 0.0x10^3/uL (0.0-0.7) Basophils # (Auto) 0.1x10^3/uL (0.0-0.2) Sodium Level 149mmol/L (136-145) Potassium Level 3.1mmol/L (3.5-5.1) Chloride Level 109mmol/L (98-107) Carbon Dioxide Level 31mmol/L (21-32) Anion Gap 9 (6-14) Blood Urea Nitrogen 26mg/dL (7-20) Creatinine 1.3mg/dL (0.6-1.0) Estimated GFR (Cockcroft-Gault) 50.7 BUN/Creatinine Ratio 20 (6-20) Glucose Level 111mg/dL (70-99) Calcium Level 8.6mg/dL (8.5-10.1) Total Bilirubin 0.3mg/dL (0.2-1.0) Aspartate Amino Transf (AST/SGOT) 15U/L (15-37) Alanine Aminotransferase (ALT/SGPT) 8U/L (14-59) Alkaline Phosphatase 78U/L (46-116) Total Protein 6.9g/dL (6.4-8.2) Albumin 1.6g/dL (3.4-5.0) Albumin/Globulin Ratio 0.3 (1.0-1.7) Glucose (Fingerstick) 130mg/dL (70-99) 176mg/dL (70-99) Test 10/30/16 20:48 10/30/16 21:07 10/31/16 07:15 10/31/16 09:35 Glucose (Fingerstick) 151mg/dL (70-99) 151mg/dL (70-99) 128mg/dL (70-99) Prothrombin Time 14.9SEC (11.7-14.0) Prothromb Time International Ratio 1.2 (0.8-1.1) Sodium Level 143mmol/L (136-145) Potassium Level 3.6mmol/L (3.5-5.1) Chloride Level 102mmol/L (98-107) Carbon Dioxide Level 32mmol/L (21-32) Anion Gap 9 (6-14) Blood Urea Nitrogen 22mg/dL (7-20) Creatinine 1.3mg/dL (0.6-1.0) Estimated GFR (Cockcroft-Gault) 50.7 BUN/Creatinine Ratio 17 (6-20) Glucose Level 149mg/dL (70-99) Calcium Level 9.3mg/dL (8.5-10.1) Magnesium Level 1.8mg/dL (1.8-2.4) Total Bilirubin 0.4mg/dL (0.2-1.0) Aspartate Amino Transf (AST/SGOT) 15U/L (15-37) Alanine Aminotransferase (ALT/SGPT) 9U/L (14-59) Alkaline Phosphatase 88U/L (46-116) Total Protein 8.8g/dL (6.4-8.2) Albumin 2.0g/dL (3.4-5.0) Albumin/Globulin Ratio 0.3 (1.0-1.7) Test 10/31/16 10:55 10/31/16 13:47 10/31/16 16:49 10/31/16 21:10 White Blood Count 15.7x10^3/uL (4.0-11.0) Red Blood Count 3.76x10^6/uL (3.50-5.40) Hemoglobin 10.2g/dL (12.0-15.5) Hematocrit 31.4% (36.0-47.0) Mean Corpuscular Volume 84fL (79-100) Mean Corpuscular Hemoglobin 27pg (25-35) Mean Corpuscular Hemoglobin Concent 33g/dL (31-37) Red Cell Distribution Width 16.1% (11.5-14.5) Platelet Count 458x10^3/uL (140-400) Neutrophils (%) (Auto) 76% (31-73) Lymphocytes (%) (Auto) 12% (24-48) Monocytes (%) (Auto) 11% (0-9) Eosinophils (%) (Auto) 0% (0-3) Basophils (%) (Auto) 1% (0-3) Neutrophils # (Auto) 11.9x10^3uL (1.8-7.7) Lymphocytes # (Auto) 1.9x10^3/uL (1.0-4.8) Monocytes # (Auto) 1.7x10^3/uL (0.0-1.1) Eosinophils # (Auto) 0.0x10^3/uL (0.0-0.7) Basophils # (Auto) 0.1x10^3/uL (0.0-0.2) Glucose (Fingerstick) 218mg/dL (70-99) 169mg/dL (70-99) 202mg/dL (70-99) Test 11/01/16 07:00 White Blood Count 13.7x10^3/uL (4.0-11.0) Red Blood Count 3.10x10^6/uL (3.50-5.40) Hemoglobin 8.5g/dL (12.0-15.5) Hematocrit 26.0% (36.0-47.0) Mean Corpuscular Volume 84fL (79-100) Mean Corpuscular Hemoglobin 28pg (25-35) Mean Corpuscular Hemoglobin Concent 33g/dL (31-37) Red Cell Distribution Width 16.5% (11.5-14.5) Platelet Count 400x10^3/uL (140-400) Neutrophils (%) (Auto) 76% (31-73) Lymphocytes (%) (Auto) 11% (24-48) Monocytes (%) (Auto) 12% (0-9) Eosinophils (%) (Auto) 0% (0-3) Basophils (%) (Auto) 1% (0-3) Neutrophils # (Auto) 10.5x10^3uL (1.8-7.7) Lymphocytes # (Auto) 1.5x10^3/uL (1.0-4.8) Monocytes # (Auto) 1.7x10^3/uL (0.0-1.1) Eosinophils # (Auto) 0.0x10^3/uL (0.0-0.7) Basophils # (Auto) 0.1x10^3/uL (0.0-0.2) Phosphorus Level 3.1mg/dL (2.6-4.7) Magnesium Level 2.0mg/dL (1.8-2.4) Laboratory Tests Test 10/31/16 09:35 10/31/16 10:55 10/31/16 13:47 10/31/16 16:49 Prothrombin Time 14.9SEC (11.7-14.0) Prothromb Time International Ratio 1.2 (0.8-1.1) Sodium Level 143mmol/L (136-145) Potassium Level 3.6mmol/L (3.5-5.1) Chloride Level 102mmol/L (98-107) Carbon Dioxide Level 32mmol/L (21-32) Anion Gap 9 (6-14) Blood Urea Nitrogen 22mg/dL (7-20) Creatinine 1.3mg/dL (0.6-1.0) Estimated GFR (Cockcroft-Gault) 50.7 BUN/Creatinine Ratio 17 (6-20) Glucose Level 149mg/dL (70-99) Calcium Level 9.3mg/dL (8.5-10.1) Magnesium Level 1.8mg/dL (1.8-2.4) Total Bilirubin 0.4mg/dL (0.2-1.0) Aspartate Amino Transf (AST/SGOT) 15U/L (15-37) Alanine Aminotransferase (ALT/SGPT) 9U/L (14-59) Alkaline Phosphatase 88U/L (46-116) Total Protein 8.8g/dL (6.4-8.2) Albumin 2.0g/dL (3.4-5.0) Albumin/Globulin Ratio 0.3 (1.0-1.7) White Blood Count 15.7x10^3/uL (4.0-11.0) Red Blood Count 3.76x10^6/uL (3.50-5.40) Hemoglobin 10.2g/dL (12.0-15.5) Hematocrit 31.4% (36.0-47.0) Mean Corpuscular Volume 84fL (79-100) Mean Corpuscular Hemoglobin 27pg (25-35) Mean Corpuscular Hemoglobin Concent 33g/dL (31-37) Red Cell Distribution Width 16.1% (11.5-14.5) Platelet Count 458x10^3/uL (140-400) Neutrophils (%) (Auto) 76% (31-73) Lymphocytes (%) (Auto) 12% (24-48) Monocytes (%) (Auto) 11% (0-9) Eosinophils (%) (Auto) 0% (0-3) Basophils (%) (Auto) 1% (0-3) Neutrophils # (Auto) 11.9x10^3uL (1.8-7.7) Lymphocytes # (Auto) 1.9x10^3/uL (1.0-4.8) Monocytes # (Auto) 1.7x10^3/uL (0.0-1.1) Eosinophils # (Auto) 0.0x10^3/uL (0.0-0.7) Basophils # (Auto) 0.1x10^3/uL (0.0-0.2) Glucose (Fingerstick) 218mg/dL (70-99) 169mg/dL (70-99) Test 10/31/16 21:10 11/01/16 07:00 Glucose (Fingerstick) 202mg/dL (70-99) White Blood Count 13.7x10^3/uL (4.0-11.0) Red Blood Count 3.10x10^6/uL (3.50-5.40) Hemoglobin 8.5g/dL (12.0-15.5) Hematocrit 26.0% (36.0-47.0) Mean Corpuscular Volume 84fL (79-100) Mean Corpuscular Hemoglobin 28pg (25-35) Mean Corpuscular Hemoglobin Concent 33g/dL (31-37) Red Cell Distribution Width 16.5% (11.5-14.5) Platelet Count 400x10^3/uL (140-400) Neutrophils (%) (Auto) 76% (31-73) Lymphocytes (%) (Auto) 11% (24-48) Monocytes (%) (Auto) 12% (0-9) Eosinophils (%) (Auto) 0% (0-3) Basophils (%) (Auto) 1% (0-3) Neutrophils # (Auto) 10.5x10^3uL (1.8-7.7) Lymphocytes # (Auto) 1.5x10^3/uL (1.0-4.8) Monocytes # (Auto) 1.7x10^3/uL (0.0-1.1) Eosinophils # (Auto) 0.0x10^3/uL (0.0-0.7) Basophils # (Auto) 0.1x10^3/uL (0.0-0.2) Phosphorus Level 3.1mg/dL (2.6-4.7) Magnesium Level 2.0mg/dL (1.8-2.4) Meds Current Medications Potassium Chloride 100 ml @ 100 mls/hr Q1H IV Last administered on 10/31/16 13:53; Start 10/31/16 at 11:00; Stop 10/31/16 at 12:59; Status DC Sodium Chloride/ Potassium Chloride/ Potassium Phosphate/ Magnesium Sulfate/ Calcium Gluconate/ Multivitamins/ Minerals/Chromium/ Copper/Manganese/ Seleni/Zn /Total Parenteral Nutrition/Amino Acids/Dextrose/ Fat Emulsion Intravenous ( Sodium Chloride/ Potassium Phospha... 1,512 ml @ 63 mls/hr TPN CONT IV Last administered on 10/31/16 22:07; Start 10/31/16 at 22:00; Stop 11/01/16 at 21:59 Assessment Assessment Assessment 1. Sepsis with lactic acidosis/UTI-cholecystitis POA 2. Acute metabolic encephalopathy ARF/sepsis underlying dementia/hypernatremia 3. Urinary tract infection POA 4. Acute renal failure KALPANA VMN with CKD III 5. Seizure disorder with low Dilantin level of 3. 6. Diabetes mellitus type 2. 7. Dementia. 8. Paranoid schizophrenia. 9. severe weakness and debility with limited mobility 10. severe with underlying Moderate malnutrition. 11. Peripheral vascular disease. 12. Hyperlipidemia. 13. Malignant hypertension not POA 14. Gastroesophageal reflux disease. 15. Osteoporosis. 16. Vitamin D deficiency. 17. Legal blindness. 18. Hypernatremia NA 151 POA PLAN: sepsis with lactic acidosis UTI/choleycystitis POA ID consulted Zosyn IV Admit WBC 29.8 11/01 13.7 BC and urine CS negative Tm 100.2 previous 24 hour repeat UA neg nitrite, + blood, WBC 1-4 improved Urine cult 01/16 negative Surgical consult-no surgical intervention at this time, consider PIPIDA and IR for cholecystostomy tube placement PIPIDA abnormal, scan reviewed cholecystostomy tube placed 10/28 with 20cc christian pus +grm neg rods ID pending -Enterobacter Cloacae Abnormal CXR CXR RLL atelectasis vs [id number] nebulizer pulmonary consult CT chest w/o: Small right pleural effusion and trace left. Volume loss at the right lung base may reflect atelectasis or pneumonia. Minimal volume loss at the left lung base likely atelectasis 10/26-pulmonary signed off ARF KALPANA VMN CKDIII, hypernatremia Admit BUN 34 10/29 26 Cr 2.4 1.3 Na 137 149 K 3.8 3.1 IV D51/4NS 125cc/hr-DC 10/24 renal consulted no Lasix 10/24 hypokalemia- K ordered q6h, range 3.2-3.5. Per nephrology DM II FSBS Admit Novolog 10u tid ac-stopped 10/29 not eating Admit Levemir 22u bid - reduced to 10u BID 10/29 hold BS less than or equal to 100 BS [id number] Levemir held 10/27 pm due to NPO seizure disorder Cerebyx IV Depakote IV Dilantin IV seizure precautions malignant HTN continue NH meds not taking oral consistently Lisinopril 5mg po NH-Begin Vasotec 1.25mg IV q 6hr hold SBP <120 hydralazine prn improved anticoagulation Admit INR 3.0 10/31 1.2 pharmacy managing INR 10/23 7.6 abd mild distention/cholecystitis POA no BM since prior to admit Dulcolax supp 10/24--small hard stool mod amount 10/25 Distention worse, abdomen firmer, BS hypoactive +GS per CXR-check amylase Repeat Dulcolax supp. and add miralax CT chest w/o contrast GB thickening with distention-will obtain GB US amylase 14 BM + 10/25 after Dulcolax cholecystitis-surgical evaluated 10/26-no surgery PIPIDA abnormal, placed cholecystostomy tube 10/28 Schedule Dulcolax QOD until taking oral meds severe with underlying chronic PCL malnutrition continue diet PPN added 10/24-restarted 10/28 poor po intake, not swallowing Initiate TPN when PICC placed and stop PPN -minimal oral intake since admit. - initiated 11/01 10/31 staff reports taking some po DVT/GI prophylaxis warfarin PPI anticoagulation not taking medication by mouth begin Lovenox 40mg sub q daily 11/01 Prognosis poor BMP hemolyzed, needs redrawn. 11/01 For more details regarding further plans, please refer to the orders. Plan Plan For more details regarding further plans, please refer to the orders. PABLO ROJAS MD 11/01/16 1051: IM PROGRESS NOTES- Assessment Assessment D/w patient's niece Maddison extensively.Options,prognosis,comfort care,hospice, select hospital,6 weeks of cholecystostomy drainage etc d/w her extensively.Family wants to pursue currrent care . I will transfer her to [facility] when accepted. Total visit time 45 minutes. The patient was seen and examined by me. Chart reviewed and plan of care formulated. Discussed with, reviewed and agree with QA AUTOMATION DEVELOPER's notes, plan of care and orders with modifications as necessary. For more details regarding further plans, please refer to the orders. Slightly more alert today.Ate more yesterday evening.None this AM. MILLIE HEAD APRN Nov 01, 2016 07:58 PABLO ROJAS MD Nov 01, 2016 10:51
[2016-11-01] MEDS: POLYVINYL ALCOHOL 1.4% OPHTH SOLUTION 15ML BOTTLE. OU SCH ×4 (09:17→20:59)
[2016-11-01] MEDS: ENOXAPARIN 40 MG/0.4 ML DISP.SYRIN. SQ SCH (09:17)
[2016-11-01] MEDS: FAMOTIDINE 20 MG/2 ML VIAL IVP SCH (09:17)
[2016-11-01] MEDS: BENZTROPINE MESYLATE 1 MG TABLET PO SCH (09:21)
[2016-11-01] MEDS: busPIRone 5 MG TABLET. PO SCH ×3 (09:21→21:00)
[2016-11-01] MEDS: BISACODYL 10 MG SUPP.RECT PR SCH (09:21)
--- NOTE | 2016-11-01 10:31 | PDOC ---
Renal-Progress Notes Subjective Notes Notes SOME CONFUSION History of Present Illness Hx of present illness NOT EATING Vitals Vitals Vital Signs Date Time Temp Pulse Resp B/P Pulse Ox O2 Delivery O2 Flow Rate FiO2 11/01/16 08:00 Nasal Cannula 2.0 11/01/16 07:19 97.9 79 17 164/73 99 97.9 Weight Weight [ ] I.O. Intake and Output Intake and Output 11/01/16 07:00 Intake Total 1142.9 ml Output Total 1600 ml Balance -457.1 ml Intake Oral 340 ml IV Total 802.9 ml Output Urine Total 1600 ml Labs Labs Laboratory Tests Test 10/31/16 10:55 10/31/16 13:47 10/31/16 16:49 10/31/16 21:10 White Blood Count 15.7x10^3/uL (4.0-11.0) Red Blood Count 3.76x10^6/uL (3.50-5.40) Hemoglobin 10.2g/dL (12.0-15.5) Hematocrit 31.4% (36.0-47.0) Mean Corpuscular Volume 84fL (79-100) Mean Corpuscular Hemoglobin 27pg (25-35) Mean Corpuscular Hemoglobin Concent 33g/dL (31-37) Red Cell Distribution Width 16.1% (11.5-14.5) Platelet Count 458x10^3/uL (140-400) Neutrophils (%) (Auto) 76% (31-73) Lymphocytes (%) (Auto) 12% (24-48) Monocytes (%) (Auto) 11% (0-9) Eosinophils (%) (Auto) 0% (0-3) Basophils (%) (Auto) 1% (0-3) Neutrophils # (Auto) 11.9x10^3uL (1.8-7.7) Lymphocytes # (Auto) 1.9x10^3/uL (1.0-4.8) Monocytes # (Auto) 1.7x10^3/uL (0.0-1.1) Eosinophils # (Auto) 0.0x10^3/uL (0.0-0.7) Basophils # (Auto) 0.1x10^3/uL (0.0-0.2) Glucose (Fingerstick) 218mg/dL (70-99) 169mg/dL (70-99) 202mg/dL (70-99) Test 11/01/16 07:00 11/01/16 07:17 White Blood Count 13.7x10^3/uL (4.0-11.0) Red Blood Count 3.10x10^6/uL (3.50-5.40) Hemoglobin 8.5g/dL (12.0-15.5) Hematocrit 26.0% (36.0-47.0) Mean Corpuscular Volume 84fL (79-100) Mean Corpuscular Hemoglobin 28pg (25-35) Mean Corpuscular Hemoglobin Concent 33g/dL (31-37) Red Cell Distribution Width 16.5% (11.5-14.5) Platelet Count 400x10^3/uL (140-400) Neutrophils (%) (Auto) 76% (31-73) Lymphocytes (%) (Auto) 11% (24-48) Monocytes (%) (Auto) 12% (0-9) Eosinophils (%) (Auto) 0% (0-3) Basophils (%) (Auto) 1% (0-3) Neutrophils # (Auto) 10.5x10^3uL (1.8-7.7) Lymphocytes # (Auto) 1.5x10^3/uL (1.0-4.8) Monocytes # (Auto) 1.7x10^3/uL (0.0-1.1) Eosinophils # (Auto) 0.0x10^3/uL (0.0-0.7) Basophils # (Auto) 0.1x10^3/uL (0.0-0.2) Phosphorus Level 3.1mg/dL (2.6-4.7) Magnesium Level 2.0mg/dL (1.8-2.4) Glucose (Fingerstick) 236mg/dL (70-99) Micro Micro Microbiology 10/19/16 Blood Culture - Final, Complete NO GROWTH AFTER 5 DAYS 10/24/16 Urine Culture - Final, Complete 10/24/16 Urine Culture Result 1 (ELIZABETH) - Final, Complete 10/28/16 Anaerobic/Aerobic Culture - Preliminary, Resulted 10/28/16 Anaerobic Culture Result 1 (ELIZABETH) - Preliminary, Resulted 10/28/16 Aerobic Culture - Final, Resulted 10/28/16 Aerobic Culture Result 1 (ELIZABETH) - Final, Resulted 10/28/16 Antimicrobic Susceptibility - Final, Resulted Review of Systems Constitutional: yes: alert, oriented, weakness Ears/Nose/Throat: Yes: no symptom reported Eyes: Yes: no symptom reported Pulmonary: Yes no symptom reported Cardiovascular: Yes no symptom reported Gastrointestional: Yes: no symptom reported Physical Exam General Appearance: no apparent distress Skin: warm Respiratory: decreased breath sounds Heart: S1S2, RRR Abdomen: soft, bowel sounds present Extremities: pulses present Musculoskeletal: Other Assessment Assessment IMP [place]-IMPROVING DEHYDRATION HYPOKALEMIA HYPERNATREMIA MET ENCEPHALOPATHY URINARY TRACT INFECTION HTN-NOT CONTROLLED PLAN ANTIBIOTICS TPN REPLACE K NEEDED CATAPRES PATCH MICHAEL BULLARD MD Nov 01, 2016 10:31
[2016-11-01] MEDS ORDERED: CLONIDINE TTS-2 PATCH TD SCH (11:00)
[2016-11-01] MEDS ORDERED: DEXTROSE 50% 25 GM / 50ML DISP.SYRIN. IV PRN (11:15)
--- NOTE | 2016-11-01 11:21 | PDOC ---
Infectious Disease Note Subjective Subjective s/p cholecystostomy tube placement Unresponsive to verbal stimuli No fever TPN ROS ROS Unobtainable Vital Sign Vital Signs Vital Signs Date Time Temp Pulse Resp B/P Pulse Ox O2 Delivery O2 Flow Rate FiO2 11/01/16 10:59 98.2 84 17 170/80 100 Nasal Cannula 2.0 98.2 Physical Exam PHYSICAL EXAM GENERAL: Eyes opens, NAD LUNGS: Clear HEART: S1S2 ABD: Obese, BS present, soft, No grimace or guarding to palpation. RUQ tube in place. EXT: Generalized edema. No cyanosis. 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 SKIN: No rash IV: ok Labs Lab Laboratory Tests Test 10/31/16 13:47 10/31/16 16:49 10/31/16 21:10 11/01/16 07:00 Glucose (Fingerstick) 218mg/dL (70-99) 169mg/dL (70-99) 202mg/dL (70-99) White Blood Count 13.7x10^3/uL (4.0-11.0) Red Blood Count 3.10x10^6/uL (3.50-5.40) Hemoglobin 8.5g/dL (12.0-15.5) Hematocrit 26.0% (36.0-47.0) Mean Corpuscular Volume 84fL (79-100) Mean Corpuscular Hemoglobin 28pg (25-35) Mean Corpuscular Hemoglobin Concent 33g/dL (31-37) Red Cell Distribution Width 16.5% (11.5-14.5) Platelet Count 400x10^3/uL (140-400) Neutrophils (%) (Auto) 76% (31-73) Lymphocytes (%) (Auto) 11% (24-48) Monocytes (%) (Auto) 12% (0-9) Eosinophils (%) (Auto) 0% (0-3) Basophils (%) (Auto) 1% (0-3) Neutrophils # (Auto) 10.5x10^3uL (1.8-7.7) Lymphocytes # (Auto) 1.5x10^3/uL (1.0-4.8) Monocytes # (Auto) 1.7x10^3/uL (0.0-1.1) Eosinophils # (Auto) 0.0x10^3/uL (0.0-0.7) Basophils # (Auto) 0.1x10^3/uL (0.0-0.2) Phosphorus Level 3.1mg/dL (2.6-4.7) Magnesium Level 2.0mg/dL (1.8-2.4) Test 11/01/16 07:17 Glucose (Fingerstick) 236mg/dL (70-99) Micro Enterobacter cloacae complex Scant growth ANTIMICROBIAL SUSCEPTIBILITY Final Comment S = Susceptible; I = Intermediate; R = Resistant P = Positive; N = Negative MICS are expressed in micrograms per mL Antibiotic RSLT#1 RSLT#2 RSLT#3 RSLT#4 Amoxicillin/Clavulanic Acid R Cefepime S Ceftriaxone S Cefuroxime R Ciprofloxacin S Ertapenem S Gentamicin S Imipenem S Levofloxacin S CONTINUED ON NEXT PAGE RUN DATE: 11/01/16 PAGE 2 RUN TIME: 1026 [facility] [address] [place] [address] Rogelio Wade M.D., Habilitation Training Specialist SPEC: [id number] PATIENT: ELIANA LIRA [id number] ( Continued) Procedure Result ANTIMICROBIAL SUSCEPTIBILITY Final (continued) Piperacillin S Tetracycline S Tobramycin S Trimethoprim/Sulfa S Performed at: [facility] - [address] [id number] Aircraft Powerplant Repairer: Rachel Brooks MD, Phone: [phone] Objective Assessment Sepsis with lactic acidosis. POA improved Fever. - better ? cholecystitis - S/p Cholecystostomy tube 10/28. Enterobacter and ? enterococcus Leukocytosis improved AF KALPANA - better UTI. POA. UC neg Encephalopathy - arousable only CVA MRSA positive Seizure disorder Diabetes Plan Plan of Care Continue Zosyn would treat another 7 days as she is not taking po consistently DNR Please call with questions KATIE NIÑO MD Nov 01, 2016 11:21
[2016-11-01] MEDS: INSULIN ASPART 300 UNITS/3 ML INSULN.PEN SQ SCH ×2 (11:47→18:15)
[2016-11-01 13:15] LABS: ALBUMIN 1.5 g/dL (3.4-5.0); ALBUMIN/GLOBULIN RATIO 0.3 (1.0-1.7); CALCIUM 8.3 mg/dL (8.5-10.1); CREATININE 1.2 mg/dL (0.6-1.0); GFR 55.6; POTASSIUM 4.3 mmol/L (3.5-5.1); TOTAL BILIRUBIN 0.4 mg/dL (0.2-1.0); TOTAL PROTEIN 6.8 g/dL (6.4-8.2)
[2016-11-01] MEDS: TPN PER PHARMACY MC PRN (13:40)
[2016-11-01] MEDS: hydrALAZINE 20 MG/ML VIAL. IVP PRN (14:40)
[2016-11-01] MEDS: INSULIN DETEMIR 300 UNITS/3 ML INSULN.PEN. SQ SCH (21:38)
[2016-11-01] MEDS ORDERED: DEXTROSE 70% IV SCH ×10 (22:00)
[2016-11-01] MEDS ORDERED: AMINO ACIDS IV SCH ×10 (22:00)
[2016-11-01] MEDS ORDERED: [UNRECOGNIZED DRUG - OTHER] IV SCH ×10 (22:00)
[2016-11-01] MEDS ORDERED: TOTAL PARENTERAL NUTRITION IV SCH ×10 (22:00)
[2016-11-02] MEDS: ENALAPRILAT 1.25 MG/ML VIAL. IV SCH ×4 (00:49→18:29)
[2016-11-02] MEDS: PIPERACILLIN/TAZOBACTAM 3.375 GM in IV NORMAL SALINE 50ML 50 ML IV SCH ×4 (00:50→19:37)
[2016-11-02 03:00] VITALS: BP 162/81
[2016-11-02 05:11] LABS: BASO % 0 % (0-3); EOS % 0 % (0-3); HEMATOCRIT 25.2 % (36.0-47.0); HEMOGLOBIN 8.3 g/dL (12.0-15.5); LYMPH # 1.9 x10^3/uL (1.0-4.8); LYMPH % 14 % (24-48); MEAN CORPUSCULAR HEMOGLOBIN 28 pg (25-35); MEAN CORPUSCULAR HGB CONC 33 g/dL (31-37); MEAN CORPUSCULAR VOLUME 85 fL (79-100); MONO % 13 % (0-9); NEUT % 73 % (31-73); PLATELET COUNT 416 x10^3/uL (140-400); RED BLOOD COUNT 2.98 x10^6/uL (3.50-5.40); RED CELL DISTRIBUTION WIDTH 17.8 % (11.5-14.5); WHITE BLOOD COUNT 13.5 x10^3/uL (4.0-11.0)
[2016-11-02] MEDS: NORMAL SALINE IV SCH ×4 (05:20→23:20)
[2016-11-02] MEDS: VALPROIC ACID IV SCH ×4 (05:20→23:20)
[2016-11-02] MEDS: FOSPHENYTOIN 100 MG/2 ML VIAL IV SCH ×3 (05:24→21:27)
[2016-11-02 07:58] VITALS: BP 160/82
[2016-11-02] MEDS: INSULIN ASPART 300 UNITS/3 ML INSULN.PEN SQ SCH ×3 (08:00→17:52)
--- NOTE | 2016-11-02 08:36 | PDOC ---
LINDA-BALDEVMILLIE CAGE OPERATOR 11/02/16 0836: IM PROGRESS NOTES- Subjective Subjective sleeping, opens eyes to name, smiled, said Hi Objective Objective more alert Vitals Vital Signs Date Time Temp Pulse Resp B/P Pulse Ox O2 Delivery O2 Flow Rate FiO2 11/02/16 05:14 93 175/78 11/02/16 03:00 98.1 20 94 Nasal Cannula 2.0 98.1 Input & Output Intake and Output 11/02/16 07:00 Intake Total 600 ml Output Total 2326 ml Balance -1726 ml Intake Oral 600 ml Output Urine Total 2100 ml Stool Total 1 ml Drainage Total 225 ml # Bowel Movements 1 Physical Exam Physical Exam GENERAL: awake ,opens eyes, following command to fire hydrant operator with RH, attempt to smile , attempt to speak . HEAD: normocephalic LUNGS: Decreased breath sounds at bases. CARDIOVASCULAR: S1 and S2 regular. ABDOMEN: Soft, obese, nontender,BS increased slightly, cholecystostomy tube serous bloody EXTREMITIES: + edema. CENTRAL NERVOUS SYSTEM: awake, + response to verbal, + tracking SKIN: Warm and dry. 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 No acute focal neurological change Labs Laboratory Tests Test 10/31/16 09:35 10/31/16 10:55 10/31/16 13:47 10/31/16 16:49 Prothrombin Time 14.9SEC (11.7-14.0) Prothromb Time International Ratio 1.2 (0.8-1.1) Sodium Level 143mmol/L (136-145) Potassium Level 3.6mmol/L (3.5-5.1) Chloride Level 102mmol/L (98-107) Carbon Dioxide Level 32mmol/L (21-32) Anion Gap 9 (6-14) Blood Urea Nitrogen 22mg/dL (7-20) Creatinine 1.3mg/dL (0.6-1.0) Estimated GFR (Cockcroft-Gault) 50.7 BUN/Creatinine Ratio 17 (6-20) Glucose Level 149mg/dL (70-99) Calcium Level 9.3mg/dL (8.5-10.1) Magnesium Level 1.8mg/dL (1.8-2.4) Total Bilirubin 0.4mg/dL (0.2-1.0) Aspartate Amino Transf (AST/SGOT) 15U/L (15-37) Alanine Aminotransferase (ALT/SGPT) 9U/L (14-59) Alkaline Phosphatase 88U/L (46-116) Total Protein 8.8g/dL (6.4-8.2) Albumin 2.0g/dL (3.4-5.0) Albumin/Globulin Ratio 0.3 (1.0-1.7) White Blood Count 15.7x10^3/uL (4.0-11.0) Red Blood Count 3.76x10^6/uL (3.50-5.40) Hemoglobin 10.2g/dL (12.0-15.5) Hematocrit 31.4% (36.0-47.0) Mean Corpuscular Volume 84fL (79-100) Mean Corpuscular Hemoglobin 27pg (25-35) Mean Corpuscular Hemoglobin Concent 33g/dL (31-37) Red Cell Distribution Width 16.1% (11.5-14.5) Platelet Count 458x10^3/uL (140-400) Neutrophils (%) (Auto) 76% (31-73) Lymphocytes (%) (Auto) 12% (24-48) Monocytes (%) (Auto) 11% (0-9) Eosinophils (%) (Auto) 0% (0-3) Basophils (%) (Auto) 1% (0-3) Neutrophils # (Auto) 11.9x10^3uL (1.8-7.7) Lymphocytes # (Auto) 1.9x10^3/uL (1.0-4.8) Monocytes # (Auto) 1.7x10^3/uL (0.0-1.1) Eosinophils # (Auto) 0.0x10^3/uL (0.0-0.7) Basophils # (Auto) 0.1x10^3/uL (0.0-0.2) Glucose (Fingerstick) 218mg/dL (70-99) 169mg/dL (70-99) Test 10/31/16 21:10 11/01/16 07:00 11/01/16 07:17 11/01/16 11:25 Glucose (Fingerstick) 202mg/dL (70-99) 236mg/dL (70-99) 292mg/dL (70-99) White Blood Count 13.7x10^3/uL (4.0-11.0) Red Blood Count 3.10x10^6/uL (3.50-5.40) Hemoglobin 8.5g/dL (12.0-15.5) Hematocrit 26.0% (36.0-47.0) Mean Corpuscular Volume 84fL (79-100) Mean Corpuscular Hemoglobin 28pg (25-35) Mean Corpuscular Hemoglobin Concent 33g/dL (31-37) Red Cell Distribution Width 16.5% (11.5-14.5) Platelet Count 400x10^3/uL (140-400) Neutrophils (%) (Auto) 76% (31-73) Lymphocytes (%) (Auto) 11% (24-48) Monocytes (%) (Auto) 12% (0-9) Eosinophils (%) (Auto) 0% (0-3) Basophils (%) (Auto) 1% (0-3) Neutrophils # (Auto) 10.5x10^3uL (1.8-7.7) Lymphocytes # (Auto) 1.5x10^3/uL (1.0-4.8) Monocytes # (Auto) 1.7x10^3/uL (0.0-1.1) Eosinophils # (Auto) 0.0x10^3/uL (0.0-0.7) Basophils # (Auto) 0.1x10^3/uL (0.0-0.2) Phosphorus Level 3.1mg/dL (2.6-4.7) Magnesium Level 2.0mg/dL (1.8-2.4) Test 11/01/16 11:45 11/01/16 16:44 11/01/16 21:27 11/02/16 05:00 Sodium Level 144mmol/L (136-145) Potassium Level 4.3mmol/L (3.5-5.1) Chloride Level 105mmol/L (98-107) Carbon Dioxide Level 29mmol/L (21-32) Anion Gap 10 (6-14) Blood Urea Nitrogen 21mg/dL (7-20) Creatinine 1.2mg/dL (0.6-1.0) Estimated GFR (Cockcroft-Gault) 55.6 BUN/Creatinine Ratio 18 (6-20) Glucose Level 264mg/dL (70-99) Calcium Level 8.3mg/dL (8.5-10.1) Total Bilirubin 0.4mg/dL (0.2-1.0) Aspartate Amino Transf (AST/SGOT) 39U/L (15-37) Alanine Aminotransferase (ALT/SGPT) 7U/L (14-59) Alkaline Phosphatase 59U/L (46-116) Total Protein 6.8g/dL (6.4-8.2) Albumin 1.5g/dL (3.4-5.0) Albumin/Globulin Ratio 0.3 (1.0-1.7) Glucose (Fingerstick) 350mg/dL (70-99) 319mg/dL (70-99) White Blood Count 13.5x10^3/uL (4.0-11.0) Red Blood Count 2.98x10^6/uL (3.50-5.40) Hemoglobin 8.3g/dL (12.0-15.5) Hematocrit 25.2% (36.0-47.0) Mean Corpuscular Volume 85fL (79-100) Mean Corpuscular Hemoglobin 28pg (25-35) Mean Corpuscular Hemoglobin Concent 33g/dL (31-37) Red Cell Distribution Width 17.8% (11.5-14.5) Platelet Count 416x10^3/uL (140-400) Neutrophils (%) (Auto) 73% (31-73) Lymphocytes (%) (Auto) 14% (24-48) Monocytes (%) (Auto) 13% (0-9) Eosinophils (%) (Auto) 0% (0-3) Basophils (%) (Auto) 0% (0-3) Neutrophils # (Auto) 9.8x10^3uL (1.8-7.7) Lymphocytes # (Auto) 1.9x10^3/uL (1.0-4.8) Monocytes # (Auto) 1.8x10^3/uL (0.0-1.1) Eosinophils # (Auto) 0.0x10^3/uL (0.0-0.7) Basophils # (Auto) 0.0x10^3/uL (0.0-0.2) Laboratory Tests Test 11/01/16 11:25 11/01/16 11:45 11/01/16 16:44 11/01/16 21:27 Glucose (Fingerstick) 292mg/dL (70-99) 350mg/dL (70-99) 319mg/dL (70-99) Sodium Level 144mmol/L (136-145) Potassium Level 4.3mmol/L (3.5-5.1) Chloride Level 105mmol/L (98-107) Carbon Dioxide Level 29mmol/L (21-32) Anion Gap 10 (6-14) Blood Urea Nitrogen 21mg/dL (7-20) Creatinine 1.2mg/dL (0.6-1.0) Estimated GFR (Cockcroft-Gault) 55.6 BUN/Creatinine Ratio 18 (6-20) Glucose Level 264mg/dL (70-99) Calcium Level 8.3mg/dL (8.5-10.1) Total Bilirubin 0.4mg/dL (0.2-1.0) Aspartate Amino Transf (AST/SGOT) 39U/L (15-37) Alanine Aminotransferase (ALT/SGPT) 7U/L (14-59) Alkaline Phosphatase 59U/L (46-116) Total Protein 6.8g/dL (6.4-8.2) Albumin 1.5g/dL (3.4-5.0) Albumin/Globulin Ratio 0.3 (1.0-1.7) Test 11/02/16 05:00 White Blood Count 13.5x10^3/uL (4.0-11.0) Red Blood Count 2.98x10^6/uL (3.50-5.40) Hemoglobin 8.3g/dL (12.0-15.5) Hematocrit 25.2% (36.0-47.0) Mean Corpuscular Volume 85fL (79-100) Mean Corpuscular Hemoglobin 28pg (25-35) Mean Corpuscular Hemoglobin Concent 33g/dL (31-37) Red Cell Distribution Width 17.8% (11.5-14.5) Platelet Count 416x10^3/uL (140-400) Neutrophils (%) (Auto) 73% (31-73) Lymphocytes (%) (Auto) 14% (24-48) Monocytes (%) (Auto) 13% (0-9) Eosinophils (%) (Auto) 0% (0-3) Basophils (%) (Auto) 0% (0-3) Neutrophils # (Auto) 9.8x10^3uL (1.8-7.7) Lymphocytes # (Auto) 1.9x10^3/uL (1.0-4.8) Monocytes # (Auto) 1.8x10^3/uL (0.0-1.1) Eosinophils # (Auto) 0.0x10^3/uL (0.0-0.7) Basophils # (Auto) 0.0x10^3/uL (0.0-0.2) Meds Current Medications Bisacodyl (Dulcolax Supp) [address] ; Start 11/01/16 at 09:00 Clonidine HCl (Catapres Tts-2) 1 patch WEEKLY TD Last administered on 11:39; Start 11/01/16 at 11:00 Dextrose 12.5 gm 12.5 gm PRN Q15MIN PRN IV SEE COMMENTS; Start 11/01/16 at 11: 15 Enoxaparin Sodium (Lovenox 40mg Syringe) 40 mg Q24H SQ Last administered on 09:17; Start 11/01/16 at 09:00 Insulin Aspart (Novolog) 0-7 UNITS TIDWMEALS SQ Last administered on 11/01/16 18:15; Start 11/01/16 at 12:00 Sodium Chloride/ Potassium Chloride/ Potassium Phosphate/ Magnesium Sulfate/ Calcium Gluconate/ Multivitamins/ Minerals/Chromium/ Copper/Manganese/ Seleni/Zn /Total Parenteral Nutrition/Amino Acids/Dextrose/ Fat Emulsion Intravenous ( Sodium Chloride/ Potassium Phospha... 1,512 ml @ 63 mls/hr TPN CONT IV Last administered on 11/01/16 21:01; Start 11/01/16 at 22:00; Stop 11/02/16 at 21:59 Assessment Assessment 1. Sepsis with lactic acidosis/UTI-cholecystitis POA 2. Acute metabolic encephalopathy ARF/sepsis underlying dementia/hypernatremia 3. Urinary tract infection POA 4. Acute renal failure KALPANA VMN with CKD III 5. Seizure disorder 6. Diabetes mellitus type 2. 7. Dementia. 8. Paranoid schizophrenia. 9. severe weakness and debility with limited mobility 10. severe PCL malnutrition with underlying Moderate malnutrition. 11. Peripheral vascular disease. 12. Hyperlipidemia. 13. Malignant hypertension not POA 14. Gastroesophageal reflux disease. 15. Osteoporosis. 16. Vitamin D deficiency. 17. Legal blindness. 18. Hypernatremia NA 151 POA PLAN: sepsis with lactic acidosis UTI/choleycystitis POA ID consulted Zosyn IV Admit WBC 29.8 11/01 13.7 BC and urine CS negative Tm 100.2 previous 24 hour repeat UA neg nitrite, + blood, WBC 1-4 improved Urine cult 10/24 negative Surgical consult-no surgical intervention at this time, consider PIPIDA and IR for cholecystostomy tube placement PIPIDA abnormal, scan reviewed cholecystostomy tube placed 10/28 with 20cc christian pus +grm neg rods ID pending -Enterobacter Cloacae Abnormal CXR CXR RLL atelectasis vs [id number] nebulizer pulmonary consult CT chest w/o: Small right pleural effusion and trace left. Volume loss at the right lung base may reflect atelectasis or pneumonia. Minimal volume loss at the left lung base likely atelectasis 10/26-pulmonary signed off ARF KALPANA VMN CKDIII, hypernatremia Admit BUN 34 11/02 21 Cr 2.4 1.2 Na 137 144 K 3.8 4.3 IV D51/4NS 125cc/hr-DC 10/24 renal consulted no Lasix 10/24 hypokalemia- K ordered q6h, range 3.2-3.5. Per nephrology TPN-no insulin. changed SSI to q4h and increased to 400. Call MD >401, continue Levemir 10u at hs DM II FSBS Admit Novolog 10u tid ac-stopped 10/29 not eating Admit Levemir 22u bid - reduced to 10u BID 10/29 hold BS less than or equal to 100 BS 236-350 Levemir held 10/27 pm due to NPO seizure disorder Cerebyx IV Depakote IV Dilantin IV seizure precautions malignant HTN continue NH meds not taking oral consistently Lisinopril 5mg po NH-Begin Vasotec 1.25mg IV q 6hr hold SBP <120 hydralazine prn improved anticoagulation Admit INR 3.0 10/31 1.2 pharmacy managing INR 10/23 7.6 Lovenox 40mg subq daily until taking po warfarin 11/01/16 abd mild distention/cholecystitis POA no BM since prior to admit Dulcolax supp 10/24--small hard stool mod amount 10/25 Distention worse, abdomen firmer, BS hypoactive +GS per CXR-check amylase Repeat Dulcolax supp. and add miralax CT chest w/o contrast GB thickening with distention-will obtain GB US amylase 14 BM + 10/25 after Dulcolax cholecystitis-surgical evaluated 10/26-no surgery PIPIDA abnormal, placed cholecystostomy tube 10/28 Schedule Dulcolax QOD until taking oral meds severe with underlying chronic PCL malnutrition continue diet PPN added 10/24-restarted 10/28 poor po intake, not swallowing Initiate TPN when PICC placed and stop PPN -minimal oral intake since admit. - initiated 11/01 10/31 staff reports taking some po DVT/GI prophylaxis warfarin PPI anticoagulation not taking medication by mouth begin Lovenox 40mg sub q daily 11/01 Did not meet [facility] criteria-not accepted. For more details regarding further plans, please refer to the orders. D/w patient's niece Maddison extensively.Options,prognosis,comfort care,hospice, [facility],6 weeks of cholecystostomy drainage etc d/w her extensively.Family wants to pursue currrent care . I will transfer her to [facility] when accepted. Total visit time 45 minutes. The patient was seen and examined by me. Chart reviewed and plan of care formulated. Discussed with, reviewed and agree with CLOTH MERCERIZING SUPERVISOR's notes, plan of care and orders with modifications as necessary. For more details regarding further plans, please refer to the orders. Slightly more alert today.Ate more yesterday evening.None this AM. Plan Plan For more details regarding further plans, please refer to the orders. PABLO ROJAS MD 11/02/16 0959: PROGRESS NOTES- Assessment Assessment The patient was seen and examined by me. Chart reviewed and plan of care formulated. Discussed with, reviewed and agree with CLOTH MERCERIZING SUPERVISOR's notes, plan of care and orders with modifications as necessary. For more details regarding further plans, please refer to the orders. Add Regular insulin to 20 units to each bag of TPN. Still sleepy but more alert at times per staff. MILLIE HEAD APRN Nov 02, 2016 08:36 PABLO ROJAS MD Nov 02, 2016 09:59
[2016-11-02 08:40] LABS: ALBUMIN 1.5 g/dL (3.4-5.0); TOTAL PROTEIN 7.1 g/dL (6.4-8.2)
[2016-11-02] MEDS: FAMOTIDINE 20 MG/2 ML VIAL IVP SCH (08:40)
[2016-11-02] MEDS: BENZTROPINE MESYLATE 1 MG TABLET PO SCH (08:40)
[2016-11-02 08:41] LABS: ALBUMIN/GLOBULIN RATIO 0.3 (1.0-1.7); CALCIUM 8.2 mg/dL (8.5-10.1); CREATININE 1.2 mg/dL (0.6-1.0); GFR 55.6; POTASSIUM 5.4 mmol/L (3.5-5.1); TOTAL BILIRUBIN 0.3 mg/dL (0.2-1.0)
[2016-11-02] MEDS: ENOXAPARIN 40 MG/0.4 ML DISP.SYRIN. SQ SCH (08:41)
[2016-11-02] MEDS: busPIRone 5 MG TABLET. PO SCH ×3 (08:41→20:48)
[2016-11-02] MEDS: POLYVINYL ALCOHOL 1.4% OPHTH SOLUTION 15ML BOTTLE. OU SCH ×4 (08:41→20:47)
[2016-11-02] MEDS ORDERED: INSULIN ASPART 300 UNITS/3 ML INSULN.PEN SQ SCH ×3 (09:00→12:00)
[2016-11-02 11:12] VITALS: BP 155/81
--- NOTE | 2016-11-02 11:25 | PDOC ---
Renal-Progress Notes Subjective Notes Notes NONE History of Present Illness Hx of present illness BETTER Vitals Vitals Vital Signs Date Time Temp Pulse Resp B/P Pulse Ox O2 Delivery O2 Flow Rate FiO2 11/02/16 11:12 98.4 79 20 155/81 100 Nasal Cannula 2.0 98.4 Weight Weight [ ] I.O. Intake and Output Intake and Output 11/02/16 07:00 Intake Total 600 ml Output Total 2326 ml Balance -1726 ml Intake Oral 600 ml Output Urine Total 2100 ml Stool Total 1 ml Drainage Total 225 ml # Bowel Movements 1 Labs Labs Laboratory Tests Test 11/01/16 11:25 11/01/16 11:45 11/01/16 16:44 11/01/16 21:27 Glucose (Fingerstick) 292mg/dL (70-99) 350mg/dL (70-99) 319mg/dL (70-99) Sodium Level 144mmol/L (136-145) Potassium Level 4.3mmol/L (3.5-5.1) Chloride Level 105mmol/L (98-107) Carbon Dioxide Level 29mmol/L (21-32) Anion Gap 10 (6-14) Blood Urea Nitrogen 21mg/dL (7-20) Creatinine 1.2mg/dL (0.6-1.0) Estimated GFR (Cockcroft-Gault) 55.6 BUN/Creatinine Ratio 18 (6-20) Glucose Level 264mg/dL (70-99) Calcium Level 8.3mg/dL (8.5-10.1) Total Bilirubin 0.4mg/dL (0.2-1.0) Aspartate Amino Transf (AST/SGOT) 39U/L (15-37) Alanine Aminotransferase (ALT/SGPT) 7U/L (14-59) Alkaline Phosphatase 59U/L (46-116) Total Protein 6.8g/dL (6.4-8.2) Albumin 1.5g/dL (3.4-5.0) Albumin/Globulin Ratio 0.3 (1.0-1.7) Test 11/02/16 05:00 11/02/16 07:30 11/02/16 08:38 White Blood Count 13.5x10^3/uL (4.0-11.0) Red Blood Count 2.98x10^6/uL (3.50-5.40) Hemoglobin 8.3g/dL (12.0-15.5) Hematocrit 25.2% (36.0-47.0) Mean Corpuscular Volume 85fL (79-100) Mean Corpuscular Hemoglobin 28pg (25-35) Mean Corpuscular Hemoglobin Concent 33g/dL (31-37) Red Cell Distribution Width 17.8% (11.5-14.5) Platelet Count 416x10^3/uL (140-400) Neutrophils (%) (Auto) 73% (31-73) Lymphocytes (%) (Auto) 14% (24-48) Monocytes (%) (Auto) 13% (0-9) Eosinophils (%) (Auto) 0% (0-3) Basophils (%) (Auto) 0% (0-3) Neutrophils # (Auto) 9.8x10^3uL (1.8-7.7) Lymphocytes # (Auto) 1.9x10^3/uL (1.0-4.8) Monocytes # (Auto) 1.8x10^3/uL (0.0-1.1) Eosinophils # (Auto) 0.0x10^3/uL (0.0-0.7) Basophils # (Auto) 0.0x10^3/uL (0.0-0.2) Sodium Level 144mmol/L (136-145) Potassium Level 5.4mmol/L (3.5-5.1) Chloride Level 107mmol/L (98-107) Carbon Dioxide Level 30mmol/L (21-32) Anion Gap 7 (6-14) Blood Urea Nitrogen 19mg/dL (7-20) Creatinine 1.2mg/dL (0.6-1.0) Estimated GFR (Cockcroft-Gault) 55.6 BUN/Creatinine Ratio 16 (6-20) Glucose Level 327mg/dL (70-99) Calcium Level 8.2mg/dL (8.5-10.1) Total Bilirubin 0.3mg/dL (0.2-1.0) Aspartate Amino Transf (AST/SGOT) 31U/L (15-37) Alanine Aminotransferase (ALT/SGPT) 9U/L (14-59) Alkaline Phosphatase 57U/L (46-116) Total Protein 7.1g/dL (6.4-8.2) Albumin 1.5g/dL (3.4-5.0) Albumin/Globulin Ratio 0.3 (1.0-1.7) Glucose (Fingerstick) 324mg/dL (70-99) Micro Micro Microbiology 10/19/16 Blood Culture - Final, Complete NO GROWTH AFTER 5 DAYS 10/24/16 Urine Culture - Final, Complete 10/24/16 Urine Culture Result 1 (ELIZABETH) - Final, Complete 10/28/16 Anaerobic/Aerobic Culture - Preliminary, Resulted 10/28/16 Anaerobic Culture Result 1 (ELIZABETH) - Preliminary, Resulted 10/28/16 Aerobic Culture - Final, Resulted 10/28/16 Aerobic Culture Result 1 (ELIZABETH) - Final, Resulted 10/28/16 Antimicrobic Susceptibility - Final, Resulted Review of Systems Constitutional: yes: alert, oriented, weakness Ears/Nose/Throat: Yes: no symptom reported Eyes: Yes: no symptom reported Pulmonary: Yes no symptom reported Cardiovascular: Yes no symptom reported Gastrointestional: Yes: no symptom reported Physical Exam General Appearance: no apparent distress Skin: warm Respiratory: decreased breath sounds Heart: S1S2, RRR Abdomen: soft, bowel sounds present Extremities: pulses present Musculoskeletal: Other Assessment Assessment IMP KALPANA-IMPROVING - CR 1.2 DEHYDRATION-BETTER HYPOKALEMIA-RESOLVED HYPERNATREMIA-BETTER MET ENCEPHALOPATHY URINARY TRACT INFECTION HTN-LABILE BUT BETTER DYSPHAGIA PLAN ANTIBIOTICS TPN REPLACE K NEEDED CATAPRES PATCH MICHAEL BULLARD MD Nov 02, 2016 11:25
[2016-11-02] MEDS: TPN PER PHARMACY MC PRN (12:17)
[2016-11-02 15:13] VITALS: BP 189/92
[2016-11-02 19:00] VITALS: BP 186/90
[2016-11-02] MEDS: INSULIN DETEMIR 300 UNITS/3 ML INSULN.PEN. SQ SCH (21:41)
[2016-11-02] MEDS ORDERED: [UNRECOGNIZED DRUG - OTHER] IV SCH ×11 (22:00)
[2016-11-02] MEDS ORDERED: AMINO ACIDS IV SCH ×11 (22:00)
[2016-11-02] MEDS ORDERED: DEXTROSE 70% IV SCH ×11 (22:00)
[2016-11-02] MEDS ORDERED: TOTAL PARENTERAL NUTRITION IV SCH ×11 (22:00)
[2016-11-02 23:00] VITALS: BP 160/70
[2016-11-03] VITALS (8 sets, daily range): BP systolic 151–201; BP diastolic 63–94
[2016-11-03] MEDS: ENALAPRILAT 1.25 MG/ML VIAL. IV SCH ×5 (00:12→23:51)
[2016-11-03] MEDS: INSULIN ASPART 300 UNITS/3 ML INSULN.PEN SQ SCH ×5 (00:19→23:52)
[2016-11-03] MEDS: PIPERACILLIN/TAZOBACTAM 3.375 GM in IV NORMAL SALINE 50ML 50 ML IV SCH ×5 (00:47→23:49)
[2016-11-03] MEDS: hydrALAZINE 20 MG/ML VIAL. IVP PRN ×2 (03:16→13:20)
[2016-11-03] MEDS: NORMAL SALINE IV SCH ×4 (05:10→23:50)
[2016-11-03] MEDS: VALPROIC ACID IV SCH ×4 (05:10→23:50)
[2016-11-03 05:41] LABS: BASO # 0.1 x10^3/uL (0.0-0.2); BASO % 1 % (0-3); EOS % 0 % (0-3); HEMATOCRIT 26.1 % (36.0-47.0); HEMOGLOBIN 8.5 g/dL (12.0-15.5); LYMPH # 2.3 x10^3/uL (1.0-4.8); LYMPH % 16 % (24-48); MEAN CORPUSCULAR HEMOGLOBIN 28 pg (25-35); MEAN CORPUSCULAR HGB CONC 33 g/dL (31-37); MEAN CORPUSCULAR VOLUME 85 fL (79-100); MONO % 13 % (0-9); NEUT % 71 % (31-73); PLATELET COUNT 406 x10^3/uL (140-400); RED BLOOD COUNT 3.09 x10^6/uL (3.50-5.40); WHITE BLOOD COUNT 14.4 x10^3/uL (4.0-11.0)
[2016-11-03] MEDS: FOSPHENYTOIN 100 MG/2 ML VIAL IV SCH ×3 (05:56→20:25)
[2016-11-03 06:09] LABS: ALBUMIN 1.7 g/dL (3.4-5.0); ALBUMIN/GLOBULIN RATIO 0.3 (1.0-1.7); CALCIUM 8.5 mg/dL (8.5-10.1); CREATININE 1.1 mg/dL (0.6-1.0); GFR 61.5; TOTAL BILIRUBIN 0.3 mg/dL (0.2-1.0); TOTAL PROTEIN 7.3 g/dL (6.4-8.2)
--- NOTE | 2016-11-03 07:23 | PDOC ---
[facility] 11/03/16 0723: IM PROGRESS NOTES- Subjective Subjective sleeping, opens eyes to name, Objective Objective more alert Vitals Vital Signs Date Time Temp Pulse Resp B/P Pulse Ox O2 Delivery O2 Flow Rate FiO2 11/03/16 06:03 91 177/73 11/03/16 03:00 97.9 28 99 Room Air 97.9 11/02/16 20:30 2.0 Input & Output Intake and Output 11/03/16 07:00 Intake Total 1070 ml Output Total 3627 ml Balance -2557 ml Intake Oral 60 ml Tube Feeding 1000 ml Blood Product IV Normal Saline Flush 10 ml Output Urine Total 3502 ml Drainage Total 125 ml Physical Exam Physical Exam GENERAL: awake ,opens eyes, following command to public service administrator with RH, attempt to smile , attempt to speak . HEAD: normocephalic LUNGS: Decreased breath sounds at bases. CARDIOVASCULAR: S1 and S2 regular. ABDOMEN: Soft, obese, nontender,BS increased slightly, cholecystostomy tube serous bloody EXTREMITIES: + edema. CENTRAL NERVOUS SYSTEM: awake, + response to verbal, + tracking SKIN: Warm and dry. Skin turgor decreased Labs Laboratory Tests Test 11/01/16 07:17 11/01/16 11:25 11/01/16 11:45 11/01/16 16:44 Glucose (Fingerstick) 236mg/dL (70-99) 292mg/dL (70-99) 350mg/dL (70-99) Sodium Level 144mmol/L (136-145) Potassium Level 4.3mmol/L (3.5-5.1) Chloride Level 105mmol/L (98-107) Carbon Dioxide Level 29mmol/L (21-32) Anion Gap 10 (6-14) Blood Urea Nitrogen 21mg/dL (7-20) Creatinine 1.2mg/dL (0.6-1.0) Estimated GFR (Cockcroft-Gault) 55.6 BUN/Creatinine Ratio 18 (6-20) Glucose Level 264mg/dL (70-99) Calcium Level 8.3mg/dL (8.5-10.1) Total Bilirubin 0.4mg/dL (0.2-1.0) Aspartate Amino Transf (AST/SGOT) 39U/L (15-37) Alanine Aminotransferase (ALT/SGPT) 7U/L (14-59) Alkaline Phosphatase 59U/L (46-116) Total Protein 6.8g/dL (6.4-8.2) Albumin 1.5g/dL (3.4-5.0) Albumin/Globulin Ratio 0.3 (1.0-1.7) Test 11/01/16 21:27 11/02/16 05:00 11/02/16 07:30 11/02/16 08:38 Glucose (Fingerstick) 319mg/dL (70-99) 324mg/dL (70-99) White Blood Count 13.5x10^3/uL (4.0-11.0) Red Blood Count 2.98x10^6/uL (3.50-5.40) Hemoglobin 8.3g/dL (12.0-15.5) Hematocrit 25.2% (36.0-47.0) Mean Corpuscular Volume 85fL (79-100) Mean Corpuscular Hemoglobin 28pg (25-35) Mean Corpuscular Hemoglobin Concent 33g/dL (31-37) Red Cell Distribution Width 17.8% (11.5-14.5) Platelet Count 416x10^3/uL (140-400) Neutrophils (%) (Auto) 73% (31-73) Lymphocytes (%) (Auto) 14% (24-48) Monocytes (%) (Auto) 13% (0-9) Eosinophils (%) (Auto) 0% (0-3) Basophils (%) (Auto) 0% (0-3) Neutrophils # (Auto) 9.8x10^3uL (1.8-7.7) Lymphocytes # (Auto) 1.9x10^3/uL (1.0-4.8) Monocytes # (Auto) 1.8x10^3/uL (0.0-1.1) Eosinophils # (Auto) 0.0x10^3/uL (0.0-0.7) Basophils # (Auto) 0.0x10^3/uL (0.0-0.2) Sodium Level 144mmol/L (136-145) Potassium Level 5.4mmol/L (3.5-5.1) Chloride Level 107mmol/L (98-107) Carbon Dioxide Level 30mmol/L (21-32) Anion Gap 7 (6-14) Blood Urea Nitrogen 19mg/dL (7-20) Creatinine 1.2mg/dL (0.6-1.0) Estimated GFR (Cockcroft-Gault) 55.6 BUN/Creatinine Ratio 16 (6-20) Glucose Level 327mg/dL (70-99) Calcium Level 8.2mg/dL (8.5-10.1) Total Bilirubin 0.3mg/dL (0.2-1.0) Aspartate Amino Transf (AST/SGOT) 31U/L (15-37) Alanine Aminotransferase (ALT/SGPT) 9U/L (14-59) Alkaline Phosphatase 57U/L (46-116) Total Protein 7.1g/dL (6.4-8.2) Albumin 1.5g/dL (3.4-5.0) Albumin/Globulin Ratio 0.3 (1.0-1.7) Test 11/02/16 11:31 11/02/16 16:57 11/02/16 21:33 11/02/16 23:52 Glucose (Fingerstick) 286mg/dL (70-99) 337mg/dL (70-99) 276mg/dL (70-99) 279mg/dL (70-99) Test 11/03/16 05:30 11/03/16 06:05 White Blood Count 14.4x10^3/uL (4.0-11.0) Red Blood Count 3.09x10^6/uL (3.50-5.40) Hemoglobin 8.5g/dL (12.0-15.5) Hematocrit 26.1% (36.0-47.0) Mean Corpuscular Volume 85fL (79-100) Mean Corpuscular Hemoglobin 28pg (25-35) Mean Corpuscular Hemoglobin Concent 33g/dL (31-37) Red Cell Distribution Width 17.0% (11.5-14.5) Platelet Count 406x10^3/uL (140-400) Neutrophils (%) (Auto) 71% (31-73) Lymphocytes (%) (Auto) 16% (24-48) Monocytes (%) (Auto) 13% (0-9) Eosinophils (%) (Auto) 0% (0-3) Basophils (%) (Auto) 1% (0-3) Neutrophils # (Auto) 10.2x10^3uL (1.8-7.7) Lymphocytes # (Auto) 2.3x10^3/uL (1.0-4.8) Monocytes # (Auto) 1.8x10^3/uL (0.0-1.1) Eosinophils # (Auto) 0.0x10^3/uL (0.0-0.7) Basophils # (Auto) 0.1x10^3/uL (0.0-0.2) Sodium Level 144mmol/L (136-145) Potassium Level 3.0mmol/L (3.5-5.1) Chloride Level 105mmol/L (98-107) Carbon Dioxide Level 27mmol/L (21-32) Anion Gap 12 (6-14) Blood Urea Nitrogen 18mg/dL (7-20) Creatinine 1.1mg/dL (0.6-1.0) Estimated GFR (Cockcroft-Gault) 61.5 BUN/Creatinine Ratio 16 (6-20) Glucose Level 332mg/dL (70-99) Calcium Level 8.5mg/dL (8.5-10.1) Phosphorus Level 3.4mg/dL (2.6-4.7) Total Bilirubin 0.3mg/dL (0.2-1.0) Aspartate Amino Transf (AST/SGOT) 11U/L (15-37) Alanine Aminotransferase (ALT/SGPT) 6U/L (14-59) Alkaline Phosphatase 53U/L (46-116) Total Protein 7.3g/dL (6.4-8.2) Albumin 1.7g/dL (3.4-5.0) Albumin/Globulin Ratio 0.3 (1.0-1.7) Glucose (Fingerstick) 296mg/dL (70-99) Laboratory Tests Test 11/02/16 07:30 11/02/16 08:38 11/02/16 11:31 11/02/16 16:57 Sodium Level 144mmol/L (136-145) Potassium Level 5.4mmol/L (3.5-5.1) Chloride Level 107mmol/L (98-107) Carbon Dioxide Level 30mmol/L (21-32) Anion Gap 7 (6-14) Blood Urea Nitrogen 19mg/dL (7-20) Creatinine 1.2mg/dL (0.6-1.0) Estimated GFR (Cockcroft-Gault) 55.6 BUN/Creatinine Ratio 16 (6-20) Glucose Level 327mg/dL (70-99) Calcium Level 8.2mg/dL (8.5-10.1) Total Bilirubin 0.3mg/dL (0.2-1.0) Aspartate Amino Transf (AST/SGOT) 31U/L (15-37) Alanine Aminotransferase (ALT/SGPT) 9U/L (14-59) Alkaline Phosphatase 57U/L (46-116) Total Protein 7.1g/dL (6.4-8.2) Albumin 1.5g/dL (3.4-5.0) Albumin/Globulin Ratio 0.3 (1.0-1.7) Glucose (Fingerstick) 324mg/dL (70-99) 286mg/dL (70-99) 337mg/dL (70-99) Test 11/02/16 21:33 11/02/16 23:52 11/03/16 05:30 11/03/16 06:05 Glucose (Fingerstick) 276mg/dL (70-99) 279mg/dL (70-99) 296mg/dL (70-99) White Blood Count 14.4x10^3/uL (4.0-11.0) Red Blood Count 3.09x10^6/uL (3.50-5.40) Hemoglobin 8.5g/dL (12.0-15.5) Hematocrit 26.1% (36.0-47.0) Mean Corpuscular Volume 85fL (79-100) Mean Corpuscular Hemoglobin 28pg (25-35) Mean Corpuscular Hemoglobin Concent 33g/dL (31-37) Red Cell Distribution Width 17.0% (11.5-14.5) Platelet Count 406x10^3/uL (140-400) Neutrophils (%) (Auto) 71% (31-73) Lymphocytes (%) (Auto) 16% (24-48) Monocytes (%) (Auto) 13% (0-9) Eosinophils (%) (Auto) 0% (0-3) Basophils (%) (Auto) 1% (0-3) Neutrophils # (Auto) 10.2x10^3uL (1.8-7.7) Lymphocytes # (Auto) 2.3x10^3/uL (1.0-4.8) Monocytes # (Auto) 1.8x10^3/uL (0.0-1.1) Eosinophils # (Auto) 0.0x10^3/uL (0.0-0.7) Basophils # (Auto) 0.1x10^3/uL (0.0-0.2) Sodium Level 144mmol/L (136-145) Potassium Level 3.0mmol/L (3.5-5.1) Chloride Level 105mmol/L (98-107) Carbon Dioxide Level 27mmol/L (21-32) Anion Gap 12 (6-14) Blood Urea Nitrogen 18mg/dL (7-20) Creatinine 1.1mg/dL (0.6-1.0) Estimated GFR (Cockcroft-Gault) 61.5 BUN/Creatinine Ratio 16 (6-20) Glucose Level 332mg/dL (70-99) Calcium Level 8.5mg/dL (8.5-10.1) Phosphorus Level 3.4mg/dL (2.6-4.7) Total Bilirubin 0.3mg/dL (0.2-1.0) Aspartate Amino Transf (AST/SGOT) 11U/L (15-37) Alanine Aminotransferase (ALT/SGPT) 6U/L (14-59) Alkaline Phosphatase 53U/L (46-116) Total Protein 7.3g/dL (6.4-8.2) Albumin 1.7g/dL (3.4-5.0) Albumin/Globulin Ratio 0.3 (1.0-1.7) Meds Current Medications Insulin Aspart (Novolog) 0-7 UNITS PRN Q4HRS SQ ; Start 11/02/16 at 09:00; Stop 11/02/16 at 09:31; Status DC Insulin Aspart (Novolog) 0-7 UNITS Q4HRS SQ Last administered on 11/02/16t 09: 35; Start 11/02/16 at 09:35; Stop 11/02/16 at 10:05; Status DC Insulin Aspart (Novolog) 0-7 UNITS TIDWMEALS SQ ; Start 11/02/16 at 12:00; Stop 11/02/16 at 12:00; Status DC Insulin Aspart 0-7 UNITS Q6HRS SQ Last administered on 11/03/16 06:17; Start 11/02/16 at 12:00 Sodium Chloride/ Potassium Chloride/ Potassium Phosphate/ Magnesium Sulfate/ Calcium Gluconate/ Multivitamins/ Minerals/Chromium/ Copper/Manganese/ Seleni/Zn /Insulin Human Regular/ Total Parenteral Nutrition/Amino Acids/Dextrose/ Fat Emulsion Intravenous (Sodium Chloride/ Potass... 1,512 ml @ 63 mls/hr TPN CONT IV Last administered on 11/02/16 20:30; Start 11/02/16 at 22:00; Stop at 21:59 Assessment Assessment Assessment 1. Sepsis with lactic acidosis/UTI-cholecystitis POA 2. Acute metabolic encephalopathy ARF/sepsis underlying dementia/hypernatremia 3. Urinary tract infection POA 4. Acute renal failure KALPANA VMN with CKD III 5. Seizure disorder 6. Diabetes mellitus type 2. 7. Dementia. 8. Paranoid schizophrenia. 9. severe weakness and debility with limited mobility 10. severe PCL malnutrition with underlying Moderate malnutrition. 11. Peripheral vascular disease. 12. Hyperlipidemia. 13. Malignant hypertension not POA 14. Gastroesophageal reflux disease. 15. Osteoporosis. 16. Vitamin D deficiency. 17. Legal blindness. 18. Hypernatremia NA 151 POA PLAN: sepsis with lactic acidosis UTI/choleycystitis POA ID consulted Zosyn IV Admit WBC 29.8 10/10 14.4 BC and urine CS negative Tm 100.2 previous 24 hour repeat UA neg nitrite, + blood, WBC 1-4 improved Urine cult 10/24 negative Surgical consult-no surgical intervention at this time, consider PIPIDA and IR for cholecystostomy tube placement PIPIDA abnormal, scan reviewed cholecystostomy tube placed 10/28 with 20cc christian pus +grm neg rods ID pending -Enterobacter Cloacae Abnormal CXR CXR RLL atelectasis vs [id number] nebulizer pulmonary consult CT chest w/o: Small right pleural effusion and trace left. Volume loss at the right lung base may reflect atelectasis or pneumonia. Minimal volume loss at the left lung base likely atelectasis 10/26-pulmonary signed off ARF KALPANA VMN CKDIII, hypernatremia Admit BUN 34 11/03 17 Cr 2.4 1.1 Na 137 144 K 3.8 3.0 IV D51/4NS 125cc/hr-DC 10/24 renal consulted no Lasix 10/24 hypokalemia- prn K dosing scale TPN-no insulin. changed SSI to q4h and increased to 400. Call MD >401, continue Levemir 10u at hs 11/03 Reg 20u to TPN, SSI changed to q6h, staff following NPO scale. SSI adjusted and NPO dosing removed. DM II FSBS Admit Novolog 10u tid ac-stopped 10/29 not eating Admit Levemir 22u bid - reduced to 10u BID 10/29 hold BS less than or equal to 100 BS 276-332 Levemir held 10/27 pm due to NPO seizure disorder Cerebyx IV Depakote IV Dilantin IV seizure precautions malignant HTN continue NH meds not taking oral consistently Lisinopril 5mg po NH-Begin Vasotec 1.25mg IV q 6hr hold SBP <120 hydralazine prn SBP 160s-201 -add lopressor 5mg IV q6hr, give dose at 7:30AM 11/03 anticoagulation Admit INR 3.0 10/31 1.2 pharmacy managing INR 10/23 7.6 Lovenox 40mg subq daily until taking po warfarin 11/01/16 abd mild distention/cholecystitis POA no BM since prior to admit Dulcolax supp 10/24--small hard stool mod amount 10/25 Distention worse, abdomen firmer, BS hypoactive +GS per CXR-check amylase Repeat Dulcolax supp. and add miralax CT chest w/o contrast GB thickening with distention-will obtain GB US amylase 14 BM + 10/25 after Dulcolax cholecystitis-surgical evaluated 10/26-no surgery PIPIDA abnormal, placed cholecystostomy tube 10/28 Schedule Dulcolax QOD until taking oral meds severe with underlying chronic PCL malnutrition continue diet PPN added 10/24-restarted 10/28 poor po intake, not swallowing Initiate TPN when PICC placed and stop PPN -minimal oral intake since admit. - initiated 11/01 10/31 staff reports taking some po DVT/GI prophylaxis warfarin PPI anticoagulation not taking medication by mouth begin Lovenox 40mg sub q daily 11/01 Did not meet [facility] criteria-not accepted. For more details regarding further plans, please refer to the orders. Plan Plan For more details regarding further plans, please refer to the orders. PABLO ROJAS MD 11/03/16 1119: IM PROGRESS NOTES- Assessment Assessment The patient was seen and examined by me. Chart reviewed and plan of care formulated. Discussed with, reviewed and agree with WAREHOUSE SHIPPING SUPERVISOR's notes, plan of care and orders with modifications as necessary. For more details regarding further plans, please refer to the orders. Hypokalemia- d/w staff replace. [facility] did not accept patient. MILLIE HEAD APRN Nov 03, 2016 07:23 PABLO ROJAS MD Nov 03, 2016 11:19
[2016-11-03] MEDS ORDERED: METOPROLOL TARTRATE 5 MG/5 ML VIAL. IVP ONE (07:30)
[2016-11-03] MEDS ORDERED: METOPROLOL TARTRATE 5 MG/5 ML VIAL. IVP SCH (07:30)
[2016-11-03] MEDS: busPIRone 5 MG TABLET. PO SCH ×3 (09:00→20:22)
[2016-11-03] MEDS: BENZTROPINE MESYLATE 1 MG TABLET PO SCH (09:01)
[2016-11-03] MEDS: BISACODYL 10 MG SUPP.RECT PR SCH (09:02)
[2016-11-03] MEDS: FAMOTIDINE 20 MG/2 ML VIAL IVP SCH (09:02)
[2016-11-03] MEDS: POLYVINYL ALCOHOL 1.4% OPHTH SOLUTION 15ML BOTTLE. OU SCH ×4 (09:02→20:21)
[2016-11-03] MEDS: ENOXAPARIN 40 MG/0.4 ML DISP.SYRIN. SQ SCH (09:12)
--- NOTE | 2016-11-03 11:29 | PDOC ---
Renal-Progress Notes Subjective Notes Notes NONE History of Present Illness Hx of present illness NO CHANGE Vitals Vitals Vital Signs Date Time Temp Pulse Resp B/P Pulse Ox O2 Delivery O2 Flow Rate FiO2 11/03/16 11:07 98.4 92 18 191/94 99 Nasal Cannula 2.0 98.4 Weight Weight [ ] I.O. Intake and Output Intake and Output 11/03/16 07:00 Intake Total 1070 ml Output Total 3627 ml Balance -2557 ml Intake Oral 60 ml Tube Feeding 1000 ml Blood Product IV Normal Saline Flush 10 ml Output Urine Total 3502 ml Drainage Total 125 ml Labs Labs Laboratory Tests Test 11/02/16 11:31 11/02/16 16:57 11/02/16 21:33 11/02/16 23:52 Glucose (Fingerstick) 286mg/dL (70-99) 337mg/dL (70-99) 276mg/dL (70-99) 279mg/dL (70-99) Test 11/03/16 05:30 11/03/16 06:05 11/03/16 07:23 White Blood Count 14.4x10^3/uL (4.0-11.0) Red Blood Count 3.09x10^6/uL (3.50-5.40) Hemoglobin 8.5g/dL (12.0-15.5) Hematocrit 26.1% (36.0-47.0) Mean Corpuscular Volume 85fL (79-100) Mean Corpuscular Hemoglobin 28pg (25-35) Mean Corpuscular Hemoglobin Concent 33g/dL (31-37) Red Cell Distribution Width 17.0% (11.5-14.5) Platelet Count 406x10^3/uL (140-400) Neutrophils (%) (Auto) 71% (31-73) Lymphocytes (%) (Auto) 16% (24-48) Monocytes (%) (Auto) 13% (0-9) Eosinophils (%) (Auto) 0% (0-3) Basophils (%) (Auto) 1% (0-3) Neutrophils # (Auto) 10.2x10^3uL (1.8-7.7) Lymphocytes # (Auto) 2.3x10^3/uL (1.0-4.8) Monocytes # (Auto) 1.8x10^3/uL (0.0-1.1) Eosinophils # (Auto) 0.0x10^3/uL (0.0-0.7) Basophils # (Auto) 0.1x10^3/uL (0.0-0.2) Sodium Level 144mmol/L (136-145) Potassium Level 3.0mmol/L (3.5-5.1) Chloride Level 105mmol/L (98-107) Carbon Dioxide Level 27mmol/L (21-32) Anion Gap 12 (6-14) Blood Urea Nitrogen 18mg/dL (7-20) Creatinine 1.1mg/dL (0.6-1.0) Estimated GFR (Cockcroft-Gault) 61.5 BUN/Creatinine Ratio 16 (6-20) Glucose Level 332mg/dL (70-99) Calcium Level 8.5mg/dL (8.5-10.1) Phosphorus Level 3.4mg/dL (2.6-4.7) Total Bilirubin 0.3mg/dL (0.2-1.0) Aspartate Amino Transf (AST/SGOT) 11U/L (15-37) Alanine Aminotransferase (ALT/SGPT) 6U/L (14-59) Alkaline Phosphatase 53U/L (46-116) Total Protein 7.3g/dL (6.4-8.2) Albumin 1.7g/dL (3.4-5.0) Albumin/Globulin Ratio 0.3 (1.0-1.7) Glucose (Fingerstick) 296mg/dL (70-99) 317mg/dL (70-99) Micro Micro Microbiology 10/19/16 Blood Culture - Final, Complete NO GROWTH AFTER 5 DAYS 10/24/16 Urine Culture - Final, Complete 10/24/16 Urine Culture Result 1 (ELIZABETH) - Final, Complete 10/28/16 Anaerobic/Aerobic Culture - Preliminary, Resulted 10/28/16 Anaerobic Culture Result 1 (ELIZABETH) - Preliminary, Resulted 10/28/16 Aerobic Culture - Final, Resulted 10/28/16 Aerobic Culture Result 1 (ELIZABETH) - Final, Resulted 10/28/16 Antimicrobic Susceptibility - Final, Resulted Review of Systems Constitutional: yes: alert, oriented, weakness Ears/Nose/Throat: Yes: no symptom reported Eyes: Yes: no symptom reported Pulmonary: Yes no symptom reported Cardiovascular: Yes no symptom reported Gastrointestional: Yes: no symptom reported Physical Exam General Appearance: no apparent distress Skin: warm Respiratory: decreased breath sounds Heart: S1S2, RRR Abdomen: soft, bowel sounds present Extremities: pulses present Musculoskeletal: Other Assessment Assessment IMP KAL[place]NA-IMPROVING - CR 1.2 DEHYDRATION-BETTER HYPOKALEMIA HYPERNATREMIA-BETTER MET ENCEPHALOPATHY URINARY TRACT INFECTION HTN-LABILE BUT BETTER DYSPHAGIA PLAN ANTIBIOTICS TPN REPLACE K NEEDED CATAPRES PATCH INCREASED TO TTS 2 MICHAEL BULLARD MD Nov 03, 2016 11:29
[2016-11-03] MEDS ORDERED: CLONIDINE TTS-2 PATCH TD SCH (12:00)
[2016-11-03] MEDS: METOPROLOL TARTRATE 5 MG/5 ML VIAL. IVP SCH ×3 (12:39→23:51)
[2016-11-03] MEDS: POTASSIUM CHLORIDE 20MEQ 50 ML IV SCH ×2 (12:51→16:13)
[2016-11-03] MEDS: TPN PER PHARMACY MC PRN (13:55)
[2016-11-03] MEDS: INSULIN DETEMIR 300 UNITS/3 ML INSULN.PEN. SQ SCH (20:24)
[2016-11-03] MEDS ORDERED: TOTAL PARENTERAL NUTRITION IV SCH ×11 (22:00)
[2016-11-03] MEDS ORDERED: [UNRECOGNIZED DRUG - OTHER] IV SCH ×11 (22:00)
[2016-11-03] MEDS ORDERED: AMINO ACIDS IV SCH ×11 (22:00)
[2016-11-03] MEDS ORDERED: DEXTROSE 70% IV SCH ×11 (22:00)
[2016-11-04 03:00] VITALS: BP 166/74
[2016-11-04] MEDS: PIPERACILLIN/TAZOBACTAM 3.375 GM in IV NORMAL SALINE 50ML 50 ML IV SCH ×4 (05:35→23:47)
[2016-11-04] MEDS: METOPROLOL TARTRATE 5 MG/5 ML VIAL. IVP SCH ×4 (05:36→23:48)
[2016-11-04] MEDS: ENALAPRILAT 1.25 MG/ML VIAL. IV SCH (05:36)
[2016-11-04] MEDS: NORMAL SALINE IV SCH ×4 (05:37→23:47)
[2016-11-04] MEDS: VALPROIC ACID IV SCH ×4 (05:37→23:47)
[2016-11-04] MEDS: FOSPHENYTOIN 100 MG/2 ML VIAL IV SCH ×3 (05:37→21:16)
[2016-11-04] MEDS: INSULIN ASPART 300 UNITS/3 ML INSULN.PEN SQ SCH ×5 (05:38→23:49)
[2016-11-04 06:05] LABS: BASO # 0.1 x10^3/uL (0.0-0.2); BASO % 1 % (0-3); EOS % 0 % (0-3); HEMOGLOBIN 7.7 g/dL (12.0-15.5); LYMPH # 2.5 x10^3/uL (1.0-4.8); LYMPH % 21 % (24-48); MEAN CORPUSCULAR HEMOGLOBIN 27 pg (25-35); MEAN CORPUSCULAR HGB CONC 32 g/dL (31-37); MEAN CORPUSCULAR VOLUME 85 fL (79-100); MONO % 14 % (0-9); NEUT % 65 % (31-73); PLATELET COUNT 387 x10^3/uL (140-400); RED BLOOD COUNT 2.82 x10^6/uL (3.50-5.40); RED CELL DISTRIBUTION WIDTH 17.4 % (11.5-14.5)
[2016-11-04 06:36] LABS: ALBUMIN 1.6 g/dL (3.4-5.0); ALBUMIN/GLOBULIN RATIO 0.3 (1.0-1.7); ALK PHOS 53 U/L (46-116); ALT (SGPT) < 6 U/L (14-59); ANION GAP 8 (6-14); AST (SGOT) 9 U/L (15-37); BLOOD UREA NITROGEN 23 mg/dL (7-20); BUN/CREATININE RATIO 19 (6-20); CALCIUM 8.5 mg/dL (8.5-10.1); CARBON DIOXIDE 28 mmol/L (21-32); CHLORIDE 108 mmol/L (98-107); CREATININE 1.2 mg/dL (0.6-1.0); GFR 55.6; GLUCOSE 265 mg/dL (70-99); POTASSIUM 3.3 mmol/L (3.5-5.1); SODIUM 144 mmol/L (136-145); TOTAL BILIRUBIN 0.2 mg/dL (0.2-1.0); TOTAL PROTEIN 7.1 g/dL (6.4-8.2)
[2016-11-04 07:00] VITALS: BP 133/59
[2016-11-04] MEDS: busPIRone 5 MG TABLET. PO SCH ×3 (08:36→21:16)
[2016-11-04] MEDS: BENZTROPINE MESYLATE 1 MG TABLET PO SCH (08:36)
[2016-11-04] MEDS: ENOXAPARIN 40 MG/0.4 ML DISP.SYRIN. SQ SCH (08:38)
[2016-11-04] MEDS: POLYVINYL ALCOHOL 1.4% OPHTH SOLUTION 15ML BOTTLE. OU SCH ×4 (08:39→21:16)
[2016-11-04] MEDS: FAMOTIDINE 20 MG/2 ML VIAL IVP SCH (08:40)
[2016-11-04] MEDS ORDERED: ACETAMINOPHEN 325 MG TABLET. PO PRN (09:00)
[2016-11-04] MEDS ORDERED: FENTANYL PF 100 MCG/2 ML VIAL. IV PRN (09:00)
--- NOTE | 2016-11-04 09:17 | PDOC ---
NELLYBALDEVMILLIE FORENSIC MANAGER 11/04/16 0917: IM PROGRESS NOTES- Subjective Subjective awake, smiling, simple verbal replies Staff reports eating 100% magic cup, struggles with meals as she does not like food. Pain (moaning and crying out) with repositioning taking oral medications. Objective Objective more alert Vitals Vital Signs Date Time Temp Pulse Resp B/P Pulse Ox O2 Delivery O2 Flow Rate FiO2 11/04/16 07:00 98.4 71 17 133/59 100 Room Air 98.4 11/03/16 20:00 2.0 Input & Output Intake and Output 11/04/16 07:00 Intake Total 1310.9 ml Output Total 2226 ml Balance -915.1 ml Intake Oral 50 ml IV Total 1260.9 ml Output Urine Total 2150 ml Stool Total 1 ml Drainage Total 75 ml # Bowel Movements 1 Physical Exam Physical Exam GENERAL: awake, alert, increased interaction/animation, following command to fruit thinner with RH . HEAD: normocephalic LUNGS: Decreased breath sounds at bases. CARDIOVASCULAR: S1 and S2 regular. ABDOMEN: Soft, obese, nontender,BS increased slightly, cholecystostomy tube serous bloody EXTREMITIES: + edema. CENTRAL NERVOUS SYSTEM: awake, interactive, one word to simple sentences response SKIN: Warm and dry. Skin turgor decreased Labs Laboratory Tests Test 11/02/16 11:31 11/02/16 16:57 11/02/16 21:33 11/02/16 23:52 Glucose (Fingerstick) 286mg/dL (70-99) 337mg/dL (70-99) 276mg/dL (70-99) 279mg/dL (70-99) Test 11/03/16 05:30 11/03/16 06:05 11/03/16 07:23 11/03/16 11:36 White Blood Count 14.4x10^3/uL (4.0-11.0) Red Blood Count 3.09x10^6/uL (3.50-5.40) Hemoglobin 8.5g/dL (12.0-15.5) Hematocrit 26.1% (36.0-47.0) Mean Corpuscular Volume 85fL (79-100) Mean Corpuscular Hemoglobin 28pg (25-35) Mean Corpuscular Hemoglobin Concent 33g/dL (31-37) Red Cell Distribution Width 17.0% (11.5-14.5) Platelet Count 406x10^3/uL (140-400) Neutrophils (%) (Auto) 71% (31-73) Lymphocytes (%) (Auto) 16% (24-48) Monocytes (%) (Auto) 13% (0-9) Eosinophils (%) (Auto) 0% (0-3) Basophils (%) (Auto) 1% (0-3) Neutrophils # (Auto) 10.2x10^3uL (1.8-7.7) Lymphocytes # (Auto) 2.3x10^3/uL (1.0-4.8) Monocytes # (Auto) 1.8x10^3/uL (0.0-1.1) Eosinophils # (Auto) 0.0x10^3/uL (0.0-0.7) Basophils # (Auto) 0.1x10^3/uL (0.0-0.2) Sodium Level 144mmol/L (136-145) Potassium Level 3.0mmol/L (3.5-5.1) Chloride Level 105mmol/L (98-107) Carbon Dioxide Level 27mmol/L (21-32) Anion Gap 12 (6-14) Blood Urea Nitrogen 18mg/dL (7-20) Creatinine 1.1mg/dL (0.6-1.0) Estimated GFR (Cockcroft-Gault) 61.5 BUN/Creatinine Ratio 16 (6-20) Glucose Level 332mg/dL (70-99) Calcium Level 8.5mg/dL (8.5-10.1) Phosphorus Level 3.4mg/dL (2.6-4.7) Total Bilirubin 0.3mg/dL (0.2-1.0) Aspartate Amino Transf (AST/SGOT) 11U/L (15-37) Alanine Aminotransferase (ALT/SGPT) 6U/L (14-59) Alkaline Phosphatase 53U/L (46-116) Total Protein 7.3g/dL (6.4-8.2) Albumin 1.7g/dL (3.4-5.0) Albumin/Globulin Ratio 0.3 (1.0-1.7) Glucose (Fingerstick) 296mg/dL (70-99) 317mg/dL (70-99) 333mg/dL (70-99) Test 11/03/16 16:30 11/03/16 21:30 11/04/16 05:28 11/04/16 05:30 Glucose (Fingerstick) 330mg/dL (70-99) 305mg/dL (70-99) 237mg/dL (70-99) White Blood Count 12.0x10^3/uL (4.0-11.0) Red Blood Count 2.82x10^6/uL (3.50-5.40) Hemoglobin 7.7g/dL (12.0-15.5) Hematocrit 24.0% (36.0-47.0) Mean Corpuscular Volume 85fL (79-100) Mean Corpuscular Hemoglobin 27pg (25-35) Mean Corpuscular Hemoglobin Concent 32g/dL (31-37) Red Cell Distribution Width 17.4% (11.5-14.5) Platelet Count 387x10^3/uL (140-400) Neutrophils (%) (Auto) 65% (31-73) Lymphocytes (%) (Auto) 21% (24-48) Monocytes (%) (Auto) 14% (0-9) Eosinophils (%) (Auto) 0% (0-3) Basophils (%) (Auto) 1% (0-3) Neutrophils # (Auto) 7.8x10^3uL (1.8-7.7) Lymphocytes # (Auto) 2.5x10^3/uL (1.0-4.8) Monocytes # (Auto) 1.6x10^3/uL (0.0-1.1) Eosinophils # (Auto) 0.0x10^3/uL (0.0-0.7) Basophils # (Auto) 0.1x10^3/uL (0.0-0.2) Sodium Level 144mmol/L (136-145) Potassium Level 3.3mmol/L (3.5-5.1) Chloride Level 108mmol/L (98-107) Carbon Dioxide Level 28mmol/L (21-32) Anion Gap 8 (6-14) Blood Urea Nitrogen 23mg/dL (7-20) Creatinine 1.2mg/dL (0.6-1.0) Estimated GFR (Cockcroft-Gault) 55.6 BUN/Creatinine Ratio 19 (6-20) Glucose Level 265mg/dL (70-99) Calcium Level 8.5mg/dL (8.5-10.1) Total Bilirubin 0.2mg/dL (0.2-1.0) Aspartate Amino Transf (AST/SGOT) 9U/L (15-37) Alanine Aminotransferase (ALT/SGPT) < 6U/L (14-59) Alkaline Phosphatase 53U/L (46-116) Total Protein 7.1g/dL (6.4-8.2) Albumin 1.6g/dL (3.4-5.0) Albumin/Globulin Ratio 0.3 (1.0-1.7) Laboratory Tests Test 11/03/16 11:36 11/03/16 16:30 11/03/16 21:30 11/04/16 05:28 Glucose (Fingerstick) 333mg/dL (70-99) 330mg/dL (70-99) 305mg/dL (70-99) 237mg/dL (70-99) Test 11/04/16 05:30 White Blood Count 12.0x10^3/uL (4.0-11.0) Red Blood Count 2.82x10^6/uL (3.50-5.40) Hemoglobin 7.7g/dL (12.0-15.5) Hematocrit 24.0% (36.0-47.0) Mean Corpuscular Volume 85fL (79-100) Mean Corpuscular Hemoglobin 27pg (25-35) Mean Corpuscular Hemoglobin Concent 32g/dL (31-37) Red Cell Distribution Width 17.4% (11.5-14.5) Platelet Count 387x10^3/uL (140-400) Neutrophils (%) (Auto) 65% (31-73) Lymphocytes (%) (Auto) 21% (24-48) Monocytes (%) (Auto) 14% (0-9) Eosinophils (%) (Auto) 0% (0-3) Basophils (%) (Auto) 1% (0-3) Neutrophils # (Auto) 7.8x10^3uL (1.8-7.7) Lymphocytes # (Auto) 2.5x10^3/uL (1.0-4.8) Monocytes # (Auto) 1.6x10^3/uL (0.0-1.1) Eosinophils # (Auto) 0.0x10^3/uL (0.0-0.7) Basophils # (Auto) 0.1x10^3/uL (0.0-0.2) Sodium Level 144mmol/L (136-145) Potassium Level 3.3mmol/L (3.5-5.1) Chloride Level 108mmol/L (98-107) Carbon Dioxide Level 28mmol/L (21-32) Anion Gap 8 (6-14) Blood Urea Nitrogen 23mg/dL (7-20) Creatinine 1.2mg/dL (0.6-1.0) Estimated GFR (Cockcroft-Gault) 55.6 BUN/Creatinine Ratio 19 (6-20) Glucose Level 265mg/dL (70-99) Calcium Level 8.5mg/dL (8.5-10.1) Total Bilirubin 0.2mg/dL (0.2-1.0) Aspartate Amino Transf (AST/SGOT) 9U/L (15-37) Alanine Aminotransferase (ALT/SGPT) < 6U/L (14-59) Alkaline Phosphatase 53U/L (46-116) Total Protein 7.1g/dL (6.4-8.2) Albumin 1.6g/dL (3.4-5.0) Albumin/Globulin Ratio 0.3 (1.0-1.7) Meds Current Medications Clonidine HCl 2 patch 2 patch Th TD Last administered on 11/03/16 12:47; Start 11/03/16 at 12:00 Insulin Aspart (Novolog) 0-7 UNITS Q6HRS SQ Last administered on 11/04/16 05: 38; Start 11/03/16 at 12:00 Metoprolol Tartrate 5 mg 5 mg Q6HRS IVP Last administered on 11/04/16 05:36; Start 11/03/16 at 12:00 Potassium Chloride (KCl Premix 20meq) 50 ml @ 50 mls/hr Q2H IV Last administered on 11/03/16 16:13; Start 11/03/16 at 12:00; Stop 11/03/16 at 14:59 ; Status DC Sodium Chloride/ Potassium Chloride/ Potassium Phosphate/ Magnesium Sulfate/ Calcium Gluconate/ Multivitamins/ Minerals/Chromium/ Copper/Manganese/ Seleni/Zn /Insulin Human Regular/ Total Parenteral Nutrition/Amino Acids/Dextrose/ Fat Emulsion Intravenous (Sodium Chloride/ Potass... 1,512 ml @ 63 mls/hr TPN CONT IV Last administered on 11/03/16t 20:23; Start 11/03/16 at 22:00; Stop at 21:59 Assessment Assessment Assessment 1. Sepsis with lactic acidosis/UTI-cholecystitis POA 2. Acute metabolic encephalopathy ARF/sepsis underlying dementia/hypernatremia 3. Urinary tract infection POA 4. Acute renal failure KALPANA VMN with CKD III 5. Seizure disorder 6. Diabetes mellitus type 2. 7. Dementia. 8. Paranoid schizophrenia. 9. severe weakness and debility with limited mobility 10. severe PCL malnutrition with underlying Moderate malnutrition. 11. Peripheral vascular disease. 12. Hyperlipidemia. 13. Malignant hypertension not POA 14. Gastroesophageal reflux disease. 15. Osteoporosis. 16. Vitamin D deficiency. 17. Legal blindness. 18. Hypernatremia NA 151 POA PLAN: sepsis with lactic acidosis UTI/choleycystitis POA ID consulted Zosyn IV Admit WBC 29.8 10/10 14.4 BC and urine CS negative Tm 100.2 previous 24 hour repeat UA neg nitrite, + blood, WBC 1-4 improved Urine cult 10/24 negative Surgical consult-no surgical intervention at this time, consider PIPIDA and IR for cholecystostomy tube placement PIPIDA abnormal, scan reviewed cholecystostomy tube placed 10/28 with 20cc christian pus +grm neg rods ID pending -Enterobacter Cloacae Abnormal CXR CXR RLL atelectasis vs pibfiordfm-ldgmwdklx-dakul nebulizer pulmonary consult CT chest w/o: Small right pleural effusion and trace left. Volume loss at the right lung base may reflect atelectasis or pneumonia. Minimal volume loss at the left lung base likely atelectasis 10/26-pulmonary signed off ARF KALPANA VMN CKDIII, hypernatremia Admit BUN 34 11/04 23 Cr 2.4 1.2 Na 137 144 K 3.8 3.3 IV D51/4NS 125cc/hr-DC 10/24 renal consulted no Lasix 10/24 hypokalemia- prn K replacement scale renal standing orders DM II FSBS 237-330 Admit Novolog 10u tid ac-stopped 10/29 not eating Admit Levemir 22u bid - reduced to 10u BID 10/29 hold BS less than or equal to 100 BS 237-330 Levemir held 10/27 pm due to NPO TPN-no insulin. changed SSI to q4h and increased to 400. Call MD >401, continue Levemir 10u at hs 11/03 Reg 20u to TPN, SSI changed to q6h, staff following NPO scale. SSI adjusted and NPO dosing removed. 11/04 TPN 40 units Regular, BS high, taking po now. Increase SSI to q4h and continue Levemir 10units seizure disorder Cerebyx IV Depakote IV Dilantin IV seizure precautions malignant HTN continue NH meds not taking oral consistently Lisinopril 5mg po NH-Begin Vasotec 1.25mg IV q 6hr hold SBP <120 hydralazine prn SBP 160s-201 -add lopressor 5mg IV q6hr, give dose at 7:30AM 11/03 BP improved. Stop vasotec-begin lisinopril 5mg po continue metoprolol for now and hydralazine prn anticoagulation Admit INR 3.0 10/31 1.2 pharmacy managing INR 10/23 7.6 Lovenox 40mg subq daily until taking po warfarin 11/01/16 restart warfarin-pharmacy managing DC lovenox. abd mild distention/cholecystitis POA no BM since prior to admit Dulcolax supp 10/24--small hard stool mod amount 10/25 Distention worse, abdomen firmer, BS hypoactive +GS per CXR-check amylase Repeat Dulcolax supp. and add miralax CT chest w/o contrast GB thickening with distention-will obtain GB US amylase 14 BM + 10/25 after Dulcolax cholecystitis-surgical evaluated 10/26-no surgery PIPIDA abnormal, placed cholecystostomy tube 10/28 Schedule Dulcolax QOD until taking oral meds severe with underlying chronic PCL malnutrition continue diet PPN added 10/24-restarted 10/28 poor po intake, not swallowing Initiate TPN when PICC placed and stop PPN -minimal oral intake since admit. - initiated 11/01 10/31 staff reports taking some po DVT/GI prophylaxis warfarin PPI anticoagulation not taking medication by mouth begin Lovenox 40mg sub q daily 11/01 restart warfarin 11/04 stop lovenox 11/04 For more details regarding further plans, please refer to the orders. Plan Plan For more details regarding further plans, please refer to the orders. PABLO ROJAS MD 11/04/16 1025: IM PROGRESS NOTES- Assessment Assessment More alert. DM not controlled. Increase Regular insulin to 60 units to each bag of TPN. The patient was seen and examined by me. Chart reviewed and plan of care formulated. Discussed with, reviewed and agree with BRICK PAVER's notes, plan of care and orders with modifications as necessary. For more details regarding further plans, please refer to the orders. MILLIE HEAD APRN Nov 04, 2016 09:17 PABLO ROJAS MD Nov 04, 2016 10:25
[2016-11-04] MEDS: LISINOPRIL 5 MG TABLET. PO SCH (10:02)
[2016-11-04] MEDS: OXYCODONE IR 5 MG TABLET. PO PRN ×2 (10:05→21:16)
[2016-11-04 10:42] VITALS: BP 151/69
--- NOTE | 2016-11-04 10:42 | PDOC ---
Renal-Progress Notes Subjective Notes Notes FEELING BETTER Vitals Vitals Vital Signs Date Time Temp Pulse Resp B/P Pulse Ox O2 Delivery O2 Flow Rate FiO2 11/04/16 10:05 12 Nasal Cannula 3.0 11/04/16 10:02 139/59 11/04/16 07:00 98.4 71 100 98.4 Weight Weight [ ] I.O. Intake and Output Intake and Output 11/04/16 07:00 Intake Total 1310.9 ml Output Total 2226 ml Balance -915.1 ml Intake Oral 50 ml IV Total 1260.9 ml Output Urine Total 2150 ml Stool Total 1 ml Drainage Total 75 ml # Bowel Movements 1 Labs Labs Laboratory Tests Test 11/03/16 11:36 11/03/16 16:30 11/03/16 21:30 11/04/16 05:28 Glucose (Fingerstick) 333mg/dL (70-99) 330mg/dL (70-99) 305mg/dL (70-99) 237mg/dL (70-99) Test 11/04/16 05:30 White Blood Count 12.0x10^3/uL (4.0-11.0) Red Blood Count 2.82x10^6/uL (3.50-5.40) Hemoglobin 7.7g/dL (12.0-15.5) Hematocrit 24.0% (36.0-47.0) Mean Corpuscular Volume 85fL (79-100) Mean Corpuscular Hemoglobin 27pg (25-35) Mean Corpuscular Hemoglobin Concent 32g/dL (31-37) Red Cell Distribution Width 17.4% (11.5-14.5) Platelet Count 387x10^3/uL (140-400) Neutrophils (%) (Auto) 65% (31-73) Lymphocytes (%) (Auto) 21% (24-48) Monocytes (%) (Auto) 14% (0-9) Eosinophils (%) (Auto) 0% (0-3) Basophils (%) (Auto) 1% (0-3) Neutrophils # (Auto) 7.8x10^3uL (1.8-7.7) Lymphocytes # (Auto) 2.5x10^3/uL (1.0-4.8) Monocytes # (Auto) 1.6x10^3/uL (0.0-1.1) Eosinophils # (Auto) 0.0x10^3/uL (0.0-0.7) Basophils # (Auto) 0.1x10^3/uL (0.0-0.2) Sodium Level 144mmol/L (136-145) Potassium Level 3.3mmol/L (3.5-5.1) Chloride Level 108mmol/L (98-107) Carbon Dioxide Level 28mmol/L (21-32) Anion Gap 8 (6-14) Blood Urea Nitrogen 23mg/dL (7-20) Creatinine 1.2mg/dL (0.6-1.0) Estimated GFR (Cockcroft-Gault) 55.6 BUN/Creatinine Ratio 19 (6-20) Glucose Level 265mg/dL (70-99) Calcium Level 8.5mg/dL (8.5-10.1) Total Bilirubin 0.2mg/dL (0.2-1.0) Aspartate Amino Transf (AST/SGOT) 9U/L (15-37) Alanine Aminotransferase (ALT/SGPT) < 6U/L (14-59) Alkaline Phosphatase 53U/L (46-116) Total Protein 7.1g/dL (6.4-8.2) Albumin 1.6g/dL (3.4-5.0) Albumin/Globulin Ratio 0.3 (1.0-1.7) Micro Micro Microbiology 10/19/16 Blood Culture - Final, Complete NO GROWTH AFTER 5 DAYS 10/24/16 Urine Culture - Final, Complete 10/24/16 Urine Culture Result 1 (ELIZABETH) - Final, Complete 10/28/16 Anaerobic/Aerobic Culture - Final, Complete 10/28/16 Anaerobic Culture Result 1 (ELIZABETH) - Final, Complete 10/28/16 Aerobic Culture - Final, Complete 10/28/16 Aerobic Culture Result 1 (ELIZABETH) - Final, Complete 10/28/16 Antimicrobic Susceptibility - Final, Complete Review of Systems Constitutional: yes: alert, oriented, weakness Ears/Nose/Throat: Yes: no symptom reported Eyes: Yes: no symptom reported Pulmonary: Yes no symptom reported Cardiovascular: Yes no symptom reported Gastrointestional: Yes: no symptom reported Physical Exam General Appearance: no apparent distress Skin: warm Respiratory: decreased breath sounds Heart: S1S2, RRR Abdomen: soft, bowel sounds present Extremities: pulses present Musculoskeletal: Other Assessment Assessment IMP KALPANA-IMPROVING - CR 1.2 DEHYDRATION-BETTER HYPOKALEMIA-BETTER HYPERNATREMIA-RESOLVED MET ENCEPHALOPATHY-BETTER URINARY TRACT INFECTION HTN-LABILE BUT BETTER DYSPHAGIA ANEMIA PLAN ANTIBIOTICS TPN REPLACE K NEEDED WILL FOLLOW PRN MICHAEL BULLARD MD Nov 04, 2016 10:42
[2016-11-04] MEDS ORDERED: INSULIN ASPART 300 UNITS/3 ML INSULN.PEN SQ SCH (12:00)
[2016-11-04] MEDS: TPN PER PHARMACY MC PRN (14:16)
[2016-11-04 14:58] VITALS: BP 152/68
[2016-11-04 16:07] LABS: INR 1.2 (0.8-1.1); PROTHROMBIN TIME PATIENT 14.7 SEC (11.7-14.0)
[2016-11-04] MEDS ORDERED: WARFARIN 4 MG TABLET. PO ONE (17:00)
[2016-11-04 19:59] VITALS: BP 161/59
[2016-11-04] MEDS: INSULIN DETEMIR 300 UNITS/3 ML INSULN.PEN. SQ SCH (21:18)
[2016-11-04] MEDS ORDERED: TOTAL PARENTERAL NUTRITION IV SCH ×11 (22:00)
[2016-11-04] MEDS ORDERED: AMINO ACIDS IV SCH ×11 (22:00)
[2016-11-04] MEDS ORDERED: [UNRECOGNIZED DRUG - OTHER] IV SCH ×11 (22:00)
[2016-11-04] MEDS ORDERED: DEXTROSE 70% IV SCH ×11 (22:00)
[2016-11-04 23:59] VITALS: BP 147/62
[2016-11-05 03:59] VITALS: BP 143/65
[2016-11-05] MEDS: INSULIN ASPART 300 UNITS/3 ML INSULN.PEN SQ SCH ×6 (04:11→23:59)
[2016-11-05] MEDS: NORMAL SALINE IV SCH ×4 (05:01→23:18)
[2016-11-05] MEDS: VALPROIC ACID IV SCH ×4 (05:01→23:18)
[2016-11-05] MEDS: PIPERACILLIN/TAZOBACTAM 3.375 GM in IV NORMAL SALINE 50ML 50 ML IV SCH ×3 (05:01→18:24)
[2016-11-05] MEDS: FOSPHENYTOIN 100 MG/2 ML VIAL IV SCH ×3 (05:02→20:51)
[2016-11-05] MEDS: METOPROLOL TARTRATE 5 MG/5 ML VIAL. IVP SCH ×4 (05:03→23:17)
[2016-11-05 05:28] LABS: BASO % 0 % (0-3); EOS % 0 % (0-3); HEMATOCRIT 22.6 % (36.0-47.0); HEMOGLOBIN 7.4 g/dL (12.0-15.5); LYMPH # 2.5 x10^3/uL (1.0-4.8); LYMPH % 24 % (24-48); MEAN CORPUSCULAR HEMOGLOBIN 28 pg (25-35); MEAN CORPUSCULAR HGB CONC 33 g/dL (31-37); MEAN CORPUSCULAR VOLUME 86 fL (79-100); MONO % 14 % (0-9); NEUT % 62 % (31-73); PLATELET COUNT 317 x10^3/uL (140-400); RED BLOOD COUNT 2.64 x10^6/uL (3.50-5.40); RED CELL DISTRIBUTION WIDTH 17.5 % (11.5-14.5); WHITE BLOOD COUNT 10.5 x10^3/uL (4.0-11.0)
[2016-11-05 06:04] LABS: ALBUMIN 1.6 g/dL (3.4-5.0); ALBUMIN/GLOBULIN RATIO 0.3 (1.0-1.7); CALCIUM 8.2 mg/dL (8.5-10.1); CREATININE 1.1 mg/dL (0.6-1.0); GFR 61.5; TOTAL BILIRUBIN 0.3 mg/dL (0.2-1.0); TOTAL PROTEIN 7.4 g/dL (6.4-8.2)
[2016-11-05 06:05] LABS: MAGNESIUM 1.8 mg/dL (1.8-2.4); PHOSPHORUS 3.7 mg/dL (2.6-4.7)
[2016-11-05 06:27] LABS: INR 1.2 (0.8-1.1); PROTHROMBIN TIME PATIENT 14.2 SEC (11.7-14.0)
[2016-11-05 07:00] VITALS: BP 157/67
[2016-11-05] MEDS: BENZTROPINE MESYLATE 1 MG TABLET PO SCH (08:57)
[2016-11-05] MEDS: LISINOPRIL 5 MG TABLET. PO SCH (08:57)
[2016-11-05] MEDS: busPIRone 5 MG TABLET. PO SCH ×3 (08:57→20:52)
[2016-11-05] MEDS: BISACODYL 10 MG SUPP.RECT PR SCH ×2 (08:58→09:00)
[2016-11-05] MEDS: FAMOTIDINE 20 MG/2 ML VIAL IVP SCH (08:58)
[2016-11-05] MEDS: POLYVINYL ALCOHOL 1.4% OPHTH SOLUTION 15ML BOTTLE. OU SCH ×4 (09:00→20:52)
[2016-11-05 11:00] VITALS: BP 150/70
--- NOTE | 2016-11-05 11:11 | PDOC ---
Renal-Progress Notes Subjective Notes Notes NONE History of Present Illness Hx of present illness STABLE Vitals Vitals Vital Signs Date Time Temp Pulse Resp B/P Pulse Ox O2 Delivery O2 Flow Rate FiO2 11/05/16 08:57 67 157/67 11/05/16 07:00 98.2 20 98 Nasal Cannula 2.0 98.2 Weight Weight [ ] I.O. Intake and Output Intake and Output 11/05/16 07:00 Intake Total 805 ml Output Total 1320 ml Balance -515 ml Intake Oral 20 ml Blood Product IV Normal Saline Flush 785 ml Output Urine Total 1200 ml Drainage Total 120 ml Labs Labs Laboratory Tests Test 11/04/16 11:34 11/04/16 15:22 11/04/16 15:31 11/04/16 21:14 Glucose (Fingerstick) 227mg/dL (70-99) 248mg/dL (70-99) 251mg/dL (70-99) Prothrombin Time 14.7SEC (11.7-14.0) Prothromb Time International Ratio 1.2 (0.8-1.1) Test 11/04/16 23:46 11/05/16 03:29 11/05/16 05:00 11/05/16 08:20 Glucose (Fingerstick) 237mg/dL (70-99) 205mg/dL (70-99) 151mg/dL (70-99) White Blood Count 10.5x10^3/uL (4.0-11.0) Red Blood Count 2.64x10^6/uL (3.50-5.40) Hemoglobin 7.4g/dL (12.0-15.5) Hematocrit 22.6% (36.0-47.0) Mean Corpuscular Volume 86fL (79-100) Mean Corpuscular Hemoglobin 28pg (25-35) Mean Corpuscular Hemoglobin Concent 33g/dL (31-37) Red Cell Distribution Width 17.5% (11.5-14.5) Platelet Count 317x10^3/uL (140-400) Neutrophils (%) (Auto) 62% (31-73) Lymphocytes (%) (Auto) 24% (24-48) Monocytes (%) (Auto) 14% (0-9) Eosinophils (%) (Auto) 0% (0-3) Basophils (%) (Auto) 0% (0-3) Neutrophils # (Auto) 6.6x10^3uL (1.8-7.7) Lymphocytes # (Auto) 2.5x10^3/uL (1.0-4.8) Monocytes # (Auto) 1.5x10^3/uL (0.0-1.1) Eosinophils # (Auto) 0.0x10^3/uL (0.0-0.7) Basophils # (Auto) 0.0x10^3/uL (0.0-0.2) Prothrombin Time 14.2SEC (11.7-14.0) Prothromb Time International Ratio 1.2 (0.8-1.1) Sodium Level 145mmol/L (136-145) Potassium Level 5.0mmol/L (3.5-5.1) Chloride Level 109mmol/L (98-107) Carbon Dioxide Level 29mmol/L (21-32) Anion Gap 7 (6-14) Blood Urea Nitrogen 23mg/dL (7-20) Creatinine 1.1mg/dL (0.6-1.0) Estimated GFR (Cockcroft-Gault) 61.5 BUN/Creatinine Ratio 21 (6-20) Glucose Level 175mg/dL (70-99) Calcium Level 8.2mg/dL (8.5-10.1) Phosphorus Level 3.7mg/dL (2.6-4.7) Magnesium Level 1.8mg/dL (1.8-2.4) Total Bilirubin 0.3mg/dL (0.2-1.0) Aspartate Amino Transf (AST/SGOT) 29U/L (15-37) Alanine Aminotransferase (ALT/SGPT) 9U/L (14-59) Alkaline Phosphatase 50U/L (46-116) Total Protein 7.4g/dL (6.4-8.2) Albumin 1.6g/dL (3.4-5.0) Albumin/Globulin Ratio 0.3 (1.0-1.7) Micro Micro Microbiology 10/19/16 Blood Culture - Final, Complete NO GROWTH AFTER 5 DAYS 10/24/16 Urine Culture - Final, Complete 10/24/16 Urine Culture Result 1 (ELIZABETH) - Final, Complete 10/28/16 Anaerobic/Aerobic Culture - Final, Complete 10/28/16 Anaerobic Culture Result 1 (ELIZABETH) - Final, Complete 10/28/16 Aerobic Culture - Final, Complete 10/28/16 Aerobic Culture Result 1 (ELIZABETH) - Final, Complete 10/28/16 Antimicrobic Susceptibility - Final, Complete Review of Systems Constitutional: yes: alert, oriented, weakness Ears/Nose/Throat: Yes: no symptom reported Eyes: Yes: no symptom reported Pulmonary: Yes no symptom reported Cardiovascular: Yes no symptom reported Gastrointestional: Yes: no symptom reported Physical Exam General Appearance: no apparent distress Skin: warm Respiratory: decreased breath sounds Heart: S1S2, RRR Abdomen: soft, bowel sounds present Extremities: pulses present Musculoskeletal: Other Assessment Assessment IMP KALPANA-RESOLVED DEHYDRATION-BETTER HYPOKALEMIA-BETTER HYPERNATREMIA-RESOLVED MET ENCEPHALOPATHY-BETTER URINARY TRACT INFECTION HTN-LABILE BUT BETTER DYSPHAGIA ANEMIA PLAN ANTIBIOTICS TPN WILL SIGN OFF MICHAEL BULLARD MD Nov 05, 2016 11:11
[2016-11-05] MEDS: TPN PER PHARMACY MC PRN ×2 (11:29→14:34)
[2016-11-05 15:00] VITALS: BP 146/75
[2016-11-05] MEDS ORDERED: WARFARIN 4 MG TABLET. PO ONE (16:00)
[2016-11-05 19:00] VITALS: BP 183/81
[2016-11-05] MEDS: INSULIN DETEMIR 300 UNITS/3 ML INSULN.PEN. SQ SCH (20:50)
[2016-11-05] MEDS ORDERED: AMINO ACIDS IV SCH ×11 (22:00)
[2016-11-05] MEDS ORDERED: [UNRECOGNIZED DRUG - OTHER] IV SCH ×11 (22:00)
[2016-11-05] MEDS ORDERED: TOTAL PARENTERAL NUTRITION IV SCH ×11 (22:00)
[2016-11-05] MEDS ORDERED: DEXTROSE 70% IV SCH ×11 (22:00)
[2016-11-05 22:39] VITALS: BP 145/78
[2016-11-06 02:35] VITALS: BP 149/62
--- NOTE | 2016-11-06 03:35 | PN ---
DATE: 11/05/2016 SUBJECTIVE: The patient is a 61-year-old -[place] male patient, a [facility] who apparently was brought with altered mental status, found to be septic with a lactic acidosis. Eventually, she was diagnosed with urinary tract infection as well as cholecystitis. She was also found to have acute kidney injury with hypernatremia and hypokalemia. She was seen in consultation by the nephrology team, infectious disease team and apparently did very well. She is now at her baseline. She apparently is known to have a background dementia. She is mostly nonverbal. PHYSICAL EXAMINATION: GENERAL: When I saw her today, she looked well and was clearly in no apparent respiratory distress. She was slightly pale, but no jaundice, cyanosis or thyromegaly. No jugular venous distention. No limb edema. VITAL SIGNS: Her heart rate was 72, blood pressure 159/70, temperature was 98.2, respiratory rate 20, and oxygen saturation was 98% on 2 liters of oxygen. HEAD, EYES, EARS, NOSE AND THROAT: Showed normocephalic, atraumatic. NECK: Supple. HEART: Showed normal first and second heart sounds with no gallop, rub or murmur. CHEST: Clear to auscultation. No crepitation or rhonchi. ABDOMEN: Distended, soft, nontender with a cholecystostomy tube in the right upper quadrant. There is no guarding or rigidity. No organomegaly. Hernial orifices intact. Bowel sounds normal. NEUROLOGIC: She is nonverbal, although her all other cranial nerves seem to be grossly intact. She moves her upper extremities to much greater extent than the lower extremities. She is mostly bed bound. She has an indwelling Mclaughlin catheter. Her intake over the last 24 hours was 1300, output was 2125. LABORATORY WORK: As of this morning showed a prothrombin time of 14.2, INR 1.2. White cell count was down to 10,500, hemoglobin 7.4, hematocrit 22.8, MCV was 86, and platelet count ____. Her chemistry showed a serum sodium 145, potassium 5, chloride 109, bicarbonate 29, anion gap of 7, BUN 23, creatinine was 1.1, estimated GFR was 61 mL per minute. Her glucose was 79, her calcium was 8.2, phosphorus 3.7, magnesium was 1.8. Total bilirubin, AST, ALT, alkaline phosphatase were normal. Her total protein was 7.4, albumin was 1.6. Her urinalysis is unremarkable. Her nasal screen for MRSA by PCR was positive. Her blood sugars seem to be much better controlled now that her insulin was increased in her TPN to 60 units. ASSESSMENT: 1. Sepsis with lactic acidosis secondary to urinary tract infection and acute cholecystitis, which was present on admission. 2. Acute metabolic encephalopathy. 3. Acute renal failure. 4. Underlying dementia with hypernatremia. 5. Seizure disorder. 6. Diabetes mellitus type 2. 5. Dementia. 6. Paranoid schizophrenia. 7. Severe weakness and debility with limited mobility. 8. Severe protein-calorie malnutrition. 9. Severe peripheral vascular disease. 10. Hyperlipidemia. 11. Malignant hypertension. 12. Gastroesophageal reflux disease. 13. Osteoporosis. 14. Vitamin D deficiency. 15. The patient is legally blind. PLAN: My plan is obviously to continue with TPN. Continue with the IV antibiotic. Continue with insulin sliding scale every 4 hours. Continue with pain management. Continue to monitor her prothrombin time and INR and adjust Coumadin to maintain INR between 2-2.5. DELTA KYLE MD DR: PILLO/david JOB#: [id number] / [id number]
[2016-11-06] MEDS: INSULIN ASPART 300 UNITS/3 ML INSULN.PEN SQ SCH ×5 (04:40→21:16)
[2016-11-06] MEDS: METOPROLOL TARTRATE 5 MG/5 ML VIAL. IVP SCH ×3 (05:11→18:17)
[2016-11-06] MEDS: FOSPHENYTOIN 100 MG/2 ML VIAL IV SCH ×3 (05:13→20:57)
[2016-11-06] MEDS: PIPERACILLIN/TAZOBACTAM 3.375 GM in IV NORMAL SALINE 50ML 50 ML IV SCH ×5 (05:20→16:52)
[2016-11-06 05:47] LABS: BASO # 0.1 x10^3/uL (0.0-0.2); BASO % 1 % (0-3); EOS % 0 % (0-3); HEMATOCRIT 21.4 % (36.0-47.0); HEMOGLOBIN 7.1 g/dL (12.0-15.5); LYMPH # 2.5 x10^3/uL (1.0-4.8); LYMPH % 24 % (24-48); MEAN CORPUSCULAR HEMOGLOBIN 28 pg (25-35); MEAN CORPUSCULAR HGB CONC 33 g/dL (31-37); MEAN CORPUSCULAR VOLUME 85 fL (79-100); MONO % 14 % (0-9); NEUT % 61 % (31-73); PLATELET COUNT 334 x10^3/uL (140-400); RED BLOOD COUNT 2.53 x10^6/uL (3.50-5.40); RED CELL DISTRIBUTION WIDTH 17.5 % (11.5-14.5); WHITE BLOOD COUNT 10.6 x10^3/uL (4.0-11.0)
[2016-11-06] MEDS: NORMAL SALINE IV SCH ×4 (05:47→23:14)
[2016-11-06] MEDS: VALPROIC ACID IV SCH ×4 (05:47→23:14)
[2016-11-06 06:35] LABS: INR 1.2 (0.8-1.1); PROTHROMBIN TIME PATIENT 14.9 SEC (11.7-14.0)
[2016-11-06 07:00] VITALS: BP 148/60
[2016-11-06 07:22] LABS: ALBUMIN 1.6 g/dL (3.4-5.0); ALBUMIN/GLOBULIN RATIO 0.3 (1.0-1.7); ALK PHOS 44 U/L (46-116); ANION GAP 8 (6-14); AST (SGOT) 11 U/L (15-37); BLOOD UREA NITROGEN 23 mg/dL (7-20); BUN/CREATININE RATIO 21 (6-20); CALCIUM 8.3 mg/dL (8.5-10.1); CARBON DIOXIDE 28 mmol/L (21-32); CHLORIDE 109 mmol/L (98-107); CREATININE 1.1 mg/dL (0.6-1.0); GFR 61.5; GLUCOSE 131 mg/dL (70-99); POTASSIUM 3.4 mmol/L (3.5-5.1); SODIUM 145 mmol/L (136-145); TOTAL BILIRUBIN 0.2 mg/dL (0.2-1.0); TOTAL PROTEIN 6.9 g/dL (6.4-8.2)
[2016-11-06 07:23] LABS: ALT (SGPT) < 6 U/L (14-59)
[2016-11-06] MEDS: BENZTROPINE MESYLATE 1 MG TABLET PO SCH (08:37)
[2016-11-06] MEDS: busPIRone 5 MG TABLET. PO SCH ×3 (08:38→20:58)
[2016-11-06] MEDS: LISINOPRIL 5 MG TABLET. PO SCH (08:38)
[2016-11-06] MEDS: POLYVINYL ALCOHOL 1.4% OPHTH SOLUTION 15ML BOTTLE. OU SCH ×4 (08:39→20:54)
[2016-11-06] MEDS: FAMOTIDINE 20 MG/2 ML VIAL IVP SCH (08:39)
[2016-11-06] MEDS: TPN PER PHARMACY MC PRN (10:32)
[2016-11-06 11:00] VITALS: BP 151/78
[2016-11-06 15:00] VITALS: BP 142/66
[2016-11-06] MEDS ORDERED: WARFARIN 6 MG TABLET. PO ONE (16:00)
[2016-11-06 19:00] VITALS: BP 174/86
[2016-11-06] MEDS: INSULIN DETEMIR 300 UNITS/3 ML INSULN.PEN. SQ SCH (21:16)
[2016-11-06] MEDS ORDERED: TOTAL PARENTERAL NUTRITION IV SCH ×11 (22:00)
[2016-11-06] MEDS ORDERED: AMINO ACIDS IV SCH ×11 (22:00)
[2016-11-06] MEDS ORDERED: DEXTROSE 70% IV SCH ×11 (22:00)
[2016-11-06] MEDS ORDERED: [UNRECOGNIZED DRUG - OTHER] IV SCH ×11 (22:00)
[2016-11-06 23:00] VITALS: BP 208/110
[2016-11-06] MEDS: hydrALAZINE 20 MG/ML VIAL. IVP PRN (23:26)
[2016-11-07] MEDS: PIPERACILLIN/TAZOBACTAM 3.375 GM in IV NORMAL SALINE 50ML 50 ML IV SCH ×2 (00:32→06:14)
[2016-11-07] MEDS: METOPROLOL TARTRATE 5 MG/5 ML VIAL. IVP SCH ×2 (00:32→06:15)
[2016-11-07] MEDS: INSULIN ASPART 300 UNITS/3 ML INSULN.PEN SQ SCH ×6 (00:38→18:22)
--- NOTE | 2016-11-07 00:57 | PN ---
DATE: 11/06/2016 SUBJECTIVE: The patient is resting, slightly propped up in bed, in no apparent distress. She seemed to be more awake, alert. According to nursing staff, she is able to move her right upper extremity and ____ using to hold the spoon to feed herself. OBJECTIVE: GENERAL: On examining her, she looked pale, but no jaundice, cyanosis or thyromegaly. No jugular venous distention. No limb edema. VITAL SIGNS: Her heart rate was 62, blood pressure was 148/60, temperature was 98.7, respiratory rate was 22 and oxygen saturation was 98%. HEAD, EYES, EARS, NOSE AND THROAT: Showed normocephalic, atraumatic. NECK: Supple. HEART: Showed normal first and second heart sounds with no gallop, rub or murmur. CHEST: Clear to auscultation. No crepitation or rhonchi. ABDOMEN: Distended, soft with a cholecystostomy tube in the right upper quadrant. There is no guarding or rigidity. No organomegaly. Hernial orifices intact. Bowel sounds normal. NEUROLOGIC: She seemed to be more awake, she opens her eyes, although she does not track or follow command. She is moving her right upper extremity more today. She has an indwelling Mclaughlin catheter. Her intake over the last 24 hours was 1200, output was 1500. LABORATORY DATA: As of this morning, her white cell count was 10,600, hemoglobin 7.1, hematocrit 21.4, MCV was 85 and platelet count of 334,000. Her chemistry showed a serum sodium 145, potassium 3.4, chloride 109, bicarbonate 29, anion gap of 8, BUN 23, creatinine 1.1, estimated GFR was 61 mL per minute. Her glucose 131. Calcium was 8.3. Total bilirubin, AST, ALT, alkaline phosphatase were normal. Her total protein was 6.9, albumin was 1.6. Her prothrombin time was 14.9, INR 1.2, which is still subtherapeutic. Urinalysis was unremarkable. Urine toxicology screen was unremarkable. ASSESSMENT: 1. Sepsis with lactic acidosis secondary to urinary tract infection and acute cholecystitis for which she underwent cholecystostomy tube placement. 2. Acute metabolic encephalopathy, multifactorial. 3. Acute renal failure, resolved. Her creatinine came down from 2.4 to 1.1. The patient has underlying dementia. 4. Seizure disorder. 5. Type 2 diabetes mellitus, seems to be much better controlled. 6. Paranoid schizophrenia. 7. Severe weakness and debility with limited mobility. 8. Severe protein calorie malnutrition, her serum albumin is only 1.6 g/dL. 9. Hyperlipidemia. 10. Malignant hypertension. 11. Gastroesophageal reflux disease. 12. Osteoporosis. 13. Vitamin D deficiency. 14. The patient is legally blind in. PLAN: Obviously to continue with TPN, continue with IV antibiotic. She continues to be on piperacillin sodium/tazobactam 3.375 grams IV q. 6 hours. Continue to monitor her blood sugars and adjust insulin as needed. I will continue also to monitor her H and H as her hemoglobin and hematocrit are steadily declining. As of this morning, her hemoglobin was 7.1, hematocrit 21.4. DELTA KYLE MD DR: PILLO/david JOB#: [id number] / [id number]
[2016-11-07 03:00] VITALS: BP 161/77
[2016-11-07] MEDS: NORMAL SALINE IV SCH ×3 (05:01→18:15)
[2016-11-07] MEDS: VALPROIC ACID IV SCH ×3 (05:01→18:15)
[2016-11-07 05:24] LABS: BASO # 0.1 x10^3/uL (0.0-0.2); BASO % 1 % (0-3); EOS % 0 % (0-3); HEMOGLOBIN 7.3 g/dL (12.0-15.5); INR 1.2 (0.8-1.1); LYMPH # 2.4 x10^3/uL (1.0-4.8); LYMPH % 22 % (24-48); MEAN CORPUSCULAR HEMOGLOBIN 28 pg (25-35); MEAN CORPUSCULAR HGB CONC 33 g/dL (31-37); MEAN CORPUSCULAR VOLUME 84 fL (79-100); MONO % 15 % (0-9); NEUT % 63 % (31-73); PLATELET COUNT 331 x10^3/uL (140-400); PROTHROMBIN TIME PATIENT 14.7 SEC (11.7-14.0); RED BLOOD COUNT 2.62 x10^6/uL (3.50-5.40); RED CELL DISTRIBUTION WIDTH 17.8 % (11.5-14.5); WHITE BLOOD COUNT 11.1 x10^3/uL (4.0-11.0)
[2016-11-07 06:04] LABS: ALBUMIN 1.6 g/dL (3.4-5.0); ALBUMIN/GLOBULIN RATIO 0.3 (1.0-1.7); CALCIUM 8.1 mg/dL (8.5-10.1); CREATININE 1.1 mg/dL (0.6-1.0); GFR 61.5; POTASSIUM 3.4 mmol/L (3.5-5.1); TOTAL BILIRUBIN 0.2 mg/dL (0.2-1.0); TOTAL PROTEIN 7.3 g/dL (6.4-8.2)
[2016-11-07] MEDS: FOSPHENYTOIN 100 MG/2 ML VIAL IV SCH ×3 (06:14→21:32)
[2016-11-07 07:00] VITALS: BP 148/60
[2016-11-07] MEDS ORDERED: MAGNESIUM HYDROXIDE 2,400 MG/30 ML ORAL.SUSP. PO PRN (08:30)
--- NOTE | 2016-11-07 08:45 | PDOC ---
LINDACadenMILLIE DE PAZ [facility]ECTIVE [place] 11/07/16 0845: IM PROGRESS NOTES- Subjective Subjective awake staff reports swearing and angry at night intermittently this weekend Objective Objective more alert Vitals Vital Signs Date Time Temp Pulse Resp B/P Pulse Ox O2 Delivery O2 Flow Rate FiO2 11/07/16 06:15 75 163/56 11/07/16 03:00 98.3 16 100 98.3 11/06/16 20:40 Nasal Cannula 2.0 Input & Output Intake and Output 11/07/16 07:00 Intake Total 2526.9 ml Output Total 2265 ml Balance 261.9 ml Intake Oral 1670 ml IV Total 856.9 ml Output Urine Total 2200 ml Drainage Total 65 ml Physical Exam Physical Exam GENERAL: awake, alert, increased interaction/animation, following command to show card writer with RH . HEAD: normocephalic LUNGS: Decreased breath sounds at bases. CARDIOVASCULAR: S1 and S2 regular. ABDOMEN: Soft, obese, nontender,BS increased slightly, cholecystostomy tube present EXTREMITIES: + edema. CENTRAL NERVOUS SYSTEM: awake, interactive, one word to simple sentences response SKIN: Warm and dry. Skin turgor decreased Labs Laboratory Tests Test 11/05/16 11:06 11/05/16 13:40 11/05/16 16:33 11/05/16 20:36 Glucose (Fingerstick) 151mg/dL (70-99) 190mg/dL (70-99) 174mg/dL (70-99) Potassium Level 3.5mmol/L (3.5-5.1) Test 11/05/16 23:55 11/06/16 04:18 11/06/16 04:33 11/06/16 06:50 Glucose (Fingerstick) 154mg/dL (70-99) 133mg/dL (70-99) White Blood Count 10.6x10^3/uL (4.0-11.0) Red Blood Count 2.53x10^6/uL (3.50-5.40) Hemoglobin 7.1g/dL (12.0-15.5) Hematocrit 21.4% (36.0-47.0) Mean Corpuscular Volume 85fL (79-100) Mean Corpuscular Hemoglobin 28pg (25-35) Mean Corpuscular Hemoglobin Concent 33g/dL (31-37) Red Cell Distribution Width 17.5% (11.5-14.5) Platelet Count 334x10^3/uL (140-400) Neutrophils (%) (Auto) 61% (31-73) Lymphocytes (%) (Auto) 24% (24-48) Monocytes (%) (Auto) 14% (0-9) Eosinophils (%) (Auto) 0% (0-3) Basophils (%) (Auto) 1% (0-3) Neutrophils # (Auto) 6.4x10^3uL (1.8-7.7) Lymphocytes # (Auto) 2.5x10^3/uL (1.0-4.8) Monocytes # (Auto) 1.5x10^3/uL (0.0-1.1) Eosinophils # (Auto) 0.0x10^3/uL (0.0-0.7) Basophils # (Auto) 0.1x10^3/uL (0.0-0.2) Prothrombin Time 14.9SEC (11.7-14.0) Prothromb Time International Ratio 1.2 (0.8-1.1) Sodium Level 145mmol/L (136-145) Potassium Level 3.4mmol/L (3.5-5.1) Chloride Level 109mmol/L (98-107) Carbon Dioxide Level 28mmol/L (21-32) Anion Gap 8 (6-14) Blood Urea Nitrogen 23mg/dL (7-20) Creatinine 1.1mg/dL (0.6-1.0) Estimated GFR (Cockcroft-Gault) 61.5 BUN/Creatinine Ratio 21 (6-20) Glucose Level 131mg/dL (70-99) Calcium Level 8.3mg/dL (8.5-10.1) Total Bilirubin 0.2mg/dL (0.2-1.0) Aspartate Amino Transf (AST/SGOT) 11U/L (15-37) Alanine Aminotransferase (ALT/SGPT) < 6U/L (14-59) Alkaline Phosphatase 44U/L (46-116) Total Protein 6.9g/dL (6.4-8.2) Albumin 1.6g/dL (3.4-5.0) Albumin/Globulin Ratio 0.3 (1.0-1.7) Test 11/06/16 07:25 11/06/16 11:04 11/06/16 16:50 11/06/16 20:42 Glucose (Fingerstick) 128mg/dL (70-99) 185mg/dL (70-99) 237mg/dL (70-99) 218mg/dL (70-99) Test 11/07/16 00:09 11/07/16 03:56 11/07/16 04:41 Glucose (Fingerstick) 188mg/dL (70-99) 174mg/dL (70-99) White Blood Count 11.1x10^3/uL (4.0-11.0) Red Blood Count 2.62x10^6/uL (3.50-5.40) Hemoglobin 7.3g/dL (12.0-15.5) Hematocrit 22.0% (36.0-47.0) Mean Corpuscular Volume 84fL (79-100) Mean Corpuscular Hemoglobin 28pg (25-35) Mean Corpuscular Hemoglobin Concent 33g/dL (31-37) Red Cell Distribution Width 17.8% (11.5-14.5) Platelet Count 331x10^3/uL (140-400) Neutrophils (%) (Auto) 63% (31-73) Lymphocytes (%) (Auto) 22% (24-48) Monocytes (%) (Auto) 15% (0-9) Eosinophils (%) (Auto) 0% (0-3) Basophils (%) (Auto) 1% (0-3) Neutrophils # (Auto) 7.0x10^3uL (1.8-7.7) Lymphocytes # (Auto) 2.4x10^3/uL (1.0-4.8) Monocytes # (Auto) 1.6x10^3/uL (0.0-1.1) Eosinophils # (Auto) 0.0x10^3/uL (0.0-0.7) Basophils # (Auto) 0.1x10^3/uL (0.0-0.2) Prothrombin Time 14.7SEC (11.7-14.0) Prothromb Time International Ratio 1.2 (0.8-1.1) Sodium Level 145mmol/L (136-145) Potassium Level 3.4mmol/L (3.5-5.1) Chloride Level 108mmol/L (98-107) Carbon Dioxide Level 31mmol/L (21-32) Anion Gap 6 (6-14) Blood Urea Nitrogen 23mg/dL (7-20) Creatinine 1.1mg/dL (0.6-1.0) Estimated GFR (Cockcroft-Gault) 61.5 BUN/Creatinine Ratio 21 (6-20) Glucose Level 184mg/dL (70-99) Calcium Level 8.1mg/dL (8.5-10.1) Total Bilirubin 0.2mg/dL (0.2-1.0) Aspartate Amino Transf (AST/SGOT) 12U/L (15-37) Alanine Aminotransferase (ALT/SGPT) 8U/L (14-59) Alkaline Phosphatase 53U/L (46-116) Total Protein 7.3g/dL (6.4-8.2) Albumin 1.6g/dL (3.4-5.0) Albumin/Globulin Ratio 0.3 (1.0-1.7) Laboratory Tests Test 11/06/16 11:04 11/06/16 16:50 11/06/16 20:42 11/07/16 00:09 Glucose (Fingerstick) 185mg/dL (70-99) 237mg/dL (70-99) 218mg/dL (70-99) 188mg/dL (70-99) Test 11/07/16 03:56 11/07/16 04:41 Glucose (Fingerstick) 174mg/dL (70-99) White Blood Count 11.1x10^3/uL (4.0-11.0) Red Blood Count 2.62x10^6/uL (3.50-5.40) Hemoglobin 7.3g/dL (12.0-15.5) Hematocrit 22.0% (36.0-47.0) Mean Corpuscular Volume 84fL (79-100) Mean Corpuscular Hemoglobin 28pg (25-35) Mean Corpuscular Hemoglobin Concent 33g/dL (31-37) Red Cell Distribution Width 17.8% (11.5-14.5) Platelet Count 331x10^3/uL (140-400) Neutrophils (%) (Auto) 63% (31-73) Lymphocytes (%) (Auto) 22% (24-48) Monocytes (%) (Auto) 15% (0-9) Eosinophils (%) (Auto) 0% (0-3) Basophils (%) (Auto) 1% (0-3) Neutrophils # (Auto) 7.0x10^3uL (1.8-7.7) Lymphocytes # (Auto) 2.4x10^3/uL (1.0-4.8) Monocytes # (Auto) 1.6x10^3/uL (0.0-1.1) Eosinophils # (Auto) 0.0x10^3/uL (0.0-0.7) Basophils # (Auto) 0.1x10^3/uL (0.0-0.2) Prothrombin Time 14.7SEC (11.7-14.0) Prothromb Time International Ratio 1.2 (0.8-1.1) Sodium Level 145mmol/L (136-145) Potassium Level 3.4mmol/L (3.5-5.1) Chloride Level 108mmol/L (98-107) Carbon Dioxide Level 31mmol/L (21-32) Anion Gap 6 (6-14) Blood Urea Nitrogen 23mg/dL (7-20) Creatinine 1.1mg/dL (0.6-1.0) Estimated GFR (Cockcroft-Gault) 61.5 BUN/Creatinine Ratio 21 (6-20) Glucose Level 184mg/dL (70-99) Calcium Level 8.1mg/dL (8.5-10.1) Total Bilirubin 0.2mg/dL (0.2-1.0) Aspartate Amino Transf (AST/SGOT) 12U/L (15-37) Alanine Aminotransferase (ALT/SGPT) 8U/L (14-59) Alkaline Phosphatase 53U/L (46-116) Total Protein 7.3g/dL (6.4-8.2) Albumin 1.6g/dL (3.4-5.0) Albumin/Globulin Ratio 0.3 (1.0-1.7) Meds Current Medications Sodium Chloride/ Potassium Chloride/ Potassium Acetate/ Potassium Phosphate/ Magnesium Sulfate/ Multivitamins/ Minerals/Chromium/ Copper/Manganese/ Seleni/Zn /Insulin Human Regular/ Total Parenteral Nutrition/Amino Acids/Dextrose/ Fat Emulsion Intravenous (Sodium Chloride/ Potass... 1,512 ml @ 63 mls/hr TPN CONT IV Last administered on 11/06/16 21:07; Start 11/06/16 at 22:00; Stop at 21:59 Warfarin Sodium 6 mg 6 mg 1X WARF ONCE PO Last administered on 11/06/16 16:52 ; Start 11/06/16 at 16:00; Stop 11/06/16 at 16:01; Status DC Assessment Assessment Assessment 1. Sepsis with lactic acidosis/UTI-cholecystitis POA 2. Acute metabolic encephalopathy ARF/sepsis underlying dementia/hypernatremia 3. Urinary tract infection POA 4. Acute renal failure KALPANA VMN with CKD III 5. Seizure disorder 6. Diabetes mellitus type 2. 7. Dementia. 8. Paranoid schizophrenia. 9. severe weakness and debility with limited mobility 10. severe PCL malnutrition with underlying Moderate malnutrition. 11. Peripheral vascular disease. 12. Hyperlipidemia. 13. Malignant hypertension not POA 14. Gastroesophageal reflux disease. 15. Osteoporosis. 16. Vitamin D deficiency. 17. Legal blindness. 18. Hypernatremia NA 151 POA PLAN: sepsis with lactic acidosis UTI/choleycystitis POA ID consulted Zosyn IV Admit WBC 29.8 11/07 11.1 BC and urine CS negative Tm 100.2 previous 24 hour repeat UA neg nitrite, + blood, WBC 1-4 improved Urine cult 10/24 negative Surgical consult-no surgical intervention at this time, consider PIPIDA and IR for cholecystostomy tube placement PIPIDA abnormal, scan reviewed cholecystostomy tube placed 10/28 with 20cc christian pus +grm neg rods ID pending -Enterobacter Cloacae Abnormal CXR CXR RLL atelectasis vs [id number] nebulizer pulmonary consult CT chest w/o: Small right pleural effusion and trace left. Volume loss at the right lung base may reflect atelectasis or pneumonia. Minimal volume loss at the left lung base likely atelectasis 10/26-pulmonary signed off ARF KALPANA VMN CKDIII, hypernatremia Admit BUN 34 11/07 23 Cr 2.4 1.1 Na 137 145 K 3.8 3.4 IV D51/4NS 125cc/hr-DC 10/24 renal consulted no Lasix 10/24 hypokalemia- prn K replacement scale renal standing orders DM II FSBS/ssi Admit Novolog 10u tid ac-stopped 10/29 not eating Admit Levemir 22u bid - reduced to 10u BID 10/29 hold BS less than or equal to 100 BS 174-218 Levemir held 10/27 pm due to NPO TPN-no insulin. changed SSI to q4h and increased to 400. Call MD >401, continue Levemir 10u at hs 11/03 Reg 20u to TPN, SSI changed to q6h, staff following NPO scale. SSI adjusted and NPO dosing removed. 11/04 TPN 60 units Regular, BS high, taking po now. Increase SSI to q4h and continue Levemir 10units--11/07 titrate TPN off Change SSI to TID AC and adjust levemir based on FSBS seizure disorder Cerebyx IV Depakote IV Dilantin IV seizure precautions Oral meds: Dilantin 100mg daily, 200mg at hs paranoid schizophrenia, dementia with behavioral disturbance Restart oral meds per Dr. Rojas: benzotropine 2mg daiy-taking buspar 10mg tid -taking thorazine 125mg at hs clonazepam 0.5mg at hs depakene 250mg at hs Depakote ER 1000mg at hs Depakote ER 1500mg daily remeron 15mg at hs zyprexa 5mg at hs ativan 0.5mg prn q8hr malignant HTN continue NH meds not taking oral consistently Lisinopril 5mg po NH-Begin Vasotec 1.25mg IV q 6hr hold SBP <120-changed to oral hydralazine prn SBP 160s-201 -add lopressor 5mg IV q6hr, give dose at 7:30AM 11/03 BP improved. Stop vasotec-begin lisinopril 5mg po 11/04 continue metoprolol for now and hydralazine prn Catapres TTS 2mg -2 patches weekly continues acclerated HTN 11/07 increase lisinopril to 10mg daily, begin metoprolol tartrate 12.5mg bid anticoagulation Admit INR 3.0 11/07 1.2 pharmacy managing INR 10/23 7.6 not taking medication by mouth restart warfarin 11/04 stop lovenox 11/04 Lovenox 40mg subq daily until taking po warfarin 11/01/16 restart warfarin-pharmacy managing -last dose 6mg DC lovenox. abd mild distention/cholecystitis POA no BM since prior to admit Dulcolax supp 10/24--small hard stool mod amount 10/25 Distention worse, abdomen firmer, BS hypoactive +GS per CXR-check amylase Repeat Dulcolax supp. and add miralax CT chest w/o contrast GB thickening with distention-will obtain GB US amylase 14 BM + 10/25 after Dulcolax cholecystitis-surgical evaluated 10/26-no surgery PIPIDA abnormal, placed cholecystostomy tube 10/28 Schedule Dulcolax QOD until taking oral meds 11/07 restart miralax 17gm daily, senokot bid scheduled , MOM prn severe with underlying chronic PCL malnutrition continue diet PPN added 10/24-restarted 10/28 poor po intake, not swallowing Initiate TPN when PICC placed and stop PPN -minimal oral intake since admit. - initiated 11/01 10/31 staff reports po intake increasing 70% meal taken yesterday-decrease TPN to 1/2 dose and DC later today if oral intake remains good supplementing diet DVT/GI prophylaxis warfarin PPI For more details regarding further plans, please refer to the orders. Plan Plan For more details regarding further plans, please refer to the orders. PABLO ROJAS MD 11/07/16 0957: IM PROGRESS NOTES- Assessment Assessment The patient was seen and examined by me. Chart reviewed and plan of care formulated. Discussed with, reviewed and agree with ORDAINED MINISTER's notes, plan of care and orders with modifications as necessary. For more details regarding further plans, please refer to the orders. MILLIE HEAD APRN Nov 07, 2016 08:45 PABLO ROJAS MD Nov 07, 2016 09:57
[2016-11-07] MEDS ORDERED: LANSOPRAZOLE 30 MG TAB.RAP.DR PO SCH (09:00)
[2016-11-07] MEDS: BISACODYL 10 MG SUPP.RECT PR SCH (09:34)
[2016-11-07] MEDS: busPIRone 5 MG TABLET. PO SCH ×3 (09:34→21:24)
[2016-11-07] MEDS: SENNOSIDES/DOCUSATE 8.6/50MG TABLET. PO SCH ×2 (09:34→21:24)
[2016-11-07] MEDS: CHOLECALCIFEROL (VITAMIN D3) 1,000 UNIT TABLET PO SCH (09:34)
[2016-11-07] MEDS: POLYETHYLENE GLYCOL 3350 17 GM PACKET. PO SCH (09:34)
[2016-11-07] MEDS: BENZTROPINE MESYLATE 1 MG TABLET PO SCH (09:34)
[2016-11-07] MEDS: POLYVINYL ALCOHOL 1.4% OPHTH SOLUTION 15ML BOTTLE. OU SCH ×4 (09:36→21:23)
[2016-11-07] MEDS: METOPROLOL TART IMMED RELEASE 25 MG TABLET PO SCH ×2 (09:36→21:24)
--- NOTE | 2016-11-07 10:55 | PDOC ---
Infectious Disease Note Subjective Subjective s/p cholecystostomy tube placement Unresponsive to verbal stimuli No fever ROS ROS unable to do Vital Sign Vital Signs Vital Signs Date Time Temp Pulse Resp B/P Pulse Ox O2 Delivery O2 Flow Rate FiO2 11/07/16 09:36 88 151/86 11/07/16 07:50 Nasal Cannula 2.0 11/07/16 07:00 98.7 17 97 98.7 Physical Exam PHYSICAL EXAM GENERAL: NAD, Alert HEENT: PERRL, OC/OP NECK: Supple, no JVD, no LN LUNGS: Clear HEART: S1S2, no gallop, no murmur ABD: Soft, NT, no organomegaly, no rebound EXT: No edema, no cyanosis DIRECTOR RADIO: Alert, SKIN: No rash IV: ok Labs Lab Laboratory Tests Test 11/06/16 11:04 11/06/16 16:50 11/06/16 20:42 11/07/16 00:09 Glucose (Fingerstick) 185mg/dL (70-99) 237mg/dL (70-99) 218mg/dL (70-99) 188mg/dL (70-99) Test 11/07/16 03:56 11/07/16 04:41 11/07/16 08:17 Glucose (Fingerstick) 174mg/dL (70-99) 182mg/dL (70-99) White Blood Count 11.1x10^3/uL (4.0-11.0) Red Blood Count 2.62x10^6/uL (3.50-5.40) Hemoglobin 7.3g/dL (12.0-15.5) Hematocrit 22.0% (36.0-47.0) Mean Corpuscular Volume 84fL (79-100) Mean Corpuscular Hemoglobin 28pg (25-35) Mean Corpuscular Hemoglobin Concent 33g/dL (31-37) Red Cell Distribution Width 17.8% (11.5-14.5) Platelet Count 331x10^3/uL (140-400) Neutrophils (%) (Auto) 63% (31-73) Lymphocytes (%) (Auto) 22% (24-48) Monocytes (%) (Auto) 15% (0-9) Eosinophils (%) (Auto) 0% (0-3) Basophils (%) (Auto) 1% (0-3) Neutrophils # (Auto) 7.0x10^3uL (1.8-7.7) Lymphocytes # (Auto) 2.4x10^3/uL (1.0-4.8) Monocytes # (Auto) 1.6x10^3/uL (0.0-1.1) Eosinophils # (Auto) 0.0x10^3/uL (0.0-0.7) Basophils # (Auto) 0.1x10^3/uL (0.0-0.2) Prothrombin Time 14.7SEC (11.7-14.0) Prothromb Time International Ratio 1.2 (0.8-1.1) Sodium Level 145mmol/L (136-145) Potassium Level 3.4mmol/L (3.5-5.1) Chloride Level 108mmol/L (98-107) Carbon Dioxide Level 31mmol/L (21-32) Anion Gap 6 (6-14) Blood Urea Nitrogen 23mg/dL (7-20) Creatinine 1.1mg/dL (0.6-1.0) Estimated GFR (Cockcroft-Gault) 61.5 BUN/Creatinine Ratio 21 (6-20) Glucose Level 184mg/dL (70-99) Calcium Level 8.1mg/dL (8.5-10.1) Total Bilirubin 0.2mg/dL (0.2-1.0) Aspartate Amino Transf (AST/SGOT) 12U/L (15-37) Alanine Aminotransferase (ALT/SGPT) 8U/L (14-59) Alkaline Phosphatase 53U/L (46-116) Total Protein 7.3g/dL (6.4-8.2) Albumin 1.6g/dL (3.4-5.0) Albumin/Globulin Ratio 0.3 (1.0-1.7) Objective Assessment Sepsis with lactic acidosis. POA improved Fever. - better ? cholecystitis - S/p Cholecystostomy tube 10/28. Enterobacter and ? enterococcus Leukocytosis improved AF KALPANA - better UTI. POA. UC neg Encephalopathy - arousable only CVA MRSA positive Seizure disorder Diabetes Plan Plan of Care d/c kathy d/c to RAGHU Rogers MD Nov 07, 2016 10:55
[2016-11-07 11:00] VITALS: BP 155/66
[2016-11-07] MEDS ORDERED: INSULIN ASPART 300 UNITS/3 ML INSULN.PEN SQ SCH (11:30)
[2016-11-07 15:00] VITALS: BP 144/78
[2016-11-07] MEDS ORDERED: WARFARIN 6 MG TABLET. PO ONE (16:00)
[2016-11-07 19:00] VITALS: BP 149/78
[2016-11-07] MEDS: SIMVASTATIN 10 MG TABLET PO SCH (21:24)
[2016-11-07] MEDS: INSULIN DETEMIR 300 UNITS/3 ML INSULN.PEN. SQ SCH (21:44)
[2016-11-07 23:00] VITALS: BP 167/77
[2016-11-08] MEDS: VALPROIC ACID IV SCH ×2 (00:27→05:59)
[2016-11-08] MEDS: NORMAL SALINE IV SCH ×2 (00:27→05:59)
[2016-11-08 03:00] VITALS: BP 119/55
[2016-11-08 05:09] LABS: BASO # 0.2 x10^3/uL (0.0-0.2); BASO % 1 % (0-3); EOS % 0 % (0-3); LYMPH # 3.2 x10^3/uL (1.0-4.8); LYMPH % 27 % (24-48); MEAN CORPUSCULAR HEMOGLOBIN 28 pg (25-35); MEAN CORPUSCULAR HGB CONC 33 g/dL (31-37); MEAN CORPUSCULAR VOLUME 85 fL (79-100); MONO % 11 % (0-9); NEUT % 61 % (31-73); PLATELET COUNT 314 x10^3/uL (140-400); RED BLOOD COUNT 2.17 x10^6/uL (3.50-5.40); RED CELL DISTRIBUTION WIDTH 17.9 % (11.5-14.5); WHITE BLOOD COUNT 11.9 x10^3/uL (4.0-11.0)
[2016-11-08 05:33] LABS: HEMATOCRIT 18.4 % (36.0-47.0)
[2016-11-08 05:39] LABS: ALBUMIN 1.6 g/dL (3.4-5.0); ALBUMIN/GLOBULIN RATIO 0.3 (1.0-1.7); ALK PHOS 54 U/L (46-116); ANION GAP 6 (6-14); AST (SGOT) 11 U/L (15-37); BLOOD UREA NITROGEN 20 mg/dL (7-20); BUN/CREATININE RATIO 20 (6-20); CALCIUM 7.9 mg/dL (8.5-10.1); CARBON DIOXIDE 31 mmol/L (21-32); CHLORIDE 108 mmol/L (98-107); GFR 68.7; GLUCOSE 175 mg/dL (70-99); POTASSIUM 3.4 mmol/L (3.5-5.1); SODIUM 145 mmol/L (136-145); TOTAL BILIRUBIN 0.2 mg/dL (0.2-1.0); TOTAL PROTEIN 6.9 g/dL (6.4-8.2)
[2016-11-08 05:41] LABS: INR 1.3 (0.8-1.1); PROTHROMBIN TIME PATIENT 15.7 SEC (11.7-14.0)
[2016-11-08 05:42] LABS: ALT (SGPT) < 6 U/L (14-59)
[2016-11-08] MEDS: FOSPHENYTOIN 100 MG/2 ML VIAL IV SCH ×3 (05:57→22:10)
[2016-11-08 07:00] VITALS: BP 145/57
[2016-11-08] MEDS: POLYETHYLENE GLYCOL 3350 17 GM PACKET. PO SCH (07:38)
[2016-11-08] MEDS: CHOLECALCIFEROL (VITAMIN D3) 1,000 UNIT TABLET PO SCH (07:38)
[2016-11-08] MEDS: busPIRone 5 MG TABLET. PO SCH ×3 (07:38→21:53)
[2016-11-08] MEDS: BENZTROPINE MESYLATE 1 MG TABLET PO SCH (07:40)
[2016-11-08] MEDS: PANTOPRAZOLE 40 MG TABLET. PO SCH ×2 (07:40→11:08)
[2016-11-08] MEDS: METOPROLOL TART IMMED RELEASE 25 MG TABLET PO SCH ×2 (07:40→21:54)
[2016-11-08] MEDS: SENNOSIDES/DOCUSATE 8.6/50MG TABLET. PO SCH ×2 (07:40→21:53)
[2016-11-08] MEDS: LISINOPRIL 10 MG TABLET PO SCH (07:41)
[2016-11-08] MEDS: POLYVINYL ALCOHOL 1.4% OPHTH SOLUTION 15ML BOTTLE. OU SCH ×4 (07:41→21:54)
[2016-11-08] MEDS: INSULIN ASPART 300 UNITS/3 ML INSULN.PEN SQ SCH ×3 (08:02→16:55)
--- NOTE | 2016-11-08 08:10 | PDOC ---
LINDACadenMILLIE DE PAZ [employer] 11/08/16 0810: IM PROGRESS NOTES- Subjective Subjective awake, not interactive Objective Objective more alert Vitals Vital Signs Date Time Temp Pulse Resp B/P Pulse Ox O2 Delivery O2 Flow Rate FiO2 11/08/16 03:00 98.5 74 18 119/55 100 98.5 11/07/16 20:00 Nasal Cannula 2.0 Input & Output Intake and Output 11/08/16 07:00 Intake Total 440 ml Output Total 1300 ml Balance -860 ml Intake Oral 440 ml Output Urine Total 1300 ml # Bowel Movements 1 Physical Exam Physical Exam GENERAL: awake, alert, not interactive, no distress HEAD: normocephalic LUNGS: Decreased breath sounds at bases. CARDIOVASCULAR: S1 and S2 regular. ABDOMEN: Soft, obese, nontender,BS increased slightly, cholecystostomy tube present EXTREMITIES: + edema. CENTRAL NERVOUS SYSTEM: awake, not interactive SKIN: Warm and dry. Skin turgor decreased Labs Laboratory Tests Test 11/06/16 11:04 11/06/16 16:50 11/06/16 20:42 11/07/16 00:09 Glucose (Fingerstick) 185mg/dL (70-99) 237mg/dL (70-99) 218mg/dL (70-99) 188mg/dL (70-99) Test 11/07/16 03:56 11/07/16 04:41 11/07/16 08:17 11/07/16 10:59 Glucose (Fingerstick) 174mg/dL (70-99) 182mg/dL (70-99) 154mg/dL (70-99) White Blood Count 11.1x10^3/uL (4.0-11.0) Red Blood Count 2.62x10^6/uL (3.50-5.40) Hemoglobin 7.3g/dL (12.0-15.5) Hematocrit 22.0% (36.0-47.0) Mean Corpuscular Volume 84fL (79-100) Mean Corpuscular Hemoglobin 28pg (25-35) Mean Corpuscular Hemoglobin Concent 33g/dL (31-37) Red Cell Distribution Width 17.8% (11.5-14.5) Platelet Count 331x10^3/uL (140-400) Neutrophils (%) (Auto) 63% (31-73) Lymphocytes (%) (Auto) 22% (24-48) Monocytes (%) (Auto) 15% (0-9) Eosinophils (%) (Auto) 0% (0-3) Basophils (%) (Auto) 1% (0-3) Neutrophils # (Auto) 7.0x10^3uL (1.8-7.7) Lymphocytes # (Auto) 2.4x10^3/uL (1.0-4.8) Monocytes # (Auto) 1.6x10^3/uL (0.0-1.1) Eosinophils # (Auto) 0.0x10^3/uL (0.0-0.7) Basophils # (Auto) 0.1x10^3/uL (0.0-0.2) Prothrombin Time 14.7SEC (11.7-14.0) Prothromb Time International Ratio 1.2 (0.8-1.1) Sodium Level 145mmol/L (136-145) Potassium Level 3.4mmol/L (3.5-5.1) Chloride Level 108mmol/L (98-107) Carbon Dioxide Level 31mmol/L (21-32) Anion Gap 6 (6-14) Blood Urea Nitrogen 23mg/dL (7-20) Creatinine 1.1mg/dL (0.6-1.0) Estimated GFR (Cockcroft-Gault) 61.5 BUN/Creatinine Ratio 21 (6-20) Glucose Level 184mg/dL (70-99) Calcium Level 8.1mg/dL (8.5-10.1) Total Bilirubin 0.2mg/dL (0.2-1.0) Aspartate Amino Transf (AST/SGOT) 12U/L (15-37) Alanine Aminotransferase (ALT/SGPT) 8U/L (14-59) Alkaline Phosphatase 53U/L (46-116) Total Protein 7.3g/dL (6.4-8.2) Albumin 1.6g/dL (3.4-5.0) Albumin/Globulin Ratio 0.3 (1.0-1.7) Test 11/07/16 18:13 11/07/16 21:01 11/08/16 04:45 Glucose (Fingerstick) 117mg/dL (70-99) 225mg/dL (70-99) White Blood Count 11.9x10^3/uL (4.0-11.0) Red Blood Count 2.17x10^6/uL (3.50-5.40) Hemoglobin 6.0g/dL (12.0-15.5) Hematocrit 18.4% (36.0-47.0) Mean Corpuscular Volume 85fL (79-100) Mean Corpuscular Hemoglobin 28pg (25-35) Mean Corpuscular Hemoglobin Concent 33g/dL (31-37) Red Cell Distribution Width 17.9% (11.5-14.5) Platelet Count 314x10^3/uL (140-400) Neutrophils (%) (Auto) 61% (31-73) Lymphocytes (%) (Auto) 27% (24-48) Monocytes (%) (Auto) 11% (0-9) Eosinophils (%) (Auto) 0% (0-3) Basophils (%) (Auto) 1% (0-3) Neutrophils # (Auto) 7.2x10^3uL (1.8-7.7) Lymphocytes # (Auto) 3.2x10^3/uL (1.0-4.8) Monocytes # (Auto) 1.3x10^3/uL (0.0-1.1) Eosinophils # (Auto) 0.0x10^3/uL (0.0-0.7) Basophils # (Auto) 0.2x10^3/uL (0.0-0.2) Prothrombin Time 15.7SEC (11.7-14.0) Prothromb Time International Ratio 1.3 (0.8-1.1) Sodium Level 145mmol/L (136-145) Potassium Level 3.4mmol/L (3.5-5.1) Chloride Level 108mmol/L (98-107) Carbon Dioxide Level 31mmol/L (21-32) Anion Gap 6 (6-14) Blood Urea Nitrogen 20mg/dL (7-20) Creatinine 1.0mg/dL (0.6-1.0) Estimated GFR (Cockcroft-Gault) 68.7 BUN/Creatinine Ratio 20 (6-20) Glucose Level 175mg/dL (70-99) Calcium Level 7.9mg/dL (8.5-10.1) Total Bilirubin 0.2mg/dL (0.2-1.0) Aspartate Amino Transf (AST/SGOT) 11U/L (15-37) Alanine Aminotransferase (ALT/SGPT) < 6U/L (14-59) Alkaline Phosphatase 54U/L (46-116) Total Protein 6.9g/dL (6.4-8.2) Albumin 1.6g/dL (3.4-5.0) Albumin/Globulin Ratio 0.3 (1.0-1.7) Phenytoin (Dilantin) Level 4.4mcg/mL (10.0-20.0) Phenytoin Last Dose Date 11/07/16 Phenytoin Last Dose Time 213 Valproic Acid (Depakene) Level 55mcg/mL (50-100) Valproic Acid Last Dose Date 11/08/16 Valproic Acid Last Dose Time 0047 Laboratory Tests Test 11/07/16 08:17 11/07/16 10:59 11/07/16 18:13 11/07/16 21:01 Glucose (Fingerstick) 182mg/dL (70-99) 154mg/dL (70-99) 117mg/dL (70-99) 225mg/dL (70-99) Test 11/08/16 04:45 White Blood Count 11.9x10^3/uL (4.0-11.0) Red Blood Count 2.17x10^6/uL (3.50-5.40) Hemoglobin 6.0g/dL (12.0-15.5) Hematocrit 18.4% (36.0-47.0) Mean Corpuscular Volume 85fL (79-100) Mean Corpuscular Hemoglobin 28pg (25-35) Mean Corpuscular Hemoglobin Concent 33g/dL (31-37) Red Cell Distribution Width 17.9% (11.5-14.5) Platelet Count 314x10^3/uL (140-400) Neutrophils (%) (Auto) 61% (31-73) Lymphocytes (%) (Auto) 27% (24-48) Monocytes (%) (Auto) 11% (0-9) Eosinophils (%) (Auto) 0% (0-3) Basophils (%) (Auto) 1% (0-3) Neutrophils # (Auto) 7.2x10^3uL (1.8-7.7) Lymphocytes # (Auto) 3.2x10^3/uL (1.0-4.8) Monocytes # (Auto) 1.3x10^3/uL (0.0-1.1) Eosinophils # (Auto) 0.0x10^3/uL (0.0-0.7) Basophils # (Auto) 0.2x10^3/uL (0.0-0.2) Prothrombin Time 15.7SEC (11.7-14.0) Prothromb Time International Ratio 1.3 (0.8-1.1) Sodium Level 145mmol/L (136-145) Potassium Level 3.4mmol/L (3.5-5.1) Chloride Level 108mmol/L (98-107) Carbon Dioxide Level 31mmol/L (21-32) Anion Gap 6 (6-14) Blood Urea Nitrogen 20mg/dL (7-20) Creatinine 1.0mg/dL (0.6-1.0) Estimated GFR (Cockcroft-Gault) 68.7 BUN/Creatinine Ratio 20 (6-20) Glucose Level 175mg/dL (70-99) Calcium Level 7.9mg/dL (8.5-10.1) Total Bilirubin 0.2mg/dL (0.2-1.0) Aspartate Amino Transf (AST/SGOT) 11U/L (15-37) Alanine Aminotransferase (ALT/SGPT) < 6U/L (14-59) Alkaline Phosphatase 54U/L (46-116) Total Protein 6.9g/dL (6.4-8.2) Albumin 1.6g/dL (3.4-5.0) Albumin/Globulin Ratio 0.3 (1.0-1.7) Phenytoin (Dilantin) Level 4.4mcg/mL (10.0-20.0) Phenytoin Last Dose Date 11/07/16 Phenytoin Last Dose Time 2131 Valproic Acid (Depakene) Level 55mcg/mL (50-100) Valproic Acid Last Dose Date 11/08/16 Valproic Acid Last Dose Time 0047 Meds Current Medications Artificial Tears (Artificial Tears) 2 drop QID OU Last administered on 21:23; Start 11/07/16 at 09:00 Insulin Aspart (Novolog) 0-7 UNITS TIDAC SQ Last administered on 11/07/16 18: 22; Start 11/07/16 at 09:15 Insulin Aspart (Novolog) 0-7 UNITS TIDAC SQ ; Start 11/07/16 at 11:30; Stop at 11:30; Status DC Lansoprazole (Prevacid) 30 mg DAILY PO ; Start 11/07/16 at 09:00; Stop 11/07/16 at 09:05; Status DC Lisinopril (Prinivil) 10 mg DAILY PO ; Start 11/08/16 at 09:00 Magnesium Hydroxide (Milk Of Magnesia) 2,400 mg PRN DAILY PRN PO CONS; Start at 08:30 Metoprolol Tartrate (Lopressor) 12.5 mg BID PO Last administered on 11/07/16 21:24; Start 11/07/16 at 09:00 Pantoprazole Sodium (Protonix) 40 mg DAILYAC PO ; Start 11/08/16 at 07:30 Polyethylene Glycol (miraLAX PACKET) 17 gm DAILY PO Last administered on 09:34; Start 11/07/16 at 09:00 Senna/Docusate Sodium (Senna Plus) 1 tab BID PO Last administered on 11/07/16 21:24; Start 11/07/16 at 09:00 Simvastatin (Zocor) 10 mg QHS PO Last administered on 11/07/16 21:24; Start at 21:00 Vitamin D (Vitamin D3) 1,000 unit DAILY PO Last administered on 11/07/16 09:34 ; Start 11/07/16 at 09:00 Warfarin Sodium (Coumadin) 6 mg 1X WARF ONCE PO Last administered on 16:33; Start 11/07/16 at 16:00; Stop 11/07/16 at 16:01; Status DC Assessment Assessment Assessment 1. Sepsis with lactic acidosis/UTI-cholecystitis POA 2. Acute metabolic encephalopathy ARF/sepsis underlying dementia/hypernatremia 3. Urinary tract infection POA 4. Acute renal failure KALPANA VMN with CKD III 5. Seizure disorder 6. Diabetes mellitus type 2. 7. Dementia. 8. Paranoid schizophrenia. 9. severe weakness and debility with limited mobility 10. severe PCL malnutrition with underlying Moderate malnutrition. 11. Peripheral vascular disease. 12. Hyperlipidemia. 13. Malignant hypertension not POA 14. Gastroesophageal reflux disease. 15. Osteoporosis. 16. Vitamin D deficiency. 17. Legal blindness. 18. Hypernatremia NA 151 POA PLAN: sepsis with lactic acidosis UTI/choleycystitis POA ID consulted Zosyn IV stopped 11/07/16 Admit WBC 29.8 11/08 11.9 BC and urine CS negative Tm 100.2 previous 24 hour repeat UA neg nitrite, + blood, WBC 1-4 improved Urine cult 10/24 negative Surgical consult-no surgical intervention at this time, consider PIPIDA and IR for cholecystostomy tube placement PIPIDA abnormal, scan reviewed cholecystostomy tube placed 10/28 with 20cc christian pus +grm neg rods ID pending -Enterobacter Cloacae Abnormal CXR CXR RLL atelectasis vs sugfchnztf-[id number] nebulizer pulmonary consult CT chest w/o: Small right pleural effusion and trace left. Volume loss at the right lung base may reflect atelectasis or pneumonia. Minimal volume loss at the left lung base likely atelectasis 10/26-pulmonary signed off ARF KALPANA VMN CKDIII, hypernatremia Admit BUN 34 11/08 20 Cr 2.4 1.0 Na 137 145 K 3.8 3.4 IV D51/4NS 125cc/hr-DC 10/24 renal consulted no Lasix 10/24 hypokalemia- prn K replacement scale renal standing orders-begin KCL 20 meq daily, hypokalemia past 2 days and today. DM II FSBS/ssi Admit Novolog 10u tid ac-stopped 10/29 not eating Admit Levemir 22u bid - reduced to 10u BID 10/29 hold BS less than or equal to 100 BS 117-225 Levemir held 10/27 pm due to NPO TPN-no insulin. changed SSI to q4h and increased to 400. Call MD >401, continue Levemir 10u at hs 11/03 Reg 20u to TPN, SSI changed to q6h, staff following NPO scale. SSI adjusted and NPO dosing removed. 11/04 TPN 60 units Regular, BS high, taking po now. Increase SSI to q4h and continue Levemir 10units--11/07 titrate TPN off Change SSI to TID AC and adjust levemir based on FSBS seizure disorder Cerebyx IV Depakote IV Dilantin IV-stopped seizure precautions Oral meds: Dilantin 100mg daily, 200mg at hs-?change to cerebryx Dilantin level 4.4 paranoid schizophrenia, dementia with behavioral disturbance Restart oral meds per Dr. Rojas: benzotropine 2mg daiy-taking buspar 10mg tid -taking restart 11/08 depakene 250mg at hs Depakote ER 1000mg at hs Depakote ER 1500mg daily ativan 0.5mg prn q8hr Not taking: thorazine 125mg at hs clonazepam 0.5mg at hs remeron 15mg at hs zyprexa 5mg at hs Depakote level 55 malignant HTN continue NH meds not taking oral consistently Lisinopril 5mg po NH-Begin Vasotec 1.25mg IV q 6hr hold SBP <120-changed to oral hydralazine prn SBP 160s-201 -add lopressor 5mg IV q6hr, give dose at 7:30AM 11/03 BP improved. Stop vasotec-begin lisinopril 5mg po 11/04 continue metoprolol for now and hydralazine prn Catapres TTS 2mg -2 patches weekly continues acclerated HTN 11/07 increase lisinopril to 10mg daily, begin metoprolol tartrate 12.5mg bid anticoagulation Admit INR 3.0 11/08 1.3 Warfarin 6mg po pharmacy managing INR 10/23 7.6 not taking medication by mouth restart warfarin 11/04 stop lovenox 11/04 Lovenox 40mg subq daily until taking po warfarin 11/01/16 restart warfarin-pharmacy managing -last dose 6mg DC lovenox. abd mild distention/cholecystitis POA no BM since prior to admit Dulcolax supp 10/24--small hard stool mod amount 10/25 Distention worse, abdomen firmer, BS hypoactive +GS per CXR-check amylase Repeat Dulcolax supp. and add miralax CT chest w/o contrast GB thickening with distention-will obtain GB US amylase 14 BM + 10/25 after Dulcolax cholecystitis-surgical evaluated 10/26-no surgery PIPIDA abnormal, placed cholecystostomy tube 10/28 Schedule Dulcolax QOD until taking oral meds 11/07 restart miralax 17gm daily, senokot bid scheduled , MOM prn severe with underlying chronic PCL malnutrition continue diet PPN added 10/24-restarted 10/28 poor po intake, not swallowing Initiate TPN when PICC placed and stop PPN -minimal oral intake since admit. - initiated 11/01 10/31 staff reports po intake increasing 70% meal taken yesterday-decrease TPN to 1/2 dose and DC later today if oral intake remains good-TPN DC 11/07/16 supplementing diet DVT/GI prophylaxis warfarin PPI anemia a/c Admit 11.3 11/07 7.3 11/08 6.0 T&C 2 unit lasix 20mg between PRC no overt bleeding. For more details regarding further plans, please refer to the order Plan Plan For more details regarding further plans, please refer to the orders. PABLO ROJAS MD 11/08/16 1106: IM PROGRESS NOTES- Assessment Assessment Not eating today.she ate dinner yesterday. repeat Hb 7.9. Sleepy ? due to catapres patch.Decrease Catapres and restart Lisinopril. The patient was seen and examined by me. Chart reviewed and plan of care formulated. Discussed with, reviewed and agree with [facility] PRESIDENT's notes, plan of care and orders with modifications as necessary. For more details regarding further plans, please refer to the orders. MILLIE HEAD APRN Nov 08, 2016 08:10 PABLO ROJAS MD Nov 08, 2016 11:06
[2016-11-08] MEDS: FUROSEMIDE 20 MG/2 ML VIAL IVP ONE ×2 (08:30→11:08)
[2016-11-08] MEDS ORDERED: POTASSIUM CHLORIDE 20 MEQ TABLET.ER. PO SCH (09:00)
--- NOTE | 2016-11-08 10:08 | PDOC ---
Infectious Disease Note Subjective Subjective s/p cholecystostomy tube placement Unresponsive to verbal stimuli No fever ROS ROS unable to do Vital Sign Vital Signs Vital Signs Date Time Temp Pulse Resp B/P Pulse Ox O2 Delivery O2 Flow Rate FiO2 11/08/16 07:41 72 145/57 11/08/16 07:00 97.9 18 100 Nasal Cannula 2.0 97.9 Physical Exam PHYSICAL EXAM GENERAL: NAD, Alert HEENT: PERRL, OC/OP NECK: Supple, no JVD, no LN LUNGS: Clear HEART: S1S2, no gallop, no murmur ABD: Soft, NT, no organomegaly, no rebound EXT: No edema, no cyanosis [employer] CHIEF: Alert, mumbles SKIN: No rash IV: ok Labs Lab Laboratory Tests Test 11/07/16 10:59 11/07/16 18:13 11/07/16 21:01 11/08/16 04:45 Glucose (Fingerstick) 154mg/dL (70-99) 117mg/dL (70-99) 225mg/dL (70-99) White Blood Count 11.9x10^3/uL (4.0-11.0) Red Blood Count 2.17x10^6/uL (3.50-5.40) Hemoglobin 6.0g/dL (12.0-15.5) Hematocrit 18.4% (36.0-47.0) Mean Corpuscular Volume 85fL (79-100) Mean Corpuscular Hemoglobin 28pg (25-35) Mean Corpuscular Hemoglobin Concent 33g/dL (31-37) Red Cell Distribution Width 17.9% (11.5-14.5) Platelet Count 314x10^3/uL (140-400) Neutrophils (%) (Auto) 61% (31-73) Lymphocytes (%) (Auto) 27% (24-48) Monocytes (%) (Auto) 11% (0-9) Eosinophils (%) (Auto) 0% (0-3) Basophils (%) (Auto) 1% (0-3) Neutrophils # (Auto) 7.2x10^3uL (1.8-7.7) Lymphocytes # (Auto) 3.2x10^3/uL (1.0-4.8) Monocytes # (Auto) 1.3x10^3/uL (0.0-1.1) Eosinophils # (Auto) 0.0x10^3/uL (0.0-0.7) Basophils # (Auto) 0.2x10^3/uL (0.0-0.2) Prothrombin Time 15.7SEC (11.7-14.0) Prothromb Time International Ratio 1.3 (0.8-1.1) Sodium Level 145mmol/L (136-145) Potassium Level 3.4mmol/L (3.5-5.1) Chloride Level 108mmol/L (98-107) Carbon Dioxide Level 31mmol/L (21-32) Anion Gap 6 (6-14) Blood Urea Nitrogen 20mg/dL (7-20) Creatinine 1.0mg/dL (0.6-1.0) Estimated GFR (Cockcroft-Gault) 68.7 BUN/Creatinine Ratio 20 (6-20) Glucose Level 175mg/dL (70-99) Calcium Level 7.9mg/dL (8.5-10.1) Total Bilirubin 0.2mg/dL (0.2-1.0) Aspartate Amino Transf (AST/SGOT) 11U/L (15-37) Alanine Aminotransferase (ALT/SGPT) < 6U/L (14-59) Alkaline Phosphatase 54U/L (46-116) Total Protein 6.9g/dL (6.4-8.2) Albumin 1.6g/dL (3.4-5.0) Albumin/Globulin Ratio 0.3 (1.0-1.7) Phenytoin (Dilantin) Level 4.4mcg/mL (10.0-20.0) Phenytoin Last Dose Date 11/07/16 Phenytoin Last Dose Time 2131 Valproic Acid (Depakene) Level 55mcg/mL (50-100) Valproic Acid Last Dose Date 11/08/16 Valproic Acid Last Dose Time 0047 Test 11/08/16 07:42 11/08/16 09:00 Glucose (Fingerstick) 136mg/dL (70-99) Hemoglobin 7.9g/dL (12.0-15.5) Objective Assessment Sepsis with lactic acidosis. POA improved Fever. - better ? cholecystitis - S/p Cholecystostomy tube 10/28. Enterobacter and ? enterococcus Leukocytosis improved AF KALPANA - better UTI. POA. UC neg Encephalopathy - arousable only CVA MRSA positive Seizure disorder Diabetes Plan Plan of Care off antibiotics d/c to [place] RAGHU Castro MD Nov 08, 2016 10:08
[2016-11-08 11:00] VITALS: BP 166/65
[2016-11-08] MEDS: DIVALPROEX EXTENDED RELEASE 500 MG TAB.ER.24H. PO SCH (11:07)
[2016-11-08] MEDS: POTASSIUM CHLORIDE 20 MEQ/15 ML ORAL LIQUID. PEG SCH ×2 (11:07→16:45)
[2016-11-08 15:00] VITALS: BP 162/64
[2016-11-08] MEDS ORDERED: WARFARIN 7.5 MG TABLET. PO ONE (16:00)
[2016-11-08 19:00] VITALS: BP 162/46
[2016-11-08] MEDS ORDERED: VALPROIC ACID 250 MG CAPSULE. PO SCH (21:00)
[2016-11-08] MEDS ORDERED: DIVALPROEX EXTENDED RELEASE 500 MG TAB.ER.24H. PO SCH (21:00)
[2016-11-08] MEDS: SIMVASTATIN 10 MG TABLET PO SCH (21:53)
[2016-11-08] MEDS: INSULIN DETEMIR 300 UNITS/3 ML INSULN.PEN. SQ SCH (22:05)
[2016-11-08 23:33] VITALS: BP 168/44
[2016-11-09 03:28] VITALS: BP 159/65
[2016-11-09] MEDS: FOSPHENYTOIN 100 MG/2 ML VIAL IV SCH (05:54)
[2016-11-09] MEDS: OXYCODONE IR 5 MG TABLET. PO PRN (06:05)
[2016-11-09 06:12] LABS: BASO # 0.1 x10^3/uL (0.0-0.2); BASO % 1 % (0-3); EOS % 0 % (0-3); HEMATOCRIT 22.9 % (36.0-47.0); HEMOGLOBIN 7.6 g/dL (12.0-15.5); LYMPH # 2.9 x10^3/uL (1.0-4.8); LYMPH % 29 % (24-48); MEAN CORPUSCULAR HEMOGLOBIN 28 pg (25-35); MEAN CORPUSCULAR HGB CONC 33 g/dL (31-37); MEAN CORPUSCULAR VOLUME 85 fL (79-100); MONO % 12 % (0-9); NEUT % 58 % (31-73); PLATELET COUNT 311 x10^3/uL (140-400); RED BLOOD COUNT 2.68 x10^6/uL (3.50-5.40); RED CELL DISTRIBUTION WIDTH 18.3 % (11.5-14.5); WHITE BLOOD COUNT 10.1 x10^3/uL (4.0-11.0)
[2016-11-09 06:29] LABS: ALBUMIN 1.9 g/dL (3.4-5.0); ALBUMIN/GLOBULIN RATIO 0.3 (1.0-1.7); CALCIUM 8.4 mg/dL (8.5-10.1); CREATININE 1.1 mg/dL (0.6-1.0); GFR 61.5; POTASSIUM 3.7 mmol/L (3.5-5.1); TOTAL BILIRUBIN 0.2 mg/dL (0.2-1.0); TOTAL PROTEIN 7.4 g/dL (6.4-8.2)
[2016-11-09 06:52] LABS: INR 1.5 (0.8-1.1); PROTHROMBIN TIME PATIENT 17.2 SEC (11.7-14.0)
[2016-11-09 07:15] VITALS: BP 180/70
--- NOTE | 2016-11-09 08:22 | PDOC3 ---
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 Sepsis with lactic acidosis/UTI-cholecystitis POA 2. Acute metabolic encephalopathy ARF/sepsis underlying dementia/hypernatremia 3. Urinary tract infection POA 4. Acute renal failure KALPANA VMN with CKD III 5. Seizure disorder 6. Diabetes mellitus type 2. 7. Dementia. 8. Paranoid schizophrenia. 9. severe weakness and debility with limited mobility 10. severe PCL malnutrition with underlying Moderate malnutrition. 11. Peripheral vascular disease. 12. Hyperlipidemia. 13. Malignant hypertension not POA 14. Gastroesophageal reflux disease. 15. Osteoporosis. 16. Vitamin D deficiency. 17. Legal blindness. 18. Hypernatremia NA 151 POA Consults Consults Flora Steve MD, Dr., Dr., Dr. Palliative Care Dr. Boateng Procedures Procedures BRIEF OPERATIVE NOTE Pre-Op Diagnosis Acute cholecystitis Post-Op Diagnosis same Procedure Performed US Cholecystostomy tube Surgeon Julius Anesthesia Type: Conscious Sedation Specimens Obtained 20cc christian pus Findings 12F drain Complications No immediate KIANA ROBLEDO MD Oct 28, 2016 18:08 Labs Labs Laboratory Tests Test 11/06/16 11:04 11/06/16 16:50 11/06/16 20:42 11/07/16 00:09 Glucose (Fingerstick) 185mg/dL (70-99) 237mg/dL (70-99) 218mg/dL (70-99) 188mg/dL (70-99) Test 11/07/16 03:56 11/07/16 04:41 11/07/16 08:17 11/07/16 10:59 Glucose (Fingerstick) 174mg/dL (70-99) 182mg/dL (70-99) 154mg/dL (70-99) White Blood Count 11.1x10^3/uL (4.0-11.0) Red Blood Count 2.62x10^6/uL (3.50-5.40) Hemoglobin 7.3g/dL (12.0-15.5) Hematocrit 22.0% (36.0-47.0) Mean Corpuscular Volume 84fL (79-100) Mean Corpuscular Hemoglobin 28pg (25-35) Mean Corpuscular Hemoglobin Concent 33g/dL (31-37) Red Cell Distribution Width 17.8% (11.5-14.5) Platelet Count 331x10^3/uL (140-400) Neutrophils (%) (Auto) 63% (31-73) Lymphocytes (%) (Auto) 22% (24-48) Monocytes (%) (Auto) 15% (0-9) Eosinophils (%) (Auto) 0% (0-3) Basophils (%) (Auto) 1% (0-3) Neutrophils # (Auto) 7.0x10^3uL (1.8-7.7) Lymphocytes # (Auto) 2.4x10^3/uL (1.0-4.8) Monocytes # (Auto) 1.6x10^3/uL (0.0-1.1) Eosinophils # (Auto) 0.0x10^3/uL (0.0-0.7) Basophils # (Auto) 0.1x10^3/uL (0.0-0.2) Prothrombin Time 14.7SEC (11.7-14.0) Prothromb Time International Ratio 1.2 (0.8-1.1) Sodium Level 145mmol/L (136-145) Potassium Level 3.4mmol/L (3.5-5.1) Chloride Level 108mmol/L (98-107) Carbon Dioxide Level 31mmol/L (21-32) Anion Gap 6 (6-14) Blood Urea Nitrogen 23mg/dL (7-20) Creatinine 1.1mg/dL (0.6-1.0) Estimated GFR (Cockcroft-Gault) 61.5 BUN/Creatinine Ratio 21 (6-20) Glucose Level 184mg/dL (70-99) Calcium Level 8.1mg/dL (8.5-10.1) Total Bilirubin 0.2mg/dL (0.2-1.0) Aspartate Amino Transf (AST/SGOT) 12U/L (15-37) Alanine Aminotransferase (ALT/SGPT) 8U/L (14-59) Alkaline Phosphatase 53U/L (46-116) Total Protein 7.3g/dL (6.4-8.2) Albumin 1.6g/dL (3.4-5.0) Albumin/Globulin Ratio 0.3 (1.0-1.7) Test 11/07/16 17:02 11/07/16 18:13 11/07/16 21:01 11/08/16 04:45 Glucose (Fingerstick) 109mg/dL (70-99) 117mg/dL (70-99) 225mg/dL (70-99) White Blood Count 11.9x10^3/uL (4.0-11.0) Red Blood Count 2.17x10^6/uL (3.50-5.40) Hemoglobin 6.0g/dL (12.0-15.5) Hematocrit 18.4% (36.0-47.0) Mean Corpuscular Volume 85fL (79-100) Mean Corpuscular Hemoglobin 28pg (25-35) Mean Corpuscular Hemoglobin Concent 33g/dL (31-37) Red Cell Distribution Width 17.9% (11.5-14.5) Platelet Count 314x10^3/uL (140-400) Neutrophils (%) (Auto) 61% (31-73) Lymphocytes (%) (Auto) 27% (24-48) Monocytes (%) (Auto) 11% (0-9) Eosinophils (%) (Auto) 0% (0-3) Basophils (%) (Auto) 1% (0-3) Neutrophils # (Auto) 7.2x10^3uL (1.8-7.7) Lymphocytes # (Auto) 3.2x10^3/uL (1.0-4.8) Monocytes # (Auto) 1.3x10^3/uL (0.0-1.1) Eosinophils # (Auto) 0.0x10^3/uL (0.0-0.7) Basophils # (Auto) 0.2x10^3/uL (0.0-0.2) Prothrombin Time 15.7SEC (11.7-14.0) Prothromb Time International Ratio 1.3 (0.8-1.1) Sodium Level 145mmol/L (136-145) Potassium Level 3.4mmol/L (3.5-5.1) Chloride Level 108mmol/L (98-107) Carbon Dioxide Level 31mmol/L (21-32) Anion Gap 6 (6-14) Blood Urea Nitrogen 20mg/dL (7-20) Creatinine 1.0mg/dL (0.6-1.0) Estimated GFR (Cockcroft-Gault) 68.7 BUN/Creatinine Ratio 20 (6-20) Glucose Level 175mg/dL (70-99) Calcium Level 7.9mg/dL (8.5-10.1) Total Bilirubin 0.2mg/dL (0.2-1.0) Aspartate Amino Transf (AST/SGOT) 11U/L (15-37) Alanine Aminotransferase (ALT/SGPT) < 6U/L (14-59) Alkaline Phosphatase 54U/L (46-116) Total Protein 6.9g/dL (6.4-8.2) Albumin 1.6g/dL (3.4-5.0) Albumin/Globulin Ratio 0.3 (1.0-1.7) Phenytoin (Dilantin) Level 4.4mcg/mL (10.0-20.0) Phenytoin Last Dose Date 11/07/16 Phenytoin Last Dose Time 2131 Valproic Acid (Depakene) Level 55mcg/mL (50-100) Valproic Acid Last Dose Date 11/08/16 Valproic Acid Last Dose Time 0047 Test 11/08/16 07:42 11/08/16 09:00 11/08/16 11:16 11/08/16 16:26 Glucose (Fingerstick) 136mg/dL (70-99) 143mg/dL (70-99) 136mg/dL (70-99) Hemoglobin 7.9g/dL (12.0-15.5) Test 11/08/16 20:45 11/09/16 06:00 Glucose (Fingerstick) 135mg/dL (70-99) White Blood Count 10.1x10^3/uL (4.0-11.0) Red Blood Count 2.68x10^6/uL (3.50-5.40) Hemoglobin 7.6g/dL (12.0-15.5) Hematocrit 22.9% (36.0-47.0) Mean Corpuscular Volume 85fL (79-100) Mean Corpuscular Hemoglobin 28pg (25-35) Mean Corpuscular Hemoglobin Concent 33g/dL (31-37) Red Cell Distribution Width 18.3% (11.5-14.5) Platelet Count 311x10^3/uL (140-400) Neutrophils (%) (Auto) 58% (31-73) Lymphocytes (%) (Auto) 29% (24-48) Monocytes (%) (Auto) 12% (0-9) Eosinophils (%) (Auto) 0% (0-3) Basophils (%) (Auto) 1% (0-3) Neutrophils # (Auto) 5.9x10^3uL (1.8-7.7) Lymphocytes # (Auto) 2.9x10^3/uL (1.0-4.8) Monocytes # (Auto) 1.2x10^3/uL (0.0-1.1) Eosinophils # (Auto) 0.0x10^3/uL (0.0-0.7) Basophils # (Auto) 0.1x10^3/uL (0.0-0.2) Prothrombin Time 17.2SEC (11.7-14.0) Prothromb Time International Ratio 1.5 (0.8-1.1) Sodium Level 145mmol/L (136-145) Potassium Level 3.7mmol/L (3.5-5.1) Chloride Level 107mmol/L (98-107) Carbon Dioxide Level 32mmol/L (21-32) Anion Gap 6 (6-14) Blood Urea Nitrogen 20mg/dL (7-20) Creatinine 1.1mg/dL (0.6-1.0) Estimated GFR (Cockcroft-Gault) 61.5 BUN/Creatinine Ratio 18 (6-20) Glucose Level 164mg/dL (70-99) Calcium Level 8.4mg/dL (8.5-10.1) Total Bilirubin 0.2mg/dL (0.2-1.0) Aspartate Amino Transf (AST/SGOT) 12U/L (15-37) Alanine Aminotransferase (ALT/SGPT) 8U/L (14-59) Alkaline Phosphatase 66U/L (46-116) Total Protein 7.4g/dL (6.4-8.2) Albumin 1.9g/dL (3.4-5.0) Albumin/Globulin Ratio 0.3 (1.0-1.7) Medications Medications Medications reviewed and reconciled for discharge. Brief hospital course Brief hospital course This 61 year old female who presented with sepsis was admitted. The following is a summary of her treatment. sepsis with lactic acidosis UTI/choleycystitis POA ID consulted Zosyn IV stopped 11/07/16 Admit WBC 29.8 11/09 10.1 BC and urine CS negative Tm 100.2 previous 24 hour repeat UA neg nitrite, + blood, WBC 1-4 improved Urine cult 10/24 negative Surgical consult-no surgical intervention at this time, consider PIPIDA and IR for cholecystostomy tube placement PIPIDA abnormal, scan reviewed cholecystostomy tube placed 10/28 with 20cc christian pus +grm neg rods ID pending -Enterobacter Cloacae Off antibiotics, Abnormal CXR CXR RLL atelectasis vs igsiuohojy-isxjghfvq-utxam nebulizer pulmonary consult CT chest w/o: Small right pleural effusion and trace left. Volume loss at the right lung base may reflect atelectasis or pneumonia. Minimal volume loss at the left lung base likely atelectasis 10/26-pulmonary signed off ARF KALPANA VMN CKDIII, hypernatremia Admit BUN 34 11/09 20 Cr 2.4 1.1 Na 137 145 K 3.8 3.7 IV D51/4NS 125cc/hr-DC 10/24 renal consulted no Lasix 10/24 hypokalemia- prn K replacement scale renal standing orders-begin KCL 20 meq daily, hypokalemia past 2 days and today 11/07/16 DM II FSBS/ssi Admit Novolog 10u tid ac-stopped 10/29 not eating Admit Levemir 22u bid - reduced to 10u BID 10/29 hold BS less than or equal to 100 BS 136-164 Levemir held 10/27 pm due to NPO TPN-no insulin. changed SSI to q4h and increased to 400. Call MD >401, continue Levemir 10u at hs 11/03 Reg 20u to TPN, SSI changed to q6h, staff following NPO scale. SSI adjusted and NPO dosing removed. 11/04 TPN 60 units Regular, BS high, taking po now. Increase SSI to q4h and continue Levemir 10units--11/07 titrate TPN off Change SSI to TID AC and adjust levemir based on FSBS seizure disorder Cerebyx IV Depakote IV Dilantin IV-stopped seizure precautions Oral meds: Dilantin 100mg daily, 200mg at hs-?change to cerebryx Dilantin level 4.4 paranoid schizophrenia, dementia with behavioral disturbance Restart oral meds per Dr. Raymundo: benzotropine 2mg daiy-taking buspar 10mg tid -taking restart 11/08 depakene 250mg at hs Depakote ER 1000mg at hs Depakote ER 1500mg daily ativan 0.5mg prn q8hr Not taking: thorazine 125mg at hs clonazepam 0.5mg at hs remeron 15mg at hs zyprexa 5mg at hs Depakote level 55 malignant HTN continue NH meds not taking oral consistently Lisinopril 5mg po NH-Begin Vasotec 1.25mg IV q 6hr hold SBP <120-changed to oral hydralazine prn SBP 160s-201 -add lopressor 5mg IV q6hr, give dose at 7:30AM 11/03 BP improved. Stop vasotec-begin lisinopril 5mg po 11/04 continue metoprolol for now and hydralazine prn Catapres TTS 2mg -2 patches weekly continues accelerated HTN 11/07 increase lisinopril to 10mg daily, begin metoprolol tartrate 12.5mg bid improved 11/09/16 anticoagulation Admit INR 3.0 11/09 1.5 pharmacy managing INR 10/23 7.6 not taking medication by mouth restart warfarin 11/04 stop lovenox 11/04 Lovenox 40mg subq daily until taking po warfarin 11/01/16 restart warfarin-pharmacy managing -last dose 6mg DC lovenox. Warfarin 6mg po -chronic dose, discharge on 6mg daily abd mild distention/cholecystitis POA no BM since prior to admit Dulcolax supp 10/24--small hard stool mod amount 10/25 Distention worse, abdomen firmer, BS hypoactive +GS per CXR-check amylase Repeat Dulcolax supp. and add miralax CT chest w/o contrast GB thickening with distention-will obtain GB US amylase 14 BM + 1/17 after Dulcolax cholecystitis-surgical evaluated 10/26-no surgery PIPIDA abnormal, placed cholecystostomy tube 10/28 Schedule Dulcolax QOD until taking oral meds 11/07 restart miralax 17gm daily, senokot bid scheduled , MOM prn severe with underlying chronic PCL malnutrition continue diet PPN added 10/24-restarted 10/28 poor po intake, not swallowing Initiate TPN when PICC placed and stop PPN -minimal oral intake since admit. - initiated 11/01 10/31 staff reports po intake increasing 70% meal taken yesterday-decrease TPN to 1/2 dose and DC later today if oral intake remains good-TPN DC 11/07/16 supplementing diet DVT/GI prophylaxis warfarin PPI anemia a/c Admit 11.3 11/07 7.3 11/08 6.0 repeat 7.9-no transfusion 7.6 T&C 2 unit lasix 20mg between PRC no overt bleeding. For more details regarding the past history, family history, social history, surgical history and other details, please refer to History and Physical. She is continuing to improve. Oral intake adequate and taking oral medications. Will DC back to [facility]. Please see discharge orders. Subjective awake, interactive Objective more alert Vitals Vital Signs Date Time Temp Pulse Resp B/P Pulse Ox O2 Delivery O2 Flow Rate FiO2 11/09/16 07:15 97.7 71 16 180/70 98 Nasal Cannula 2.0 97.7 Physical Exam GENERAL: awake, alert, + interactive, no distress HEAD: normocephalic LUNGS: Decreased breath sounds at bases. CARDIOVASCULAR: S1 and S2 regular. ABDOMEN: Soft, obese, nontender,BS increased slightly, cholecystostomy tube present EXTREMITIES: + edema. CENTRAL NERVOUS SYSTEM: awake, + interactive SKIN: Warm and dry. Medications Medications reviewed. Allergy Allergies Coded Allergies Type Severity Reaction Last Updated Verified I S O L A T I O N *CONTACT* Allergy Unknown 10/20/16 Yes No Known Medication Allergies Allergy Unknown 10/20/16 Yes Follow up admit to facility Disposition: Home ([facility] intermediate) Comments Discharge Management - 35 minutes. For other details please refer to discharge instructions PABLO RAYMUNDO MD 11/09/16 1026: IM DISCHARGE & PROGRESS NOTES Brief hospital course Brief hospital course d/w sister Emerald- condition,Rx,options,poor prognosis.Keep cholecystostomy tube till 12/08/16- total 6 weeks.she is not a surgical candidate. Family can call hospice once she is at the [place]. BP,meds d/w Emerald. The patient was seen and examined by me. Chart reviewed and plan of care formulated. Discussed with, reviewed and agree with [employer]'s notes, plan of care and orders with modifications as necessary. Discharge Management - 35 minutes. MILLIE HEAD APRN Nov 09, 2016 08:22 PABLO RAYMUNDO MD Nov 09, 2016 10:26
[2016-11-09] MEDS: DIVALPROEX EXTENDED RELEASE 500 MG TAB.ER.24H. PO SCH (08:38)
[2016-11-09] MEDS: BENZTROPINE MESYLATE 1 MG TABLET PO SCH (08:38)
[2016-11-09] MEDS: busPIRone 5 MG TABLET. PO SCH ×2 (08:38→12:39)
[2016-11-09] MEDS: LISINOPRIL 10 MG TABLET PO SCH (08:38)
[2016-11-09] MEDS: POLYVINYL ALCOHOL 1.4% OPHTH SOLUTION 15ML BOTTLE. OU SCH ×2 (08:38→13:00)
[2016-11-09] MEDS: SENNOSIDES/DOCUSATE 8.6/50MG TABLET. PO SCH (08:39)
[2016-11-09] MEDS: METOPROLOL TART IMMED RELEASE 25 MG TABLET PO SCH (08:39)
[2016-11-09] MEDS: POTASSIUM CHLORIDE 20 MEQ/15 ML ORAL LIQUID. PEG SCH (08:39)
[2016-11-09] MEDS: BISACODYL 10 MG SUPP.RECT PR SCH (08:46)
[2016-11-09] MEDS: CHOLECALCIFEROL (VITAMIN D3) 1,000 UNIT TABLET PO SCH (08:46)
[2016-11-09] MEDS: POLYETHYLENE GLYCOL 3350 17 GM PACKET. PO SCH ×2 (09:00→10:46)
[2016-11-09] MEDS ORDERED: PHENYTOIN SODIUM EXTENDED 100 MG CAPSULE PO SCH ×2 (09:00→21:00)
[2016-11-09] MEDS: INSULIN ASPART 300 UNITS/3 ML INSULN.PEN SQ SCH ×2 (09:10→12:43)
[2016-11-09 11:03] VITALS: BP 176/65
[2016-11-09] MEDS ORDERED: WARFARIN 7.5 MG TABLET. PO ONE (16:00)
[2016-11-10] MEDS ORDERED: CLONIDINE TTS-2 PATCH TD SCH (12:00)
== END 2016-11-09 14:45 | DRG 871 ==
LOC: ER 10:11 → 1 WEST ICU 11:36 → 5 SOUTH 10-21 15:55
PROVIDERS: ADMIT Internal Medicine; ATTEND Internal Medicine
PROC: 0F9430Z Drainage of Gallbladder with Drainage Device, Percutaneous Approach (ICD-10-PCS; principal; 2016-10-28)
DX: A41.9 Sepsis, unspecified organism (principal); G93.41 Metabolic encephalopathy; N17.0 Acute kidney failure with tubular necrosis; E43 Unspecified severe protein-calorie malnutrition; E87.0 Hyperosmolality and hypernatremia; F03.91 Unspecified dementia, unspecified severity, with behavioral disturbance; F20.0 Paranoid schizophrenia; K80.00 Calculus of gallbladder with acute cholecystitis without obstruction; N39.0 Urinary tract infection, site not specified; Z68.34 Body mass index [BMI] 34.0-34.9, adult; D64.9 Anemia, unspecified; E11.22 Type 2 diabetes mellitus with diabetic chronic kidney disease; E11.40 Type 2 diabetes mellitus with diabetic neuropathy, unspecified; E11.65 Type 2 diabetes mellitus with hyperglycemia; E55.9 Vitamin D deficiency, unspecified; E66.9 Obesity, unspecified; E78.00 Pure hypercholesterolemia, unspecified; E78.5 Hyperlipidemia, unspecified; E87.6 Hypokalemia; G40.909 Epilepsy, unspecified, not intractable, without status epilepticus; H54.8 Legal blindness, as defined in USA; I12.9 Hypertensive chronic kidney disease with stage 1 through stage 4 chronic kidney disease, or unspecified chronic kidney disease; E11.51 Type 2 diabetes mellitus with diabetic peripheral angiopathy without gangrene; K21.9 Gastro-esophageal reflux disease without esophagitis; M81.0 Age-related osteoporosis without current pathological fracture; N18.3 Chronic kidney disease, stage 3 (moderate); Z51.5 Encounter for palliative care; Z66 Do not resuscitate; Z79.01 Long term (current) use of anticoagulants; Z86.73 Personal history of transient ischemic attack (TIA), and cerebral infarction without residual deficits
CPT/HCPCS: 36415; 47490; 70450; 71010; 71250; 74000; 76770; 78226; 80048; 80053; 80164; 80185; 80202; 81001; 82150; 82550; 82553; 82947; 83605; 83690; 83735; 84100; 84132; 84145; 84478; 85007; 85018; 85027; 85610; 85730; 86850; 86900; 86901; 86920; 87040; 87071; 87075; 87086; 87186; 87205; 87641; 87804; 93005; 96365; 96374; 96375; 96376; A4215; A9537; C1729; C1892; J0360; J0610; J0690; J1650; J1815; J2060; J2270; J2310; J2543; J3370; J3430; J3475; J3480; J3490; J7030; J7040; J7042; J7050; J7060; Q0161; Q2009; S0028; 99285-25

== ENCOUNTER 2016-12-04 15:00 | Emergency (ER) | payer MEDICARE, OTHER ==
[~2016-12-04] VITALS: Ht 167.6 cm; Wt 93.0 kg
[~2016-12-04 15:00] MED LIST changes: +BENZ2TAB5 PO; +BUSP10TA PO; +CHLO100T6 PO; +CHOL100013 PO; +DIVA500T4 PO; +LISI-338 PO; +MIRT15TA PO; +OLAN5TAB3 PO; +PHEN100C4 PO; +POLY17PO5 PO; +SENN1TAB7 PO; +SIMV10TA3 PO; +VALP250C PO; +WARF1TAB7 PO; +WARF6TAB PO
[2016-12-04 16:04] VITALS: BP 159/71
--- NOTE | 2016-12-04 16:26 | PHYS DOC ---
Past Medical History Past Medical History: CVA, Dementia, Depression, Diabetes-Type II, GERD, High Cholesterol, Hypertension, Schizophrenia, Other Additional Past Medical Histor: Osteoporosis/Dysphagia/Legal Blindness/Chron antiplatelet/Hemiplegia (L); Past Surgical History: Other Additional Past Surgical Histo: cholecystostomy Alcohol Use: None Drug Use: None Adult General Chief Complaint Chief Complaint: OTHER COMPLAINTS HPI HPI 61-year-old female [place] with severe dementia presents after she accidentally pulled out her cholecystostomy tube. She did recently been hospitalized with sepsis with a likely source of her gallbladder. At that time, she was too sick for surgery so her gallbladder was drained with a cholecystostomy tube. As of late she has been afebrile and doing well.] Review of Systems Review of Systems Constitutional: Denies fever or chills [] Eyes: Denies change in visual acuity, redness, or eye pain [] HENT: Denies nasal congestion or sore throat [] Respiratory: Denies cough or shortness of breath [] Cardiovascular: No additional information not addressed in HPI [] GI: Cholecystostomy tube has been removed there is no tenderness in the abdomen [] : Denies dysuria or hematuria [] Musculoskeletal: Denies back pain or joint pain [] Integument: Denies rash or skin lesions [] Neurologic: Denies headache, focal weakness or sensory changes [] Endocrine: Denies polyuria or polydipsia [] Allergies Allergies Allergies Coded Allergies Type Severity Reaction Last Updated Verified I S O L A T I O N *CONTACT* Allergy Unknown 10/20/16 Yes No Known Medication Allergies Allergy Unknown 10/20/16 Yes Physical Exam Physical Exam Constitutional: Well developed, well nourished, no acute distress, non-toxic appearance. [] HENT: Normocephalic, atraumatic, bilateral external ears normal, oropharynx moist, no oral exudates, nose normal. [] Eyes: PERRLA, EOMI, conjunctiva normal, no discharge. [] Neck: Normal range of motion, no tenderness, supple, no stridor. [] Cardiovascular:Heart rate regular rhythm, no murmur [] Lungs & Thorax: Bilateral breath sounds clear to auscultation [] Abdomen: Bowel sounds normal, soft, no tenderness, no masses, no pulsatile masses. [] Skin: Warm, dry, no erythema, no rash. [] Back: No tenderness, no CVA tenderness. [] Extremities: No tenderness, no cyanosis, no clubbing, ROM intact, no edema. [] Neurologic: Alert and oriented X 3, normal motor function, normal sensory function, no focal deficits noted. [] Psychologic: Affect normal, judgement normal, mood normal. [] Current Patient Data Vital Signs Vital Signs Date Time Temp Pulse Resp B/P Pulse Ox O2 Delivery O2 Flow Rate FiO2 12/04/16 16:04 95 18 159/71 97 Room Air 12/04/16 15:09 98.3 98.3 EKG EKG [] Radiology/Procedures Radiology/Procedures [] Course & Med Decision Making Course & Med Decision Making Pertinent Labs and Imaging studies reviewed. (See chart for details) [ED course: Evaluation reveals a demented 61-year-old female in no distress. I spoke with her primary care physician who agreed that he would refer her to interventional radiology tomorrow to have the cholecystostomy tube replaced. At this time, patient is stable for discharge home] Dragon Disclaimer Dragon Disclaimer This electronic medical record was generated, in whole or in part, using a voice recognition dictation system. Departure Departure Impression: Primary Impression: Biliary drain displacement Disposition: 01 HOME, SELF-CARE Condition: STABLE Referrals: PABLO ROJAS MD (PCP) Patient Instructions: Biliary Tube Placement, Care After Additional Instructions: He will need to make an appointment with interventional radiology tomorrow to have the drain replaced. I would have the patient seen by Dr. Santos Rojas to decide if another drain is even necessary. Problem Qualifiers Primary Impression: Biliary drain displacement Encounter type: initial encounter Qualified Code: T85.520A - Displacement of bile duct prosthesis, initial encounter MAMI GIANG DO Dec 04, 2016 16:26
== END 2016-12-04 17:05 | disposition home or self-care (01) ==
LOC: ER 15:00
DX: T85.520A Displacement of bile duct prosthesis, initial encounter (principal); F03.90 Unspecified dementia, unspecified severity, without behavioral disturbance, psychotic disturbance, mood disturbance, and anxiety; F32.9 Major depressive disorder, single episode, unspecified; E11.9 Type 2 diabetes mellitus without complications; K21.9 Gastro-esophageal reflux disease without esophagitis; E78.00 Pure hypercholesterolemia, unspecified; I10 Essential (primary) hypertension; F20.9 Schizophrenia, unspecified; H54.8 Legal blindness, as defined in USA; G81.94 Hemiplegia, unspecified affecting left nondominant side; M81.0 Age-related osteoporosis without current pathological fracture; Z86.73 Personal history of transient ischemic attack (TIA), and cerebral infarction without residual deficits; Z91.041 Radiographic dye allergy status; Z90.49 Acquired absence of other specified parts of digestive tract; Y83.8 Other surgical procedures as the cause of abnormal reaction of the patient, or of later complication, without mention of misadventure at the time of the procedure; Y92.89 Other specified places as the place of occurrence of the external cause
CPT/HCPCS: 99284

== ENCOUNTER 2016-12-21 06:41 | Inpatient (IN) | payer MEDICARE, OTHER ==
[2016-12-21] VITALS (15 sets, daily range): BP systolic 111–198; BP diastolic 68–103
[~2016-12-21] VITALS: Ht 167.6 cm; Wt 82.1 kg
[2016-12-21 08:06] LABS: BASO # 0.1 x10^3/uL (0.0-0.2); BASO % 1 % (0-3); EOS % 0 % (0-3); HEMATOCRIT 33.9 % (36.0-47.0); HEMOGLOBIN 10.9 g/dL (12.0-15.5); LYMPH # 3.6 x10^3/uL (1.0-4.8); LYMPH % 37 % (24-48); MEAN CORPUSCULAR HEMOGLOBIN 29 pg (25-35); MEAN CORPUSCULAR HGB CONC 32 g/dL (31-37); MEAN CORPUSCULAR VOLUME 89 fL (79-100); MONO % 9 % (0-9); NEUT % 53 % (31-73); PLATELET COUNT 217 x10^3/uL (140-400); RED CELL DISTRIBUTION WIDTH 15.9 % (11.5-14.5); WHITE BLOOD COUNT 9.9 x10^3/uL (4.0-11.0)
[2016-12-21 08:09] LABS: INR 1.2 (0.8-1.1)
[2016-12-21] MEDS ORDERED: FENTANYL PF 100 MCG/2 ML VIAL. ONE ×3 (08:29→15:44)
[2016-12-21] MEDS ORDERED: MIDAZOLAM HCL 2 MG/2 ML VIAL. ONE ×2 (08:29→14:24)
[2016-12-21] MEDS ORDERED: LIDOCAINE 1% / SOD BICARB 8.4% 20 ML VIAL. IJ ONE (08:30)
[2016-12-21] MEDS ORDERED: FENTANYL PF 100 MCG/2 ML VIAL. IV ONE (09:00)
[2016-12-21] MEDS ORDERED: MIDAZOLAM HCL 2 MG/2 ML VIAL. IV ONE (09:00)
--- NOTE | 2016-12-21 09:16 | PDOC ---
Provider Note Provider Note IR Note: Birgit is 61 YO [place] resident sent to [facility] IR for replacement of cholecystostomy drain. Her drain was placed 10/28/16, and was productive of gross pus. She was felt to be a poor operative candidate at that time. Her drain "fell out" after 5.5 weeks, on 12/06/16. She has no fever. Her WBC is normal, with normal differential. Limited noncontrast CT abdomen today revealed moderately distended, thick walled GB, without definite radiopaque stone and without pericholecystic fluid. She has no biliary obstruction and no CT evidence of pancreatitis. Referring [place] physician and Dr Walter Raymundo were contacted. Decision was jointly made to admit patient and to obtain general surgery direction regarding GB drain replacement vs cholecystectomy vs nothing. Will follow. ARTIS CURRY MD Dec 21, 2016 09:16
[2016-12-21] MEDS ORDERED: ONDANSETRON PF 4 MG/2 ML VIAL. IV PRN ×3 (09:45→17:15)
[2016-12-21] MEDS ORDERED: ACETAMINOPHEN 325 MG TABLET. PO PRN (09:45)
[2016-12-21] MEDS ORDERED: 0.9 % SODIUM CHLORIDE 10 ML DISP.SYRIN. IV PRN ×2 (09:45→17:15)
[2016-12-21] MEDS ORDERED: FENTANYL PF 100 MCG/2 ML VIAL. IV PRN ×4 (09:45→14:45)
[2016-12-21] MEDS ORDERED: OXYCODONE IR 5 MG TABLET. PO PRN (09:45)
--- NOTE | 2016-12-21 10:03 | PDOC ---
Provider Note Provider Note D/w - she had cholecystostomy tube for 4 weeks- 11/07/16 to 12/06/16. Patient is asymptomatic.Consult surgery. ? surgery/no procedures. Patient seen. History and Physical to follow. D/w family. Ok to advance diet. PABLO ROJAS MD Dec 21, 2016 10:03
[2016-12-21] MEDS: MULTIVITAMIN with MINERAL TABLET. PO SCH (10:30)
[2016-12-21] MEDS: BENZTROPINE MESYLATE 1 MG TABLET PO SCH (10:30)
[2016-12-21] MEDS: CHOLECALCIFEROL (VITAMIN D3) 1,000 UNIT TABLET PO SCH (10:30)
[2016-12-21] MEDS: PANTOPRAZOLE 40 MG TABLET. PO SCH (10:30)
[2016-12-21] MEDS: SENNOSIDES/DOCUSATE 8.6/50MG TABLET. PO SCH ×2 (10:30→20:45)
[2016-12-21] MEDS: POLYETHYLENE GLYCOL 3350 17 GM PACKET. PO SCH (10:30)
[2016-12-21] MEDS: DIVALPROEX EXTENDED RELEASE 500 MG TAB.ER.24H. PO SCH (11:00)
[2016-12-21] MEDS: POLYVINYL ALCOHOL 1.4% OPHTH SOLUTION 15ML BOTTLE. OU SCH ×3 (11:30→20:44)
[2016-12-21] MEDS: INSULIN ASPART 300 UNITS/3 ML INSULN.PEN SQ SCH ×2 (11:30→16:30)
[2016-12-21] MEDS: IPRATRPIUM/ALBUTEROL 0.5/2.5MG 3 ML NEBU. NEB SCH ×3 (12:00→19:54)
[2016-12-21] MEDS: LORAZEPAM 2 MG/ML VIAL IV PRN ×2 (12:53→21:02)
[2016-12-21 13:02] LABS: ALBUMIN 2.8 g/dL (3.4-5.0); ALBUMIN/GLOBULIN RATIO 0.5 (1.0-1.7); CALCIUM 9.5 mg/dL (8.5-10.1); CREATININE 0.9 mg/dL (0.6-1.0); GFR 77.5; POTASSIUM 5.2 mmol/L (3.5-5.1); TOTAL BILIRUBIN 0.3 mg/dL (0.2-1.0); TOTAL PROTEIN 8.4 g/dL (6.4-8.2)
[2016-12-21] MEDS ORDERED: MORPHINE SULFATE 4 MG/ML DISP.SYRIN. IV ONE (13:30)
[2016-12-21] MEDS: busPIRone 10 MG TABLET. PO SCH ×2 (14:00→20:44)
[2016-12-21] MEDS ORDERED: SURGICEL HEMOSTAT 4X8 EACH. ONE (14:23)
[2016-12-21] MEDS ORDERED: BUPIVAC MPF-EPI 0.5%-1:200000 30 ML VIAL. ONE (14:23)
[2016-12-21] MEDS ORDERED: GLUCAGON,HUMAN RECOMBINANT 1 MG/ML VIAL. ONE (14:24)
[2016-12-21] MEDS ORDERED: IOHEXOL 300 MG/ML 50 ML VIAL. ONE (14:24)
[2016-12-21] MEDS ORDERED: SEVOFLURANE 61 TO 120 MINUTES. IH ONE (14:24)
[2016-12-21] MEDS ORDERED: ONDANSETRON PF 4 MG/2 ML VIAL. ONE (14:25)
[2016-12-21] MEDS ORDERED: ROCURONIUM 50 MG/5 ML VIAL. ONE ×2 (14:25→15:34)
[2016-12-21] MEDS ORDERED: PROPOFOL 20 ML IV ONE (14:25)
[2016-12-21] MEDS ORDERED: DEXAMETHASONE SOD PHOS 20 MG/5 ML VIAL. ONE (14:25)
[2016-12-21] MEDS ORDERED: NEOSTIGMINE METHYLSULFATE 5 MG/5 ML SYRINGE. ONE (14:25)
[2016-12-21] MEDS ORDERED: LIDOCAINE 2% 100 MG/5 ML DISP.SYRIN. ONE (14:25)
[2016-12-21] MEDS ORDERED: GLYCOPYRROLATE 1 MG/5 ML VIAL. ONE (14:25)
[2016-12-21] MEDS ORDERED: SUCCINYLCHOLINE 200 MG/10 ML VIAL. ONE (14:29)
[2016-12-21] MEDS ORDERED: HYDROMORPHONE 2 MG/ML VIAL. IV PRN ×2 (14:45→17:15)
[2016-12-21] MEDS ORDERED: PROCHLORPERAZINE 10 MG/2 ML VIAL. IV PRN (14:45)
[2016-12-21] MEDS ORDERED: LIDOCAINE 1% 1 ML SYRINGE. ID PRN (14:45)
[2016-12-21] MEDS ORDERED: MORPHINE SULFATE 2 MG/ML DISP.SYRIN. IV PRN (14:45)
--- NOTE | 2016-12-21 14:59 | EKG ---
[facility] [address] [place] [address] Test Date: 2016-12-21 Test Time: 14:52:03 Pat Name: ELIANA ILRA Department: Room: [facility] Gender: F [employer] Guid[employer] Counselor: : 1955 Requested By: MILLIE HEAD Order Number: [id number] Reading MD: Elida Bernard Measurements Intervals [place] Rate: 87 P: 26 [place]: 148 QRS: -29 QRSD: 78 T: 43 QT: 374 QTc: 451 Interpretive Statements SINUS RHYTHM LEFTWARD AXIS OTHERWISE NORMAL ECG RI6.01 Compared to ECG 10/19/2016 09:34:30 Left-axis deviation now present Sinus tachycardia no longer present Electronically Signed On 12-24-2016 19:51:03 CDT by Elida Bernard
[2016-12-21] MEDS ORDERED: PIPERACILLIN/TAZOBACTAM 3.375 GM in IV NORMAL SALINE 50ML 50 ML IV ONE (15:00)
[2016-12-21] MEDS ORDERED: IV RINGERS,LACTATED 1000ML 1,000 ML IV SCH (15:00)
--- NOTE | 2016-12-21 15:04 | PDOC2 ---
CONSULT Date of Consult Date of Consult DATE: 12/21/16 TIME: 14:57 Reason for Consult Reason for Consult: cholecystitis Referring Physician Referring Physician: Dr Raymundo Identification/Chief Complaint Chief Complaint RUQ pain Source Source: Caregiver, Chart review History of Present Illness Reason for Visit: Birgit is a 61 yo [place] resident who I know from a previous admission in October of this year when she presented with sepsis thought to be from her gallbladder. She was treated with a cholecystostomy tube. It has been replaced once and " fell out" again. She is currently afebrile, has GB wall changes on CT and a non- vis PIPIDA scan. I have recommended cholecystectomy. Past Medical History Cardiovascular: HTN, Hyperlipidemia, Other CENTRAL NERVOUS SYSTEM: CVA, Seizure GI: Constipation, GERD, Other Psych: Anxiety, Other Musculoskeletal: Other Rheumatologic: Other Endocrine: Diabetes Past Surgical History Past Surgical History: Pacemaker Family History Family History: Other Social History No ALCOHOL: none Lives: Intermediate Current Problem List Problem List Problems Medical Problems: (1) Acute and chronic cholecystitis Status: Acute Current Medications Current Medications Current Medications Fentanyl Citrate (Fentanyl 2ml Vial) 100 mcg STK-MED ONCE .ROUTE ; Start at 08:29; Stop 12/21/16 at 08:30; Status DC Midazolam HCl (Versed) 2 mg STK-MED ONCE .ROUTE ; Start 12/21/16 at 08:29; Stop 12/21/16 at 08:30; Status DC Lidocaine/Sodium Bicarbonate (Buffered Lidocaine 1%) 20 ml STK-MED ONCE IJ ; Start 12/21/16 at 08:30; Stop 12/21/16 at 08:31; Status DC Midazolam HCl (Versed) 0.5 mg 1X ONCE IV Last administered on 12/21/16t 08:37 ; Start 12/21/16 at 09:00; Stop 12/21/16 at 09:01; Status DC Fentanyl Citrate (Fentanyl 2ml Vial) 25 mcg 1X ONCE IV Last administered on t 08:37; Start 12/21/16 at 09:00; Stop 12/21/16 at 09:01; Status DC Sodium Chloride (Normal Saline Flush) 3 ml PRN DAILY PRN IV AFTER MEDS AND BLOOD DRAWS; Start 12/21/16 at 09:45 Ondansetron HCl (Zofran) 4 mg PRN Q6HRS PRN IV NAUSEA/VOMITING; Start 12/21/16 at 09:45 Oxycodone HCl (Roxicodone) 5 mg PRN Q6HRS PRN PO MILD PAIN, 2ND CHOICE; Start 12/21/16 at 09:45 Acetaminophen (Tylenol) 650 mg PRN Q6HRS PRN PO Headaches, Temp > 101.5F; Start 12/21/16 at 09:45 Fentanyl Citrate (Fentanyl 2ml Vial) 25 mcg PRN Q2HR PRN IV PAIN; Start at 09:45 Fentanyl Citrate (Fentanyl 2ml Vial) 50 mcg PRN Q2HR PRN IV PAIN; Start at 09:45 Lorazepam (Ativan) 0.5 mg PRN Q8HRS PRN IV ANXIETY / AGITATION Last administered on 12/21/16t 12:53; Start 12/21/16 at 09:45 Buspirone HCl (Buspar) 10 mg TID PO ; Start 12/21/16 at 14:00 Divalproex Sodium (Depakote Er) 1,500 mg DAILY PO ; Start 12/21/16 at 11:00 Divalproex Sodium (Depakote) 1,000 mg HS PO ; Start 12/21/16 at 21:00 Albuterol/ Ipratropium (Duoneb) 3 ml RTQID NEB ; Start 12/21/16 at 12:00 Pantoprazole Sodium (Protonix) 40 mg DAILYAC PO ; Start 12/21/16 at 10:30 Phenytoin Sodium (Dilantin) 200 mg QHS PO ; Start 12/21/16 at 21:00 Senna/Docusate Sodium (Senna Plus) 1 tab BID PO ; Start 12/21/16 at 10:30 Simvastatin (Zocor) 10 mg QHS PO ; Start 12/21/16 at 21:00 Vitamin D (Vitamin D3) 1,000 unit DAILY PO ; Start 12/21/16 at 10:30 Artificial Tears (Artificial Tears) 1 drop QIDACHS OU ; Start 12/21/16 at 11:30 Insulin Detemir (Levemir) 10 units QHS SQ ; Start 12/21/16 at 21:00 Multivitamins (Thera M Plus) 1 tab DAILY PO ; Start 12/21/16 at 10:30 Polyethylene Glycol (miraLAX PACKET) 17 gm DAILY PO ; Start 12/21/16 at 10:30 Warfarin Sodium (Coumadin Per Pharmacy) 1 each PRN DAILY PRN MC SEE COMMENTS Last administered on 12/21/16 13:10; Start 12/21/16 at 10:15 Benztropine Mesylate (Cogentin) 2 mg DAILY PO ; Start 12/21/16 at 10:30 Insulin Aspart (Novolog) 0-8 UNITS TIDAC SQ ; Start 12/21/16 at 11:30 Valproic Acid (Depakene) 250 mg HS PO ; Start 12/21/16 at 21:00 Warfarin Sodium (Coumadin) 7.5 mg 1X WARF ONCE PO ; Start 12/21/16 at 16:00; Stop 12/21/16 at 16:01 Morphine Sulfate 4 mg 1X ONCE IV Last administered on 12/21/16t 13:30; Start 12/21/16 at 13:30; Stop 12/21/16 at 13:31; Status DC Cellulose 1 each STK-MED ONCE .ROUTE ; Start 12/21/16 at 14:23; Stop 12/21/16 at 14:24; Status DC Bupivacaine HCl/ Epinephrine Bitart (Sensorcain-Mpf Epi 0.5%-1:[id number]) 30 ml STK -MED ONCE .ROUTE ; Start 12/21/16 at 14:23; Stop 12/21/16 at 14:24; Status DC Iohexol (Omnipaque 300 Mg/ml) 50 ml STK-MED ONCE .ROUTE ; Start 12/21/16 at 14: 24; Stop 12/21/16 at 14:25; Status DC Glucagon (Glucagen) 1 mg STK-MED ONCE .ROUTE ; Start 12/21/16 at 14:24; Stop at 14:25; Status DC Sevoflurane (Ultane) 60 ml STK-MED ONCE IH ; Start 12/21/16 at 14:24; Stop 12/21 at 14:25; Status DC Midazolam HCl (Versed) 2 mg STK-MED ONCE .ROUTE ; Start 12/21/16 at 14:24; Stop 12/21/16 at 14:25; Status DC Fentanyl Citrate (Fentanyl 2ml Vial) 100 mcg STK-MED ONCE .ROUTE ; Start at 14:25; Stop 12/21/16 at 14:26; Status DC Glycopyrrolate (Robinul) 1 mg STK-MED ONCE .ROUTE ; Start 12/21/16 at 14:25; Stop 12/21/16 at 14:26; Status DC Rocuronium Happy 50 mg 50 mg STK-MED ONCE .ROUTE ; Start 12/21/16 at 14:25; Stop 12/21/16 at 14:26; Status DC Propofol (Diprivan) 20 ml @ As Directed STK-MED ONCE IV ; Start 12/21/16 at 14: 25; Stop 12/21/16 at 14:26; Status DC Dexamethasone Sodium Phosphate (Decadron) 20 mg STK-MED ONCE .ROUTE ; Start at 14:25; Stop 12/21/16 at 14:26; Status DC Ondansetron HCl (Zofran) 4 mg STK-MED ONCE .ROUTE ; Start 12/21/16 at 14:25; Stop 12/21/16 at 14:26; Status DC Lidocaine HCl 100 mg STK-MED ONCE .ROUTE ; Start 12/21/16 at 14:25; Stop at 14:26; Status DC Neostigmine Methylsulfate 5 mg STK-MED ONCE .ROUTE ; Start 12/21/16 at 14:25; Stop 12/21/16 at 14:26; Status DC Succinylcholine Chloride (Anectine) 200 mg STK-MED ONCE .ROUTE ; Start 12/21/16 at 14:29; Stop 12/21/16 at 14:30; Status DC Ondansetron HCl (Zofran) 4 mg PRN Q6HRS PRN IV Nausea; Start 12/21/16 at 14:45 ; Stop 12/21/16 at 23:00 Fentanyl Citrate (Fentanyl 2ml Vial) 25 mcg PRN Q5MIN PRN IV MILD PAIN; Start 12/21/16 at 14:45; Stop 12/21/16 at 23:00 Fentanyl Citrate (Fentanyl 2ml Vial) 50 mcg PRN Q5MIN PRN IV MODERATE PAIN; Start 12/21/16 at 14:45; Stop 12/21/16 at 23:00 Morphine Sulfate 1 mg 1 mg PRN Q10MIN PRN IV SEVERE PAIN; Start 3/15/17 at 14: 45; Stop 12/21/16 at 23:00 Lactated Ringer's (Iv Lactated Ringers) 1,000 ml @ 30 mls/hr Q24H IV ; Start at 15:00; Stop 12/22/16 at 23:00 Lidocaine HCl 2 ml 1X PRN PRN ID IV START; Start 12/21/16 at 14:45; Stop at 23:00 Hydromorphone HCl (Dilaudid) 0.5 mg PRN Q10MIN PRN IV SEV PAIN,Second choice; Start 12/21/16 at 14:45; Stop 12/21/16 at 23:00 Prochlorperazine Edisylate (Compazine) 5 mg PACU PRN PRN IV NAUSEA; Start 12/21 at 14:45; Stop 12/21/16 at 23:00 Active Scripts Active Protonix (Pantoprazole Sodium) 40 Mg Tablet 40 Mg PO DAILYAC Reported Vitamin D (Cholecalciferol (Vitamin D3)) 1,000 Unit Capsule 1,000 Unit PO DAILY Acetaminophen 325 Mg Tablet 650 Mg PO PRN Q6HRS PRN Senna-Docusate Sodium Tablet (Sennosides/Docusate Sodium) 1 Each Tablet 1 Each PO BID Miralax (Polyethylene Glycol 3350) 17 Gm Powd.pack 1 Pkt PO DAILY Phenytoin Sodium Extended 100 Mg Capsule 100 Mg PO DAILY Depakote Er (Divalproex Sodium) 500 Mg Tab.er.24h 1,500 Mg PO DAILY Warfarin Sodium 1 Mg Tablet 1 Mg PO DAILY Chlorpromazine Hcl 100 Mg Tablet 100 Mg PO QHS Benztropine Mesylate 2 Mg Tablet 2 Mg PO DAILY Zyprexa (Olanzapine) 5 Mg Tablet 1 Tab PO QHS Simvastatin 10 Mg Tablet 10 Mg PO QHS Remeron (Mirtazapine) 15 Mg Tablet 15 Mg PO QHS Lisinopril 5 Mg Tablet 1 Tab PO DAILY Depakene (Valproic Acid) 250 Mg Capsule 250 Mg PO HS Coumadin (Warfarin Sodium) 6 Mg Tablet 6 Mg PO DAILY Buspirone Hcl 10 Mg Tablet 10 Mg PO TID Neurontin (Gabapentin) 400 Mg Capsule 1 Tab PO HS Multivitamins (Multivitamin) 1 Each Capsule 1 Tab PO DAILY Milk Of Magnesia (Magnesium Hydroxide) 400 Mg/5 Ml Oral.susp 30 Ml PO PRN DAILY PRN Dilantin (Phenytoin Sodium Extended) 100 Mg Capsule 200 Mg PO QHS Depakote (Divalproex Sodium) 500 Mg Tablet.dr 1,000 Mg PO HS Chlorpromazine Hcl 25 Mg Tablet 25 Mg PO HS Artificial Tears (Hypromellose) 15 Ml Drops 2 Drop EACHEYE QID Novolog (Insulin Aspart) 100 Unit/1 Ml Vial 10 Units SUBCUT TIDAC Peggs 5-325 Tablet (Acetaminophen/Hydrocodone Bitart) 1 Each Tablet 2 Tab PO Q4H PRN Levemir (Insulin Detemir) 100 Unit/1 Ml Vial 22 Unit SQ BID Klonopin (Clonazepam) 0.5 Mg Tablet 0.5 Mg PO HS Duoneb 0.5 Mg-3 Mg/3 Ml Soln (Ipratropium/Albuterol Sulfate) 3 Ml Ampul.neb 3 Ml INH Q6H Ativan (Lorazepam) 0.5 Mg Tablet 1 Tab PO Q8H PRN Allergies Allergies: Coded Allergies: I S O L A T I O N *CONTACT* (Verified Allergy, Unknown, 12/21/16) mrsa No Known Medication Allergies (Verified Allergy, Unknown, 12/21/16) ROS Review of System mostly unobtainable 2/2 to her baseline mental capacity Physical Exam General: No acute distress Lungs: Clear to auscultation Heart: Regular rate Abdomen: Soft, Other (mildly TTP in the RUQ) Neuro: Other (responds) Vitals VITALS Vital Signs Date Time Temp Pulse Resp B/P Pulse Ox O2 Delivery O2 Flow Rate FiO2 12/21/16 13:30 18 Room Air 12/21/16 12:00 97.5 82 111/75 99 97.5 Labs Labs Laboratory Tests Test 12/21/16 07:40 12/21/16 10:01 12/21/16 11:30 12/21/16 12:10 White Blood Count 9.9x10^3/uL (4.0-11.0) Red Blood Count 3.80x10^6/uL (3.50-5.40) Hemoglobin 10.9g/dL (12.0-15.5) Hematocrit 33.9% (36.0-47.0) Mean Corpuscular Volume 89fL (79-100) Mean Corpuscular Hemoglobin 29pg (25-35) Mean Corpuscular Hemoglobin Concent 32g/dL (31-37) Red Cell Distribution Width 15.9% (11.5-14.5) Platelet Count 217x10^3/uL (140-400) Neutrophils (%) (Auto) 53% (31-73) Lymphocytes (%) (Auto) 37% (24-48) Monocytes (%) (Auto) 9% (0-9) Eosinophils (%) (Auto) 0% (0-3) Basophils (%) (Auto) 1% (0-3) Neutrophils # (Auto) 5.3x10^3uL (1.8-7.7) Lymphocytes # (Auto) 3.6x10^3/uL (1.0-4.8) Monocytes # (Auto) 0.9x10^3/uL (0.0-1.1) Eosinophils # (Auto) 0.0x10^3/uL (0.0-0.7) Basophils # (Auto) 0.1x10^3/uL (0.0-0.2) Prothrombin Time 14.0SEC (11.7-14.0) Prothromb Time International Ratio 1.2 (0.8-1.1) Glucose (Fingerstick) 217mg/dL (70-99) 203mg/dL (70-99) Sodium Level 140mmol/L (136-145) Potassium Level 5.2mmol/L (3.5-5.1) Chloride Level 102mmol/L (98-107) Carbon Dioxide Level 31mmol/L (21-32) Anion Gap 7 (6-14) Blood Urea Nitrogen 17mg/dL (7-20) Creatinine 0.9mg/dL (0.6-1.0) Estimated GFR (Cockcroft-Gault) 77.5 BUN/Creatinine Ratio 19 (6-20) Glucose Level 221mg/dL (70-99) Calcium Level 9.5mg/dL (8.5-10.1) Total Bilirubin 0.3mg/dL (0.2-1.0) Aspartate Amino Transf (AST/SGOT) 11U/L (15-37) Alanine Aminotransferase (ALT/SGPT) 14U/L (14-59) Alkaline Phosphatase 78U/L (46-116) Ammonia 22mcmol/L (11-34) Total Protein 8.4g/dL (6.4-8.2) Albumin 2.8g/dL (3.4-5.0) Albumin/Globulin Ratio 0.5 (1.0-1.7) Laboratory Tests Test 12/21/16 07:40 12/21/16 10:01 12/21/16 11:30 12/21/16 12:10 White Blood Count 9.9x10^3/uL (4.0-11.0) Red Blood Count 3.80x10^6/uL (3.50-5.40) Hemoglobin 10.9g/dL (12.0-15.5) Hematocrit 33.9% (36.0-47.0) Mean Corpuscular Volume 89fL (79-100) Mean Corpuscular Hemoglobin 29pg (25-35) Mean Corpuscular Hemoglobin Concent 32g/dL (31-37) Red Cell Distribution Width 15.9% (11.5-14.5) Platelet Count 217x10^3/uL (140-400) Neutrophils (%) (Auto) 53% (31-73) Lymphocytes (%) (Auto) 37% (24-48) Monocytes (%) (Auto) 9% (0-9) Eosinophils (%) (Auto) 0% (0-3) Basophils (%) (Auto) 1% (0-3) Neutrophils # (Auto) 5.3x10^3uL (1.8-7.7) Lymphocytes # (Auto) 3.6x10^3/uL (1.0-4.8) Monocytes # (Auto) 0.9x10^3/uL (0.0-1.1) Eosinophils # (Auto) 0.0x10^3/uL (0.0-0.7) Basophils # (Auto) 0.1x10^3/uL (0.0-0.2) Prothrombin Time 14.0SEC (11.7-14.0) Prothromb Time International Ratio 1.2 (0.8-1.1) Glucose (Fingerstick) 217mg/dL (70-99) 203mg/dL (70-99) Sodium Level 140mmol/L (136-145) Potassium Level 5.2mmol/L (3.5-5.1) Chloride Level 102mmol/L (98-107) Carbon Dioxide Level 31mmol/L (21-32) Anion Gap 7 (6-14) Blood Urea Nitrogen 17mg/dL (7-20) Creatinine 0.9mg/dL (0.6-1.0) Estimated GFR (Cockcroft-Gault) 77.5 BUN/Creatinine Ratio 19 (6-20) Glucose Level 221mg/dL (70-99) Calcium Level 9.5mg/dL (8.5-10.1) Total Bilirubin 0.3mg/dL (0.2-1.0) Aspartate Amino Transf (AST/SGOT) 11U/L (15-37) Alanine Aminotransferase (ALT/SGPT) 14U/L (14-59) Alkaline Phosphatase 78U/L (46-116) Ammonia 22mcmol/L (11-34) Total Protein 8.4g/dL (6.4-8.2) Albumin 2.8g/dL (3.4-5.0) Albumin/Globulin Ratio 0.5 (1.0-1.7) Images Images CT and PIPIDA scans reviewed Assessment/Plan Assessment/Plan acute cholecystitis hx of anoxic brain injury Discussed lap luke with Dorere's caregiver(DPOA) with risks including but not limited to bleeding, infection, injury to bowel, liver or bile ducts with resultant bile leak or bile blockage. Also possible need for an "open" procedure or diarrhea post op. She will proceed. Thanks for allowing us to help in the care of this young lady. JS MONTAGUE MD Dec 21, 2016 15:04
[2016-12-21] MEDS ORDERED: PHENYLEPHRINE in 0.9% NACL PF 1 MG/10 ML DISP.SYRIN. IV ONE (15:27)
[2016-12-21] MEDS ORDERED: WARFARIN 7.5 MG TABLET. PO ONE (16:00)
--- NOTE | 2016-12-21 16:06 | RAD ---
Radionuclide hepatobiliary scan, 12/21/2016: History: Right upper quadrant abdominal pain Following IV injection of 5.5 mCi of technetium 99m Choletec, there was prompt uptake of the radionuclide from the blood stream by the liver. Activity is present in the bile ducts at 10 minutes and in the small bowel at 15 minutes. Gallbladder activity did not occur during the first hour and therefore the patient was then injected with 4 mg of IV morphine and additional imaging performed. The gallbladder did not visualize on the delayed images. IMPRESSION: Nonvisualization of the gallbladder suggesting cystic duct obstruction, most commonly due to acute cholecystitis.
--- NOTE | 2016-12-21 16:17 | RAD ---
Intraoperative cholangiogram, 12/21/2016: History: Cholecystectomy 5 spot films surgery are presented for review. Contrast has been injected into the cystic duct remnant. 0.32 minutes of fluoroscopy time was utilized. There is good flow of contrast into the duodenum at the ampulla. On image #5 the distal common bile duct is well visualized and no filling defect is seen to suggest a retained stone. The visualized intrahepatic ducts are unremarkable. IMPRESSION: No significant abnormality is detected.
--- NOTE | 2016-12-21 16:30 | RAD ---
Indication: Abdominal pain. Inflamed gallbladder. Technique: Axial images and coronal and sagittal reformatted images of the abdomen are provided. Exam is limited without IV or oral contrast. Comparison is from September 17, 2012. Secondary to IT downtime issues, exam was not available for review until approximately 1600 hours. One or more of the following individualized dose reduction techniques were utilized for this examination: 1. Automated exposure control 2. Adjustment of the mA and/or kV according to patient size 3. Use of iterative reconstruction technique Findings: There is atelectasis or scarring in the lung bases. There is no pleural effusion. Heart is upper limits of normal in size. Coronary artery calcifications are noted. Liver dome is clipped. There is mild fatty infiltration of the liver. Gallbladder is distended and wall is thickened. There is no adjacent inflammatory stranding or definite stone. Gallbladder was not visualized on hepatobiliary scintigraphy performed today. Fat density lesion adjacent to the pancreas or potentially within the pancreas may represent small lipoma, up to 16 mm in size, stable. There is no adrenal mass. There is atheromatous disease in the abdominal aorta. There is no urolithiasis. There is no small bowel obstruction or mural thickening. There are degenerative changes in the spine. Impression: 1. Distended gallbladder with wall thickening, no definite adjacent inflammatory stranding by CT. Given CT appearance as well as nuclear medicine study results, findings are suspicious for cholecystitis.
[2016-12-21] MEDS ORDERED: POTASSIUM CL 20MEQ-0.45% NACL 1,000 ML IV SCH (17:08)
--- NOTE | 2016-12-21 17:08 | PDOC ---
BRIEF OPERATIVE NOTE Date: Dec 21, 2016 Pre-Op Diagnosis acute cholecystitis Post-Op Diagnosis same with cholelithiasis Procedure Performed l/s cholecystectomy with cholangiograms Surgeon Talat Medina DETAIL MANAGER Anesthesia Type: General Blood Loss 25cc IV Fluid 1100cc Urine Output 155cc Specimens Obtained GB Findings edematous, stone filled GB, normal grams Complications none Additional Remarks Wk # [id number] JS MONTAGUE MD Dec 21, 2016 17:08
[2016-12-21] MEDS ORDERED: DIPHENHYDRAMINE HCL 25 MG CAPSULE PO PRN (17:15)
[2016-12-21] MEDS ORDERED: DIPHENHYDRAMINE 50 MG/ML VIAL IV PRN (17:15)
[2016-12-21] MEDS ORDERED: OXYCODONE/APAP 5/325 TABLET. PO PRN ×2 (17:15)
[2016-12-21] MEDS ORDERED: DEXTROSE 50% 25 GM / 50ML DISP.SYRIN. IV PRN (17:15)
[2016-12-21] MEDS: IV 1/2 NORMAL SALINE 1,000 ML IV SCH (20:00)
[2016-12-21] MEDS: DIVALPROEX DELAYED RELEASE 500 MG TABLET.DR. PO SCH (20:43)
[2016-12-21] MEDS: DOCUSATE SODIUM 100 MG CAPSULE PO SCH (20:44)
[2016-12-21] MEDS: VALPROIC ACID 250 MG CAPSULE. PO SCH (20:44)
[2016-12-21] MEDS: PHENYTOIN SODIUM EXTENDED 100 MG CAPSULE PO SCH (20:44)
[2016-12-21] MEDS: SIMVASTATIN 10 MG TABLET PO SCH (20:45)
--- NOTE | 2016-12-21 21:13 | OP ---
DATE OF SURGERY: 12/21/2016 PREOPERATIVE DIAGNOSIS: Acute cholecystitis. POSTOPERATIVE DIAGNOSIS: Acute cholecystitis with cholelithiasis. PROCEDURE: Laparoscopic cholecystectomy with cholangiogram. SURGEON: Jose Luis Montague MD BUYER RENTER: NICHOLAS Medina. ANESTHESIA: General endotracheal. BLOOD LOSS: 25. IV FLUIDS: 1100. URINE OUTPUT: 155. INDICATIONS: The patient is a 61-year-old with right upper quadrant pain and a nonvisualization on her PIPIDA scan brought for cholecystectomy. OPERATIVE FINDINGS: The liver was smooth and sharp. The gallbladder was edematous and stone-filled. There were adhesions from the fundus of the gallbladder to the abdominal wall from previous cholecystostomy tube . Visual inspection of the remainder of the abdomen failed to reveal obvious abnormalities. DESCRIPTION OF PROCEDURE: The patient brought to the operating suite, given a general endotracheal anesthetic. Mclaughlin catheter placed to dependent drainage and the abdomen prepped and draped in the usual sterile fashion. A supraumbilical incision was made after infiltrating with local anesthesia. Incision was made and a 5 mm Visiport was passed into the abdominal cavity, taking care to avoid injury to abdominal contents. Pneumoperitoneum established. Camera inserted and inspection carried out with results as noted above. The epigastric, midclavicular, and lateral ports were placed under direct vision. The table was rolled to the left and placed in reverse Trendelenburg. We attempted to decompress the gallbladder by aspirating bile; however, only 20 mL were returned. The gallbladder was retracted at the fundus and omental adhesions were carefully taken down with blunt and cautery dissection, taking care to avoid injury to the adjacent bowel. The duodenum was swept off the neck of the gallbladder carefully as well. The cystic duct and cystic artery were isolated and displayed. The duct was clipped on the gallbladder side. Cholangiograms were made. These were normal. In light of this, the catheter was removed and the cystic duct was clipped x 2 with large Ligaclips. The cystic artery was clipped and divided and the gallbladder freed from the bed with cautery dissection and placed in an EndoCatch bag. Good hemostasis was present. A 19-[place] round Kevin drain was brought through the epigastric port out the lateral ports, sewn to the skin with a silk stitch and left in the subhepatic space for postoperative drainage. Table returned to level. Gallbladder delivered through the epigastric incision. Epigastric incision closed with 0 Vicryl suture. At 6 cm intraabdominal pressure, no bleeding from the epigastric closure or from the midclavicular port site after its removal or from the drain site. Abdomen decompressed, camera slowly removed, no bleeding seen. Skin incisions closed with subcuticular 4-0 Monocryl. Steri-Strips and sterile dressings applied. Mclaughlin catheter removed. The patient awakened from her anesthetic and taken to the recovery room in satisfactory condition. JOSE LUIS MONTAGUE MD DR: QUE/david JOB#: [id number] / [id number] ARTIS Segovia MD, PRATIP MD
[2016-12-21] MEDS ORDERED: CLONIDINE HCL 0.1 MG TABLET PO PRN (21:15)
[2016-12-21] MEDS: INSULIN DETEMIR 300 UNITS/3 ML INSULN.PEN. SQ SCH (22:18)
[2016-12-21] MEDS: METOPROLOL TARTRATE 5 MG/5 ML VIAL. IVP PRN (22:21)
[2016-12-22] VITALS (7 sets, daily range): BP systolic 136–186; BP diastolic 78–98
[2016-12-22] MEDS ORDERED: METOPROLOL TARTRATE 5 MG/5 ML VIAL. IVP SCH
[2016-12-22] MEDS: METOPROLOL TARTRATE 5 MG/5 ML VIAL. IVP PRN (04:41)
[2016-12-22] MEDS: IV 1/2 NORMAL SALINE 1,000 ML IV SCH ×2 (05:48→23:39)
[2016-12-22] MEDS: INSULIN ASPART 300 UNITS/3 ML INSULN.PEN SQ SCH ×3 (07:30→17:19)
--- NOTE | 2016-12-22 07:33 | PDOC1 ---
HISTORY AND PHYSICAL Chief Complaint Chief Complaint This 61 year old female has been admitted with a chief complaint of dislodged cholecystostomy tube with h/o acute cholecystitis/sepsis in October 2016. The cholecystostomy tube was placed Nov 07, 2016 and dislodged December 06. She was to have the drain replaced with a limited noncontrast CT abdomen that revealed moderately distended, thick walled GB, without definite radiopaque stone and without pericholecystic fluid. She has been admitted and a surgical consult placed. Pt seen in [facility]. Problem List Problems Medical Problems: (1) Acute and chronic cholecystitis Status: Acute (2) Cholelithiasis with acute cholecystitis without biliary obstruction Status: Acute Past Medical History Cardiovascular: HTN, Hyperlipidemia, Other (PVD) CENTRAL NERVOUS SYSTEM: CVA, Dementia, Seizure GI: Constipation, GERD, Other Psych: Anxiety, Schizophrenia (paranoid ), Other Musculoskeletal: Other (h/o non traumatic fracture, tibiofibular fracture ) Rheumatologic: Other ENT: No pertinent hx, Other (legally blind ) Renal/: Chronic renal insuff (CKD III) Endocrine: Diabetes (with neuropathy Type II), Osteoporosis, Other (Vitamin D Def) Past Surgical History PSH cholecystostomy drain Oct 2016 Past Family History PFH non contributory Past Social History PSH resides at [facility]. no h/o tobacco, ETOH or illicit drug use. Review of Symptoms Review of Symptoms A 14 point ROS was completed with the following noted as positive: cognitive deficits, no to pain with palpation abdomen Other systems reviewed and negative. attempted Medications Medications reviewed and reconciled Allergy Allergies Coded Allergies Type Severity Reaction Last Updated Verified I S O L A T I O N *CONTACT* Allergy Unknown 12/21/16 Yes No Known Medication Allergies Allergy Unknown 12/21/16 Yes Physical Exam Physical Exam General appearance - alert,well appearing, and in no distress Mental Status - alert, person, affect appropriate to mood Head - normal Chest - clear to auscultation, no wheezes, rales or rhonchi, symmetric air entry Heart - S1 and S2 normal Abdomen - soft, nontender, nondistended, BS + Neurological - no acute focal neurological deficits noted Musculoskeletal - no muscular tenderness noted Extremities - no pedal edema Skin - warm and dry VTE Prophylaxis Ordered VTE Prophylaxis Devices: Yes VTE Pharmacological Prophylaxi: Yes (warfarin ) Assessment Labs Laboratory Tests Test 12/21/16 07:40 12/21/16 10:01 12/21/16 11:30 12/21/16 11:45 White Blood Count 9.9x10^3/uL (4.0-11.0) Red Blood Count 3.80x10^6/uL (3.50-5.40) Hemoglobin 10.9g/dL (12.0-15.5) Hematocrit 33.9% (36.0-47.0) Mean Corpuscular Volume 89fL (79-100) Mean Corpuscular Hemoglobin 29pg (25-35) Mean Corpuscular Hemoglobin Concent 32g/dL (31-37) Red Cell Distribution Width 15.9% (11.5-14.5) Platelet Count 217x10^3/uL (140-400) Neutrophils (%) (Auto) 53% (31-73) Lymphocytes (%) (Auto) 37% (24-48) Monocytes (%) (Auto) 9% (0-9) Eosinophils (%) (Auto) 0% (0-3) Basophils (%) (Auto) 1% (0-3) Neutrophils # (Auto) 5.3x10^3uL (1.8-7.7) Lymphocytes # (Auto) 3.6x10^3/uL (1.0-4.8) Monocytes # (Auto) 0.9x10^3/uL (0.0-1.1) Eosinophils # (Auto) 0.0x10^3/uL (0.0-0.7) Basophils # (Auto) 0.1x10^3/uL (0.0-0.2) Prothrombin Time 14.0SEC (11.7-14.0) Prothromb Time International Ratio 1.2 (0.8-1.1) Glucose (Fingerstick) 217mg/dL (70-99) 203mg/dL (70-99) Nasal Screen MRSA (PCR) Negative (Negative) Test 12/21/16 12:10 12/21/16 17:54 12/21/16 18:52 12/21/16 21:28 Sodium Level 140mmol/L (136-145) Potassium Level 5.2mmol/L (3.5-5.1) Chloride Level 102mmol/L (98-107) Carbon Dioxide Level 31mmol/L (21-32) Anion Gap 7 (6-14) Blood Urea Nitrogen 17mg/dL (7-20) Creatinine 0.9mg/dL (0.6-1.0) Estimated GFR (Cockcroft-Gault) 77.5 BUN/Creatinine Ratio 19 (6-20) Glucose Level 221mg/dL (70-99) Calcium Level 9.5mg/dL (8.5-10.1) Total Bilirubin 0.3mg/dL (0.2-1.0) Aspartate Amino Transf (AST/SGOT) 11U/L (15-37) Alanine Aminotransferase (ALT/SGPT) 14U/L (14-59) Alkaline Phosphatase 78U/L (46-116) Ammonia 22mcmol/L (11-34) Total Protein 8.4g/dL (6.4-8.2) Albumin 2.8g/dL (3.4-5.0) Albumin/Globulin Ratio 0.5 (1.0-1.7) Glucose (Fingerstick) 252mg/dL (70-99) 258mg/dL (70-99) 287mg/dL (70-99) Laboratory Tests Test 12/21/16 07:40 12/21/16 10:01 12/21/16 11:30 12/21/16 11:45 White Blood Count 9.9x10^3/uL (4.0-11.0) Red Blood Count 3.80x10^6/uL (3.50-5.40) Hemoglobin 10.9g/dL (12.0-15.5) Hematocrit 33.9% (36.0-47.0) Mean Corpuscular Volume 89fL (79-100) Mean Corpuscular Hemoglobin 29pg (25-35) Mean Corpuscular Hemoglobin Concent 32g/dL (31-37) Red Cell Distribution Width 15.9% (11.5-14.5) Platelet Count 217x10^3/uL (140-400) Neutrophils (%) (Auto) 53% (31-73) Lymphocytes (%) (Auto) 37% (24-48) Monocytes (%) (Auto) 9% (0-9) Eosinophils (%) (Auto) 0% (0-3) Basophils (%) (Auto) 1% (0-3) Neutrophils # (Auto) 5.3x10^3uL (1.8-7.7) Lymphocytes # (Auto) 3.6x10^3/uL (1.0-4.8) Monocytes # (Auto) 0.9x10^3/uL (0.0-1.1) Eosinophils # (Auto) 0.0x10^3/uL (0.0-0.7) Basophils # (Auto) 0.1x10^3/uL (0.0-0.2) Prothrombin Time 14.0SEC (11.7-14.0) Prothromb Time International Ratio 1.2 (0.8-1.1) Glucose (Fingerstick) 217mg/dL (70-99) 203mg/dL (70-99) Nasal Screen MRSA (PCR) Negative (Negative) Test 12/21/16 12:10 12/21/16 17:54 12/21/16 18:52 12/21/16 21:28 Sodium Level 140mmol/L (136-145) Potassium Level 5.2mmol/L (3.5-5.1) Chloride Level 102mmol/L (98-107) Carbon Dioxide Level 31mmol/L (21-32) Anion Gap 7 (6-14) Blood Urea Nitrogen 17mg/dL (7-20) Creatinine 0.9mg/dL (0.6-1.0) Estimated GFR (Cockcroft-Gault) 77.5 BUN/Creatinine Ratio 19 (6-20) Glucose Level 221mg/dL (70-99) Calcium Level 9.5mg/dL (8.5-10.1) Total Bilirubin 0.3mg/dL (0.2-1.0) Aspartate Amino Transf (AST/SGOT) 11U/L (15-37) Alanine Aminotransferase (ALT/SGPT) 14U/L (14-59) Alkaline Phosphatase 78U/L (46-116) Ammonia 22mcmol/L (11-34) Total Protein 8.4g/dL (6.4-8.2) Albumin 2.8g/dL (3.4-5.0) Albumin/Globulin Ratio 0.5 (1.0-1.7) Glucose (Fingerstick) 252mg/dL (70-99) 258mg/dL (70-99) 287mg/dL (70-99) Plan Plan 1. Cystic duct obstruction/acute cholecystitis s/p lap cholecystectomy 2. CKD III 3. Seizure disorder 4. 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 Dementia. 6. Paranoid schizophrenia. 7. Chronic Moderate PCL malnutrition. 8. Peripheral vascular disease. 9. Hyperlipidemia. 10. hypertension 14. Gastroesophageal reflux disease. 15. Osteoporosis. 16. Vitamin D deficiency. 17. Legal blindness. PLAN: bile duct obstruction/acute cholecystis s/p lap luke 12/21/16 surgical consult HIDA scan Nonvisualization of the gallbladder suggesting cystic duct obstruction , most commonly due to acute cholecystitis. 12/22/16 HTN continue home meds DM II FSBS/SSI continue home insulin DVT/GI prophylaxis warfarin on hold for surgery SCD/MAEVE PPI See Dr. Raymundo provider note 12/22/16 For more details regarding further plans, please refer to the orders. MILLIE HEAD APRN Dec 22, 2016 07:32
--- NOTE | 2016-12-22 08:08 | PDOC ---
[facility] [employer] 12/22/16 0808: IM PROGRESS NOTES- Subjective Subjective sleepy opens eyes to name Objective Objective sleepy Vitals Vital Signs Date Time Temp Pulse Resp B/P Pulse Ox O2 Delivery O2 Flow Rate FiO2 12/22/16 04:41 100 186/98 12/22/16 03:15 98.8 16 94 Nasal Cannula 1.0 98.8 Input & Output Intake and Output 12/22/16 07:00 Intake Total 2221 ml Output Total 230 ml Balance 1991 ml Intake IV Total 1150 ml Other 1071 ml Output Urine Total 155 ml Drainage Total 50 ml Estimated Blood Loss 25 ml # Voids 4 Physical Exam Physical Exam General appearance - awake, sleepy,well appearing, and in no distress Mental Status - awake, sleepy, oriented to person, affect appropriate to mood Head - normal Chest - clear to auscultation, no wheezes, rales or rhonchi, symmetric air entry Heart - S1 and S2 normal Abdomen - soft, nontender, nondistended, BS hypo, dressings in situ post op DI Neurological - no acute focal neurological deficits noted Musculoskeletal - no muscular tenderness noted Extremities - no pedal edema Skin - warm and dry Labs Laboratory Tests Test 12/21/16 07:40 12/21/16 10:01 12/21/16 11:30 12/21/16 11:45 White Blood Count 9.9x10^3/uL (4.0-11.0) Red Blood Count 3.80x10^6/uL (3.50-5.40) Hemoglobin 10.9g/dL (12.0-15.5) Hematocrit 33.9% (36.0-47.0) Mean Corpuscular Volume 89fL (79-100) Mean Corpuscular Hemoglobin 29pg (25-35) Mean Corpuscular Hemoglobin Concent 32g/dL (31-37) Red Cell Distribution Width 15.9% (11.5-14.5) Platelet Count 217x10^3/uL (140-400) Neutrophils (%) (Auto) 53% (31-73) Lymphocytes (%) (Auto) 37% (24-48) Monocytes (%) (Auto) 9% (0-9) Eosinophils (%) (Auto) 0% (0-3) Basophils (%) (Auto) 1% (0-3) Neutrophils # (Auto) 5.3x10^3uL (1.8-7.7) Lymphocytes # (Auto) 3.6x10^3/uL (1.0-4.8) Monocytes # (Auto) 0.9x10^3/uL (0.0-1.1) Eosinophils # (Auto) 0.0x10^3/uL (0.0-0.7) Basophils # (Auto) 0.1x10^3/uL (0.0-0.2) Prothrombin Time 14.0SEC (11.7-14.0) Prothromb Time International Ratio 1.2 (0.8-1.1) Glucose (Fingerstick) 217mg/dL (70-99) 203mg/dL (70-99) Nasal Screen MRSA (PCR) Negative (Negative) Test 12/21/16 12:10 12/21/16 17:54 12/21/16 18:52 12/21/16 21:28 Sodium Level 140mmol/L (136-145) Potassium Level 5.2mmol/L (3.5-5.1) Chloride Level 102mmol/L (98-107) Carbon Dioxide Level 31mmol/L (21-32) Anion Gap 7 (6-14) Blood Urea Nitrogen 17mg/dL (7-20) Creatinine 0.9mg/dL (0.6-1.0) Estimated GFR (Cockcroft-Gault) 77.5 BUN/Creatinine Ratio 19 (6-20) Glucose Level 221mg/dL (70-99) Calcium Level 9.5mg/dL (8.5-10.1) Total Bilirubin 0.3mg/dL (0.2-1.0) Aspartate Amino Transf (AST/SGOT) 11U/L (15-37) Alanine Aminotransferase (ALT/SGPT) 14U/L (14-59) Alkaline Phosphatase 78U/L (46-116) Ammonia 22mcmol/L (11-34) Total Protein 8.4g/dL (6.4-8.2) Albumin 2.8g/dL (3.4-5.0) Albumin/Globulin Ratio 0.5 (1.0-1.7) Glucose (Fingerstick) 252mg/dL (70-99) 258mg/dL (70-99) 287mg/dL (70-99) Laboratory Tests Test 12/21/16 10:01 12/21/16 11:30 12/21/16 11:45 12/21/16 12:10 Glucose (Fingerstick) 217mg/dL (70-99) 203mg/dL (70-99) Nasal Screen MRSA (PCR) Negative (Negative) Sodium Level 140mmol/L (136-145) Potassium Level 5.2mmol/L (3.5-5.1) Chloride Level 102mmol/L (98-107) Carbon Dioxide Level 31mmol/L (21-32) Anion Gap 7 (6-14) Blood Urea Nitrogen 17mg/dL (7-20) Creatinine 0.9mg/dL (0.6-1.0) Estimated GFR (Cockcroft-Gault) 77.5 BUN/Creatinine Ratio 19 (6-20) Glucose Level 221mg/dL (70-99) Calcium Level 9.5mg/dL (8.5-10.1) Total Bilirubin 0.3mg/dL (0.2-1.0) Aspartate Amino Transf (AST/SGOT) 11U/L (15-37) Alanine Aminotransferase (ALT/SGPT) 14U/L (14-59) Alkaline Phosphatase 78U/L (46-116) Ammonia 22mcmol/L (11-34) Total Protein 8.4g/dL (6.4-8.2) Albumin 2.8g/dL (3.4-5.0) Albumin/Globulin Ratio 0.5 (1.0-1.7) Test 12/21/16 17:54 12/21/16 18:52 12/21/16 21:28 Glucose (Fingerstick) 252mg/dL (70-99) 258mg/dL (70-99) 287mg/dL (70-99) Meds Current Medications Acetaminophen (Tylenol) 650 mg PRN Q6HRS PRN PO Headaches, Temp > 101.5F; Start 12/21/16 at 09:45 Albuterol/ Ipratropium (Duoneb) 3 ml RTQID NEB Last administered on 12/21/16t 19:54; Start 12/21/16 at 12:00 Artificial Tears (Artificial Tears) 1 drop QIDACHS OU Last administered on 12/21 20:44; Start 12/21/16 at 11:30 Benztropine Mesylate (Cogentin) 2 mg DAILY PO ; Start 12/21/16 at 10:30 Bupivacaine HCl/ Epinephrine Bitart (Sensorcain-Mpf Epi 0.5%-[id number]) 30 ml STK -MED ONCE .ROUTE Last administered on 12/21/16 15:42; Start 12/21/16 at 14:23 ; Stop 12/21/16 at 14:24; Status DC Buspirone HCl (Buspar) 10 mg TID PO Last administered on 12/21/16 20:44; Start 12/21/16 at 14:00 Cellulose 1 each STK-MED ONCE .ROUTE Last administered on 12/21/16 16:21; Start 12/21/16 at 14:23; Stop 12/21/16 at 14:24; Status DC Clonidine HCl (Catapres) 0.1 mg PRN Q8HRS PRN PO HYPERTENSION, SEE COMMENTS; Start 12/21/16 at 21:15 Dexamethasone Sodium Phosphate (Decadron) 20 mg STK-MED ONCE .ROUTE ; Start at 14:25; Stop 12/21/16 at 14:26; Status DC Dextrose 12.5 gm PRN Q15MIN PRN IV SEE COMMENTS; Start 12/21/16 at 17:15 Diphenhydramine HCl (Benadryl) 25 mg PRN Q6HRS PRN IV ITCHING; Start 12/21/16 at 17:15 Diphenhydramine HCl (Benadryl) 25 mg PRN Q6HRS PRN PO ITCHING; Start 12/21/16 at 17:15 Divalproex Sodium (Depakote Er) 1,500 mg DAILY PO ; Start 12/21/16 at 11:00 Divalproex Sodium (Depakote) 1,000 mg HS PO Last administered on 12/21/16 20: 43; Start 12/21/16 at 21:00 Docusate Sodium (Colace) 100 mg BID PO Last administered on 12/21/16 20:44; Start 12/21/16 at 21:00 Enoxaparin Sodium (Lovenox 40mg Syringe) 40 mg Q24H SQ ; Start 12/22/16 at 09:00 Fentanyl Citrate (Fentanyl 2ml Vial) 25 mcg 1X ONCE IV Last administered on 08:37; Start 12/21/16 at 09:00; Stop 12/21/16 at 09:01; Status DC Fentanyl Citrate (Fentanyl 2ml Vial) 25 mcg PRN Q2HR PRN IV PAIN; Start at 09:45 Fentanyl Citrate (Fentanyl 2ml Vial) 25 mcg PRN Q5MIN PRN IV MILD PAIN; Start 12/21/16 at 14:45; Stop 12/21/16 at 23:00; Status DC Fentanyl Citrate (Fentanyl 2ml Vial) 50 mcg PRN Q2HR PRN IV PAIN Last administered on 12/22/16 01:23; Start 12/21/16 at 09:45 Fentanyl Citrate (Fentanyl 2ml Vial) 50 mcg PRN Q5MIN PRN IV MODERATE PAIN; Start 12/21/16 at 14:45; Stop 12/21/16 at 23:00; Status DC Fentanyl Citrate (Fentanyl 2ml Vial) 100 mcg STK-MED ONCE .ROUTE ; Start at 08:29; Stop 12/21/16 at 08:30; Status DC Fentanyl Citrate (Fentanyl 2ml Vial) 100 mcg STK-MED ONCE .ROUTE ; Start at 14:25; Stop 12/21/16 at 14:26; Status DC Fentanyl Citrate (Fentanyl 2ml Vial) 100 mcg STK-MED ONCE .ROUTE ; Start at 15:44; Stop 12/21/16 at 15:45; Status DC Glucagon (Glucagen) 1 mg STK-MED ONCE .ROUTE ; Start 12/21/16 at 14:24; Stop at 14:25; Status DC Glycopyrrolate (Robinul) 1 mg STK-MED ONCE .ROUTE ; Start 12/21/16 at 14:25; Stop 12/21/16 at 14:26; Status DC Hydromorphone HCl (Dilaudid) 0.5 mg PRN Q10MIN PRN IV SEV PAIN,Second choice; Start 12/21/16 at 14:45; Stop 12/21/16 at 23:00; Status DC Hydromorphone HCl (Dilaudid) 1 mg PRN Q4HRS PRN IV PAIN; Start 12/21/16 at 17: 15 Insulin Aspart (Novolog) 0-8 UNITS TIDAC SQ ; Start 12/21/16 at 11:30 Insulin Detemir (Levemir) 10 units QHS SQ Last administered on 12/21/16 22:18 ; Start 12/21/16 at 21:00 Iohexol (Omnipaque 300 Mg/ml) 50 ml STK-MED ONCE .ROUTE Last administered on 15:43; Start 12/21/16 at 14:24; Stop 12/21/16 at 14:25; Status DC Lactated Ringer's (Iv Lactated Ringers) 1,000 ml @ 30 mls/hr Q24H IV Last administered on 12/21/16 15:00; Start 12/21/16 at 15:00; Stop 12/22/16 at 23:00 Lidocaine HCl 2 ml 1X PRN PRN ID IV START; Start 12/21/16 at 14:45; Stop at 23:00; Status DC Lidocaine HCl 100 mg STK-MED ONCE .ROUTE ; Start 12/21/16 at 14:25; Stop at 14:26; Status DC Lidocaine/Sodium Bicarbonate (Buffered Lidocaine 1%) 20 ml STK-MED ONCE IJ ; Start 12/21/16 at 08:30; Stop 12/21/16 at 08:31; Status DC Lorazepam (Ativan) 0.5 mg PRN Q8HRS PRN IV ANXIETY / AGITATION Last administered on 12/21/16 21:02; Start 12/21/16 at 09:45 Metoprolol Tartrate (Lopressor) 5 mg PRN Q6HRS PRN IVP SBP > 160 Last administered on 12/22/16 04:41; Start 12/21/16 at 22:30 Metoprolol Tartrate (Lopressor) 5 mg Q6HRS IVP ; Start 12/22/16 at 00:00; Status Cancel Midazolam HCl (Versed) 0.5 mg 1X ONCE IV Last administered on 12/21/16 08:37 ; Start 12/21/16 at 09:00; Stop 12/21/16 at 09:01; Status DC Midazolam HCl (Versed) 2 mg STK-MED ONCE .ROUTE ; Start 12/21/16 at 08:29; Stop 12/21/16 at 08:30; Status DC Midazolam HCl (Versed) 2 mg STK-MED ONCE .ROUTE ; Start 12/21/16 at 14:24; Stop 12/21/16 at 14:25; Status DC Morphine Sulfate 4 mg 1X ONCE IV Last administered on 12/21/16t 13:30; Start 12/21/16 at 13:30; Stop 12/21/16 at 13:31; Status DC Morphine Sulfate 1 mg 1 mg PRN Q10MIN PRN IV SEVERE PAIN; Start 12/21/16 at 14: 45; Stop 12/21/16 at 23:00; Status DC Multivitamins (Thera M Plus) 1 tab DAILY PO ; Start 12/21/16 at 10:30 Neostigmine Methylsulfate 5 mg STK-MED ONCE .ROUTE ; Start 12/21/16 at 14:25; Stop 12/21/16 at 14:26; Status DC Ondansetron HCl (Zofran) 4 mg PRN Q6HRS PRN IV NAUSEA/VOMITING; Start 12/21/16 at 09:45; Stop 12/21/16 at 17:19; Status DC Ondansetron HCl (Zofran) 4 mg PRN Q6HRS PRN IV Nausea; Start 12/21/16 at 14:45 ; Stop 12/21/16 at 23:00; Status DC Ondansetron HCl (Zofran) 4 mg STK-MED ONCE .ROUTE ; Start 12/21/16 at 14:25; Stop 12/21/16 at 14:26; Status DC Ondansetron HCl 4 mg 4 mg PRN Q6HRS PRN IV NAUESA, 1ST CHOICE; Start 12/21/16 at 17:15 Oxycodone HCl (Roxicodone) 5 mg PRN Q6HRS PRN PO MILD PAIN, 2ND CHOICE; Start 12/21/16 at 09:45 Oxycodone/ Acetaminophen (Percocet 5/325) 1 tab PRN Q4HRS PRN PO MILD PAIN, 1ST CHOICE Last administered on 12/21/16t 20:44; Start 12/21/16 at 17:15 Oxycodone/ Acetaminophen (Percocet 5/325) 2 tab PRN Q4HRS PRN PO MODERATE PAIN , SEVERE PAIN; Start 12/21/16 at 17:15 Pantoprazole Sodium (Protonix) 40 mg DAILYAC PO ; Start 12/21/16 at 10:30 Phenylephrine HCl 1 mg STK-MED ONCE IV ; Start 12/21/16 at 15:27; Stop 12/21/16 at 15:42; Status DC Phenytoin Sodium (Dilantin) 200 mg QHS PO Last administered on 12/21/16 20:44 ; Start 12/21/16 at 21:00 Piperacillin Sod/ Tazobactam Sod/ Sodium Chloride (Zosyn/Iv Sodium Chloride 0.9 % 50ml) 50 ml @ 100 mls/hr 1X ONCE IV Last administered on 12/21/16 15:22; Start 12/21/16 at 15:00; Stop 12/21/16 at 15:29; Status DC Polyethylene Glycol (miraLAX PACKET) 17 gm DAILY PO ; Start 12/21/16 at 10:30 Potassium Chloride/Sodium Chloride (KCl 20 Meq-0.45% Nacl) 1,000 ml @ 100 mls/ hr Q10H IV ; Start 12/21/16 at 17:08; Status UNV Prochlorperazine Edisylate 5 mg 5 mg PACU PRN PRN IV NAUSEA; Start 12/21/16 at 14:45; Stop 12/21/16 at 23:00; Status DC Propofol (Diprivan) 20 ml @ As Directed STK-MED ONCE IV ; Start 12/21/16 at 14: 25; Stop 12/21/16 at 14:26; Status DC Rocuronium Rena Lara 50 mg 50 mg STK-MED ONCE .ROUTE ; Start 12/21/16 at 14:25; Stop 12/21/16 at 14:26; Status DC Rocuronium Rena Lara (Zemuron) 50 mg STK-MED ONCE .ROUTE ; Start 12/21/16 at 15:34 ; Stop 12/21/16 at 15:42; Status DC Senna/Docusate Sodium (Senna Plus) 1 tab BID PO Last administered on 12/21/16 20:45; Start 12/21/16 at 10:30 Sevoflurane (Ultane) 60 ml STK-MED ONCE IH ; Start 12/21/16 at 14:24; Stop 12/21 at 14:25; Status DC Simvastatin (Zocor) 10 mg QHS PO Last administered on 12/21/16 20:45; Start at 21:00 Sodium Chloride (Iv Sodium Chloride 0.45%) 1,000 ml @ 100 mls/hr Q10H IV Last administered on 12/22/16 05:48; Start 12/21/16 at 20:00 Sodium Chloride (Normal Saline Flush) 3 ml PRN DAILY PRN IV AFTER MEDS AND BLOOD DRAWS; Start 12/21/16 at 09:45 Sodium Chloride 3 ml 3 ml QSHIFT PRN IV AFTER MEDS AND BLOOD DRAWS; Start 12/21 at 17:15 Succinylcholine Chloride (Anectine) 200 mg STK-MED ONCE .ROUTE ; Start 12/21/16 at 14:29; Stop 12/21/16 at 14:30; Status DC Valproic Acid (Depakene) 250 mg HS PO Last administered on 12/21/16 20:44; Start 12/21/16 at 21:00 Vitamin D (Vitamin D3) 1,000 unit DAILY PO ; Start 12/21/16 at 10:30 Warfarin Sodium (Coumadin Per Pharmacy) 1 each PRN DAILY PRN MC SEE COMMENTS Last administered on 12/21/16 13:10; Start 12/21/16 at 10:15 Warfarin Sodium (Coumadin) 7.5 mg 1X WARF ONCE PO ; Start 12/21/16 at 16:00; Stop 12/21/16 at 16:02; Status DC Assessment Assessment Plan 1. Cystic duct obstruction/acute cholecystitis s/p lap cholecystectomy 12/21/16 2. CKD III 3. Seizure disorder 4. 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 Dementia. 6. Paranoid schizophrenia. 7. Chronic Moderate PCL malnutrition. 8. Peripheral vascular disease. 9. Hyperlipidemia. 10. hypertension 14. Gastroesophageal reflux disease. 15. Osteoporosis. 16. Vitamin D deficiency. 17. Legal blindness. PLAN: bile duct obstruction/acute cholecystis s/p lap luke 12/21/16 surgical consult HIDA scan Nonvisualization of the gallbladder suggesting cystic duct obstruction , most commonly due to acute cholecystitis. 12/22/16 POD#1 1/2NS 100cc/hr-decrease to 50cc/hr Accelerated HTN not present on admit continue home meds Decrease IVF DM II steroid induced hyperglycemia FSBS/SSI continue home insulin BS [phone] Decadron in surgery Change SSI to moderate intensity CKD II stable K 5.2 on admit, monitor DVT/GI prophylaxis warfarin on hold for surgery SCD/MAEVE PPI For more details regarding further plans, please refer to the orders. Plan Plan 1. Cystic duct obstruction/acute cholecystitis s/p lap cholecystectomy 2. CKD III 3. Seizure disorder 4. 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 Dementia. 6. Paranoid schizophrenia. 7. Chronic Moderate PCL malnutrition. 8. Peripheral vascular disease. 9. Hyperlipidemia. 10. hypertension 14. Gastroesophageal reflux disease. 15. Osteoporosis. 16. Vitamin D deficiency. 17. Legal blindness. PLAN: bile duct obstruction/acute cholecystis s/p lap luke 12/21/16 surgical consult HIDA scan Nonvisualization of the gallbladder suggesting cystic duct obstruction , most commonly due to acute cholecystitis. 12/22/16 HTN continue home meds DM II FSBS/SSI continue home insulin DVT/GI prophylaxis warfarin restarted Lovenox 40mg daily post op-Stop when INR 1.8 SCD/MAEVE PPI For more details regarding further plans, please refer to the orders. PABLO ROJAS MD 12/22/16 1016: IM PROGRESS NOTES- Assessment Assessment sleepy,denies pain. The patient was seen and examined by me. Chart reviewed and plan of care formulated. Discussed with, reviewed and agree with AD TERMINAL MAKEUP OPERATOR's notes, plan of care and orders with modifications as necessary. For more details regarding further plans, please refer to the orders. MILLIE HEAD APRN Dec 22, 2016 08:08 PABLO ROJAS MD Dec 22, 2016 10:16
[2016-12-22] MEDS: IPRATRPIUM/ALBUTEROL 0.5/2.5MG 3 ML NEBU. NEB SCH ×4 (08:18→15:01)
[2016-12-22] MEDS ORDERED: ENOXAPARIN 40 MG/0.4 ML DISP.SYRIN. SQ SCH (09:00)
[2016-12-22] MEDS: POLYVINYL ALCOHOL 1.4% OPHTH SOLUTION 15ML BOTTLE. OU SCH ×4 (09:08→21:34)
[2016-12-22] MEDS: MULTIVITAMIN with MINERAL TABLET. PO SCH (09:08)
[2016-12-22] MEDS: BENZTROPINE MESYLATE 1 MG TABLET PO SCH (09:08)
[2016-12-22] MEDS: DOCUSATE SODIUM 100 MG CAPSULE PO SCH ×2 (09:08→21:34)
[2016-12-22] MEDS: POLYETHYLENE GLYCOL 3350 17 GM PACKET. PO SCH (09:08)
[2016-12-22] MEDS: PANTOPRAZOLE 40 MG TABLET. PO SCH (09:09)
[2016-12-22] MEDS: busPIRone 10 MG TABLET. PO SCH ×3 (09:09→21:34)
[2016-12-22] MEDS: DIVALPROEX EXTENDED RELEASE 500 MG TAB.ER.24H. PO SCH (09:09)
[2016-12-22] MEDS: SENNOSIDES/DOCUSATE 8.6/50MG TABLET. PO SCH ×2 (09:09→21:34)
[2016-12-22] MEDS: CHOLECALCIFEROL (VITAMIN D3) 1,000 UNIT TABLET PO SCH (09:09)
--- NOTE | 2016-12-22 09:13 | PDOC ---
SHAKILA MARSHALL CRACK OFF PERSON 12/22/16 0913: SURGICAL PROGRESS NOTE Subjective opens eyes, says no to pain Vital Signs Vital Signs Date Time Temp Pulse Resp B/P Pulse Ox O2 Delivery O2 Flow Rate FiO2 12/22/16 07:00 97.9 106 16 171/93 98 Nasal Cannula 2.0 97.9 I&O Intake and Output 12/22/16 07:00 Intake Total 2221 ml Output Total 230 ml Balance 1991 ml Intake IV Total 1150 ml Other 1071 ml Output Urine Total 155 ml Drainage Total 50 ml Estimated Blood Loss 25 ml # Voids 4 General: Cooperative, No acute distress Abdomen: Soft, No tenderness, Other (dressings dry, alanis serosang) Labs Laboratory Tests Test 12/21/16 07:40 12/21/16 10:01 12/21/16 11:30 12/21/16 11:45 White Blood Count 9.9x10^3/uL (4.0-11.0) Red Blood Count 3.80x10^6/uL (3.50-5.40) Hemoglobin 10.9g/dL (12.0-15.5) Hematocrit 33.9% (36.0-47.0) Mean Corpuscular Volume 89fL (79-100) Mean Corpuscular Hemoglobin 29pg (25-35) Mean Corpuscular Hemoglobin Concent 32g/dL (31-37) Red Cell Distribution Width 15.9% (11.5-14.5) Platelet Count 217x10^3/uL (140-400) Neutrophils (%) (Auto) 53% (31-73) Lymphocytes (%) (Auto) 37% (24-48) Monocytes (%) (Auto) 9% (0-9) Eosinophils (%) (Auto) 0% (0-3) Basophils (%) (Auto) 1% (0-3) Neutrophils # (Auto) 5.3x10^3uL (1.8-7.7) Lymphocytes # (Auto) 3.6x10^3/uL (1.0-4.8) Monocytes # (Auto) 0.9x10^3/uL (0.0-1.1) Eosinophils # (Auto) 0.0x10^3/uL (0.0-0.7) Basophils # (Auto) 0.1x10^3/uL (0.0-0.2) Prothrombin Time 14.0SEC (11.7-14.0) Prothromb Time International Ratio 1.2 (0.8-1.1) Glucose (Fingerstick) 217mg/dL (70-99) 203mg/dL (70-99) Nasal Screen MRSA (PCR) Negative (Negative) Test 12/21/16 12:10 12/21/16 17:54 12/21/16 18:52 12/21/16 21:28 Sodium Level 140mmol/L (136-145) Potassium Level 5.2mmol/L (3.5-5.1) Chloride Level 102mmol/L (98-107) Carbon Dioxide Level 31mmol/L (21-32) Anion Gap 7 (6-14) Blood Urea Nitrogen 17mg/dL (7-20) Creatinine 0.9mg/dL (0.6-1.0) Estimated GFR (Cockcroft-Gault) 77.5 BUN/Creatinine Ratio 19 (6-20) Glucose Level 221mg/dL (70-99) Calcium Level 9.5mg/dL (8.5-10.1) Total Bilirubin 0.3mg/dL (0.2-1.0) Aspartate Amino Transf (AST/SGOT) 11U/L (15-37) Alanine Aminotransferase (ALT/SGPT) 14U/L (14-59) Alkaline Phosphatase 78U/L (46-116) Ammonia 22mcmol/L (11-34) Total Protein 8.4g/dL (6.4-8.2) Albumin 2.8g/dL (3.4-5.0) Albumin/Globulin Ratio 0.5 (1.0-1.7) Glucose (Fingerstick) 252mg/dL (70-99) 258mg/dL (70-99) 287mg/dL (70-99) Test 12/22/16 07:39 Glucose (Fingerstick) 343mg/dL (70-99) Laboratory Tests Test 12/21/16 10:01 12/21/16 11:30 12/21/16 11:45 12/21/16 12:10 Glucose (Fingerstick) 217mg/dL (70-99) 203mg/dL (70-99) Nasal Screen MRSA (PCR) Negative (Negative) Sodium Level 140mmol/L (136-145) Potassium Level 5.2mmol/L (3.5-5.1) Chloride Level 102mmol/L (98-107) Carbon Dioxide Level 31mmol/L (21-32) Anion Gap 7 (6-14) Blood Urea Nitrogen 17mg/dL (7-20) Creatinine 0.9mg/dL (0.6-1.0) Estimated GFR (Cockcroft-Gault) 77.5 BUN/Creatinine Ratio 19 (6-20) Glucose Level 221mg/dL (70-99) Calcium Level 9.5mg/dL (8.5-10.1) Total Bilirubin 0.3mg/dL (0.2-1.0) Aspartate Amino Transf (AST/SGOT) 11U/L (15-37) Alanine Aminotransferase (ALT/SGPT) 14U/L (14-59) Alkaline Phosphatase 78U/L (46-116) Ammonia 22mcmol/L (11-34) Total Protein 8.4g/dL (6.4-8.2) Albumin 2.8g/dL (3.4-5.0) Albumin/Globulin Ratio 0.5 (1.0-1.7) Test 12/21/16 17:54 12/21/16 18:52 12/21/16 21:28 12/22/16 07:39 Glucose (Fingerstick) 252mg/dL (70-99) 258mg/dL (70-99) 287mg/dL (70-99) 343mg/dL (70-99) Problem List Problems Medical Problems: (1) Acute and chronic cholecystitis Status: Acute (2) Cholelithiasis with acute cholecystitis without biliary obstruction Status: Acute Assessment/Plan s/p lap luke continue drain Problems: JS MONTAGUE MD 12/22/16 1452: SURGICAL PROGRESS NOTE Assessment/Plan seen earlier as above advance diet as tolerated Problems: SHAKILA MARSHALL APRN Dec 22, 2016 09:13 JS MONTAGUE MD Dec 22, 2016 14:52
[2016-12-22 09:54] LABS: BASO # 0.1 x10^3/uL (0.0-0.2); BASO % 1 % (0-3); EOS % 0 % (0-3); HEMOGLOBIN 12.1 g/dL (12.0-15.5); LYMPH # 2.4 x10^3/uL (1.0-4.8); LYMPH % 14 % (24-48); MEAN CORPUSCULAR HEMOGLOBIN 28 pg (25-35); MEAN CORPUSCULAR HGB CONC 33 g/dL (31-37); MEAN CORPUSCULAR VOLUME 87 fL (79-100); MONO % 11 % (0-9); NEUT % 75 % (31-73); PLATELET COUNT 251 x10^3/uL (140-400); RED BLOOD COUNT 4.26 x10^6/uL (3.50-5.40); RED CELL DISTRIBUTION WIDTH 15.8 % (11.5-14.5); WHITE BLOOD COUNT 17.5 x10^3/uL (4.0-11.0)
[2016-12-22 10:05] LABS: INR 1.2 (0.8-1.1); PROTHROMBIN TIME PATIENT 14.6 SEC (11.7-14.0)
[2016-12-22 10:08] LABS: ALBUMIN 2.7 g/dL (3.4-5.0); ALBUMIN/GLOBULIN RATIO 0.4 (1.0-1.7); CALCIUM 9.2 mg/dL (8.5-10.1); GFR 68.7; POTASSIUM 4.5 mmol/L (3.5-5.1); TOTAL BILIRUBIN 0.4 mg/dL (0.2-1.0)
[2016-12-22 11:38] LABS: PLT ESTIMATE ADEQUATE (ADEQUATE)
[2016-12-22] MEDS ORDERED: WARFARIN 7.5 MG TABLET. PO ONE (16:00)
[2016-12-22] MEDS: DIVALPROEX DELAYED RELEASE 500 MG TABLET.DR. PO SCH (21:34)
[2016-12-22] MEDS: VALPROIC ACID 250 MG CAPSULE. PO SCH (21:34)
[2016-12-22] MEDS: SIMVASTATIN 10 MG TABLET PO SCH (21:34)
[2016-12-22] MEDS: PHENYTOIN SODIUM EXTENDED 100 MG CAPSULE PO SCH (21:34)
[2016-12-22] MEDS: INSULIN DETEMIR 300 UNITS/3 ML INSULN.PEN. SQ SCH (21:41)
[2016-12-23] MEDS: IV 1/2 NORMAL SALINE 1,000 ML IV SCH ×2 (02:00→11:44)
[2016-12-23 03:00] VITALS: BP 131/79
[2016-12-23 07:00] VITALS: BP 118/64
[2016-12-23] MEDS: IPRATRPIUM/ALBUTEROL 0.5/2.5MG 3 ML NEBU. NEB SCH ×3 (07:37→16:00)
--- NOTE | 2016-12-23 07:51 | PDOC ---
MILLIE HEDA PHARMACY MESSENGER 12/23/16 0751: IM PROGRESS NOTES- Subjective Subjective awake Objective Objective no distress Vitals Vital Signs Date Time Temp Pulse Resp B/P Pulse Ox O2 Delivery O2 Flow Rate FiO2 12/23/16 03:00 98.1 116 18 131/79 98 Nasal Cannula 2.0 98.1 Input & Output Intake and Output 12/23/16 07:00 Intake Total 3191 ml Output Total 40 ml Balance 3151 ml Intake Oral 740 ml IV Total 1551 ml Other 900 ml Drainage Total 40 ml # Voids 7 Physical Exam Physical Exam General appearance - awake, well appearing, and in no distress Mental Status - awake, oriented to person, affect appropriate to mood Head - normal Chest - clear to auscultation, no wheezes, rales or rhonchi, symmetric air entry Heart - S1 and S2 normal Abdomen - soft, tender r/t surgical procedure, distended, firm, BS hypo Neurological - no acute focal neurological deficits noted Musculoskeletal - no muscular tenderness noted Extremities - no pedal edema Skin - warm and dry Labs Laboratory Tests Test 12/21/16 10:01 12/21/16 11:30 12/21/16 11:45 12/21/16 12:10 Glucose (Fingerstick) 217mg/dL (70-99) 203mg/dL (70-99) Nasal Screen MRSA (PCR) Negative (Negative) Sodium Level 140mmol/L (136-145) Potassium Level 5.2mmol/L (3.5-5.1) Chloride Level 102mmol/L (98-107) Carbon Dioxide Level 31mmol/L (21-32) Anion Gap 7 (6-14) Blood Urea Nitrogen 17mg/dL (7-20) Creatinine 0.9mg/dL (0.6-1.0) Estimated GFR (Cockcroft-Gault) 77.5 BUN/Creatinine Ratio 19 (6-20) Glucose Level 221mg/dL (70-99) Calcium Level 9.5mg/dL (8.5-10.1) Total Bilirubin 0.3mg/dL (0.2-1.0) Aspartate Amino Transf (AST/SGOT) 11U/L (15-37) Alanine Aminotransferase (ALT/SGPT) 14U/L (14-59) Alkaline Phosphatase 78U/L (46-116) Ammonia 22mcmol/L (11-34) Total Protein 8.4g/dL (6.4-8.2) Albumin 2.8g/dL (3.4-5.0) Albumin/Globulin Ratio 0.5 (1.0-1.7) Test 12/21/16 17:54 12/21/16 18:52 12/21/16 21:28 12/22/16 07:39 Glucose (Fingerstick) 252mg/dL (70-99) 258mg/dL (70-99) 287mg/dL (70-99) 343mg/dL (70-99) Test 12/22/16 09:25 12/22/16 11:50 12/22/16 16:45 White Blood Count 17.5x10^3/uL (4.0-11.0) Red Blood Count 4.26x10^6/uL (3.50-5.40) Hemoglobin 12.1g/dL (12.0-15.5) Hematocrit 37.0% (36.0-47.0) Mean Corpuscular Volume 87fL (79-100) Mean Corpuscular Hemoglobin 28pg (25-35) Mean Corpuscular Hemoglobin Concent 33g/dL (31-37) Red Cell Distribution Width 15.8% (11.5-14.5) Platelet Count 251x10^3/uL (140-400) Neutrophils (%) (Auto) 75% (31-73) Lymphocytes (%) (Auto) 14% (24-48) Monocytes (%) (Auto) 11% (0-9) Eosinophils (%) (Auto) 0% (0-3) Basophils (%) (Auto) 1% (0-3) Neutrophils # (Auto) 13.1x10^3uL (1.8-7.7) Lymphocytes # (Auto) 2.4x10^3/uL (1.0-4.8) Monocytes # (Auto) 1.9x10^3/uL (0.0-1.1) Eosinophils # (Auto) 0.0x10^3/uL (0.0-0.7) Basophils # (Auto) 0.1x10^3/uL (0.0-0.2) Segmented Neutrophils % 67% (35-66) Band Neutrophils % 7% (0-9) Lymphocytes % 9% (24-48) Atypical Lymphocytes % (Manual) 1% (0-0) Monocytes % 16% (0-10) Platelet Estimate Adequate (ADEQUATE) Prothrombin Time 14.6SEC (11.7-14.0) Prothromb Time International Ratio 1.2 (0.8-1.1) Sodium Level 136mmol/L (136-145) Potassium Level 4.5mmol/L (3.5-5.1) Chloride Level 98mmol/L (98-107) Carbon Dioxide Level 26mmol/L (21-32) Anion Gap 12 (6-14) Blood Urea Nitrogen 15mg/dL (7-20) Creatinine 1.0mg/dL (0.6-1.0) Estimated GFR (Cockcroft-Gault) 68.7 BUN/Creatinine Ratio 15 (6-20) Glucose Level 367mg/dL (70-99) Calcium Level 9.2mg/dL (8.5-10.1) Magnesium Level 1.4mg/dL (1.8-2.4) Total Bilirubin 0.4mg/dL (0.2-1.0) Aspartate Amino Transf (AST/SGOT) 30U/L (15-37) Alanine Aminotransferase (ALT/SGPT) 19U/L (14-59) Alkaline Phosphatase 83U/L (46-116) Total Protein 9.0g/dL (6.4-8.2) Albumin 2.7g/dL (3.4-5.0) Albumin/Globulin Ratio 0.4 (1.0-1.7) Glucose (Fingerstick) 391mg/dL (70-99) 285mg/dL (70-99) Laboratory Tests Test 12/22/16 09:25 12/22/16 11:50 12/22/16 16:45 White Blood Count 17.5x10^3/uL (4.0-11.0) Red Blood Count 4.26x10^6/uL (3.50-5.40) Hemoglobin 12.1g/dL (12.0-15.5) Hematocrit 37.0% (36.0-47.0) Mean Corpuscular Volume 87fL (79-100) Mean Corpuscular Hemoglobin 28pg (25-35) Mean Corpuscular Hemoglobin Concent 33g/dL (31-37) Red Cell Distribution Width 15.8% (11.5-14.5) Platelet Count 251x10^3/uL (140-400) Neutrophils (%) (Auto) 75% (31-73) Lymphocytes (%) (Auto) 14% (24-48) Monocytes (%) (Auto) 11% (0-9) Eosinophils (%) (Auto) 0% (0-3) Basophils (%) (Auto) 1% (0-3) Neutrophils # (Auto) 13.1x10^3uL (1.8-7.7) Lymphocytes # (Auto) 2.4x10^3/uL (1.0-4.8) Monocytes # (Auto) 1.9x10^3/uL (0.0-1.1) Eosinophils # (Auto) 0.0x10^3/uL (0.0-0.7) Basophils # (Auto) 0.1x10^3/uL (0.0-0.2) Segmented Neutrophils % 67% (35-66) Band Neutrophils % 7% (0-9) Lymphocytes % 9% (24-48) Atypical Lymphocytes % (Manual) 1% (0-0) Monocytes % 16% (0-10) Platelet Estimate Adequate (ADEQUATE) Prothrombin Time 14.6SEC (11.7-14.0) Prothromb Time International Ratio 1.2 (0.8-1.1) Sodium Level 136mmol/L (136-145) Potassium Level 4.5mmol/L (3.5-5.1) Chloride Level 98mmol/L (98-107) Carbon Dioxide Level 26mmol/L (21-32) Anion Gap 12 (6-14) Blood Urea Nitrogen 15mg/dL (7-20) Creatinine 1.0mg/dL (0.6-1.0) Estimated GFR (Cockcroft-Gault) 68.7 BUN/Creatinine Ratio 15 (6-20) Glucose Level 367mg/dL (70-99) Calcium Level 9.2mg/dL (8.5-10.1) Magnesium Level 1.4mg/dL (1.8-2.4) Total Bilirubin 0.4mg/dL (0.2-1.0) Aspartate Amino Transf (AST/SGOT) 30U/L (15-37) Alanine Aminotransferase (ALT/SGPT) 19U/L (14-59) Alkaline Phosphatase 83U/L (46-116) Total Protein 9.0g/dL (6.4-8.2) Albumin 2.7g/dL (3.4-5.0) Albumin/Globulin Ratio 0.4 (1.0-1.7) Glucose (Fingerstick) 391mg/dL (70-99) 285mg/dL (70-99) Meds Current Medications Enoxaparin Sodium (Lovenox 40mg Syringe) 40 mg Q24H SQ Last administered on 09:08; Start 12/22/16 at 09:00; Stop 12/22/16 at 15:23; Status DC Insulin Aspart (Novolog) TIDAC SQ Last administered on 12/22/16 17:19; Start 12/22/16 at 11:30 Warfarin Sodium (Coumadin) 7.5 mg 1X WARF ONCE PO Last administered on 15:44; Start 12/22/16 at 16:00; Stop 12/22/16 at 16:01; Status DC Assessment Assessment 1. Cystic duct obstruction/acute cholecystitis s/p lap cholecystectomy 12/21/16 2. CKD III 3. Seizure disorder 4. 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 Dementia. 6. Paranoid schizophrenia. 7. Chronic Moderate PCL malnutrition. 8. Peripheral vascular disease. 9. Hyperlipidemia. 10. hypertension 14. Gastroesophageal reflux disease. 15. Osteoporosis. 16. Vitamin D deficiency. 17. Legal blindness. PLAN: bile duct obstruction/acute cholecystis s/p lap luke 12/21/16 surgical consult HIDA scan Nonvisualization of the gallbladder suggesting cystic duct obstruction , most commonly due to acute cholecystitis. 12/22/16 POD#2 1/2NS 100cc/hr distended, dulcolax supp x 1 WBC 17.5 12/22-steroid induced Accelerated HTN not present on admit continue home meds improved DM II steroid induced hyperglycemia FSBS/SSI continue home insulin BS 285-391 Decadron in surgery Change SSI to moderate intensity CKD II stable K 5.2 on admit, monitor hypomagnesia 12/22 Mg 1.4 recheck 12/23 DVT/GI prophylaxis warfarin on hold for surgery-resumed 12/22 SCD/MAEVE PPI For more details regarding further plans, please refer to the orders. Plan Plan For more details regarding further plans, please refer to the orders. PABLO ROJAS MD 12/23/16 1038: IM PROGRESS NOTES- Assessment Assessment Doing better. Mg 1.6- replace and then discharge. Long/short term prognosis is poor.The patient was seen and examined by me. Chart reviewed and plan of care formulated. Discussed with, reviewed and agree with PUBLIC SAFETY OFFICER's notes, plan of care and orders with modifications as necessary. Discharge Management - 35 minutes. MILLIE HEAD APRN Dec 23, 2016 07:51 PABLO ROJAS MD Dec 23, 2016 10:38
--- NOTE | 2016-12-23 07:53 | DISCH ---
DISCHARGE FINAL DIAGNOSIS Problems Medical Problems: (1) Acute and chronic cholecystitis Status: Acute (2) Cholelithiasis with acute cholecystitis without biliary obstruction Status: Acute CONDITION ON DISCHARGE: Stable SNF STAY <30 DAYS: Yes POST DISCHARGE ORDERS ACTIVITY ORDERS: Resume previous activity WEIGHT BEARING STATUS: Non weight bearing DIET AFTER DISCHARGE: Cardiac (pureed, thin liquids) WOUND/INCISION CARE: Change dressing CHECKS AFTER DISCHARGE CHECKS AFTER DISCHARGE: Check blood sugar, ac/hs COMMENTS: VS per routine FOLLOW-UP PHYSICIAN FOLLOW-UP: Admit to facility MD LAB ORDERS FOR FOLLOW-UP: CBC with diff, CMP, Mg, PT/INR, pre albumin in AM WARFARIN FOLLOW-UP NEEDED: PT INR MWF TREATMENT/EQUIPMENT ORDERS RESPIRATORY EQUIPMENT NEEDED: Oxygen (prn short of breath or to maintain Sat > 90%), Nebulizer (qid ) MILLIE HEAD APRN Dec 23, 2016 07:53
[2016-12-23] MEDS ORDERED: BISACODYL 10 MG SUPP.RECT PR ONE (08:00)
[2016-12-23] MEDS: POLYETHYLENE GLYCOL 3350 17 GM PACKET. PO SCH (08:50)
[2016-12-23] MEDS: DOCUSATE SODIUM 100 MG CAPSULE PO SCH (08:50)
[2016-12-23] MEDS: busPIRone 10 MG TABLET. PO SCH ×2 (08:50→15:09)
[2016-12-23] MEDS: MULTIVITAMIN with MINERAL TABLET. PO SCH (08:50)
[2016-12-23] MEDS: SENNOSIDES/DOCUSATE 8.6/50MG TABLET. PO SCH (08:51)
[2016-12-23] MEDS: POLYVINYL ALCOHOL 1.4% OPHTH SOLUTION 15ML BOTTLE. OU SCH ×2 (08:51→11:29)
[2016-12-23] MEDS: CHOLECALCIFEROL (VITAMIN D3) 1,000 UNIT TABLET PO SCH (08:51)
[2016-12-23] MEDS: PANTOPRAZOLE 40 MG TABLET. PO SCH (08:51)
[2016-12-23] MEDS: DIVALPROEX EXTENDED RELEASE 500 MG TAB.ER.24H. PO SCH (08:51)
[2016-12-23] MEDS: BENZTROPINE MESYLATE 1 MG TABLET PO SCH (08:51)
[2016-12-23] MEDS: INSULIN ASPART 300 UNITS/3 ML INSULN.PEN SQ SCH ×2 (09:08→11:34)
[2016-12-23 09:20] LABS: ALBUMIN 2.3 g/dL (3.4-5.0); ALBUMIN/GLOBULIN RATIO 0.4 (1.0-1.7); CALCIUM 8.9 mg/dL (8.5-10.1); CREATININE 0.9 mg/dL (0.6-1.0); GFR 77.5; POTASSIUM 3.9 mmol/L (3.5-5.1); TOTAL BILIRUBIN 0.3 mg/dL (0.2-1.0); TOTAL PROTEIN 7.7 g/dL (6.4-8.2)
[2016-12-23 09:33] LABS: BASO # 0.1 x10^3/uL (0.0-0.2); BASO % 1 % (0-3); EOS % 0 % (0-3); HEMATOCRIT 32.1 % (36.0-47.0); HEMOGLOBIN 10.6 g/dL (12.0-15.5); LYMPH % 20 % (24-48); MEAN CORPUSCULAR HEMOGLOBIN 29 pg (25-35); MEAN CORPUSCULAR HGB CONC 33 g/dL (31-37); MEAN CORPUSCULAR VOLUME 87 fL (79-100); MONO % 12 % (0-9); NEUT % 67 % (31-73); PLATELET COUNT 189 x10^3/uL (140-400); RED BLOOD COUNT 3.69 x10^6/uL (3.50-5.40); RED CELL DISTRIBUTION WIDTH 15.7 % (11.5-14.5); WHITE BLOOD COUNT 14.8 x10^3/uL (4.0-11.0)
[2016-12-23 09:46] LABS: INR 1.3 (0.8-1.1); PROTHROMBIN TIME PATIENT 15.6 SEC (11.7-14.0)
[2016-12-23] MEDS ORDERED: MAGNESIUM SULFATE 2GM 50 ML IV ONE ×2 (10:45→11:00)
--- NOTE | 2016-12-23 10:59 | PDOC ---
SHAKILA MARSHALL CALIBRATION CHECKER 12/23/16 1058: SURGICAL PROGRESS NOTE Subjective plans for discharge today per PCP denies pain Vital Signs Vital Signs Date Time Temp Pulse Resp B/P Pulse Ox O2 Delivery O2 Flow Rate FiO2 12/23/16 07:25 Nasal Cannula 2.0 12/23/16 07:00 97.9 108 18 118/64 96 97.9 I&O Intake and Output 12/23/16 07:00 Intake Total 3191 ml Output Total 40 ml Balance 3151 ml Intake Oral 740 ml IV Total 1551 ml Other 900 ml Drainage Total 40 ml # Voids 7 General: Alert, Oriented X3, Cooperative, No acute distress Abdomen: Soft, Other (lap dressings dry, alanis serosang ) Labs Laboratory Tests Test 12/21/16 11:30 12/21/16 11:45 12/21/16 12:10 12/21/16 17:54 Glucose (Fingerstick) 203mg/dL (70-99) 252mg/dL (70-99) Nasal Screen MRSA (PCR) Negative (Negative) Sodium Level 140mmol/L (136-145) Potassium Level 5.2mmol/L (3.5-5.1) Chloride Level 102mmol/L (98-107) Carbon Dioxide Level 31mmol/L (21-32) Anion Gap 7 (6-14) Blood Urea Nitrogen 17mg/dL (7-20) Creatinine 0.9mg/dL (0.6-1.0) Estimated GFR (Cockcroft-Gault) 77.5 BUN/Creatinine Ratio 19 (6-20) Glucose Level 221mg/dL (70-99) Calcium Level 9.5mg/dL (8.5-10.1) Total Bilirubin 0.3mg/dL (0.2-1.0) Aspartate Amino Transf (AST/SGOT) 11U/L (15-37) Alanine Aminotransferase (ALT/SGPT) 14U/L (14-59) Alkaline Phosphatase 78U/L (46-116) Ammonia 22mcmol/L (11-34) Total Protein 8.4g/dL (6.4-8.2) Albumin 2.8g/dL (3.4-5.0) Albumin/Globulin Ratio 0.5 (1.0-1.7) Test 12/21/16 18:52 12/21/16 21:28 12/22/16 07:39 12/22/16 09:25 Glucose (Fingerstick) 258mg/dL (70-99) 287mg/dL (70-99) 343mg/dL (70-99) White Blood Count 17.5x10^3/uL (4.0-11.0) Red Blood Count 4.26x10^6/uL (3.50-5.40) Hemoglobin 12.1g/dL (12.0-15.5) Hematocrit 37.0% (36.0-47.0) Mean Corpuscular Volume 87fL (79-100) Mean Corpuscular Hemoglobin 28pg (25-35) Mean Corpuscular Hemoglobin Concent 33g/dL (31-37) Red Cell Distribution Width 15.8% (11.5-14.5) Platelet Count 251x10^3/uL (140-400) Neutrophils (%) (Auto) 75% (31-73) Lymphocytes (%) (Auto) 14% (24-48) Monocytes (%) (Auto) 11% (0-9) Eosinophils (%) (Auto) 0% (0-3) Basophils (%) (Auto) 1% (0-3) Neutrophils # (Auto) 13.1x10^3uL (1.8-7.7) Lymphocytes # (Auto) 2.4x10^3/uL (1.0-4.8) Monocytes # (Auto) 1.9x10^3/uL (0.0-1.1) Eosinophils # (Auto) 0.0x10^3/uL (0.0-0.7) Basophils # (Auto) 0.1x10^3/uL (0.0-0.2) Segmented Neutrophils % 67% (35-66) Band Neutrophils % 7% (0-9) Lymphocytes % 9% (24-48) Atypical Lymphocytes % (Manual) 1% (0-0) Monocytes % 16% (0-10) Platelet Estimate Adequate (ADEQUATE) Prothrombin Time 14.6SEC (11.7-14.0) Prothromb Time International Ratio 1.2 (0.8-1.1) Sodium Level 136mmol/L (136-145) Potassium Level 4.5mmol/L (3.5-5.1) Chloride Level 98mmol/L (98-107) Carbon Dioxide Level 26mmol/L (21-32) Anion Gap 12 (6-14) Blood Urea Nitrogen 15mg/dL (7-20) Creatinine 1.0mg/dL (0.6-1.0) Estimated GFR (Cockcroft-Gault) 68.7 BUN/Creatinine Ratio 15 (6-20) Glucose Level 367mg/dL (70-99) Calcium Level 9.2mg/dL (8.5-10.1) Magnesium Level 1.4mg/dL (1.8-2.4) Total Bilirubin 0.4mg/dL (0.2-1.0) Aspartate Amino Transf (AST/SGOT) 30U/L (15-37) Alanine Aminotransferase (ALT/SGPT) 19U/L (14-59) Alkaline Phosphatase 83U/L (46-116) Total Protein 9.0g/dL (6.4-8.2) Albumin 2.7g/dL (3.4-5.0) Albumin/Globulin Ratio 0.4 (1.0-1.7) Test 12/22/16 11:50 12/22/16 16:45 12/23/16 07:33 12/23/16 08:50 Glucose (Fingerstick) 391mg/dL (70-99) 285mg/dL (70-99) 310mg/dL (70-99) White Blood Count 14.8x10^3/uL (4.0-11.0) Red Blood Count 3.69x10^6/uL (3.50-5.40) Hemoglobin 10.6g/dL (12.0-15.5) Hematocrit 32.1% (36.0-47.0) Mean Corpuscular Volume 87fL (79-100) Mean Corpuscular Hemoglobin 29pg (25-35) Mean Corpuscular Hemoglobin Concent 33g/dL (31-37) Red Cell Distribution Width 15.7% (11.5-14.5) Platelet Count 189x10^3/uL (140-400) Neutrophils (%) (Auto) 67% (31-73) Lymphocytes (%) (Auto) 20% (24-48) Monocytes (%) (Auto) 12% (0-9) Eosinophils (%) (Auto) 0% (0-3) Basophils (%) (Auto) 1% (0-3) Neutrophils # (Auto) 9.9x10^3uL (1.8-7.7) Lymphocytes # (Auto) 3.0x10^3/uL (1.0-4.8) Monocytes # (Auto) 1.8x10^3/uL (0.0-1.1) Eosinophils # (Auto) 0.0x10^3/uL (0.0-0.7) Basophils # (Auto) 0.1x10^3/uL (0.0-0.2) Prothrombin Time 15.6SEC (11.7-14.0) Prothromb Time International Ratio 1.3 (0.8-1.1) Sodium Level 135mmol/L (136-145) Potassium Level 3.9mmol/L (3.5-5.1) Chloride Level 98mmol/L (98-107) Carbon Dioxide Level 28mmol/L (21-32) Anion Gap 9 (6-14) Blood Urea Nitrogen 13mg/dL (7-20) Creatinine 0.9mg/dL (0.6-1.0) Estimated GFR (Cockcroft-Gault) 77.5 BUN/Creatinine Ratio 14 (6-20) Glucose Level 355mg/dL (70-99) Calcium Level 8.9mg/dL (8.5-10.1) Magnesium Level 1.6mg/dL (1.8-2.4) Total Bilirubin 0.3mg/dL (0.2-1.0) Aspartate Amino Transf (AST/SGOT) 14U/L (15-37) Alanine Aminotransferase (ALT/SGPT) 14U/L (14-59) Alkaline Phosphatase 67U/L (46-116) Total Protein 7.7g/dL (6.4-8.2) Albumin 2.3g/dL (3.4-5.0) Albumin/Globulin Ratio 0.4 (1.0-1.7) Laboratory Tests Test 12/22/16 11:50 12/22/16 16:45 12/23/16 07:33 12/23/16 08:50 Glucose (Fingerstick) 391mg/dL (70-99) 285mg/dL (70-99) 310mg/dL (70-99) White Blood Count 14.8x10^3/uL (4.0-11.0) Red Blood Count 3.69x10^6/uL (3.50-5.40) Hemoglobin 10.6g/dL (12.0-15.5) Hematocrit 32.1% (36.0-47.0) Mean Corpuscular Volume 87fL (79-100) Mean Corpuscular Hemoglobin 29pg (25-35) Mean Corpuscular Hemoglobin Concent 33g/dL (31-37) Red Cell Distribution Width 15.7% (11.5-14.5) Platelet Count 189x10^3/uL (140-400) Neutrophils (%) (Auto) 67% (31-73) Lymphocytes (%) (Auto) 20% (24-48) Monocytes (%) (Auto) 12% (0-9) Eosinophils (%) (Auto) 0% (0-3) Basophils (%) (Auto) 1% (0-3) Neutrophils # (Auto) 9.9x10^3uL (1.8-7.7) Lymphocytes # (Auto) 3.0x10^3/uL (1.0-4.8) Monocytes # (Auto) 1.8x10^3/uL (0.0-1.1) Eosinophils # (Auto) 0.0x10^3/uL (0.0-0.7) Basophils # (Auto) 0.1x10^3/uL (0.0-0.2) Prothrombin Time 15.6SEC (11.7-14.0) Prothromb Time International Ratio 1.3 (0.8-1.1) Sodium Level 135mmol/L (136-145) Potassium Level 3.9mmol/L (3.5-5.1) Chloride Level 98mmol/L (98-107) Carbon Dioxide Level 28mmol/L (21-32) Anion Gap 9 (6-14) Blood Urea Nitrogen 13mg/dL (7-20) Creatinine 0.9mg/dL (0.6-1.0) Estimated GFR (Cockcroft-Gault) 77.5 BUN/Creatinine Ratio 14 (6-20) Glucose Level 355mg/dL (70-99) Calcium Level 8.9mg/dL (8.5-10.1) Magnesium Level 1.6mg/dL (1.8-2.4) Total Bilirubin 0.3mg/dL (0.2-1.0) Aspartate Amino Transf (AST/SGOT) 14U/L (15-37) Alanine Aminotransferase (ALT/SGPT) 14U/L (14-59) Alkaline Phosphatase 67U/L (46-116) Total Protein 7.7g/dL (6.4-8.2) Albumin 2.3g/dL (3.4-5.0) Albumin/Globulin Ratio 0.4 (1.0-1.7) Problem List Problems Medical Problems: (1) Acute and chronic cholecystitis Status: Acute (2) Cholelithiasis with acute cholecystitis without biliary obstruction Status: Acute Assessment/Plan s/p lap luke drain only 40 cc out, dc drain prior to discharge Problems: JS MONTAGUE MD 12/23/16 1329: SURGICAL PROGRESS NOTE Assessment/Plan agree with above to NH today Problems: SHAKILA MARSHALL APRN Dec 23, 2016 10:58 JS MONTAGUE MD Dec 23, 2016 13:29
[2016-12-23 11:00] VITALS: BP 132/69
--- NOTE | 2016-12-23 14:37 | PATHOLOGY ---
PATHOLOGY REPORT * * * * * * * * FINAL DIAGNOSIS: Gallbladder, laparoscopic cholecystectomy: - Cholelithiasis. - Chronic cholecystitis. COMMENT: There is no evidence of malignancy. (SHAYM:; d/t: 12/23/16) REPORT ELECTRONICALLY SIGNED BY: Rogelio Wade M.D. DATE/TIME: 12/23/2016 14:36 * * * * * * * * GROSS PATHOLOGY: Received in formalin labeled "Birgit Dias, gallbladder and contents," is an 8.8 x 4.2 x 3.8 cm, previously opened gallbladder with pink-mcmahon to adipose covered serosal surfaces. Opening the gallbladder reveals a white-mcmahon, smooth to punctate mucosa and an average wall thickness of 0.1 cm. Calculi are present displaying a light brown and multifaceted appearance, and no masses are noted grossly. [employer] Production sections from the body and fundus are submitted along with the proximal margin in cassette A1. (CAA; 12/22/2016) INITIAL CPT CODE(S): A; 84785 Professional services performed [place] [facility] [address] Technical services performed by [facility] at [address] [place] [address]. SPECIMEN(S) RECEIVED: A.Gallbladder and contents CLINICAL HISTORY: Acute cholelithiasis PATIENT: BIRGIT DIAS /AGE: 7 1955 (Age: 61) PATIENT #: [id number] ALT CASE #: SPECIMEN COLLECTION DATE: 12/21/2016 SPECIMEN RECEIVED DATE: 12/22/2016 [facility] [place] [address] - PHONE: [phone] * * * END OF REPORT * * *
[2016-12-23] MEDS ORDERED: WARFARIN 7.5 MG TABLET. PO ONE (16:00)
== END 2016-12-23 17:00 | DRG 418 ==
LOC: INTRAD 06:41 → 4 NORTH 09:31 → OBSVTOIN 17:08
PROVIDERS: ADMIT Internal Medicine; ATTEND Internal Medicine
PROC: BF101ZZ Fluoroscopy of Bile Ducts using Low Osmolar Contrast (ICD-10-PCS; 2016-12-21)
PROC: 0FT44ZZ Resection of Gallbladder, Percutaneous Endoscopic Approach (ICD-10-PCS; principal; 2016-12-21 14:30)
DX: K80.01 Calculus of gallbladder with acute cholecystitis with obstruction (principal); F20.0 Paranoid schizophrenia; E44.0 Moderate protein-calorie malnutrition; E11.22 Type 2 diabetes mellitus with diabetic chronic kidney disease; E11.42 Type 2 diabetes mellitus with diabetic polyneuropathy; Z68.29 Body mass index [BMI] 29.0-29.9, adult; E55.9 Vitamin D deficiency, unspecified; E78.5 Hyperlipidemia, unspecified; F03.90 Unspecified dementia, unspecified severity, without behavioral disturbance, psychotic disturbance, mood disturbance, and anxiety; G40.909 Epilepsy, unspecified, not intractable, without status epilepticus; H54.8 Legal blindness, as defined in USA; I12.9 Hypertensive chronic kidney disease with stage 1 through stage 4 chronic kidney disease, or unspecified chronic kidney disease; E11.51 Type 2 diabetes mellitus with diabetic peripheral angiopathy without gangrene; K21.9 Gastro-esophageal reflux disease without esophagitis; M81.0 Age-related osteoporosis without current pathological fracture; N18.3 Chronic kidney disease, stage 3 (moderate); Z86.73 Personal history of transient ischemic attack (TIA), and cerebral infarction without residual deficits
CPT/HCPCS: 36415; 74150; 74300; 78226; 80053; 82140; 82947; 83735; 85007; 85027; 85610; 87641; 88304; 93005; 94640; 96374; 96375; A9537; C1782; G0378; G0379; J0330; J1100; J1610; J1650; J1815; J2060; J2250; J2270; J2370; J2405; J2543; J2704; J2710; J3010; J3490; J7030; J7060; J7120; J7620; Q9967

== ENCOUNTER 2017-05-03 13:18 | Emergency (ER) | payer MEDICARE, OTHER ==
[~2017-05-03] VITALS: Ht 167.6 cm; Wt 78.9 kg
[~2017-05-03 13:18] MED LIST changes: -ARIP30TA PO; +ARIP30TA4 PO; -CLOP75TA27 PO; +CLOP75TA57 PO; -MAGN400O4 PO; +MAGN400O7 PO; +POLY17PO29 PO; -POLY17PO5 PO; -WARF6TAB PO; +WARF6TAB49 PO
--- NOTE | 2017-05-03 14:26 | RAD ---
Portable chest, 05/03/2017: History: Pneumonia Comparison is made to a study from 10/31/2016. The heart size and pulmonary vascularity are normal. There is calcific plaquing of the aorta. Previously seen pulmonary infiltrates have resolved. The lungs are now clear. There is no evidence of pleural fluid. IMPRESSION: No acute cardiopulmonary abnormality is detected.
[2017-05-03] MEDS ORDERED: IV NORMAL SALINE 1000ML BAG 1,000 ML IV ONE ×2 (14:30→17:30)
--- NOTE | 2017-05-03 14:48 | PHYS DOC ---
Past Medical History Past Medical History: CVA, Dementia, Depression, Diabetes-Type II, GERD, High Cholesterol, Hypertension, Schizophrenia, Other Additional Past Medical Histor: Osteoporosis/Dysphagia/Legal Blindness/Chron antiplatelet/Hemiplegia (L); Past Surgical History: Other Additional Past Surgical Histo: cholecystostomy Alcohol Use: None Drug Use: None Adult General Chief Complaint Chief Complaint: NAUSEA/VOMITING/DIARRHA HPI HPI Patient is a 62 year old female presents with the complaints of nausea vomiting diarrhea. [facility] lives [facility], has hemiplegia on the left side at baseline. PEr Report the patient had elevated ammonia yesterday at the [facility]. Patient is not able to give a history of present illness. History, ROS, physical exam similar to secondary to acuity and clinical condition. Review of Systems Review of Systems Unable to obtain ROS secondary to clinical conditon. Per report : vomiting, diarrhea 184 Pt is following commands now and verbalizing. Denies any new complaints at this time, specifically no new pain. Current Medications Current Medications Current Medications Medications (Trade) Dose Ordered Sig/Gal Start Time Stop Time Status Last Admin Dose Admin Sodium Chloride 1,000 ml @ 1,000 mls/hr 1X ONCE 05/03/17 17:30 05/03/17 18:29 DC 05/03/17 17:30 1,000 MLS/HR Allergies Allergies Allergies Coded Allergies Type Severity Reaction Last Updated Verified I S O L A T I O N *CONTACT* Allergy Unknown 12/21/16 Yes No Known Medication Allergies Allergy Unknown 12/21/16 Yes Physical Exam Physical Exam Constitutional: Well developed, well nourished, no acute distress, non-toxic appearance. [] HENT: Normocephalic, atraumatic, very dry mucus membranes Eyes: PERRLA, EOMI, conjunctiva normal, no discharge. [] Neck: Normal range of motion, no tenderness, supple, no stridor. No meningeal sings, no LAD. Cardiovascular:Heart rate regular rhythm, no murmur [] Lungs & Thorax: Bilateral breath sounds clear to auscultation. Decreased BS at bases. No wheezing, no rhonchi, no rales. Abdomen: Bowel sounds normal, soft, no tenderness, no masses, no pulsatile masses. [] Skin: Warm, dry, no erythema, no rash. [] Back: No tenderness, no CVA tenderness. [] Extremities: No tenderness, no cyanosis, no clubbing, no signs of DVT or vascular insufficiency. Neurologic: Chronic weakness left side. Initially sleepy but later speaking to family and at her baseline per family. Psychologic: Affect normal Current Patient Data Vital Signs Vital Signs Date Time Temp Pulse Resp B/P (MAP) Pulse Ox O2 Delivery O2 Flow Rate FiO2 05/03/17 16:23 100 14 169/72 (104) 98 05/03/17 13:53 Room Air 05/03/17 13:18 98.5 98.5 Lab Values Laboratory Tests Test 05/03/17 14:30 05/03/17 16:40 White Blood Count 14.6 x10^3/uL (4.0-11.0) H Red Blood Count 4.85 x10^6/uL (3.50-5.40) Hemoglobin 14.5 g/dL (12.0-15.5) Hematocrit 43.3 % (36.0-47.0) Mean Corpuscular Volume 89 fL (79-100) Mean Corpuscular Hemoglobin 30 pg (25-35) Mean Corpuscular Hemoglobin Concent 34 g/dL (31-37) Red Cell Distribution Width 14.7 % (11.5-14.5) H Platelet Count 276 x10^3/uL (140-400) Neutrophils (%) (Auto) 69 % (31-73) Lymphocytes (%) (Auto) 24 % (24-48) Monocytes (%) (Auto) 7 % (0-9) Eosinophils (%) (Auto) 0 % (0-3) Basophils (%) (Auto) 1 % (0-3) Neutrophils # (Auto) 10.1 x10^3uL (1.8-7.7) H Lymphocytes # (Auto) 3.4 x10^3/uL (1.0-4.8) Monocytes # (Auto) 1.0 x10^3/uL (0.0-1.1) Eosinophils # (Auto) 0.0 x10^3/uL (0.0-0.7) Basophils # (Auto) 0.1 x10^3/uL (0.0-0.2) Sodium Level 144 mmol/L (136-145) Potassium Level 3.7 mmol/L (3.5-5.1) Chloride Level 104 mmol/L (98-107) Carbon Dioxide Level 28 mmol/L (21-32) Anion Gap 12 (6-14) Blood Urea Nitrogen 20 mg/dL (7-20) Creatinine 1.0 mg/dL (0.6-1.0) Estimated GFR (Cockcroft-Gault) 68.4 BUN/Creatinine Ratio 20 (6-20) Glucose Level 353 mg/dL (70-99) H Lactic Acid Level 3.3 mmol/L (0.4-2.0) H Calcium Level 9.7 mg/dL (8.5-10.1) Magnesium Level 2.0 mg/dL (1.8-2.4) Total Bilirubin 0.2 mg/dL (0.2-1.0) Aspartate Amino Transferase (AST) 71 U/L (15-37) H Alanine Aminotransferase (ALT) 73 U/L (14-59) H Alkaline Phosphatase 128 U/L (46-116) H Ammonia 43 mcmol/L (11-34) H Troponin I Quantitative < 0.017 ng/mL (0.000-0.055) Total Protein 9.6 g/dL (6.4-8.2) H Albumin 3.4 g/dL (3.4-5.0) Albumin/Globulin Ratio 0.5 (1.0-1.7) L Urine Collection Type U cath Urine Color Yellow Urine Clarity Clear Urine pH 6.0 Urine Specific [place] 1.020 Urine Protein Negative mg/dL (NEG-TRACE) Urine Glucose (UA) >=1000 mg/dL (NEG) Urine Ketones (Stick) Negative mg/dL (NEG) Urine Blood Negative (NEG) Urine Nitrite Negative (NEG) Urine Bilirubin Negative (NEG) Urine Urobilinogen Dipstick 0.2 mg/dL (0.2 mg/dL) Urine Leukocyte Esterase Negative (NEG) Urine RBC Occ /HPF (0-2) Urine WBC 0 /HPF (0-4) Urine Squamous Epithelial Cells Few /LPF Urine Transitional Epithelial Cells Occ /LPF Urine Bacteria 0 /HPF (0-FEW) Urine Hyaline Casts Few /HPF Urine Mucus Marked /LPF Laboratory Tests 05/03/17 14:30 Laboratory Tests 05/03/17 14:30 EKG EKG 98, SR, no stemi, EP interpretation at 1508[] Radiology/Procedures Radiology/Procedures [] Course & Med Decision Making Course & Med Decision Making Pertinent Labs and Imaging studies reviewed. (See chart for details) During the course of this patient's evaluation the family showed up at the ED, they said that the patient was in much improved condition compared to yesterday and that the patient was currently at her baseline. The family and member was able to talk to the patient in a normal fashion which is at the baseline of the patient currently. Of note, the labs are unremarkable at this time. Of note, the ammonia level has decreased significantly compared to the lab that was done yesterday per report. Given the current vital signs as well as the fact that the patient states the patient's is at her baseline and the lack of significant findings on evaluation in the ED it does not appear at this time that the patient is in need for inpatient evaluation and patient can return to her facility. The patient should be rechecked and reevaluated by her PCP in one to 2 days Dragon Disclaimer Dragon Disclaimer This electronic medical record was generated, in whole or in part, using a voice recognition dictation system. Departure Departure Impression: Primary Impression: Dehydration Additional Impression: Increased ammonia level Disposition: 01 HOME, SELF-CARE Condition: IMPROVED Referrals: PABLO ROJAS MD (PCP) please be re-examined and re-evaluated by your pcp in 1-2 days. Patient Instructions: Ammonia, FAQs, Dehydration, Adult Scripts Lactulose (LACTULOSE) 20 Gm/30 Ml Solution 20 GM PO BID for 3 Days, [facility] Prov: Jose LAWSON MD 05/03/17 Problem Qualifiers Jose LAWSON MD May 03, 2017 14:48
[2017-05-03 15:10] LABS: BASO # 0.1 x10^3/uL (0.0-0.2); BASO % 1 % (0-3); EOS % 0 % (0-3); HEMATOCRIT 43.3 % (36.0-47.0); HEMOGLOBIN 14.5 g/dL (12.0-15.5); LYMPH # 3.4 x10^3/uL (1.0-4.8); LYMPH % 24 % (24-48); MEAN CORPUSCULAR HEMOGLOBIN 30 pg (25-35); MEAN CORPUSCULAR HGB CONC 34 g/dL (31-37); MEAN CORPUSCULAR VOLUME 89 fL (79-100); MONO % 7 % (0-9); NEUT % 69 % (31-73); PLATELET COUNT 276 x10^3/uL (140-400); RED BLOOD COUNT 4.85 x10^6/uL (3.50-5.40); RED CELL DISTRIBUTION WIDTH 14.7 % (11.5-14.5); WHITE BLOOD COUNT 14.6 x10^3/uL (4.0-11.0)
--- NOTE | 2017-05-03 15:47 | EKG ---
[facility] [address] [place] [id number] Test Date: 2017-05-03 Test Time: 15:03:48 Pat Name: ELIANA LIRA Department: Room: Gender: F C Architect: : [id number] Requested By: Jose LAWSON Order Number: [id number] Reading MD: Vasyl Rios Measurements Intervals [place] Rate: 98 P: -26 MT: 132 QRS: -30 QRSD: 78 T: 42 QT: 402 QTc: 515 Interpretive Statements SINUS RHYTHM NON-SPECIFIC ST/T CHANGES PROLONGED QT Electronically Signed On 05-04-2017 9:03:39 CDT by Vasyl Rios
[2017-05-03 15:49] LABS: CALCIUM 9.7 mg/dL (8.5-10.1); GFR 68.4; POTASSIUM 3.7 mmol/L (3.5-5.1)
[2017-05-03 15:55] LABS: ALBUMIN 3.4 g/dL (3.4-5.0); ALBUMIN/GLOBULIN RATIO 0.5 (1.0-1.7); TOTAL BILIRUBIN 0.2 mg/dL (0.2-1.0); TOTAL PROTEIN 9.6 g/dL (6.4-8.2)
[2017-05-03 16:58] LABS: BILIRUBIN,URINE NEGATIVE (NEG); GLUCOSE,URINE >=1000 mg/dL (NEG); NITRITE,URINE NEGATIVE (NEG); PROTEIN,URINE NEGATIVE (NEG-TRACE); UROBILINOGEN,URINE 0.2 mg/dL (0.2 mg/dL)
[2017-05-03 17:07] LABS: BACTERIA,URINE 0 /HPF (0-FEW); RBC,URINE OCC /HPF (0-2); SQUAMOUS EPITHELIAL CELL,UR FEW /LPF; WBC,URINE 0 /HPF (0-4)
[2017-05-03 18:53] VITALS: BP 96/51
[2017-05-03] MEDS ORDERED: LACT20SO PO (18:57)
== END 2017-05-03 19:10 | disposition home or self-care (01) ==
LOC: ER 13:18
DX: E86.0 Dehydration (principal); E72.29 Other disorders of urea cycle metabolism; G81.94 Hemiplegia, unspecified affecting left nondominant side; E11.9 Type 2 diabetes mellitus without complications; E78.00 Pure hypercholesterolemia, unspecified; F03.90 Unspecified dementia, unspecified severity, without behavioral disturbance, psychotic disturbance, mood disturbance, and anxiety; F20.9 Schizophrenia, unspecified; I10 Essential (primary) hypertension; K21.9 Gastro-esophageal reflux disease without esophagitis; Z86.73 Personal history of transient ischemic attack (TIA), and cerebral infarction without residual deficits; Z90.49 Acquired absence of other specified parts of digestive tract; Z91.041 Radiographic dye allergy status
CPT/HCPCS: 36415; 51702; 71010; 80053; 81001; 82140; 83605; 83735; 84484; 85027; 93005; 96360; 96361; 99285; J7030